=== PATIENT | male | born 1950 | race Caucasian/White ===

== ENCOUNTER 2016-11-24 18:48 | Inpatient (IN) | payer MEDICARE, MEDICAID ==
[2016-11-24] MEDS ORDERED: cefTRIAXone(*) 2 GM in NS 0.9% 100 ML* 100 ML IVPB ONE (19:28)
[2016-11-24] MEDS ORDERED: Azithromycin IV(*) 250 MG in NS 0.9% 250 ML* 250 ML IVPB ONE (19:28)
--- NOTE | 2016-11-24 19:36 | ED ---
Shortness of Breath - HPI Summary HPI Summary: Patient presents for delayed evaluation of shortness of breath with subjective chills today. [place] sick for the last 4 to 5 days, self treating his green productive cough with Coricidin without relief. Feels short of breath at rest and walking. No longer smokes, but previous 30 to 45 pack year history. Denies sick contacts or chest pain. - History of Current Complaint Chief Complaint: EDGeneral Time Seen by Provider: 11/24/16 19:21 Hx Obtained From: Patient Onset/Duration: Gradual Onset Current Severity: Moderate Aggrevating Factors: Nothing Alleviating Factors: Nothing Associated Signs & Symptoms: Cough (Productive) - Allergy/Home Medications Allergies/Adverse Reactions: Allergies Allergy/AdvReac Type Severity Reaction Status Date / Time No Known Allergies Allergy Verified 11/24/16 19:21 Home Medications: Home Medications Aspirin [Tyson Aspirin] 325 mg PO DAILY 11/24/16 [History Confirmed 11/24/16] HYDROcodone/ACETAMIN 5-325 MG* [[place] 5-325 TAB*] 1 tab PO Q6H PRN 11/24/16 [ History Confirmed 11/24/16] PMH/Surg Hx/FS Hx/Imm Hx Previously Healthy: No - Immunization History Date of Tetanus Vaccine: unk Date of Influenza Vaccine: unk Infectious Disease History: No Infectious Disease History: Denies: Traveled Outside the [place] in Last 30 Days - Social History Alcohol Use: None Substance Use Type: Reports: None Smoking Status (MU): Former Smoker Review of Systems Positive: Chills. Negative: Fever Cardiovascular: Negative Negative: Chest Pain Positive: Shortness Of Breath, Cough All Other Systems Reviewed And Are Negative: Yes Physical Exam Triage Information Reviewed: Yes Vital Signs On Initial Exam: Initial Vitals Temp Pulse Resp BP Pulse Ox 99.8 F 80 16 129/69 93 11/24/16 19:05 11/24/16 19:05 11/24/16 19:05 11/24/16 19:05 11/24/16 19:05 Vital Signs Reviewed: Yes Appearance: Positive: No Pain Distress, Well-Nourished, Ill-Appearing Skin: Positive: Warm, Skin Color Reflects Adequate Perfusion, Dry ENT: Positive: Normal ENT inspection, Hearing grossly normal, Pharynx normal, Nasal congestion Respiratory/Lung Sounds: Positive: Decreased Breath Sounds, Wheezes - R middle lobe wheezing Cardiovascular: Positive: Normal, RRR, Pulses are Symmetrical in both Upper and Lower Extremities Abdomen Description: Positive: Nontender, No Organomegaly, Soft Musculoskeletal: Positive: Normal, Strength/ROM Intact Neurological: Positive: Normal, Sensory/Motor Intact, Alert, Oriented to Person Place, Time, CN Intact II-III, Reflexes Intact, NV Bundle Intact Distally - [place] Coma Scale Coma Scale Total: 15 Diagnostics - Vital Signs Vital Signs Temp Pulse Resp BP Pulse Ox 11/24/16 19:05 99.8 F 80 16 129/69 93 - Laboratory Result Diagrams: 11/24/16 19:13 11/24/16 19:13 Lab Statement: Any lab studies that have been ordered have been reviewed, and results considered in the medical decision making process. - EKG No standard instances Cardiac Rate: NL EKG Rhythm: Sinus Rhythm ST Segment: Normal Ectopy: PVCs Course/Dx - Diagnoses Differential Diagnosis/HQI/PQRI: Positive: [place], Pneumonia, Other - Primary concern for post viral bacterial pneumonia. Tachypneic, hypoxic, focal lung sounds and subjective systemic symptoms. Provider Diagnoses: Acute bronchitis, Hypoxia - Physician Notifications Discussed Care of Patient With: Discussed case with hospitalist and he will admit for observation. Discharge - Discharge Plan Condition: Stable Disposition: ADMITTED TO [facility]
[2016-11-24 19:38] LABS: Add Diff/Slide Review? Slide Review Added; Comments Flag Yes; Hematocrit 38 % (42-52); Hemoglobin 12.6 g/dl (14.0-18.0); Mean Corpuscular HGB Conc 33 g/dl (31-36); Mean Corpuscular Hemoglobin 30 pg (27-31); Mean Corpuscular Volume 90 fL (80-94); Mean Platelet Volume 9 um3 (7.4-10.4); Red Blood Count 4.16 10^6/ul (4.0-5.4); Red Cell Distribution Width 13 % (10.5-15); White Blood Count 13.3 10^3/ul (3.5-10.8)
[2016-11-24] MEDS ORDERED: Albuterol/Ipratropium NEB.SOL* Albuterol 2.5 MG/Ipratropium 0.5 MG 3 ML ONE (19:45)
[2016-11-24 19:49] LABS: BUN/Creatinine Ratio 10.9 (8-20); EGFR African American 85.9 (>60); EGFR Non-African American 66.8 (>60); Potassium 3.3 mmol/L (3.5-5.0)
[2016-11-24 19:51] LABS: Troponin I 0.03 ng/mL (<0.04)
[2016-11-24] MEDS: Albuterol/Ipratropium NEB.SOL* Albuterol 2.5 MG/Ipratropium 0.5 MG 3 ML INH SCH ×3 (19:51→20:25)
--- NOTE | 2016-11-24 20:01 | RAD ---
HISTORY: Shortness of breath COMPARISONS: November 21, 2010 VIEWS:1: Single frontal portable view of the chest at 7:37 PM FINDINGS: LINES AND TUBES: None. CARDIOMEDIASTINAL SILHOUETTE: The cardiomediastinal silhouette is normal for portable technique. PLEURA: The costophrenic angles are sharp. No pleural abnormalities are noted. LUNG PARENCHYMA: There is a diffuse reticular pattern with indistinct pulmonary vessels. ABDOMEN: The upper abdomen is clear. There is no subphrenic gas. BONES AND SOFT TISSUES: The patient is status post median sternotomy. IMPRESSION: MILD PULMONARY INTERSTITIAL EDEMA
[2016-11-24] MEDS ORDERED: Iohexol 350* (CONTRAST) 500 ML MDV IV ONE (20:14)
--- NOTE | 2016-11-24 21:12 | RAD ---
HISTORY: Shortness of breath COMPARISONS: None TECHNIQUE: Multiple contiguous axial CT scans of the chest were obtained after the administration of nonionic intravenous contrast, timed to the pulmonary arterial phase of contrast enhancement.. Coronal and sagittal multiplanar reformations are also submitted for review. FINDINGS: The study is limited by patient motion artifact. NECK AND THYROID: The lower neck and thyroid are unremarkable. CHEST WALL: There is no lower cervical, axillary, or supraclavicular lymphadenopathy by size criteria. HEART AND PERICARDIUM: The heart is unremarkable. AORTA AND PULMONARY VASCULATURE: Evaluation of the segmental branches of the lower lungs bilaterally is limited by patient breathing motion artifact. There is no appreciable pulmonary arterial filling defect. There is enlargement of the pulmonary artery compared to the aorta. MEDIASTINUM: There is no mediastinal lymphadenopathy by size criteria. LONI: There is no hilar lymphadenopathy by size criteria. AIRWAY AND ESOPHAGUS: The airway is unremarkable, without endobronchial filling defect. The esophagus is grossly normal. LUNG PARENCHYMA: There is minimal right basilar atelectasis. There is patchy ground glass opacification of the left upper lobe and superior segment of the left lower lobe PLEURA: There is a small right pleural effusion UPPER ABDOMEN: A hepatic cyst is noted BONES AND SOFT TISSUES: Degenerative changes are noted of the spine OTHER: None. IMPRESSION: 1. LIMITED STUDY. 2. WITHIN THE LIMITATIONS OF THE STUDY, THERE IS NO PULMONARY ARTERIAL FILLING DEFECT TO SUGGEST PULMONARY EMBOLISM. 3. ENLARGEMENT OF THE PULMONARY ARTERY SUGGESTIVE OF PULMONARY ARTERIAL HYPERTENSION 4. SMALL RIGHT PLEURAL EFFUSION WITH RIGHT BASILAR ATELECTASIS. 5. PATCHY GROUNDGLASS OPACIFICATION OF THE LEFT UPPER LUNG. WHILE THIS MAY BE INFECTIOUS OR INFLAMMATORY NATURE, RECOMMEND FOLLOW-UP IMAGING WITH CT OF THE CHEST IN 3-6 MONTHS TO DOCUMENT RESOLUTION
--- NOTE | 2016-11-24 22:05 | HP ---
H&P (Free Text) History and Physical: PCP: Gia Espinosa MD Date/Time of Evaluation: 11/24/2016 2200 CC: cough, malaise HPI: Mr David is a 65YO male HX COPD who reports onset of SOB and cough producing copious green phlegm Sunday morning. Since he has had progressive fatigue and SOB along with subjective chills. He denies chest pain, N/V, change in bowel/bladder, or other issues. Upon entering the ED he was found to be hypoxic on room air with an saO2 in the high 80s. His influenza vaccine is up-to -date, but he is uncertain of his pneumonia vaccine status. Of note, he informed the ED provider that he remembers seeing him previously in Dr Espinosa's office & really thought highly of him. However, he has never met the ED provider before. Due to this concern for confusion, hypoxia, and living alone, request for overnight observation was made and will be arranged for monitoring and initiation of IV ABX. PMedHx CAD/CABG COPD DVT on warfarin HTN HLD Allergies No Known Allergies Allergy (Verified 11/24/16 19:21) Ambulatory Orders Atenolol TAB* [Tenormin TAB* 50 MG] 100 mg PO BID 04/07/14 Furosemide TAB* [Lasix TAB*] 40 mg PO BID PRN 04/07/14 Lovastatin 80 mg PO BEDTIME 04/07/14 Nitroglycerin [Nitrostat] 0.4 mg SL PRN 04/07/14 Warfarin TAB(*) [Coumadin TAB(*)] 5 mg PO 1700 04/07/14 hydrALAZINE TAB* [Apresoline TAB*] 25 mg PO TID 04/07/14 Aspirin TAB* 325 mg PO DAILY 05/26/14 Klor-Con M20 20 meq PO DAILY 05/26/14 Losartan Potassium [Cozaar] 50 mg PO DAILY 05/26/14 Aspirin [Tyson Aspirin] 325 mg PO DAILY 11/24/16 HYDROcodone/ACETAMIN 5-325 MG* [[place] 5-325 TAB*] 1 tab PO Q6H PRN 11/24/16 PSurgHx tonsillectomy 4vCABG w/ vein graft x3 failed appendectomy SocHx: quit smoking >15years ago, no alcohol or recreational drug use; single, lives alone; on disability; full code status FamHx: strongly positive for CAD ROS: as above, otherwise reviewed and all were negative Constitutional: NAD, normally developed, overweight white male vitals: Vital Signs Temp 37.7 C 11/24/16 19:05 Pulse 87 11/24/16 21:04 Resp 15 11/24/16 21:04 BP 101/46 11/24/16 21:02 Pulse Ox 95 11/24/16 21:04 Intake & Output 11/23/16 11/24/16 11/24/16 23:59 11:59 23:59 Intake Total 100 Balance 100 Weight 72.575 kg Intake: IV Fluids 100 HEENM: atraumatic; sclera/conjunctiva: non-icteric/clear; hearing: clinically intact; oropharynx: clear, mucosa moist Neck: soft tissue: non-tender; thyroid: normal Pulmonary: clear to auscultation bilaterally, poor aeration, no accessory muscle use CV: RR/RR, normal S1S2, no carotid bruit, no jugular venous distention, 2+ B DP/ PT, no edema Abdominal: soft, non-distended, non-tender, no rebound/guarding/rigidity, normoactive bowel sounds, no hepatosplenomegaly or masses, no costovertebral angle tenderness Musculoskeletal: general: grossly intact; gait: stable Integumental: normal appearance and texture Psychiatric orientation: AA&O to PPS affect: calm mood: pleasant eye contact: good content: reliable responses: timely insight: fair to good Testing: Lab Results 11/24/16 11/24/16 11/24/16 Range/Units 19:13 19:13 19:13 WBC 13.3 H (3.5-10.8) 10^3/ul RBC 4.16 (4.0-5.4) 10^6/ul Hgb 12.6 L (14.0-18.0) g/dl Hct 38 L (42-52) % MCV 90 (80-94) fL MCH 30 (27-31) pg MCHC 33 (31-36) g/dl RDW 13 (10.5-15) % Plt Count 176 (150-450) 10^3/ul MPV 9 (7.4-10.4) um3 Neut % (Auto) 80.6 (38-83) % Lymph % (Auto) 5.3 L (25-47) % [place] % (Auto) 13.6 H (1-9) % Eos % (Auto) 0.3 (0-6) % Baso % (Auto) 0.2 (0-2) % Absolute Neuts (auto) 10.7 H (1.5-7.7) 10^3/ul Absolute Lymphs (auto) 0.7 L (1.0-4.8) 10^3/ul Absolute Monos (auto) 1.8 H (0-0.8) 10^3/ul Absolute Eos (auto) 0 (0-0.6) 10^3/ul Absolute Basos (auto) 0 (0-0.2) 10^3/ul Absolute Nucleated RBC 0 10^3/ul Nucleated RBC % 0 INR (Anticoag Therapy) (0.89-1.11) Sodium 133 (133-145) mmol/L Potassium 3.3 L (3.5-5.0) mmol/L Chloride 96 L (101-111) mmol/L Carbon Dioxide 28 (22-32) mmol/L Anion Gap 9 (2-11) mmol/L BUN 12 (6-24) mg/dL Creatinine 1.10 (0.67-1.17) mg/dL Est GFR ( Amer) 85.9 (>60) Est GFR (Non-Af Amer) 66.8 (>60) BUN/Creatinine Ratio 10.9 (8-20) Glucose 125 H (70-100) mg/dL Lactic Acid 1.6 (0.5-2.0) mmol/L Calcium 9.0 (8.6-10.3) mg/dL Troponin I 0.03 (<0.04) ng/mL 11/24/16 Range/Units 19:13 WBC (3.5-10.8) 10^3/ul RBC (4.0-5.4) 10^6/ul Hgb (14.0-18.0) g/dl Hct (42-52) % MCV (80-94) fL MCH (27-31) pg MCHC (31-36) g/dl RDW (10.5-15) % Plt Count (150-450) 10^3/ul MPV (7.4-10.4) um3 Neut % (Auto) (38-83) % Lymph % (Auto) (25-47) % [place] % (Auto) (1-9) % Eos % (Auto) (0-6) % Baso % (Auto) (0-2) % Absolute Neuts (auto) (1.5-7.7) 10^3/ul Absolute Lymphs (auto) (1.0-4.8) 10^3/ul Absolute Monos (auto) (0-0.8) 10^3/ul Absolute Eos (auto) (0-0.6) 10^3/ul Absolute Basos (auto) (0-0.2) 10^3/ul Absolute Nucleated RBC 10^3/ul Nucleated RBC % INR (Anticoag Therapy) 1.74 H (0.89-1.11) Sodium (133-145) mmol/L Potassium (3.5-5.0) mmol/L Chloride (101-111) mmol/L Carbon Dioxide (22-32) mmol/L Anion Gap (2-11) mmol/L BUN (6-24) mg/dL Creatinine (0.67-1.17) mg/dL Est GFR ( Amer) (>60) Est GFR (Non-Af Amer) (>60) BUN/Creatinine Ratio (8-20) Glucose (70-100) mg/dL Lactic Acid (0.5-2.0) mmol/L Calcium (8.6-10.3) mg/dL Troponin I (<0.04) ng/mL ECG, personally reviewed: sinus 1st degree AV block rate 80, PVCs, no ischemia pCXR, personally reviewed: IMPRESSION: MILD PULMONARY INTERSTITIAL EDEMA CTA chest, personally reviewed: IMPRESSION: 1. LIMITED STUDY. 2. WITHIN THE LIMITATIONS OF THE STUDY, THERE IS NO PULMONARY ARTERIAL FILLING DEFECT TO SUGGEST PULMONARY EMBOLISM. 3. ENLARGEMENT OF THE PULMONARY ARTERY SUGGESTIVE OF PULMONARY ARTERIAL HYPERTENSION 4. SMALL RIGHT PLEURAL EFFUSION WITH RIGHT BASILAR ATELECTASIS. 5. PATCHY GROUNDGLASS OPACIFICATION OF THE LEFT UPPER LUNG. WHILE THIS MAY BE INFECTIOUS OR INFLAMMATORY NATURE, RECOMMEND FOLLOW-UP IMAGING WITH CT OF THE CHEST IN 3-6 MONTHS TO DOCUMENT RESOLUTION Impression: 65M presenting with confusion and bronchitis concerning for early pneumonia DIAGNOSIS & PLAN Primary bronchitis vs early pneumonia : IVFs : anti-tussives : IV azithromycin & ceftriaxone : supportive care COPD exacerbation : supplemental oxygen : albuterol nebs : mometasone/formoterol : tiotropium : IV methylprednisolone : guaifenesin : incentive spirometry confusion, suspected : likely 2nd infection, monitor Secondary CAD/CABG : continue aspirin DVT : continue warfarin : monitor INR periodically HTN : continue losartan, atenolol, & hydralazine : hold furosemide HLD : continue lovastatin Admission Rational: observation for bronchitis & COPD exacerbation DVTp: warfarin Code Status: full HCP: [facility]лена [facility]
[2016-11-24] MEDS ORDERED: Acetaminophen TAB* 325 MG PO PRN (22:33)
[2016-11-24] MEDS ORDERED: Albuterol 2.5 MG/3 ML NEB.SOL* (0.083%) INH PRN (22:33)
[2016-11-24] MEDS ORDERED: Melatonin (NF) 3 MG TAB PO PRN (22:33)
[2016-11-24] MEDS ORDERED: traMADol TAB* 50 MG PO PRN (22:37)
[2016-11-24] MEDS ORDERED: Ondansetron INJ* 2 MG/ML VIAL IV PRN (22:37)
[2016-11-24] MEDS ORDERED: Benzonatate CAP* 100 MG PO PRN (22:58)
[2016-11-24] MEDS ORDERED: methylPREDNISolone 125 MG* 2 ML VIAL IV ONE (23:19)
[2016-11-25] MEDS: Azithromycin IV(*) 500 MG in NS 0.9% 250 ML* 250 ML IVPB SCH ×2 (00:54→23:28)
[2016-11-25] MEDS: CMCS Melatonin (NF) 3 MG TAB PO PRN (01:04)
[2016-11-25] MEDS: NS 0.9% 1000 ML* 1,000 ML IV SCH ×2 (01:05→10:14)
[2016-11-25] MEDS: Albuterol 2.5 MG/3 ML NEB.SOL* (0.083%) INH SCH ×4 (01:48→21:16)
[2016-11-25] MEDS: Omeprazole CAP* 20 MG PO SCH (05:58)
[2016-11-25 06:25] LABS: Hematocrit 35 % (42-52); Hemoglobin 11.7 g/dl (14.0-18.0); Mean Corpuscular HGB Conc 34 g/dl (31-36); Mean Corpuscular Hemoglobin 30 pg (27-31); Mean Corpuscular Volume 91 fL (80-94); Mean Platelet Volume 9 um3 (7.4-10.4); Red Blood Count 3.85 10^6/ul (4.0-5.4); Red Cell Distribution Width 13 % (10.5-15); White Blood Count 9.7 10^3/ul (3.5-10.8)
[2016-11-25 06:35] LABS: Calcium 8.7 mg/dL (8.6-10.3); EGFR African American 95.9 (>60); EGFR Non-African American 74.5 (>60); Potassium 3.5 mmol/L (3.5-5.0)
[2016-11-25] MEDS: Mometasone/Formoter 200/5 MDI INH SCH ×2 (07:26→21:16)
[2016-11-25] MEDS: Tiotropium CAP.INH* CAP.INH/18 MCG (USE ORDER SET !) INH SCH (07:26)
[2016-11-25] MEDS: Losartan TAB* 25 MG PO SCH (08:17)
[2016-11-25] MEDS: Aspirin TAB* 325 MG PO SCH (08:18)
[2016-11-25] MEDS: guaiFENesin ER TAB 600 MG PO SCH ×2 (08:18→19:57)
[2016-11-25] MEDS: hydrALAZINE TAB* 25 MG PO SCH ×3 (08:18→19:58)
[2016-11-25] MEDS: Docusate CAP* 100 MG PO SCH ×2 (08:18→19:58)
[2016-11-25] MEDS: Atenolol TAB* 50 MG PO SCH ×2 (08:21→19:58)
[2016-11-25] MEDS ORDERED: Spiriva Inhaler DEVICE* 1 EACH DEVICE INH ONE (09:00)
[2016-11-25] MEDS ORDERED: methylPREDNISolone SOD 40 MG* 1 ML VIAL IV SCH (09:00)
--- NOTE | 2016-11-25 13:03 | PN ---
Subjective Date of Service: 11/25/16 Interval History: Patient seen this morning. Reports symptoms are improving. Cough, wheezing has improved. No further chills. Has not been up to ambulate much. Family History: Unchanged from Admission Social History: Unchanged from Admission Past Medical History: Unchanged from Admission Objective Active Medications: Acetaminophen (Tylenol Tab*) 650 mg PO Q6H PRN Albuterol (Ventolin 2.5 Mg/3 Ml Neb.Yuli*) 2.5 mg INH Q2H PRN Albuterol (Ventolin 2.5 Mg/3 Ml Neb.Yuli*) 2.5 mg INH [id number] AWAKE KIRSTIE Aspirin (Aspirin Tab*) 325 mg PO DAILY KIRSTIE Atenolol (Tenormin Tab*) 100 mg PO BID KIRSTIE Atorvastatin Calcium (Lipitor*) 20 mg PO BEDTIME KIRSTIE Benzonatate (Tessalon Cap*) 100 mg PO TID PRN Docusate Sodium (Colace Cap*) 200 mg PO BID KIRSTIE Guaifenesin (Mucinex*) 1,200 mg PO BID KIRSTIE Hydralazine HCl (Apresoline Tab*) 25 mg PO TID [facility] Ceftriaxone Sodium 1,000 mg/ (Sodium Chloride) 50 mls @ 200 mls/hr IVPB Q24H KIRSTIE Azithromycin 500 mg/ Sodium (Chloride) 250 mls @ 250 mls/hr IVPB Q24H [facility] Losartan Potassium (Cozaar Tab*) 50 mg PO DAILY [facility] Melatonin (Melatonin (Nf)) 3 mg PO BEDTIME PRN; Protocol Mometasone Furoate/Formoterol Fumar (Dulera 200/5 Mdi*) 2 puff INH BID KIRSTIE Omeprazole (Prilosec Cap*) 20 mg PO DAILY@0600 [facility] Ondansetron HCl (Zofran Inj*) 4 mg IV Q6H PRN Prednisone (Deltasone Tab*) 40 mg PO DAILY KIRSTIE Tiotropium [place] (Spiriva Cap.Inh*) 1 cap INH DAILY KIRSTIE Tramadol HCl (Ultram*) 50 mg PO Q6H PRN Warfarin Sodium (Coumadin Tab(*)) 5 mg PO 1700 [facility] Vital Signs 11/25/16 11/25/16 11/25/16 01:18 01:49 01:52 Temperature 99.9 F Pulse Rate 73 62 73 Respiratory 19 14 19 Rate Blood Pressure 101/65 101/65 (mmHg) O2 Sat by Pulse 92 92 92 Oximetry 11/25/16 11/25/16 11/25/16 01:55 04:18 07:30 Temperature Pulse Rate 65 63 Respiratory 19 16 14 Rate Blood Pressure 116/68 (mmHg) O2 Sat by Pulse 89 92 Oximetry 11/25/16 11/25/16 07:54 08:00 Temperature 97.8 F Pulse Rate 72 Respiratory 16 16 Rate Blood Pressure 100/61 (mmHg) O2 Sat by Pulse 94 Oximetry Oxygen Devices in Use Now: Nasal Cannula - 2L Appearance: Middle-aged, , obese M, laying in bed in NAD Eyes: No Scleral Icterus Ears/Nose/Mouth/Throat: Mucous Membranes Moist Neck: NL Appearance and Movements; NL JVP Respiratory: Symmetrical Chest Expansion and Respiratory Effort, Clear to Auscultation Cardiovascular: RRR, - - ZANDER Abdominal: NL Sounds; No Tenderness; No Distention Lymphatic: No Cervical Adenopathy Extremities: No Edema Skin: No Rash or Ulcers Neurological: Alert and Oriented x 3 Result Diagrams: 11/25/16 06:13 11/25/16 06:13 Microbiology and Other Data: Microbiology 11/24/16 23:40 Nasal Screen MRSA (PCR)(YUE) - Final Nasal Mrsa Negative 11/24/16 23:40 Influenza Types A,B Antigen (YUE) - Final Nasopharyngeal Specimen received for Influenza A/B Molecular testing Assess/Plan/Problems-Billing Assessment: Acute hypoxic respiratory failure 2/2 CAP and COPD exacerbation in a 65 yo M with hx of HTN, CAD, chronic systolic CHF, thrombus (DVT vs intracardiac) on coumadin - Patient Problems (1) CAP (community acquired pneumonia) Current Visit: Yes Comment: Continue CTX and Azithromycin. Leukocytosis resolved. Wean O2 as able. (2) COPD exacerbation Current Visit: Yes Comment: Reported wheezing on previous physical exams. No hx of COPD but hx of tobacco abuse. Will switch to oral Prednisone 40 mg daily. Continue Dulera, Spiriva and albuterol. (3) Confusion Current Visit: Yes Comment: Seems to have resolved (4) CAD (coronary artery disease) Current Visit: Yes Comment: Continue ASA, statin, beta-lacie (held this AM due to borderline BPs) (5) Chronic systolic CHF (congestive heart failure) Current Visit: Yes Comment: Holding Lasix. Continue remainder of home cardiac medications. (6) Thrombus Current Visit: Yes Comment: From patient hx sounds like intracardiac but no documentation. Contiune coumadin. Monitor INR (7) DVT prophylaxis Current Visit: Yes Comment: Herminio
[2016-11-25] MEDS: Heparin VIAL(*) 5000 UNITS/ML VIAL (FIVE THOUSAND) SUBCUT SCH ×2 (14:08→23:28)
[2016-11-25] MEDS ORDERED: Warfarin TAB(*) 5 MG PO SCH (17:00)
[2016-11-25] MEDS ORDERED: cefTRIAXone VIAL(*) 1,000 MG in NS 0.9% 50 ML* 50 ML IVPB SCH (18:00)
[2016-11-25] MEDS ORDERED: Atorvastatin* 20 MG TAB PO SCH (21:00)
[2016-11-26] MEDS: CMCS Melatonin (NF) 3 MG TAB PO PRN (01:17)
[2016-11-26] MEDS: Albuterol 2.5 MG/3 ML NEB.SOL* (0.083%) INH SCH ×2 (03:04→07:43)
[2016-11-26] MEDS: Omeprazole CAP* 20 MG PO SCH (05:11)
[2016-11-26] MEDS: Heparin VIAL(*) 5000 UNITS/ML VIAL (FIVE THOUSAND) SUBCUT SCH (05:11)
[2016-11-26 07:26] VITALS: BP 118/62
[2016-11-26] MEDS: Aspirin TAB* 325 MG PO SCH (07:28)
[2016-11-26] MEDS: hydrALAZINE TAB* 25 MG PO SCH (07:28)
[2016-11-26] MEDS: Docusate CAP* 100 MG PO SCH (07:28)
[2016-11-26] MEDS: Atenolol TAB* 50 MG PO SCH (07:28)
[2016-11-26] MEDS: guaiFENesin ER TAB 600 MG PO SCH (07:28)
[2016-11-26] MEDS: Losartan TAB* 25 MG PO SCH (07:28)
[2016-11-26] MEDS: Mometasone/Formoter 200/5 MDI INH SCH (07:45)
[2016-11-26] MEDS: Tiotropium CAP.INH* CAP.INH/18 MCG (USE ORDER SET !) INH SCH (07:45)
[2016-11-26] MEDS ORDERED: predniSONE TAB* 20 MG PO SCH (09:00)
--- NOTE | 2016-11-26 10:46 | DCNOTE ---
Patient seen this morning. Says he feels well. Still coughing, productive. Breathing well. Has been dressed and ready to leave since 6 AM. On exam, RRR, s1 and s2 present, ZANDER, lungs CTA B/L, no LE edema Discharge home today on ABx and COPD medications. Told patient to hold on returning to work until he is feeling better.
--- NOTE | 2016-11-26 22:58 | DS ---
DISCHARGE SUMMARY: DATE OF ADMISSION: 11/24/16 DATE OF DISCHARGE: 11/26/16 PRIMARY CARE PHYSICIAN: Antione Espinosa MD PRINCIPAL DISCHARGE DIAGNOSES: 1. Community-acquired pneumonia. 2. Chronic obstructive pulmonary disease exacerbation. SECONDARY DIAGNOSES: 1. Coronary artery disease, status post CABG. 2. Thrombus, on warfarin. 3. Hypertension. 4. Hyperlipidemia. DISCHARGE MEDICATION REGIMEN: 1. Albuterol inhaler 1 puff inhaled every 4 hours as needed for shortness of breath or wheezing. 2. Cefpodoxime 200 mg by mouth 2 times daily. 3. Azithromycin 500 mg by mouth daily. 4. Spiriva 1 capsule inhaled daily. 5. Guaifenesin 1200 mg by mouth 2 times daily. 6. Prednisone 40 mg by mouth daily. 7. Aspirin 325 mg by mouth daily. 8. Hydralazine 25 mg by mouth 2 times daily. 9. Warfarin 5 mg by mouth daily. 10. Losartan 50 mg by mouth daily. 11. Lovastatin 80 mg by mouth daily. 12. Klor-Con 20 mEq by mouth daily. 13. Atenolol 100 mg by mouth 2 times daily. 14. Lasix 40 mg by mouth 2 times daily. 15. [place] 1 tablet by mouth every 6 hours as needed for pain. STUDIES DONE DURING HOSPITALIZATION: Chest x-ray, impression: Mild pulmonary interstitial edema. CTA of the chest, impression: No pulmonary arterial filling defect to suggest PE, enlargement of the pulmonary artery suggestive of pulmonary arterial hypertension, small right pleural effusion with right basilar atelectasis, patchy ground-glass opacification of the left upper lung. Others may be infectious or inflammatory. I recommend followup imaging with CT of the chest from 3 to 6 months to document resolution. HISTORY OF PRESENT ILLNESS AND HOSPITAL SUMMARY: Please see the full history and physical by Dr. Neal Peralta for full details. Briefly, Mr. David is a 65- year-old man with past medical history as above, who presents to the hospital with progressive fatigue, shortness of breath, cough, and subjective chills. The patient had some signs of pneumonia on imaging, also had an elevated white count of 13. He was started on IV antibiotics as well as steroids, nebulizers, and inhalers. The patient's symptoms rapidly improved. He was discharged home to complete a course of antibiotics as now the patient is also started on some COPD medications, which can be continued or discontinued at the discretion of the patient's PCP. Please note that the patient was initially supposed to be prescribed cefpodoxime , azithromycin; however, he felt that he was going to have a problem getting to the pharmacy the day of discharge, so he was sent home with a few days of Augmentin until he was able to get to the pharmacy. He was also given 1 to 2 days of some of daily newly prescribed medications. The patient should follow up with Dr. Espinosa as an outpatient. TIME SPENT: Total time spent on this discharge 35 minutes. This is a summary of hospitalization. Please see the full medical record for further details. CC: Antione Espinosa MD* [id number]/[facility] #: [id number] MTDD
== END 2016-11-26 13:10 | disposition home or self-care (01) | DRG 194 ==
LOC: ED 18:48 → MED 23:25 → OBSVTOIN 11-25 16:06
PROVIDERS: ADMIT Hospitalist; ATTEND Hospitalist
DX: J18.8 Other pneumonia, unspecified organism (principal); J44.1 Chronic obstructive pulmonary disease with (acute) exacerbation; I11.0 Hypertensive heart disease with heart failure; I50.22 Chronic systolic (congestive) heart failure; I25.810 Atherosclerosis of coronary artery bypass graft(s) without angina pectoris; E78.5 Hyperlipidemia, unspecified; Z79.82 Long term (current) use of aspirin; Z79.01 Long term (current) use of anticoagulants; Z79.899 Other long term (current) drug therapy; Z82.49 Family history of ischemic heart disease and other diseases of the circulatory system; Z95.1 Presence of aortocoronary bypass graft; Z86.718 Personal history of other venous thrombosis and embolism; Z87.891 Personal history of nicotine dependence
CPT/HCPCS: 36415; 71010; 71275; 80048; 83605; 84484; 85025; 85610; 86803; 87040; 87077; 87150; 87205; 87502; 87641; 93005; 94640; 94760; A9270-GY; J0456; J0696; J1644; J2920; J2930; J7512; Q9967

== ENCOUNTER 2017-02-13 10:29 | Inpatient (IN) | payer MEDICARE, MEDICAID ==
[2017-02-13 11:06] LABS: Hematocrit 34 % (42-52); Mean Corpuscular HGB Conc 33 g/dl (31-36); Mean Corpuscular Hemoglobin 29 pg (27-31); Mean Corpuscular Volume 89 fL (80-94); Mean Platelet Volume 8 um3 (7.4-10.4); Red Blood Count 3.79 10^6/ul (4.0-5.4); Red Cell Distribution Width 15 % (10.5-15); White Blood Count 6.5 10^3/ul (3.5-10.8)
[2017-02-13 11:13] LABS: Albumin 3.2 g/dL (3.2-5.2); BUN/Creatinine Ratio 19.3 (8-20); Calcium 7.5 mg/dL (8.6-10.3); EGFR African American 82.2 (>60); EGFR Non-African American 63.9 (>60); Globulin 2.5 g/dL (2-4); Magnesium 1.5 mg/dL (1.9-2.7); Total Bilirubin 0.9 mg/dL (0.2-1.0); Total Protein 5.7 g/dL (6.4-8.9)
[2017-02-13 11:14] LABS: Troponin I 0.02 ng/mL (<0.04)
--- NOTE | 2017-02-13 11:14 | RAD ---
Indication: Palpitations, lightheadedness. Comparison: December 07, 2016 chest radiograph and December 06, 2016 CT. Technique: Upright AP 1058 hours Report: Resolution of previous inflammatory infiltrate at the LEFT lung base. Diffuse mild prominence of the interstitial markings. No alveolar consolidation, pleural effusion, pneumothorax. Median sternotomy wires. Mild cardiomegaly. Unremarkable central pulmonary vasculature and mediastinal contours. Negative for free air beneath the diaphragm. IMPRESSION: Cardiomegaly without evidence for pulmonary edema.
[2017-02-13 11:33] LABS: TSH (Thyroid Stimulating Horm) 2.06 mcIU/mL (0.34-5.60)
[2017-02-13] MEDS ORDERED: Magnesium Sulfate 2 GM IV* 2 GM/50 ML BAG IVPB ONE (11:51)
[2017-02-13] MEDS ORDERED: Acetaminophen TAB* 325 MG PO PRN (11:51)
[2017-02-13] MEDS ORDERED: Potassium Chlor TAB* 20 MEQ TAB.ER PO ONE (11:51)
[2017-02-13] MEDS ORDERED: HYDROcodone/ACETAMIN 5-325 MG* 1 TAB PO PRN (11:55)
[2017-02-13] MEDS ORDERED: Albuterol 2.5 MG/3 ML NEB.SOL* (0.083%) INH PRN (11:55)
[2017-02-13] MEDS ORDERED: Warfarin TAB(*) 2.5 MG PO SCH (12:00)
[2017-02-13] MEDS ORDERED: KCL 20 MEQ/100 ML IVPREMIX* 20 MEQ/100 ML BAG ONE ×2 (12:10→22:11)
[2017-02-13] MEDS: KCL 20 MEQ/100 ML IVPREMIX* 20 MEQ/100 ML BAG IV SCH ×3 (12:11→22:13)
[2017-02-13 16:21] LABS: BUN/Creatinine Ratio 16.4 (8-20); Calcium 9.2 mg/dL (8.6-10.3); EGFR African American 68.2 (>60); Potassium 4.1 mmol/L (3.5-5.0)
[2017-02-13 16:22] LABS: Troponin I 0.03 ng/mL (<0.04)
--- NOTE | 2017-02-13 16:26 | HP ---
HISTORY AND PHYSICAL: DATE OF ADMISSION: 02/13/17 ATTENDING PROVIDER: Dr. Becerra * (dictated by Stew De León NP) PRIMARY CARE PROVIDER: Dr. Espinosa. CONSULTING CAMPAIGN FUNDRAISER: Dr. Milian. PRIMARY CAMPAIGN FUNDRAISER: Dr. Anaya. CHIEF COMPLAINT: 1. Lightheadedness. 2. Almost passed out. HISTORY OF PRESENT ILLNESS: Mr. David is a 66-year-old male patient with fairly significant cardiac history. He has a history of COPD, CHF, CAD. His last known EF is around 30-35%. He has a history of atrial thrombus. He has a history of hypertension and he has a history of hyperlipidemia. He comes in to the ER today because yesterday he said he moved recently to [employer], he worked all day and he felt very tired and weak. He was more short of breath than he normally was with that activity. He never had any chest pain though. 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 He felt like he was going to pass out, although he did not pass out. He never had any chest pain. He did state that he felt short of breath. His boss called the nurse that works there and they were concerned and sent him to the hospital. He says the only change in the medication that he has had recently has been his warfarin. He says he has been taking his diuretics, his atenolol and his other medications as prescribed and they have not changed in sometime. He denies any recent nausea, vomiting or diarrhea. No fevers. He denied having any chest pressure, any chest heaviness, no discomfort whatsoever. He was concerned because he felt like he was again going to faint, so he came in to the hospital. He was evaluated. It was noted that he appeared to have an EKG with a heart rate remained around 50 and appeared to be in Wenckebach. Because of these findings, the hospitalist service was asked to evaluate for admission. It is also noted that he had several electrolyte abnormalities and we were asked to evaluate for admission. PAST MEDICAL HISTORY: Significant for: 1. COPD. 2. CHF. 3. Coronary artery disease. 4. Atrial thrombus. 5. Hypertension. 6. Hyperlipidemia. PAST SURGICAL HISTORY: He has had an appendectomy, tonsillectomy and he has had a CABG. HOME MEDICATIONS: Include: 1. Ventolin 1 puff inhaled every 4 hours as needed. 2. [place] 1 tablet p.o. q.i.d. as needed. 3. Lasix 80 mg p.o. b.i.d. 4. Albuterol 2.5 mg inhaled q.i.d. as needed. 5. Nitro 0.4 mg sublingual q. 5 minutes x3 for chest pain. 6. Tessalon Perles 200 mg p.o. b.i.d. as needed. 7. Aspirin 325 mg p.o. daily. 8. Mevacor 80 mg at bedtime. 9. Norvasc 10 mg daily. 10. Coumadin 5 mg on Sunday and Sunday. 11. Coumadin 2.5 mg on Sunday, Sunday, Sunday, , Sunday. 12. Spiriva 1 capsule inhaled daily. 13. Atenolol 100 mg p.o. b.i.d. 14. Hydralazine 25 mg p.o. t.i.d. as needed. 15. Potassium 20 mEq p.o. daily. 16. Losartan 50 mg p.o. daily. ALLERGIES TO MEDICATIONS: No known drug allergies. FAMILY HISTORY: Both his parents had [place]. SOCIAL HISTORY: He is a former smoker. He does not drink alcohol. He denies any recreational drug use. Surrogate decision maker is his friend Arely. REVIEW OF SYSTEMS: There is no documented fever. He denied having any significant weight change. There was no ear discharge. He denies having any rhinorrhea. There is no sore throat. No thyroid enlargement. He denies having any chest pain. There is no orthopnea. There is no nocturnal dyspnea. There is no abdominal pain. No nausea, vomiting. No dysuria. No frequency. There was no loss of consciousness, although he felt like he is going to pass out. No seizure activity. Review of 14 systems completed, all others negative. PHYSICAL EXAMINATION GENERAL: Mr. David is a 66-year-old male patient. He is sitting in the ER stretcher. He does not appear to be in any acute distress. He is awake and he is alert. VITAL SIGNS: Blood pressure 100/50 with a pulse of 50, respirations 20, O2 sat 95%, temperature 97.4. HEENT: Head is atraumatic and normocephalic. Eyes: EOMs are intact. His sclerae were anicteric and not pale. Throat: Oral mucosa appeared to be moist. He had no oropharyngeal erythema. NECK: Supple. LUNGS: Clear to auscultation bilaterally. No wheezes, rales or rhonchi. HEART: Sounds S1, S2. He was bradycardic. There are no murmurs, rubs or gallops. ABDOMEN: Soft, flat, nontender. Bowel sounds present. EXTREMITIES: Pulses were 2+ throughout. He is able to move all 4 extremities with 5/5 strength and no peripheral edema. NEUROLOGIC: He is awake. He is alert. He is oriented x3. His senior datastage developer are equal. His tongue is midline. He had no gross focal deficits. SKIN: Intact. LABORATORY DATA/IMAGING STUDIES: The labs today reveal WBC of 6.5, RBC of 3.79 , hemoglobin of 11.0, hematocrit of 34 and a platelet count of 172. His INR was 2.11. His sodium is 140, potassium is 3.0, chloride 108, bicarb 23, BUN 22 , creatinine 1.14, glucose of 100, lactate 1.3. Calcium is 7.5, mag 1.5. Total bilirubin is 0.9, AST 28, ALT 18. Alkaline phosphatase 44. Troponin is 0.02. BNP 281, albumin 3.2, TSH of 2.06. He had an EKG obtained today. Initially, it appeared to me, it looks to be like a Wenckebach with a rate of 50 with PVC. There is question if it is atrial fibrillation but I believe this appears to be Wenckebach. He had repeat EKG. His rate was noted to be 40 and again appears to be in a Wenckebach and he also appears to be in and out of bigemini and trigemini. Again, he is asymptomatic with this as his blood pressure is holding at 100/60. He had a chest x-ray obtained today and on my review, I did not appreciate any acute infiltrates or effusions. Radiology read as cardiomegaly without evidence of pulmonary edema. He had an echo just done in November of this year, just about two and a half months ago which showed an EF of 30%. Old medical records were reviewed. ASSESSMENT AND PLAN: Mr. David is a 66-year-old male patient coming into the ER today with complaints of feeling like he was going to faint and feeling dizzy. On evaluation here today, he was found to be bradycardic and because of this, we were asked to evaluate for admission. He will be admitted under observation status for: 1. Bradycardia. Again, certainly he has many factors that could be contributing to this. He is on a pretty high dose of atenolol 100 b.i.d. In addition to this, his electrolytes are profoundly low which is probably from his Lasix that he has been taking. The plan at this point, I did touch base with Dr. Milian and he is in agreement that we should try to cut the beta-lacie , get his potassium around 4 and get his magnesium up to 2. I am giving him 2 g of mag and I am giving him about 100 mEq of potassium to see if we can raise this up and see if this helps particularly with the bigemini and the heart rate and will decrease the beta- lacie. Hold tonight's dose altogether and tomorrow, I have ordered 50 mg in the morning and 50 at night with hold parameters for heart rate less than 60 or blood pressure less than 100. I am also going to go ahead and place him on telemetry. We will cycle his troponins. His TSH was negative. I do not think there is a need for echo at this point and again Cardiology will be following to help us. I have asked the nurses to place pacer pads in case he becomes symptomatic, which he is not now. 2. Hypotension. Again, this is probably multifactorial. Bradycardia certainly is not helping his blood pressure, though it is greater than 100. He is asymptomatic with it. I think for the time being, I would like to hold all of his medications with the exception of atenolol, we will give that tomorrow and we will reintroduce them slowly if we are able to. 3. Chronic obstructive pulmonary disease. Continue with his medications as prescribed. 4. History of congestive heart failure. He does not appear to be in failure. We will diurese as needed. 5. Coronary artery disease. He is on statin and aspirin, continue and we will continue with beta-lacie with hold parameters. 6. History of atrial thrombus. His INR is therapeutic. We will continue the warfarin. 7. Hypertension. Again, holding medications in the settings if his systolics are around 90 to 100. 8. Hyperlipidemia. Continue his Mevacor. 9. DVT prophylaxis. His INR is therapeutic at 2. We will continue his warfarin. 10. Fluid, electrolytes, nutrition. He can have a heart healthy diet. 11. Code status is full code. TIME SPENT: Time spent on the admission was 60 minutes, greater than half the time was spent [id number] with the patient obtaining my history and physical; the other time was spent going over the plan of care with patient and implementing plan of care. I did discuss the plan of care with my attending, Dr. Becerra; he is in agreement. I also discussed the plan of care with Dr. Milian; he was in agreement. STEW DE LEÓN NP CC: Dr. Espinosa; Dr. Milian; Dr. Anaya * [id number]/[facility] #: [id number] [facility] CENTERKandace
[2017-02-13] MEDS: Atorvastatin* 20 MG TAB PO SCH (20:11)
--- NOTE | 2017-02-13 23:44 | PN ---
Progress Note - Progress Note Note: Paged for prolonged MA interval and intermittent second degree heart block. Patient asymptomatic. Recommend EKG when he goes into second degree heart block. Will d/c his atenolol for now.
[2017-02-14 06:42] LABS: Hematocrit 37 % (42-52); Hemoglobin 12.2 g/dl (14.0-18.0); Mean Corpuscular HGB Conc 33 g/dl (31-36); Mean Corpuscular Hemoglobin 30 pg (27-31); Mean Corpuscular Volume 91 fL (80-94); Mean Platelet Volume 9 um3 (7.4-10.4); Red Blood Count 4.04 10^6/ul (4.0-5.4); Red Cell Distribution Width 15 % (10.5-15); White Blood Count 8.9 10^3/ul (3.5-10.8)
[2017-02-14 06:44] LABS: BUN/Creatinine Ratio 18.3 (8-20); EGFR African American 86.5 (>60); EGFR Non-African American 67.3 (>60); Potassium 3.8 mmol/L (3.5-5.0)
[2017-02-14] MEDS: Aspirin TAB* 325 MG PO SCH (07:49)
[2017-02-14] MEDS ORDERED: Atenolol TAB* 50 MG PO SCH (09:00)
[2017-02-14] MEDS ORDERED: Spiriva Inhaler DEVICE* 1 EACH DEVICE INH ONE (12:00)
[2017-02-14] MEDS: Tiotropium CAP.INH* CAP.INH/18 MCG INH SCH (12:31)
--- NOTE | 2017-02-14 12:34 | PN ---
Subjective Date of Service: 02/14/17 Interval History: This is a 66 yo male with COPD, chronic systolic HF with last EF of 30% and CAD who presented with a presyncopal episode that occurred during activity. Patient was hypokalemic, hypomagnesemia with bradycardia and Mobitz I heart block. Potassium and Mg have been replaced. BB held. HR has increased overnight, still in 1st degree block and occasionally dropping a beat with frequent PVCs and non-sustained VT. Patient reports feeling well today. Denies SOB, lightheadedness, CP. Objective Active Medications: Acetaminophen (Tylenol Tab*) 650 mg PO Q4H PRN PRN Reason: FEVER/PAIN Hydrocodone Bitart/Acetaminophen ([place] 5-325 Tab*) 1 tab PO QID PRN PRN Reason: PAIN Albuterol (Ventolin 2.5 Mg/3 Ml Neb.Yuli*) 2.5 mg INH QID PRN PRN Reason: SHORTNESS OF BREATH Aspirin (Aspirin Tab*) 325 mg PO DAILY [facility] Last Admin: 02/14/17 07:49 Dose: 325 mg Atorvastatin Calcium (Lipitor*) 20 mg PO BEDTIME KIRSTIE PRN Reason: Protocol Last Admin: 02/13/17 20:11 Dose: 20 mg Furosemide (Lasix Tab*) 40 mg PO DAILY [facility] Losartan Potassium (Cozaar Tab*) 50 mg PO DAILY [facility] Spironolactone (Aldactone Tab*) 50 mg PO DAILY [facility] Tiotropium [place] (Spiriva Cap.Inh*) 1 cap INH DAILY [facility] Vital Signs: Temp Pulse Resp BP Pulse Ox 98.0 F 47 16 114/65 91 02/14/17 11:07 02/14/17 11:07 02/14/17 11:07 02/14/17 11:07 02/14/17 11:07 Oxygen Devices in Use Now: None Appearance: Well appearing, in NAD Neck: NL Appearance and Movements; NL JVP Respiratory: Symmetrical Chest Expansion and Respiratory Effort, Clear to Auscultation Cardiovascular: NL Sounds; No Murmurs; No JVD, RRR Abdominal: NL Sounds; No Tenderness; No Distention Extremities: No Edema Skin: No Rash or Ulcers Neurological: Alert and Oriented x 3 Result Diagrams: 02/14/17 06:19 02/14/17 06:18 Diagnostic Imaging: EKG - sinus, Mobitz I heart block EKG - bigeminy/trigeminy with 1st deg block EKG - sinus, 1st deg block Assess/Plan/Problems-Billing Assessment: This is a 66 yo gentleman with COPD, chronic systolic HF iwth EF 30% and CAD who presented with lightheadedness with activity noted to be in 2nd deg heart block. - Patient Problems (1) Heart block Comment: Mobitz I/1st deg Improving with holding BB and correcting hypokalemia and hypomagnesemia Appreciate cardiology consult ICD candidate based on EF, plan for outpt placement with Dr Maicol Wan telemetry monitoring (2) Chronic systolic CHF (congestive heart failure) Comment: EF 30% Euvolemic Diuretics have been held at this time Plan to resume Lasix at lower dose tomorrow am and start spironolactone (3) Hypotension Comment: Now normotensive Holding all antihypertensives at this time including amlodipine, hydralazine, losartan and Lasix Will resume losartan tomorrow am Resume Lasix tomorrow am and lower dose and start spironolactone (4) Hypokalemia Comment: Resolved (5) Hypomagnesemia Comment: Resolved (6) Left ventricular apical thrombus following [place] Comment: h/o apical thrombus Chronically anticoagulated with Coumadin Therapeutic Hold coumadin with pending ICD placement (7) CAD (coronary artery disease) Comment: Asx Cont med management (8) COPD (chronic obstructive pulmonary disease) Comment: No acute exacerbation (9) DVT prophylaxis Comment: Coumadin Therapeutic INR (10) Full code status Status and Disposition: Inpatient. Possible dc tomorrow with ICD placement Sunday
--- NOTE | 2017-02-14 16:06 | ED ---
Reilly Smith Matthew, scribed for Bereket Mondragon MD on 02/13/17 at 1101 . Palpitations / Dysrhythmia - HPI Summary HPI Summary: A 66 y/o male presents to the ED with dizziness since 05:30 this morning. The patient states that he was doing mild cleaning, when he developed diaphoresis, lightheadedness, dizziness, and SOB. He's had SOB w/ exertion for the past 4-5 years. The patient denies any chest pain. He moved into [place] yesterday and states that he may have over did it. His INR was recently low. Hx of CABG. - History of Current Complaint Chief Complaint: EDDysrhythmPalp Time Seen by Provider: 02/13/17 10:32 Hx Obtained From: Patient Onset/Duration: Lasting Hours, Still Present Timing: Constant Severity Initially: Moderate Severity Currently: Moderate Character: Slow Aggravating: Exertion Alleviating: Rest Associated Signs & Symptoms: Lightheadedness, Dizzy, Shortness of Breath, Diaphoresis - Allergy/Home Medications Allergies/Adverse Reactions: Allergies Allergy/AdvReac Type Severity Reaction Status Date / Time No Known Allergies Allergy Verified 02/13/17 11:45 Home Medications: Home Medications Albuterol 2.5MG/3ML (0.083%)* [Ventolin 2.5 MG/3 ML NEB.BEBA*] 2.5 mg INH QID PRN 02/13/17 [History Confirmed 02/13/17] Albuterol HFA INHALER* [Ventolin HFA Inhaler*] 1 puff INH Q4H PRN 02/13/17 [ History Confirmed 02/13/17] Benzonatate CAP* [Tessalon 100 MG CAP*] 100 - 200 mg PO BID PRN 02/13/17 [ History Confirmed 02/13/17] amLODIPine TAB* [Norvasc 5 mg TAB*] 10 mg PO DAILY 02/13/17 [History Confirmed 02/13/17] Losartan Potassium [Cozaar] 50 mg PO DAILY 02/14/17 [History Confirmed 02/14/17] PMH/Surg Hx/FS Hx/Imm Hx Endocrine/Hematology History: Denies: Hx Diabetes Cardiovascular History: Reports: Hx Deep Vein Thrombosis, Hx Hypertension, Other Cardiovascular Problems/Disorders Denies: Hx Congestive Heart Failure Respiratory History: Reports: Hx Chronic Obstructive Pulmonary Disease (COPD), Other Respiratory Problems/Disorders - PNA Denies: Hx Asthma History: Denies: Hx Renal Disease Sensory History: Reports: Hx Contacts or Glasses, Hx Hearing Problem Opthamlomology History: Reports: Hx Contacts or Glasses - Surgical History Surgery Procedure, Year, and Place: CABG - Immunization History Date of Tetanus Vaccine: unk Date of Influenza Vaccine: unk Infectious Disease History: No Infectious Disease History: Denies: Traveled Outside the [place] in Last 30 Days - Family History Known Family History: Positive: Cardiac Disease - Social History Alcohol Use: None Substance Use Type: Reports: None Hx Tobacco Use: Yes Smoking Status (MU): Former Smoker Review of Systems Positive: Skin Diaphoresis Eyes: Negative ENT: Negative Cardiovascular: Negative Negative: Chest Pain Respiratory: Negative Gastrointestinal: Negative Genitourinary: Negative Musculoskeletal: Negative Skin: Negative Neurological: Other - lightheadedness, dizziness, Psychological: Normal All Other Systems Reviewed And Are Negative: Yes Physical Exam Triage Information Reviewed: Yes Vital Signs On Initial Exam: Initial Vitals Temp Pulse Resp BP Pulse Ox 97.8 F 41 16 103/48 94 02/13/17 10:32 02/13/17 10:32 02/13/17 10:32 02/13/17 10:32 02/13/17 10:32 Vital Signs Reviewed: Yes Appearance: Positive: Well-Appearing, No Pain Distress Skin: Positive: Warm, Skin Color Reflects Adequate Perfusion, Dry Head/Face: Positive: Normal Head/Face Inspection Eyes: Positive: EOMI, KUNAL ENT: Positive: Normal ENT inspection Neck: Positive: Supple, Nontender Respiratory/Lung Sounds: Positive: Clear to Auscultation, Breath Sounds Present Cardiovascular: Positive: Bradycardia, IRR Abdomen Description: Positive: Nontender, Soft Bowel Sounds: Positive: Present Musculoskeletal: Positive: Strength/ROM Intact, Other - slight pitting edema bilaterally Neurological: Positive: Alert, Oriented to Person Place, Time Psychiatric: Positive: Affect/Mood Appropriate Diagnostics - Vital Signs Vital Signs Temp Pulse Resp BP Pulse Ox 02/13/17 10:34 97.4 F 48 16 100/58 95 02/13/17 10:32 97.8 F 41 16 103/48 94 - Laboratory Lab Results: Lab Results 02/13/17 02/13/17 02/13/17 Range/Units 10:48 10:48 10:48 WBC 6.5 (3.5-10.8) 10^3/ul RBC 3.79 L (4.0-5.4) 10^6/ul Hgb 11.0 L (14.0-18.0) g/dl Hct 34 L (42-52) % MCV 89 (80-94) fL MCH 29 (27-31) pg MCHC 33 (31-36) g/dl RDW 15 (10.5-15) % Plt Count 172 (150-450) 10^3/ul MPV 8 (7.4-10.4) um3 Neut % (Auto) 60.7 (38-83) % Lymph % (Auto) 22.1 L (25-47) % [place] % (Auto) 14.8 H (1-9) % Eos % (Auto) 1.5 (0-6) % Baso % (Auto) 0.9 (0-2) % Absolute Neuts (auto) 4.0 (1.5-7.7) 10^3/ul Absolute Lymphs (auto) 1.4 (1.0-4.8) 10^3/ul Absolute Monos (auto) 1.0 H (0-0.8) 10^3/ul Absolute Eos (auto) 0.1 (0-0.6) 10^3/ul Absolute Basos (auto) 0.1 (0-0.2) 10^3/ul Absolute Nucleated RBC 0.01 10^3/ul Nucleated RBC % 0.1 INR (Anticoag Therapy) 2.11 H (0.89-1.11) Sodium 140 (133-145) mmol/L Potassium 3.0 L (3.5-5.0) mmol/L Chloride 108 (101-111) mmol/L Carbon Dioxide 23 (22-32) mmol/L Anion Gap 9 (2-11) mmol/L BUN 22 (6-24) mg/dL Creatinine 1.14 (0.67-1.17) mg/dL Est GFR ( Amer) 82.2 (>60) Est GFR (Non-Af Amer) 63.9 (>60) BUN/Creatinine Ratio 19.3 (8-20) Glucose 100 (70-100) mg/dL Lactic Acid (0.5-2.0) mmol/L Calcium 7.5 L (8.6-10.3) mg/dL Magnesium 1.5 L (1.9-2.7) mg/dL Total Bilirubin 0.90 (0.2-1.0) mg/dL AST 28 (13-39) U/L ALT 18 (7-52) U/L Alkaline Phosphatase 44 (34-104) U/L Troponin I 0.02 (<0.04) ng/mL B-Natriuretic Peptide ( - 100) pg/mL Total Protein 5.7 L (6.4-8.9) g/dL Albumin 3.2 (3.2-5.2) g/dL Globulin 2.5 (2-4) g/dL Albumin/Globulin Ratio 1.3 (1-3) TSH 2.06 (0.34-5.60) mcIU/mL 02/13/17 02/13/17 Range/Units 10:48 10:48 WBC (3.5-10.8) 10^3/ul RBC (4.0-5.4) 10^6/ul Hgb (14.0-18.0) g/dl Hct (42-52) % MCV (80-94) fL MCH (27-31) pg MCHC (31-36) g/dl RDW (10.5-15) % Plt Count (150-450) 10^3/ul MPV (7.4-10.4) um3 Neut % (Auto) (38-83) % Lymph % (Auto) (25-47) % [place] % (Auto) (1-9) % Eos % (Auto) (0-6) % Baso % (Auto) (0-2) % Absolute Neuts (auto) (1.5-7.7) 10^3/ul Absolute Lymphs (auto) (1.0-4.8) 10^3/ul Absolute Monos (auto) (0-0.8) 10^3/ul Absolute Eos (auto) (0-0.6) 10^3/ul Absolute Basos (auto) (0-0.2) 10^3/ul Absolute Nucleated RBC 10^3/ul Nucleated RBC % INR (Anticoag Therapy) (0.89-1.11) Sodium (133-145) mmol/L Potassium (3.5-5.0) mmol/L Chloride (101-111) mmol/L Carbon Dioxide (22-32) mmol/L Anion Gap (2-11) mmol/L BUN (6-24) mg/dL Creatinine (0.67-1.17) mg/dL Est GFR ( Amer) (>60) Est GFR (Non-Af Amer) (>60) BUN/Creatinine Ratio (8-20) Glucose (70-100) mg/dL Lactic Acid 1.3 (0.5-2.0) mmol/L Calcium (8.6-10.3) mg/dL Magnesium (1.9-2.7) mg/dL Total Bilirubin (0.2-1.0) mg/dL AST (13-39) U/L ALT (7-52) U/L Alkaline Phosphatase (34-104) U/L Troponin I (<0.04) ng/mL B-Natriuretic Peptide 281 H ( - 100) pg/mL Total Protein (6.4-8.9) g/dL Albumin (3.2-5.2) g/dL Globulin (2-4) g/dL Albumin/Globulin Ratio (1-3) TSH (0.34-5.60) mcIU/mL Result Diagrams: 02/14/17 06:19 02/14/17 06:18 Lab Statement: Any lab studies that have been ordered have been reviewed, and results considered in the medical decision making process. - Radiology CXR Xray Interpretation: No Acute Changes - IMPRESSION: Cardiomegaly without evidence for pulmonary edema. Radiology Interpretation Completed By: Radiologist - EKG 12:01 Cardiac Rate: Bradycardia - 40 bpm EKG Rhythm: Sinus Bradycardia Ectopy: PVCs - Frequent Course/Dx - Course Course Of Treatment: Mr. David presented with a C/O vague weakness and was found to be bradycardic with multiple electrolyte abnormalities. The hospitalists were consulted. - Diagnoses Provider Diagnoses: Bradycardia, Hypokalemia, Hypocalcemia - Physician Notifications Discussed Care Of Patient With: Dr. Becerra (Hospitalist) -- Notified of patient' s history and will admit the patient. Discharge - Discharge Plan Condition: Stable Disposition: ADMITTED TO [facility] documentation as recorded by the Reilly liriano Matthew accurately reflects the service I personally performed and the decisions made by Giancarlo enrique Richard L, MD.
[2017-02-14] MEDS: Atorvastatin* 20 MG TAB PO SCH (22:33)
--- NOTE | 2017-02-15 03:45 | CONS ---
CARDIOLOGY CONSULTATION: DATE OF CONSULT: 02/14/17 REASON FOR CONSULTATION: Syncope and near syncope. CHIEF COMPLAINT: Losing consciousness and feeling profoundly weak. HISTORY OF PRESENT ILLNESS: Mr. David is a 66-year-old gentleman with a severe ischemic cardiomyopathy followed by Dr. Anaya. He has just moved to [employer] and was exerting himself more than usual. He works at [employer] and became very lightheaded and felt like he was going to pass out. He was sent to the hospital. The patient tells me he had just seen Dr. Espinosa and has been told that his INR was low and he felt poorly in the past with this. On arrival to the hospital, he was noted to be bradycardic with secondary heart block type 2, Wenckebach type and his atenolol was held overnight. He feels significantly better this morning. PAST MEDICAL HISTORY: The patient has a past medical history of coronary artery disease with multivessel bypass surgery and ischemic cardiomyopathy, ejection fraction was 30% in November 2016 and dilated. He had moderate RV dysfunction, [id number] mitral insufficiency and PA pressure was estimated at 41 mmHg. He has a history of hypertension, dyslipidemia, obesity. Nonsustained ventricular tachycardia, the patient has declined option of ICD implantation in the past. COPD. Old NV with apical thrombus, on chronic Coumadin. PAST SURGICAL HISTORY: Includes bypass surgery in 1996, appendectomy, tonsillectomy. INPATIENT MEDICATIONS: Include: 1. Tylenol p.r.n. 2. Grafton p.r.n. 3. Albuterol nebulizer. 4. Aspirin 325 mg a day. 5. Lipitor 20 mg a day. 6. Lasix 40 mg a day. 7. Cozaar 50 mg a day. 8. Aldactone 50 mg a day. 9. Spiriva (he had atenolol 100 mg a day recently discontinued). ALLERGIES: He has no known drug allergies. SOCIAL HISTORY: The patient has a girlfriend. He is disabled, but works at [employer], just moved in the [employer] the day prior to admission. Stopped smoking approximately 5 years ago. No history of excessive alcohol intake. FAMILY HISTORY: Positive for coronary artery disease in both parents. REVIEW OF SYSTEMS: Negative for recent orthopnea. Positive for exertional dyspnea. Negative for any change in medications. No change in bowel or bladder habits. PHYSICAL EXAMINATION: Vitals: The patient is 5 foot 2 inches, weighs 185 pounds with a BMI of 34. At the time I saw him he was in sinus rhythm with a pulse of 69 beats per minute, respiratory rate of 16, oxygen saturation 91% to 93%, blood pressure 114/65 and temperature 98 degrees Fahrenheit. Monitor overnight shows normal sinus rhythm with occasional sinus pauses up to 2.4 seconds, intermittent second-degree heart block type 1, Wenckebach type with a long first degree AV block and occasional PVCs. General Appearance: Centripetally overweight older gentleman in no acute distress. Psychological: Calm, cooperative, and pleasant. Neurologic: Awake, alert, and oriented to person, place, and time. Cranial nerves II through XII intact other than being hard of hearing. No obvious other motor or sensory deficits appreciated on exam done in the bed. Skin: Warm and dry. No cyanosis. HEENT: Pupils are equal and round. Mucous membranes are moist. Neck: Without increased JVP appreciated. Good carotid pulses. No audible bruits. Breath sounds clear with good effort. No wheezes, rales, or rhonchi. Coronary: S1, S2, regular without murmurs or rubs. Abdomen: Somewhat rotund. Active bowel sounds. Soft and nontender. No hepatosplenomegaly or masses. Lower extremities free of edema and warm. DIAGNOSTIC STUDIES/LAB DATA: White count 8.9, hemoglobin 12.2, platelets 178. INR 1.95. Sodium 133, potassium 3.8, chloride 102, bicarb 27, glucose 98. BUN 20, creatinine 1.09. (On admission, potassium was 3.0, magnesium 1.5). Magnesium today 2.0, troponin #1 0.02, troponin #2 0.03, troponin #3 0.03. BNP of 281. TSH 2.06. EKG from 02/13/17 at 10:32 in the morning shows sinus rhythm with a long first-degree AV block and second-degree heart block type 1 with a one drop beat on a 10-second strip and single PVC. EKG #2 shows sinus rhythm with a first-degree AV block and 3 PVCs on a 10-second strip. His, overall rate was in the 40s. Chest x- ray showed cardiomegaly. Lung jacob were clear. IMPRESSION: In summary, Mr. David is a 66-year-old gentleman with a severe ischemic cardiomyopathy with an ejection fraction of 30%, a history of nonsustained ventricular tachycardia who presented to the hospital with a near syncopal episode with evidence of sick sinus syndrome with sinus pauses, second- degree heart block, Wenckebach type 1 on moderate doses of atenolol. He is improved holding the atenolol and wants to go home. I recommended that gentleman undergo an AV sequential pacer defibrillator to allow for resumption of his beta-lacie and/or antiarrhythmics for ectopy and also to prevent symptomatic bradycardia in the future. The patient admitted he has been reluctant in the past because he does not trust the machine. He has read they can fail. I explained to him he has at risk for his heart getting him into trouble and I thought this was more likely now than the machine failing. He is now interested especially as he can get it done locally. He is amenable to proceeding. We would need to get his INR lower. For the patient's cardiomyopathy, I agree with losartan. If he does go back on beta- lacie, may want to consider Coreg or Toprol, which have better data with stabilization of cardiomyopathies than atenolol if his lungs will tolerate it and I agree with the spironolactone as discussed this morning, which may help prevent hypokalemia and assist with his cardiomyopathy. I would recommend outpatient magnesium replacement if he is able to tolerate this. Thank you for allowing me to assist in this nice gentleman's care. CC: Dr. Anaay; Hospitalist Service; Dr. Espinosa* [id number]/[facility] #: [id number] [facility]
[2017-02-15 05:20] LABS: BUN/Creatinine Ratio 12.2 (8-20); Calcium 8.9 mg/dL (8.6-10.3); EGFR African American 97.8 (>60); EGFR Non-African American 76.1 (>60); Magnesium 1.5 mg/dL (1.9-2.7); Potassium 3.2 mmol/L (3.5-5.0)
[2017-02-15] MEDS ORDERED: Magnesium Sulf 4 GM/100 ML IV* 4,000 MG/100 ML BAG IVPB ONE (07:19)
[2017-02-15] MEDS: Tiotropium CAP.INH* CAP.INH/18 MCG INH SCH (08:30)
[2017-02-15] MEDS ORDERED: Losartan TAB* 25 MG PO SCH (09:00)
[2017-02-15] MEDS ORDERED: Potassium Chlor TAB* 20 MEQ TAB.ER PO SCH (09:00)
[2017-02-15] MEDS ORDERED: Furosemide TAB* 40 MG PO SCH (09:00)
[2017-02-15] MEDS ORDERED: Spironolactone TAB* 25 MG PO SCH (09:00)
[2017-02-15] MEDS: Aspirin TAB* 325 MG PO SCH (09:02)
[2017-02-15 11:24] VITALS: BP 115/63
[2017-02-15 13:21] LABS: BUN/Creatinine Ratio 10.6 (8-20); Calcium 9.5 mg/dL (8.6-10.3); EGFR African American 102.6 (>60); EGFR Non-African American 79.8 (>60); Magnesium 2.7 mg/dL (1.9-2.7); Potassium 3.4 mmol/L (3.5-5.0)
--- NOTE | 2017-02-15 23:32 | DS ---
DISCHARGE SUMMARY: DATE OF ADMISSION: 02/13/17 DATE OF DISCHARGE: 02/15/17 PRIMARY CARE PROVIDER: Dr. Espinosa. CONSULTING STROKE PROGRAM COORDINATOR: Dr. Deleon. PRIMARY STROKE PROGRAM COORDINATOR: Dr. Espinosa. DISCHARGING PROVIDER: WILLI Harry. SUPERVISING PHYSICIAN: Page Dhillon DO.* (DICTATED BY WILLI HARRY) PRIMARY DISCHARGE DIAGNOSES: 1. Symptomatic bradycardia. 2. Second-degree AV block - Wenckebach type. 3. Frequent PVCs and nonsustained ventricular tachycardia. 4. Hypotension - likely iatrogenic. 5. Hypokalemia. 6. Hypomagnesemia. SECONDARY DISCHARGE DIAGNOSES: 1. Chronic systolic heart failure without acute exacerbation with ejection fraction of 30%. 2. Left ventricular apical thrombus following prior myocardial infarction, chronically anticoagulated with Coumadin, which has been held for pending ICD procedure. 3. Coronary artery disease - asymptomatic. 4. Chronic obstructive pulmonary disease without acute exacerbation. DISCHARGE MEDICATIONS: 1. Albuterol inhaler 1 puff inhaled q.4 hours as needed for shortness of breath. 2. Aspirin 325 mg p.o. daily. 3. Benzonatate 100 to 200 mg p.o. b.i.d. as needed for cough. 4. Lasix 20 mg p.o. b.i.d. 5. Hydrocodone/acetaminophen 5/325 one tablet p.o. 4 times a day as needed. 6. Losartan 50 mg p.o. daily. 7. Lovastatin 80 mg p.o. at bedtime. 8. Magnesium oxide 400 mg p.o. b.i.d. 9. Nitroglycerin 0.4 mg sublingual q.5 minutes as needed for chest pain. 10. Potassium chloride tablet 20 mEq p.o. daily. 11. Spironolactone 50 mg p.o. daily. 12. Spiriva 1 capsule inhaled daily. MEDICATION CHANGES: 1. Decrease Lasix dose by 50%. 2. Start magnesium. 3. Discontinue hydralazine. 4. Discontinue amlodipine. 5. Discontinue atenolol. 6. Hold Coumadin. HOSPITAL IMAGIN. Chest x-ray shows cardiomegaly without evidence of pulmonary edema. 2. EKG #1 shows second-degree AV block, type I. 3. EKG #2 shows bigeminy and trigeminy with first-degree AV block. 4. EKG #3 shows sinus rhythm with a first-degree block. HOSPITAL COURSE: This is a 66-year-old gentleman with a history of known severe ischemic cardiomyopathy as well as COPD, who presented to the emergency department with complaints of severe lightheadedness. The patient recently moved into an apartment at [facility] and has been doing significant amount of strenuous activity to get himself moved and settled in. During activity, the patient became severely lightheaded. He does not lose consciousness and denied any associated chest pain but some shortness of breath. Initial EKG demonstrated significant bradycardia with a rate in the 40s to 50s with a second -degree AV block type 1. The patient is on a moderate dose of atenolol and also found to be hypokalemic and hypomagnesemic. The patient was subsequently admitted to hospital and maintained on continuous telemetry monitoring. His initial troponin was negative at 0.02 and remained at similar levels on 2 additional checks. The patient was evaluated by slide forming machine operator, Dr. Deleon. He is a chronic patient of Dr. Anaya, who had recommended an ICD. For the last couple of years, the patient had been hesitant to follow through with this. He had multiple PVCs and a few episodes of nonsustained VT on telemetry. With replacement of his electrolytes and holding his beta-lacie, his heart rate drifted back up into the 70s. He would occasionally go into a second- degree block, but is primarily in first-degree block at the time of discharge. Dr. Deleon coordinated with Dr. Anaya as well as Dr. Milian and the patient agreed to undergo ICD/pacer placement with Dr. Milian, which will be done as an outpatient on Sunday. The patient is asymptomatic at the time of discharge and quite anxious to get home. The patient was also noted to be hypotensive at the time of admission. It was unsure whether this was related to his poor cardiac output related to his bradycardia, but even as his heart rate improved, blood pressure remained quite soft despite holding nearly all of his antihypertensive medications. Recommended discontinuing his hydralazine and amlodipine at the time of discharge as well as decreasing his dose of Lasix and adding spironolactone. DISPOSITION: The patient is being discharged to home. Multiple medication changes as outlined above. The patient will see Dr. Milian on Sunday for ICD placement. The patient has received appropriate instructions at the time of discharge. He requires close followup with his primary care provider with whom he had a scheduled appointment tomorrow that he is encouraged to keep and will require further followup with Dr. Anaya as well. The patient will need to resume his beta- lacie due to significant ectopy after his ICD and pacer has been placed. WILLI HARRY CC: Dr. Espinosa; Dr. Anaya * [id number]/[facility] #: [id number] [facility]
[2017-02-16] MEDS ORDERED: Warfarin TAB(*) 5 MG PO SCH (11:55)
== END 2017-02-15 13:50 | disposition home or self-care (01) | DRG 309 ==
LOC: ED 10:29 → MEDTELE 12:34
PROVIDERS: ADMIT Internal Medicine; ATTEND Hospitalist
DX: I44.1 Atrioventricular block, second degree (principal); I50.22 Chronic systolic (congestive) heart failure; I47.2 Ventricular tachycardia; I95.89 Other hypotension; E83.51 Hypocalcemia; I11.0 Hypertensive heart disease with heart failure; E83.42 Hypomagnesemia; I23.6 Thrombosis of atrium, auricular appendage, and ventricle as current complications following acute myocardial infarction; J44.9 Chronic obstructive pulmonary disease, unspecified; E87.6 Hypokalemia; I25.10 Atherosclerotic heart disease of native coronary artery without angina pectoris; E78.5 Hyperlipidemia, unspecified; I49.3 Ventricular premature depolarization; I49.5 Sick sinus syndrome; I25.5 Ischemic cardiomyopathy; E66.9 Obesity, unspecified; I34.0 Nonrheumatic mitral (valve) insufficiency; I25.2 Old myocardial infarction; Z68.32 Body mass index [BMI] 32.0-32.9, adult; Z87.01 Personal history of pneumonia (recurrent); Z95.1 Presence of aortocoronary bypass graft; Z86.718 Personal history of other venous thrombosis and embolism; Z82.49 Family history of ischemic heart disease and other diseases of the circulatory system; Z87.891 Personal history of nicotine dependence; Z79.82 Long term (current) use of aspirin
CPT/HCPCS: 36415; 71010; 80048; 80053; 83605; 83735; 83880; 84443; 84484; 85025; 85610; 93005; 94640; 94760; A9270-GY; J3480

== ENCOUNTER 2017-04-07 21:20 | Inpatient (IN) | payer MEDICARE, MEDICAID ==
[2017-04-07] MEDS ORDERED: methylPREDNISolone 125 MG* 2 ML VIAL IV ONE (21:26)
[2017-04-07] MEDS ORDERED: Albuterol/Ipratropium NEB.SOL* Albuterol 2.5 MG/Ipratropium 0.5 MG 3 ML INH ONE (21:26)
[2017-04-07] MEDS ORDERED: Albuterol/Ipratropium NEB.SOL* Albuterol 2.5 MG/Ipratropium 0.5 MG 3 ML ONE (21:27)
[2017-04-07 21:44] LABS: Hematocrit 38 % (42-52); Hemoglobin 12.2 g/dl (14.0-18.0); Mean Corpuscular HGB Conc 32 g/dl (31-36); Mean Corpuscular Hemoglobin 30 pg (27-31); Mean Corpuscular Volume 92 fL (80-94); Mean Platelet Volume 8 um3 (7.4-10.4); Red Blood Count 4.12 10^6/ul (4.0-5.4); Red Cell Distribution Width 14 % (10.5-15)
[2017-04-07 21:49] LABS: Add Diff/Slide Review? Slide Review Added; Comments Flag Yes
--- NOTE | 2017-04-07 21:53 | RAD ---
INDICATION: Shortness of breath. COMPARISON: Comparison is made with a prior chest x-ray exam from February 20, 2017. TECHNIQUE: AP and lateral views of the chest were obtained. FINDINGS: The patient is status post coronary artery bypass surgery. There is a dual-chamber transvenous pacemaker present. The heart is mildly enlarged. There is diffuse prominence of the interstitial markings which have increased from the prior exam. There are trace bilateral pleural effusions. IMPRESSION: FINDINGS MOST CONSISTENT WITH CONGESTIVE HEART FAILURE.
[2017-04-07] MEDS ORDERED: Furosemide IV* 10 MG/ML VIAL (40 MG) IV ONE (21:55)
[2017-04-07 22:00] LABS: Albumin 4.2 g/dL (3.2-5.2); BUN/Creatinine Ratio 21.4 (8-20); Calcium 9.3 mg/dL (8.6-10.3); EGFR African American 92.4 (>60); EGFR Non-African American 71.8 (>60); Globulin 3.6 g/dL (2-4); Potassium 3.6 mmol/L (3.5-5.0); Total Bilirubin 1.3 mg/dL (0.2-1.0); Total Protein 7.8 g/dL (6.4-8.9)
[2017-04-07 22:01] LABS: Troponin I 0.03 ng/mL (<0.04)
--- NOTE | 2017-04-07 22:05 | HP ---
H&P (Free Text) History and Physical: PCP: Gia Espinosa MD Date/Time of Evaluation: 04/07/2017 2220 CC: SOB HPI: Mr David is a 66YO male HX DVT, COPD, & CAD/3vCABG who underwent dual chamber AV pacer placement ~6weeks ago reports onset yesterday AM after awakening of progressive SOB without cough, congestion, F/C, N/V, sweats, increased LE swelling, or other issues. SOB was exacerbated by lying down causing him to need to sleep in a chair last night. The symptom persisted today until he decided to present for evaluation by calling EMS. He was brought in on CPAP, but able to be quickly weaned to NC while maintaining saO2s >90%. He denies chest pain, palpitations, & light-headedness. PMedHx CAD/RI/4vCABG ischemic cardiomyopathy EF 30% COPD DVT on warfarin HTN pHTN, moderate mitral regurgitation, mod - sev HLD Ambulatory Orders HYDROcodone/ACETAMIN 5-325 MG* [Hesperus 5-325 TAB*] 1 tab PO QID PRN 11/24/16 Lovastatin (NF) [Mevacor (NF)] 40 mg PO BEDTIME 12/06/16 Albuterol 2.5MG/3ML (0.083%)* [Ventolin 2.5 MG/3 ML NEB.BEBA*] 2.5 mg INH QID PRN 02/13/17 Albuterol HFA INHALER* [Ventolin HFA Inhaler*] 1 puff INH Q4H PRN 02/13/17 Losartan Potassium [Cozaar] 50 mg PO DAILY 02/14/17 Amlodipine Besylate [Norvasc 10 mg tab] 10 mg PO DAILY 02/16/17 Atenolol [Tenormin 100 MG] 100 mg PO BID 02/16/17 Magnesium Oxide 400 mg PO DAILY 02/19/17 Acetaminophen TAB* [Tylenol TAB*] 650 mg PO Q4H PRN #0 tab 02/20/17 Albuterol 2.5MG/3ML (0.083%)* [Ventolin 2.5 MG/3 ML NEB.BEBA*] 2.5 mg INH QID PRN #0 ml 02/20/17 Albuterol HFA INHALER* [Ventolin HFA Inhaler*] 1 puff INH Q4H PRN #0 ea Furosemide TAB* [Lasix TAB*] 80 mg PO BID@0600,1800 tab 02/20/17 Nitroglycerin TAB 0.4 MG* 0.4 mg SL Q5M PRN #0 tab 02/20/17 Potassium Chlor TAB* [Potassium Chlor TAB 20 MEQ*] 20 meq PO DAILY tab.er 02/20 Tiotropium CAP.INH* [Spiriva CAP.INH*] 1 cap INH DAILY cap.inh 02/20/17 hydrALAZINE TAB* [Apresoline TAB*] 25 mg PO DAILY tab 02/20/17 Allergies No Known Allergies Allergy (Verified 02/13/17 11:45) PSurgHx tonsillectomy 4vCABG w/ vein graft x3 failed dual chamber AV pacer placed ~6weeks ago appendectomy SocHx: quit smoking >15years ago, no alcohol or recreational drug use; single, lives alone at [employer]; on disability; full code status FamHx: strongly positive for CAD ROS: as above, otherwise reviewed and all were negative Constitutional: NAD, normally developed, overweight white male vitals: Vital Signs Temp 37.4 C 04/07/17 21:41 Pulse 88 04/07/17 21:41 Resp 33 04/07/17 21:41 BP 121/82 04/07/17 21:41 Pulse Ox 96 04/07/17 21:41 Intake & Output 04/06/17 04/07/17 04/07/17 23:59 11:59 23:59 Weight 78.925 kg HEENM: atraumatic; sclera/conjunctiva: non-icteric/clear; hearing: clinically intact; oropharynx: clear, mucosa moist Neck: soft tissue: non-tender; thyroid: normal Pulmonary: bibasilar crackles somewhat more coarse than typical CHF, fair to poor aeration, no accessory muscle use CV: RR/RR, normal S1S2, no carotid bruit, marked jugular venous distention up to the mandibular angle sitting at 90 degrees, 2+ B DP/PT, 1+ BLE edema with compression hose on Abdominal: soft, non-distended, non-tender, no rebound/guarding/rigidity, normoactive bowel sounds, no hepatosplenomegaly or masses, no costovertebral angle tenderness Musculoskeletal: general: grossly intact; gait: stable Integumental: normal appearance and texture; L anterior chest pacer site is healing well without tenderness, flocculence, erythema, warmth, or discharge Psychiatric orientation: AA&O to PPS affect: calm mood: pleasant eye contact: good content: reliable responses: timely insight: fair to good Testing: Lab Results 04/07/17 04/07/17 04/07/17 Range/Units 21:30 21:30 21:30 WBC 16.0 H (3.5-10.8) 10^3/ul RBC 4.12 (4.0-5.4) 10^6/ul Hgb 12.2 L (14.0-18.0) g/dl Hct 38 L (42-52) % MCV 92 (80-94) fL MCH 30 (27-31) pg MCHC 32 (31-36) g/dl RDW 14 (10.5-15) % Plt Count 261 (150-450) 10^3/ul MPV 8 (7.4-10.4) um3 Neut % (Auto) 78.2 (38-83) % Lymph % (Auto) 9.0 L (25-47) % Brown % (Auto) 10.0 H (1-9) % Eos % (Auto) 1.9 (0-6) % Baso % (Auto) 0.9 (0-2) % Absolute Neuts (auto) 12.5 H (1.5-7.7) 10^3/ul Absolute Lymphs (auto) 1.4 (1.0-4.8) 10^3/ul Absolute Monos (auto) 1.6 H (0-0.8) 10^3/ul Absolute Eos (auto) 0.3 (0-0.6) 10^3/ul Absolute Basos (auto) 0.2 (0-0.2) 10^3/ul Absolute Nucleated RBC 0 10^3/ul Nucleated RBC % 0 D-Dimer, Quantitative (Less Than 230) ng/mL Sodium 132 L (133-145) mmol/L Potassium 3.6 (3.5-5.0) mmol/L Chloride 99 L (101-111) mmol/L Carbon Dioxide 26 (22-32) mmol/L Anion Gap 7 (2-11) mmol/L BUN 22 (6-24) mg/dL Creatinine 1.03 (0.67-1.17) mg/dL Est GFR ( Amer) 92.4 (>60) Est GFR (Non-Af Amer) 71.8 (>60) BUN/Creatinine Ratio 21.4 H (8-20) Glucose 127 H (70-100) mg/dL Lactic Acid 1.0 (0.5-2.0) mmol/L Calcium 9.3 (8.6-10.3) mg/dL Total Bilirubin 1.30 H (0.2-1.0) mg/dL AST 19 (13-39) U/L ALT 17 (7-52) U/L Alkaline Phosphatase 76 (34-104) U/L Troponin I 0.03 (<0.04) ng/mL Total Protein 7.8 (6.4-8.9) g/dL Albumin 4.2 (3.2-5.2) g/dL Globulin 3.6 (2-4) g/dL Albumin/Globulin Ratio 1.2 (1-3) // Range/Units 21:30 WBC (3.5-10.8) 10^3/ul RBC (4.0-5.4) 10^6/ul Hgb (14.0-18.0) g/dl Hct (42-52) % MCV (80-94) fL MCH (27-31) pg MCHC (31-36) g/dl RDW (10.5-15) % Plt Count (150-450) 10^3/ul MPV (7.4-10.4) um3 Neut % (Auto) (38-83) % Lymph % (Auto) (25-47) % Brown % (Auto) (1-9) % Eos % (Auto) (0-6) % Baso % (Auto) (0-2) % Absolute Neuts (auto) (1.5-7.7) 10^3/ul Absolute Lymphs (auto) (1.0-4.8) 10^3/ul Absolute Monos (auto) (0-0.8) 10^3/ul Absolute Eos (auto) (0-0.6) 10^3/ul Absolute Basos (auto) (0-0.2) 10^3/ul Absolute Nucleated RBC 10^3/ul Nucleated RBC % D-Dimer, Quantitative 438 H (Less Than 230) ng/mL Sodium (133-145) mmol/L Potassium (3.5-5.0) mmol/L Chloride (101-111) mmol/L Carbon Dioxide (22-32) mmol/L Anion Gap (2-11) mmol/L BUN (6-24) mg/dL Creatinine (0.67-1.17) mg/dL Est GFR ( Amer) (>60) Est GFR (Non-Af Amer) (>60) BUN/Creatinine Ratio (8-20) Glucose (70-100) mg/dL Lactic Acid (0.5-2.0) mmol/L Calcium (8.6-10.3) mg/dL Total Bilirubin (0.2-1.0) mg/dL AST (13-39) U/L ALT (7-52) U/L Alkaline Phosphatase (34-104) U/L Troponin I (<0.04) ng/mL Total Protein (6.4-8.9) g/dL Albumin (3.2-5.2) g/dL Globulin (2-4) g/dL Albumin/Globulin Ratio (1-3) ECG, personally reviewed: AV paced rhythm with PVCs rate 83 pCXR, personally reviewed: IMPRESSION: FINDINGS MOST CONSISTENT WITH CONGESTIVE HEART FAILURE. CTA chest, personally reviewed: IMPRESSION: 1. NO EVIDENCE FOR PULMONARY EMBOLISM. 2. FINDINGS MOST CONSISTENT WITH CONGESTIVE HEART FAILURE. 3. FINDINGS SUGGESTIVE OF PULMONARY ARTERY HYPERTENSION UNCHANGED. 4. ENLARGED MEDIASTINAL LYMPH NODES, UNCHANGED. ECHO (12/08/2016): Conclusions: The left ventricular size is mild to moderately dilated. There is no left ventricular hypertrophy. There is moderate to severely decreased left ventricular systolic function with an estimated LVEF of 30%. The left atrium is mild to moderately dilated. The right ventricle is mildly dilated. The right ventricular global systolic function is moderately reduced. There is moderate to severe secondary/functional mitral regurgitation that may be underestimated in severity. There is mild tricuspid regurgitation. There is evidence of moderate pulmonary hypertension. The LV apex is not well visualized. Compared to prior study from 06/2016, the LVEDD is now 6.3 cm (was 5.8 cm previously) LVEF appears lower (was 35-40% previously), there is at least now moderate to severe mitral regurgitation (was mild previously), the estimated PASP is now moderately elevated (was mild prior). The LV apex is not well visualized now. There was an LV apical thrombus previously. 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 Impression: 65M presenting with acute mixed systolic/diastolic HF DIAGNOSIS & PLAN Primary acute mixed diastolic/systolic HF : furosemide diuresis : strict I&Os : daily weights : supplemental oxygen : recheck ECHO as the 11/2016 exam was notably worse than the 06/2016 exam : boone to gravity for accurate output measurement, if patient accepts : nutrition consult for <2gm Na+ diet : trend troponin : supportive care COPD exacerbation : albuterol nebs : mometasone/formoterol : tiotropium : IV methylprednisolone : incentive spirometry Secondary CAD/RI/4vCABG : continue aspirin once reconciled DVT : continue warfarin once reconciled : monitor INR periodically HTN : continue losartan, atenolol, amlodipine, & hydralazine once reconciled HLD : continue lovastatin once reconciled Admission Rational: inpatient for management of CHF and evaluation of elevated d -dimer in patient at high risk of morbidity/mortality in the outpatient setting DVTp: warfarin once reconciled Code Status: full HCP: [facility]лена Matos at [facility]
[2017-04-07] MEDS ORDERED: Iohexol 350* (CONTRAST) 500 ML MDV IV ONE (22:29)
[2017-04-07] MEDS ORDERED: Albuterol 2.5 MG/3 ML NEB.SOL* (0.083%) INH PRN (22:37)
[2017-04-07] MEDS ORDERED: Ondansetron INJ* 2 MG/ML VIAL IV PRN (22:37)
[2017-04-07] MEDS ORDERED: CMCS: Melatonin (NF) 3 MG TAB PO PRN (22:37)
[2017-04-07] MEDS ORDERED: Acetaminophen TAB* 325 MG PO PRN (22:37)
--- NOTE | 2017-04-07 23:00 | RAD ---
INDICATION: Shortness of breath elevated d-dimer. COMPARISON: Comparison is made with a prior CT angiogram of the chest from November 24, 2016 and a prior chest x-ray study from April 07, 2017. TECHNIQUE: A CT angiogram of the chest was performed with intravenous following intravenous injection of 70 ml of Omnipaque 350 nonionic contrast. Contiguous axial sections were obtained from the lung apices through the lung bases. Images were reconstructed in the coronal and sagittal planes. FINDINGS: There is relatively homogeneous opacification of the pulmonary arteries. No intraluminal filling defect or pulmonary embolism is seen. There is enlargement of the central pulmonary arteries suggestive of pulmonary artery hypertension. The heart is mildly enlarged. No pericardial effusion is present. The thoracic aorta is normal in caliber. There is mild calcific plaque present. There are enlarged mediastinal lymph nodes present in the right paratracheal, aorticopulmonary window, subcarinal regions measuring up to 1.5 cm in transverse dimension which are unchanged. No significant enlarged hilar lymph nodes are seen. There is a 0.9 cm hypodense hepatic lesion present within the left hepatic lobe which is unchanged suggestive of a cyst. There is diffuse prominence of the interstitial markings with interlobular septal thickening, small bilateral pleural effusions and mild bilateral groundglass infiltrates most consistent with congestive heart failure. No significant focal osseous abnormality is seen. IMPRESSION: 1. NO EVIDENCE FOR PULMONARY EMBOLISM. 2. FINDINGS MOST CONSISTENT WITH CONGESTIVE HEART FAILURE. 3. FINDINGS SUGGESTIVE OF PULMONARY ARTERY HYPERTENSION UNCHANGED. 4. ENLARGED MEDIASTINAL LYMPH NODES, UNCHANGED.
--- NOTE | 2017-04-07 23:08 | ED ---
Kelvin Smith Alfonso, scribed for Mart Bravo MD on 04/07/17 at 2143 . Shortness of Breath - HPI Summary HPI Summary: This patient is a 66 year old male [facility]IB[facility] to [facility] c/o SOB since two days ago. He reports his symptoms became gradually worse, prompting him to call 911 today. He has to take a breath between every word. Symptoms aggravated by exertion and heat, and alleviated by nothing. Patient reports feeling dizzy and febrile. Denies hx of smoking tobacco. - History of Current Complaint Chief Complaint: EDShortnessOfBreath Time Seen by Provider: 04/07/17 21:24 Hx Obtained From: Patient, EMS Onset/Duration: Gradual Onset, Lasting Days - 2 days, Worse Since Timing: Constant Current Severity: Moderate Alleviating Factors: Nothing Associated Signs & Symptoms: Fever, Dizzy - Allergy/Home Medications Allergies/Adverse Reactions: Allergies Allergy/AdvReac Type Severity Reaction Status Date / Time No Known Allergies Allergy Verified 02/13/17 11:45 PMH/Surg Hx/FS Hx/Imm Hx Endocrine/Hematology History: Denies: Hx Diabetes Cardiovascular History: Reports: Hx Deep Vein Thrombosis, Hx Hypertension, Hx Pacemaker/ICD - 5/05/31, Other Cardiovascular Problems/Disorders Denies: Hx Congestive Heart Failure Respiratory History: Reports: Hx Chronic Obstructive Pulmonary Disease (COPD), Other Respiratory Problems/Disorders - PNA Denies: Hx Asthma History: Denies: Hx Renal Disease Musculoskeletal History: Reports: Hx Arthritis - fingers, Hx Back Problems Denies: Hx Bursitis, Hx Congenital Bone Abnormalities, Hx Fibromyalgia, Hx Gout, Hx Orthopedic Injury, Hx Osteoporosis, Hx Scoliosis, Hx Tendonitis, Other Musculoskeletal History Sensory History: Reports: Hx Contacts or Glasses Denies: Hx Cataracts, Hx Eye Injury, Hx Eye Prosthesis, Hx Glaucoma, Hx Legally Blind, Hx Macular Degeneration, Hx Vision Problem, Hx Deafness, Hx Hearing Aid, Hx Hearing Problem, Other Sensory Impairments Opthamlomology History: Reports: Hx Contacts or Glasses Denies: Hx Cataracts, Hx Eye Injury, Hx Eye Prosthesis, Hx Glaucoma, Hx Legally Blind, Hx Macular Degeneration, Hx Vision Problem, Other Sensory Impairments - Surgical History Surgery Procedure, Year, and Place: CABG, appendectomy Hx Anesthesia Reactions: No - Immunization History Date of Tetanus Vaccine: unk Date of Influenza Vaccine: unk Infectious Disease History: Denies: Traveled Outside the [place] in Last 30 Days - Family History Known Family History: Positive: Cardiac Disease - Social History Alcohol Use: None Substance Use Type: Reports: None Hx Tobacco Use: Yes Smoking Status (MU): Former Smoker Have You Smoked in the Last Year: No Review of Systems Positive: Fever Positive: Shortness Of Breath Neurological: Other - Positive dizziness All Other Systems Reviewed And Are Negative: Yes Physical Exam Triage Information Reviewed: Yes Vital Signs On Initial Exam: Initial Vitals Pulse Resp Pulse Ox 81 21 98 04/07/17 21:34 04/07/17 21:34 04/07/17 21:34 Vital Signs Reviewed: Yes Appearance: Positive: No Pain Distress, Ill-Appearing - moderate resp distress Skin: Positive: Warm Head/Face: Positive: Normal Head/Face Inspection ENT: Positive: Hearing grossly normal Neck: Positive: Supple Respiratory/Lung Sounds: Positive: Decreased Breath Sounds. Negative: Wheezes Cardiovascular: Positive: RRR. Negative: Murmur Abdomen Description: Positive: Nontender, Soft Bowel Sounds: Positive: Present Musculoskeletal: Positive: Strength/ROM Intact Neurological: Positive: Alert, Oriented to Person Place, Time Psychiatric: Positive: Affect/Mood Appropriate Diagnostics - Vital Signs Vital Signs Pulse Resp Pulse Ox 04/07/17 21:37 76 31 97 04/07/17 21:34 81 21 98 - Laboratory Lab Results: Lab Results 04/07/17 04/07/17 04/07/17 Range/Units 21:30 21:30 21:30 WBC 16.0 H (3.5-10.8) 10^3/ul RBC 4.12 (4.0-5.4) 10^6/ul Hgb 12.2 L (14.0-18.0) g/dl Hct 38 L (42-52) % MCV 92 (80-94) fL MCH 30 (27-31) pg MCHC 32 (31-36) g/dl RDW 14 (10.5-15) % Plt Count 261 (150-450) 10^3/ul MPV 8 (7.4-10.4) um3 Neut % (Auto) 78.2 (38-83) % Lymph % (Auto) 9.0 L (25-47) % [place] % (Auto) 10.0 H (1-9) % Eos % (Auto) 1.9 (0-6) % Baso % (Auto) 0.9 (0-2) % Absolute Neuts (auto) 12.5 H (1.5-7.7) 10^3/ul Absolute Lymphs (auto) 1.4 (1.0-4.8) 10^3/ul Absolute Monos (auto) 1.6 H (0-0.8) 10^3/ul Absolute Eos (auto) 0.3 (0-0.6) 10^3/ul Absolute Basos (auto) 0.2 (0-0.2) 10^3/ul Absolute Nucleated RBC 0 10^3/ul Nucleated RBC % 0 INR (Anticoag Therapy) (0.89-1.11) D-Dimer, Quantitative (Less Than 230) ng/mL Sodium 132 L (133-145) mmol/L Potassium 3.6 (3.5-5.0) mmol/L Chloride 99 L (101-111) mmol/L Carbon Dioxide 26 (22-32) mmol/L Anion Gap 7 (2-11) mmol/L BUN 22 (6-24) mg/dL Creatinine 1.03 (0.67-1.17) mg/dL Est GFR ( Amer) 92.4 (>60) Est GFR (Non-Af Amer) 71.8 (>60) BUN/Creatinine Ratio 21.4 H (8-20) Glucose 127 H (70-100) mg/dL Lactic Acid 1.0 (0.5-2.0) mmol/L Calcium 9.3 (8.6-10.3) mg/dL Total Bilirubin 1.30 H (0.2-1.0) mg/dL AST 19 (13-39) U/L ALT 17 (7-52) U/L Alkaline Phosphatase 76 (34-104) U/L Troponin I 0.03 (<0.04) ng/mL B-Natriuretic Peptide ( - 100) pg/mL Total Protein 7.8 (6.4-8.9) g/dL Albumin 4.2 (3.2-5.2) g/dL Globulin 3.6 (2-4) g/dL Albumin/Globulin Ratio 1.2 (1-3) 04/07/17 04/07/17 Range/Units 21:30 21:30 WBC (3.5-10.8) 10^3/ul RBC (4.0-5.4) 10^6/ul Hgb (14.0-18.0) g/dl Hct (42-52) % MCV (80-94) fL MCH (27-31) pg MCHC (31-36) g/dl RDW (10.5-15) % Plt Count (150-450) 10^3/ul MPV (7.4-10.4) um3 Neut % (Auto) (38-83) % Lymph % (Auto) (25-47) % [place] % (Auto) (1-9) % Eos % (Auto) (0-6) % Baso % (Auto) (0-2) % Absolute Neuts (auto) (1.5-7.7) 10^3/ul Absolute Lymphs (auto) (1.0-4.8) 10^3/ul Absolute Monos (auto) (0-0.8) 10^3/ul Absolute Eos (auto) (0-0.6) 10^3/ul Absolute Basos (auto) (0-0.2) 10^3/ul Absolute Nucleated RBC 10^3/ul Nucleated RBC % INR (Anticoag Therapy) 1.92 H (0.89-1.11) D-Dimer, Quantitative 438 H (Less Than 230) ng/mL Sodium (133-145) mmol/L Potassium (3.5-5.0) mmol/L Chloride (101-111) mmol/L Carbon Dioxide (22-32) mmol/L Anion Gap (2-11) mmol/L BUN (6-24) mg/dL Creatinine (0.67-1.17) mg/dL Est GFR ( Amer) (>60) Est GFR (Non-Af Amer) (>60) BUN/Creatinine Ratio (8-20) Glucose (70-100) mg/dL Lactic Acid (0.5-2.0) mmol/L Calcium (8.6-10.3) mg/dL Total Bilirubin (0.2-1.0) mg/dL AST (13-39) U/L ALT (7-52) U/L Alkaline Phosphatase (34-104) U/L Troponin I (<0.04) ng/mL B-Natriuretic Peptide 615 H ( - 100) pg/mL Total Protein (6.4-8.9) g/dL Albumin (3.2-5.2) g/dL Globulin (2-4) g/dL Albumin/Globulin Ratio (1-3) Result Diagrams: 04/07/17 21:30 04/07/17 21:30 Lab Statement: Any lab studies that have been ordered have been reviewed, and results considered in the medical decision making process. - Radiology CXR Radiology Interpretation Completed By: Radiologist - FINDINGS MOST CONSISTENT WITH CONGESTIVE HEART FAILURE. - CT CTA Chest CT Interpretation Completed By: Radiologist - 1. NO EVIDENCE FOR PULMONARY EMBOLISM. 2. FINDINGS MOST CONSISTENT WITH CONGESTIVE HEART FAILURE. 3. FINDINGS SUGGESTIVE OF PULMONARY ARTERY HYPERTENSION UNCHANGED. 4. ENLARGED MEDIASTINAL LYMPH NODES, UNCHANGED. - EKG 2122 Cardiac Rate: NL - BPM 83 EKG Interpretation: Paced Rhythm Re-Evaluation - Re-Evaluation First Eval Re-Evaluation Time: 21:36 Change: Improved Course/Dx - Diagnoses Provider Diagnoses: Respiratory failure - Physician Notifications Discussed Care of Patient With: Neal Peralta Time Discussed With Above Provider: 22:01 Instructed by Provider To: Admit As Inpatient - Consulted Dr. Peralta ( hospitalist) who will see pt in the ED. After seeing pt in the ED, Dr. Peralta will admit. - Critical Care Time Critical Care Time: 30-74 min Discharge - Discharge Plan Condition: Fair Disposition: ADMITTED TO [facility] The documentation as recorded by the Kelvin liriano Alfonso accurately reflects the service I personally performed and the decisions made by me, Mart Bravo MD.
[2017-04-08 05:32] LABS: Hematocrit 34 % (42-52); Hemoglobin 11.6 g/dl (14.0-18.0); Mean Corpuscular HGB Conc 34 g/dl (31-36); Mean Corpuscular Hemoglobin 30 pg (27-31); Mean Corpuscular Volume 88 fL (80-94); Mean Platelet Volume 8 um3 (7.4-10.4); Red Cell Distribution Width 14 % (10.5-15); White Blood Count 9.9 10^3/ul (3.5-10.8)
[2017-04-08 05:54] LABS: BUN/Creatinine Ratio 23.6 (8-20); Calcium 8.8 mg/dL (8.6-10.3); EGFR African American 109.3 (>60); Potassium 3.6 mmol/L (3.5-5.0); Troponin I 0.01 ng/mL (<0.04)
[2017-04-08] MEDS ORDERED: methylPREDNISolone SOD 40 MG* 1 ML VIAL IV SCH (06:00)
[2017-04-08] MEDS ORDERED: Omeprazole CAP* 20 MG PO SCH (06:00)
[2017-04-08] MEDS: Furosemide IV* 10 MG/ML VIAL (40 MG) IV SCH ×2 (08:02→12:28)
[2017-04-08] MEDS ORDERED: Mometasone/Formoter 200/5 MDI INH SCH (09:00)
[2017-04-08] MEDS ORDERED: Tiotropium CAP.INH* CAP.INH/18 MCG INH SCH (09:00)
[2017-04-08] MEDS ORDERED: Spiriva Inhaler DEVICE* 1 EACH DEVICE INH ONE (09:00)
[2017-04-08] MEDS ORDERED: Docusate CAP* 100 MG PO SCH (09:00)
--- NOTE | 2017-04-08 10:01 | PN ---
Subjective Date of Service: 04/08/17 Interval History: Patient reports "all my symptoms have resolved and Im ready to go home". Denies SOB, orthopnea, cough, or LE swelling. No CP or SOB. Feels "100% better". O2 sat 90% on RA with rest and mid 80's with ambulation with some mild SOB noted when talking. Pt is very anxious to be DC'd but has agree to wait and recheck O2 later this afternoon after further diuresing. Pt admits to eating high salt foods not realizing they have salt such as Pizza, cheese sandwiches. Objective Active Medications: Acetaminophen (Tylenol Tab*) 650 mg PO Q6H PRN PRN Reason: FEVER/PAIN Albuterol (Ventolin 2.5 Mg/3 Ml Neb.Yuli*) 2.5 mg INH Q2H PRN PRN Reason: SOB/WHEEZING Docusate Sodium (Colace Cap*) 200 mg PO BID [facility] Last Admin: 04/08/17 08:02 Dose: 200 mg Furosemide (Lasix Iv*) 40 mg IV 0800,1200 [facility] Last Admin: 04/08/17 08:02 Dose: 40 mg Melatonin (Melatonin (Nf)) 3 mg PO BEDTIME PRN; Protocol PRN Reason: Sleep Methylprednisolone Sodium Succinate (Solu-Medrol 40 Mg) 40 mg IV Q8H [facility] Last Admin: 04/08/17 06:19 Dose: 40 mg Mometasone Furoate/Formoterol Fumar (Dulera 200/5 Mdi*) 2 puff INH BID [facility] Last Admin: 04/08/17 09:13 Dose: 2 puff Omeprazole (Prilosec Cap*) 20 mg PO DAILY@0600 [facility] Last Admin: 04/08/17 06:19 Dose: 20 mg Ondansetron HCl (Zofran Inj*) 4 mg IV Q6H PRN PRN Reason: NAUSEA Tiotropium Runnells (Spiriva Cap.Inh*) 1 cap INH DAILY [facility] Last Admin: 04/08/17 09:11 Dose: 2 puff Vital Signs 04/07/17 04/07/17 04/08/17 22:53 23:00 00:00 Temperature Pulse Rate 71 Respiratory 32 27 Rate Blood Pressure 133/71 158/69 (mmHg) O2 Sat by Pulse 94 97 Oximetry 04/08/17 04/08/17 04/08/17 00:17 00:20 03:49 Temperature 97.5 F 97.5 F 97.8 F Pulse Rate 76 76 64 Respiratory 24 16 16 Rate Blood Pressure 136/59 136/59 109/68 (mmHg) O2 Sat by Pulse 97 97 97 Oximetry 04/08/17 04/08/17 09:14 09:15 Temperature Pulse Rate 64 68 Respiratory 16 17 Rate Blood Pressure (mmHg) O2 Sat by Pulse 95 95 Oximetry Oxygen Devices in Use Now: None Appearance: 66 yo male sitting up in a chair in NAD> A+O x3. Eyes: No Scleral Icterus, PERRLA Ears/Nose/Mouth/Throat: NL Teeth, Lips, Gums, Mucous Membranes Moist Neck: NL Appearance and Movements; NL JVP Respiratory: Symmetrical Chest Expansion and Respiratory Effort, Clear to Auscultation Cardiovascular: NL Sounds; No Murmurs; No JVD, RRR, No Edema Abdominal: NL Sounds; No Tenderness; No Distention Extremities: No Edema, No Clubbing, Cyanosis Skin: No Rash or Ulcers, No Nodules or Sclerosis Neurological: Alert and Oriented x 3, NL Sensation, NL Gait, NL Muscle Strength and Tone Lines/Tubes/Other Access: Clean, Dry and Intact Peripheral IV Nutrition: Taking PO's Result Diagrams: 04/08/17 04:39 04/08/17 04:39 Additional Lab and Data: Lab Results 04/07/17 04/07/17 04/07/17 Range/Units 21:30 21:30 21:30 WBC 16.0 H (3.5-10.8) 10^3/ul RBC 4.12 (4.0-5.4) 10^6/ul Hgb 12.2 L (14.0-18.0) g/dl Hct 38 L (42-52) % MCV 92 (80-94) fL MCH 30 (27-31) pg MCHC 32 (31-36) g/dl RDW 14 (10.5-15) % Plt Count 261 (150-450) 10^3/ul MPV 8 (7.4-10.4) um3 Neut % (Auto) 78.2 (38-83) % Lymph % (Auto) 9.0 L (25-47) % [place] % (Auto) 10.0 H (1-9) % Eos % (Auto) 1.9 (0-6) % Baso % (Auto) 0.9 (0-2) % Absolute Neuts (auto) 12.5 H (1.5-7.7) 10^3/ul Absolute Lymphs (auto) 1.4 (1.0-4.8) 10^3/ul Absolute Monos (auto) 1.6 H (0-0.8) 10^3/ul Absolute Eos (auto) 0.3 (0-0.6) 10^3/ul Absolute Basos (auto) 0.2 (0-0.2) 10^3/ul Absolute Nucleated RBC 0 10^3/ul Nucleated RBC % 0 INR (Anticoag Therapy) (0.89-1.11) D-Dimer, Quantitative (Less Than 230) ng/mL Sodium 132 L (133-145) mmol/L Potassium 3.6 (3.5-5.0) mmol/L Chloride 99 L (101-111) mmol/L Carbon Dioxide 26 (22-32) mmol/L Anion Gap 7 (2-11) mmol/L BUN 22 (6-24) mg/dL Creatinine 1.03 (0.67-1.17) mg/dL Est GFR ( Amer) 92.4 (>60) Est GFR (Non-Af Amer) 71.8 (>60) BUN/Creatinine Ratio 21.4 H (8-20) Glucose 127 H (70-100) mg/dL Lactic Acid 1.0 (0.5-2.0) mmol/L Calcium 9.3 (8.6-10.3) mg/dL Total Bilirubin 1.30 H (0.2-1.0) mg/dL AST 19 (13-39) U/L ALT 17 (7-52) U/L Alkaline Phosphatase 76 (34-104) U/L Troponin I 0.03 (<0.04) ng/mL B-Natriuretic Peptide ( - 100) pg/mL Total Protein 7.8 (6.4-8.9) g/dL Albumin 4.2 (3.2-5.2) g/dL Globulin 3.6 (2-4) g/dL Albumin/Globulin Ratio 1.2 (1-3) 04/07/17 04/07/17 Range/Units 21:30 21:30 WBC (3.5-10.8) 10^3/ul RBC (4.0-5.4) 10^6/ul Hgb (14.0-18.0) g/dl Hct (42-52) % MCV (80-94) fL MCH (27-31) pg MCHC (31-36) g/dl RDW (10.5-15) % Plt Count (150-450) 10^3/ul MPV (7.4-10.4) um3 Neut % (Auto) (38-83) % Lymph % (Auto) (25-47) % [place] % (Auto) (1-9) % Eos % (Auto) (0-6) % Baso % (Auto) (0-2) % Absolute Neuts (auto) (1.5-7.7) 10^3/ul Absolute Lymphs (auto) (1.0-4.8) 10^3/ul Absolute Monos (auto) (0-0.8) 10^3/ul Absolute Eos (auto) (0-0.6) 10^3/ul Absolute Basos (auto) (0-0.2) 10^3/ul Absolute Nucleated RBC 10^3/ul Nucleated RBC % INR (Anticoag Therapy) 1.92 H (0.89-1.11) D-Dimer, Quantitative 438 H (Less Than 230) ng/mL Sodium (133-145) mmol/L Potassium (3.5-5.0) mmol/L Chloride (101-111) mmol/L Carbon Dioxide (22-32) mmol/L Anion Gap (2-11) mmol/L BUN (6-24) mg/dL Creatinine (0.67-1.17) mg/dL Est GFR ( Amer) (>60) Est GFR (Non-Af Amer) (>60) BUN/Creatinine Ratio (8-20) Glucose (70-100) mg/dL Lactic Acid (0.5-2.0) mmol/L Calcium (8.6-10.3) mg/dL Total Bilirubin (0.2-1.0) mg/dL AST (13-39) U/L ALT (7-52) U/L Alkaline Phosphatase (34-104) U/L Troponin I (<0.04) ng/mL B-Natriuretic Peptide 615 H ( - 100) pg/mL Total Protein (6.4-8.9) g/dL Albumin (3.2-5.2) g/dL Globulin (2-4) g/dL Albumin/Globulin Ratio (1-3) Assess/Plan/Problems-Billing Assessment: 66 yo male with a PMH of DVT on coumadin, COPD, CAD/3vCABG, ischemic cardiomyopathy with EF 30% who underwent dual chamber pacer placement 6 weeks ago for second degree HB who presented to the ED on 04/07 with c/o progressive SOB and orthopnea. - Patient Problems (1) Acute on chronic systolic (congestive) heart failure Comment: - Suspect non-compliance with low salt diet. Much clinical improvement overnight. Pt is now reports he is asymptomatic, but continues to be hypoxic with ambulation in the mid 's - Plan for further diuresing, re-evaluate later today for potential DC to home. -Education on low salt foods. - TTE pending - last echo nov with noted EF 30% (2) CAD (coronary artery disease) Comment: Asymptomatic. Trops x 3 negative. Continue BB, statin, ASA (3) COPD exacerbation Comment: Mild wheezing noted, but good aeration throughout. No sputum production. D/C solumedrol. (4) HTN (hypertension) Comment: - controlled on current home regimen, Continue hydralazine, atenolol, amlodipine , losartan. (5) DVT prophylaxis Comment: Coumadin slightly subTherapeutic INR (6) Full code status Status and Disposition: Inpatient with acute CHF - possible DC to home later today if clinically stable , if not tomorrow. Med rec completed from cardiology note visit 02/27/17
[2017-04-08] MEDS ORDERED: HYDROcodone/ACETAMIN 5-325 MG* 1 TAB PO PRN (10:56)
[2017-04-08 11:22] LABS: Magnesium 1.7 mg/dL (1.9-2.7)
[2017-04-08 11:31] VITALS: BP 110/55
[2017-04-08] MEDS ORDERED: Magnesium Oxide TAB* 400 MG PO ONE (15:11)
[2017-04-08] MEDS ORDERED: Warfarin TAB(*) 2.5 MG PO ONE (17:00)
[2017-04-08] MEDS ORDERED: Atorvastatin* 10 MG TAB PO SCH (21:00)
--- NOTE | 2017-04-09 05:03 | DS ---
CC: Dr. Espinosa* DISCHARGE SUMMARY: DATE OF ADMISSION: 04/07/17 DATE OF DISCHARGE: 04/08/17 PROVIDER: JAMIE Chavira. ATTENDING PHYSICIAN: Dr. Griffiths* (Report dictated by David Ross NP). PRIMARY CARE PROVIDER: Dr. Espinosa. DISCHARGE DIAGNOSIS: Congestive heart failure. SECONDARY DIAGNOSES: 1. Obesity. 2. Coronary artery disease, status post myocardial infarction and 4-vessel coronary artery bypass graft. 3. Ischemic cardiomyopathy with an ejection fraction of 30%. 4. Chronic obstructive pulmonary disease. 5. Deep venous thrombosis, on Coumadin. 6. Hypertension. 7. Mitral regurgitation, moderate to severe. 8. Hyperlipidemia. DISCHARGE MEDICATIONS: 1. Coumadin 2.5 mg every other day and 5 mg every other day. 2. Lasix 40 mg p.o. b.i.d. 3. Atenolol 100 mg p.o. daily. 4. Aspirin 325 p.o. daily. 5. Hydralazine 25 mg p.o. daily. 6. Spiriva 1 capsule inhalation daily. 7. Potassium chloride 20 mEq p.o. daily. 8. Nitroglycerin 0.4 mg sublingual q.5 minutes p.r.n., chest pain. 9. Magnesium oxide 400 mg p.o. daily. 10. Lovastatin 40 mg p.o. at bedtime. 11. Losartan potassium 50 mg p.o. daily. 12. Hydrocodone with acetaminophen 5/325 p.o. 4 times a day p.r.n. 13. Norvasc 10 mg p.o. daily. 14. Ventolin HFA 1 puff INH q.4 hours p.r.n. 15. Albuterol nebulizer 2.5 mg/3 mL inhalation 4 times a day p.r.n. 16. Acetaminophen 650 mg p.o. q.6 hours p.r.n. HISTORY OF PRESENT ILLNESS AND HOSPITAL COURSE: Please see history and physical by Dr. Peralta for full admission details, but in summary, this is a 66-year-old male with the past medical history as stated above, who 6 weeks ago underwent a dual chamber AV pacer placement for second-degree heart block, who presented yesterday with complaints of increased shortness of breath with orthopnea. The patient was admitted to hospitalist service to telemetry for acute mixed diastolic and systolic heart failure and was diuresed with furosemide. The patient also was initially treated for a COPD exacerbation and received IV Solu-Medrol as he was slightly wheezy in the emergency department. Today, the patient reports that he is "100% better" and wanted to return home first thing this morning. On room air, he was noted to be 90%; however, with ambulation this morning, he dropped down to 85%. He was then diuresed with another 40 of IV Lasix and this afternoon, the patient's O2 sats on room air with ambulation are 93%. The patient denies any further orthopnea and reports that he is at his baseline and would like to go home. The patient has done well throughout his short hospitalization and has turned around very quickly. I suspect in talking with him that this is secondary to noncompliance with a low-salt diet as he reports he has eaten several foods this week that are high in salt such as pizza, cheese, processed foods in which he did not realize that had high salt content. The patient was given education through myself, the nurse, as well as sent home with education on the low-salt diet. He was also instructed to weigh himself daily and notify his primary care provider if he gains more than 2 to 3 pounds. On admission, the patient had an elevated D-dimer of 438 and underwent a CTA of the chest that showed (no evidence for pulmonary embolism), findings most consistent with congestive heart failure. Findings suggestive of pulmonary artery hypertension unchanged. Large mediastinal lymph nodes unchanged. The patient's INR was slightly subtherapeutic at 1.92. The patient reported to me that his Coumadin therapy is 2.5 mg every day except for Sunday he takes 5 mg. However, in the discharge report from Cardiology from his last outpatient visit, I reviewed the medications and he takes 2.5 mg of Coumadin every other day and 5 mg every other day. This was discussed with the patient and he states understanding. I set the patient for an INR in 2 days as well as recheck his electrolytes as his magnesium was noted to be low. As well, I start the patient on magnesium supplementation, which looked like he was taking in the past, but was not on his most recent paperwork from the cardiology office. The patient's BNP on admission was 615, which is at the top end of his trend compared to previous labs. As stated above, the chest CTA was suspicious of congestive heart failure as well as his chest x-ray had findings most consistent with congestive heart failure. The patient is stable for discharge to home. I reviewed the discharge with the patient myself and he states understanding. He is supposed to follow up with his primary care provider this week. Please see typed progress note for further details. DISCHARGE PLAN: 1. Discharge to home. 2. Follow up with Dr. Espinosa within 2 to 3 days. 3. Followup labs, BMP, magnesium, INR in 2 days with the results to PCP. 4. Daily weights, encouraged the patient to take daily weights and notify his PCP if he gains more than 2 to 3 pounds. TIME SPENT: Approximately 60 minutes was spent on this discharge. DAVID ROSS, BELLA [id number]/[facility] #: [id number] IRMA
[2017-04-09] MEDS ORDERED: Losartan TAB* 25 MG PO SCH (09:00)
[2017-04-09] MEDS ORDERED: hydrALAZINE TAB* 25 MG PO SCH (09:00)
[2017-04-09] MEDS ORDERED: Potassium Chlor TAB* 20 MEQ TAB.ER PO SCH (09:00)
[2017-04-09] MEDS ORDERED: Aspirin TAB* 325 MG PO SCH (09:00)
[2017-04-09] MEDS ORDERED: Atenolol TAB* 50 MG PO SCH (09:00)
[2017-04-09] MEDS ORDERED: predniSONE TAB* 20 MG PO SCH (09:00)
[2017-04-09] MEDS ORDERED: amLODIPine TAB* 5 MG PO SCH (09:00)
== END 2017-04-08 16:20 | disposition home or self-care (01) | DRG 292 ==
LOC: ED 21:20 → MEDTELE 22:23
PROVIDERS: ADMIT Hospitalist; ATTEND Internal Medicine
DX: I11.0 Hypertensive heart disease with heart failure (principal); J44.1 Chronic obstructive pulmonary disease with (acute) exacerbation; I44.1 Atrioventricular block, second degree; Z79.01 Long term (current) use of anticoagulants; Z95.1 Presence of aortocoronary bypass graft; I50.41 Acute combined systolic (congestive) and diastolic (congestive) heart failure; I25.10 Atherosclerotic heart disease of native coronary artery without angina pectoris; I25.5 Ischemic cardiomyopathy; I34.0 Nonrheumatic mitral (valve) insufficiency; E78.5 Hyperlipidemia, unspecified; Z86.718 Personal history of other venous thrombosis and embolism; Z95.810 Presence of automatic (implantable) cardiac defibrillator; Z79.1 Long term (current) use of non-steroidal anti-inflammatories (NSAID); Z79.899 Other long term (current) drug therapy; Z87.891 Personal history of nicotine dependence; Z82.49 Family history of ischemic heart disease and other diseases of the circulatory system
CPT/HCPCS: 36415; 71020; 71275; 80048; 80053; 83605; 83735; 83880; 84484; 85025; 85027; 85379; 85610; 93005; 94640; 94760; A9270-GY; J1940; J2920; J2930; Q9967

== ENCOUNTER → 2017-04-28 07:33 | Emergency (ER) | payer MEDICARE, MEDICAID ==
[2017-04-28 08:29] LABS: Hematocrit 38 % (42-52); Hemoglobin 12.5 g/dl (14.0-18.0); Mean Corpuscular HGB Conc 33 g/dl (31-36); Mean Corpuscular Hemoglobin 30 pg (27-31); Mean Corpuscular Volume 91 fL (80-94); Mean Platelet Volume 8 um3 (7.4-10.4); Red Cell Distribution Width 14 % (10.5-15); White Blood Count 8.8 10^3/ul (3.5-10.8)
[2017-04-28 08:40] LABS: Urine Bilirubin Negative (Negative); Urine Glucose Negative (Negative); Urine Nitrite Negative (Negative)
[2017-04-28 08:50] LABS: Albumin 4.2 g/dL (3.2-5.2); BUN/Creatinine Ratio 11.6 (8-20); Calcium 9.2 mg/dL (8.6-10.3); EGFR African American 83.8 (>60); EGFR Non-African American 65.2 (>60); Globulin 3.1 g/dL (2-4); Potassium 3.5 mmol/L (3.5-5.0); Total Bilirubin 0.9 mg/dL (0.2-1.0); Total Protein 7.3 g/dL (6.4-8.9)
--- NOTE | 2017-04-28 09:05 | RAD ---
Indication: Left leg edema. Duplex Doppler sonography of the deep venous system of the left lower extremity deep venous system was performed. Bilaterally the common femoral veins appear patent and compressible. Left proximal greater saphenous vein, proximal deep femoral vein, femoral vein, popliteal vein, posterior tibial veins and peroneal veins appear patent and compressible. IMPRESSION: NO EVIDENCE OF DEEP VENOUS THROMBOSIS IS IDENTIFIED.
[2017-04-28 09:51] VITALS: BP 104/67
--- NOTE | 2017-04-28 18:53 | ED ---
Nelly Smith Auryana, scribed for Alejandro Pike MD on 04/28/17 at 0804 . Lower Extremity - HPI Summary HPI Summary: 66 year old male presents with left calf pain starting yesterday afternoon. The pain located at the posterior left calf and is characterized as a throbbing pain. He also reports left calf swelling. Pain is aggravated by ambulation. PMHx is significant for DVT - on Warfarin 5 mg now. - History of Current Complaint Chief Complaint: EDExtremityLower Stated Complaint: LT LEG / POSS DVT Time Seen by Provider: 04/28/17 07:52 Hx Obtained From: Patient Mechanism Of Injury: Unknown Onset/Duration: Still Present Severity Initially: Mild Severity Currently: Moderate Pain Intensity: 5 Pain Scale Used: 0-10 Numeric Timing: Constant Location: Is Discrete @ - left calf Associated Signs And Symptoms: Positive: Other - edema Aggravating Factor(s): Ambulation Able to Bear Weight: Yes - with pain - Allergies/Home Medications Allergies/Adverse Reactions: Allergies Allergy/AdvReac Type Severity Reaction Status Date / Time No Known Allergies Allergy Verified 04/28/17 07:34 PMH/Surg Hx/FS Hx/Imm Hx Endocrine/Hematology History: Denies: Hx Diabetes Cardiovascular History: Reports: Hx Deep Vein Thrombosis, Hx Hypertension, Hx Pacemaker/ICD - 5/05/31, Other Cardiovascular Problems/Disorders Denies: Hx Congestive Heart Failure Respiratory History: Reports: Hx Chronic Obstructive Pulmonary Disease (COPD), Other Respiratory Problems/Disorders - PNA Denies: Hx Asthma History: Denies: Hx Renal Disease Musculoskeletal History: Reports: Hx Arthritis - fingers, Hx Back Problems Denies: Hx Bursitis, Hx Congenital Bone Abnormalities, Hx Fibromyalgia, Hx Gout, Hx Orthopedic Injury, Hx Osteoporosis, Hx Scoliosis, Hx Tendonitis, Other Musculoskeletal History Sensory History: Reports: Hx Contacts or Glasses, Hx Deafness - left ear, Hx Hearing Problem Denies: Hx Cataracts, Hx Eye Injury, Hx Eye Prosthesis, Hx Glaucoma, Hx Legally Blind, Hx Macular Degeneration, Hx Vision Problem, Hx Hearing Aid, Other Sensory Impairments Opthamlomology History: Reports: Hx Contacts or Glasses Denies: Hx Cataracts, Hx Eye Injury, Hx Eye Prosthesis, Hx Glaucoma, Hx Legally Blind, Hx Macular Degeneration, Hx Vision Problem, Other Sensory Impairments Psychiatric History: Reports: Hx Anxiety - Surgical History Surgery Procedure, Year, and Place: CABG, appendectomy Hx Anesthesia Reactions: No - Immunization History Date of Tetanus Vaccine: unk Date of Influenza Vaccine: unk Infectious Disease History: No Infectious Disease History: Denies: Traveled Outside the US in Last 30 Days - Family History Known Family History: Positive: Cardiac Disease - Social History Alcohol Use: None Substance Use Type: Reports: None Hx Tobacco Use: Yes Smoking Status (MU): Former Smoker Type: Cigarettes Have You Smoked in the Last Year: No Review of Systems Constitutional: Negative Negative: Fever Eyes: Negative ENT: Negative Cardiovascular: Negative Respiratory: Negative Gastrointestinal: Negative Genitourinary: Negative Positive: Myalgia - left calf pain , Edema - left calf edema Skin: Negative Neurological: Negative Psychological: Normal All Other Systems Reviewed And Are Negative: Yes Physical Exam - Summary Physical Exam Summary: VITAL SIGNS: Reviewed. GENERAL: Patient is a well-developed and nourished male who is lying comfortable in the stretcher. Patient is not in any acute respiratory distress. HEAD AND FACE: No signs of trauma. No ecchymosis, hematomas or skull depressions. No sinus tenderness. EYES: PERRLA, EOMI x 2, No injected conjunctiva, no nystagmus. EARS: Hearing grossly intact. Ear canals and tympanic membranes are within normal limits. MOUTH: Oropharynx within normal limits. NECK: Supple, trachea is midline, no adenopathy, no JVD, no carotid bruit, no c- spine tenderness, neck with full ROM. CHEST: Symmetric, no tenderness at palpation LUNGS: Clear to auscultation bilaterally. No wheezing or crackles. CVS: Regular rate and rhythm, S1 and S2 present, no murmurs or gallops appreciated. ABDOMEN: Soft, non-tender. No signs of distention. No rebound no guarding, and no masses palpated. Bowel sounds are normal. EXTREMITIES: FROM in all major joints, no cyanosis or clubbing. Slight increase in swelling in the LLE NEURO: Alert and oriented x 3. No acute neurological deficits. Speech is normal and follows commands. SKIN: Dry and warm. Triage Information Reviewed: Yes Vital Signs On Initial Exam: Initial Vitals Temp Pulse Resp BP Pulse Ox 97.8 F 70 18 121/84 94 04/28/17 07:34 04/28/17 07:34 04/28/17 07:34 04/28/17 07:34 04/28/17 07:34 Vital Signs Reviewed: Yes Diagnostics - Vital Signs Vital Signs Temp Pulse Resp BP Pulse Ox 04/28/17 07:34 97.8 F 70 18 121/84 94 - Laboratory Lab Results: Lab Results 04/28/17 04/28/17 04/28/17 Range/Units 08:17 08:17 08:17 WBC 8.8 (3.5-10.8) 10^3/ul RBC 4.20 (4.0-5.4) 10^6/ul Hgb 12.5 L (14.0-18.0) g/dl Hct 38 L (42-52) % MCV 91 (80-94) fL MCH 30 (27-31) pg MCHC 33 (31-36) g/dl RDW 14 (10.5-15) % Plt Count 200 (150-450) 10^3/ul MPV 8 (7.4-10.4) um3 Neut % (Auto) 74.8 (38-83) % Lymph % (Auto) 11.1 L (25-47) % [place] % (Auto) 11.1 H (1-9) % Eos % (Auto) 1.7 (0-6) % Baso % (Auto) 1.3 (0-2) % Absolute Neuts (auto) 6.6 (1.5-7.7) 10^3/ul Absolute Lymphs (auto) 1.0 (1.0-4.8) 10^3/ul Absolute Monos (auto) 1.0 H (0-0.8) 10^3/ul Absolute Eos (auto) 0.2 (0-0.6) 10^3/ul Absolute Basos (auto) 0.1 (0-0.2) 10^3/ul Absolute Nucleated RBC 0.02 10^3/ul Nucleated RBC % 0.2 INR (Anticoag Therapy) 1.99 H (0.89-1.11) Sodium 132 L (133-145) mmol/L Potassium 3.5 (3.5-5.0) mmol/L Chloride 98 L (101-111) mmol/L Carbon Dioxide 27 (22-32) mmol/L Anion Gap 7 (2-11) mmol/L BUN 13 (6-24) mg/dL Creatinine 1.12 (0.67-1.17) mg/dL Est GFR ( Amer) 83.8 (>60) Est GFR (Non-Af Amer) 65.2 (>60) BUN/Creatinine Ratio 11.6 (8-20) Glucose 152 H (70-100) mg/dL Calcium 9.2 (8.6-10.3) mg/dL Total Bilirubin 0.90 (0.2-1.0) mg/dL AST 22 (13-39) U/L ALT 22 (7-52) U/L Alkaline Phosphatase 69 (34-104) U/L Total Protein 7.3 (6.4-8.9) g/dL Albumin 4.2 (3.2-5.2) g/dL Globulin 3.1 (2-4) g/dL Albumin/Globulin Ratio 1.4 (1-3) Urine Color Urine Appearance Urine pH (5-9) Ur Specific [place] (1.010-1.030) Urine Protein (Negative) Urine Ketones (Negative) Urine Blood (Negative) Urine Nitrate (Negative) Urine Bilirubin (Negative) Urine Urobilinogen (Negative) Ur Leukocyte Esterase (Negative) Urine Glucose (Negative) Urine Ascorbic Acid (Negative) 04/28/17 Range/Units 08:25 WBC (3.5-10.8) 10^3/ul RBC (4.0-5.4) 10^6/ul Hgb (14.0-18.0) g/dl Hct (42-52) % MCV (80-94) fL MCH (27-31) pg MCHC (31-36) g/dl RDW (10.5-15) % Plt Count (150-450) 10^3/ul MPV (7.4-10.4) um3 Neut % (Auto) (38-83) % Lymph % (Auto) (25-47) % [place] % (Auto) (1-9) % Eos % (Auto) (0-6) % Baso % (Auto) (0-2) % Absolute Neuts (auto) (1.5-7.7) 10^3/ul Absolute Lymphs (auto) (1.0-4.8) 10^3/ul Absolute Monos (auto) (0-0.8) 10^3/ul Absolute Eos (auto) (0-0.6) 10^3/ul Absolute Basos (auto) (0-0.2) 10^3/ul Absolute Nucleated RBC 10^3/ul Nucleated RBC % INR (Anticoag Therapy) (0.89-1.11) Sodium (133-145) mmol/L Potassium (3.5-5.0) mmol/L Chloride (101-111) mmol/L Carbon Dioxide (22-32) mmol/L Anion Gap (2-11) mmol/L BUN (6-24) mg/dL Creatinine (0.67-1.17) mg/dL Est GFR ( Amer) (>60) Est GFR (Non-Af Amer) (>60) BUN/Creatinine Ratio (8-20) Glucose (70-100) mg/dL Calcium (8.6-10.3) mg/dL Total Bilirubin (0.2-1.0) mg/dL AST (13-39) U/L ALT (7-52) U/L Alkaline Phosphatase (34-104) U/L Total Protein (6.4-8.9) g/dL Albumin (3.2-5.2) g/dL Globulin (2-4) g/dL Albumin/Globulin Ratio (1-3) Urine Color Yellow Urine Appearance Clear Urine pH 8.0 (5-9) Ur Specific [place] 1.009 L (1.010-1.030) Urine Protein Negative (Negative) Urine Ketones Negative (Negative) Urine Blood Negative (Negative) Urine Nitrate Negative (Negative) Urine Bilirubin Negative (Negative) Urine Urobilinogen Negative (Negative) Ur Leukocyte Esterase Negative (Negative) Urine Glucose Negative (Negative) Urine Ascorbic Acid * H (Negative) Result Diagrams: 04/28/17 08:17 04/28/17 08:17 Lab Statement: Any lab studies that have been ordered have been reviewed, and results considered in the medical decision making process. - Additional Comments Diagnostic Additional Comments: VL LOWER EXT VEINS LEFT: IMPRESSION: NO EVIDENCE OF DEEP VENOUS THROMBOSIS IS IDENTIFIED. Lower Extremity Course/Dx - Course Assessment/Plan: 66 year old male presents with left calf pain starting yesterday afternoon. The pain located at the posterior left calf and is characterized as a throbbing pain. He also reports left calf swelling. Pain is aggravated by ambulation. PMHx is significant for DVT - on Warfarin 5 mg now. In the ED course an IV access was obtained. Patient was placed in a [employer]. Labs within normal limits except for slight anemia, INR 1.99 since patient is taking coumadin. Na 132 and glucose 12, UA negative. LLE U/S IMPRESSION: NO EVIDENCE OF DEEP VENOUS THROMBOSIS IS IDENTIFIED. Therefore, I believe pain is more mudculokeetal pain. He was given Tylenol and will be discharged home with f/u of PMD. I discussed all the findings and test results with the patient. Patient was instructed to return to the emergency room immediately if any of the symptoms return or worsens. Plan of care was discussed with the patient and understands and agrees. All questions were answered at patient satisfaction. There were no further complaints or concerns. Lung exam before discharge: CTA B/L. Good air exchange. No wheezing or crackles heard. CVS: S1 and S2 present. No murmurs appreciated. Patient is alert and oriented x 3. Patient is hemodynamically stable. Patient will be discharged home with follow up PCP in the next 2-3 days - Diagnoses Differential Diagnosis/HQI/PQRI: Positive: Bursitis, Cellulitis, DVT, Sprain, Strain Provider Diagnoses: Musculoskeletal pain Discharge - Discharge Plan Condition: Stable Disposition: HOME Patient Education Materials: Musculoskeletal Pain (ED) Referrals: Antione Espinosa MD [Primary Care Provider] - 3 Days The documentation as recorded by the Nelly liriano Auryana accurately reflects the service I personally performed and the decisions made by me, Alejandro Pike MD.
== END | disposition home or self-care (01) ==
LOC: ED 07:33
DX: M79.1 Myalgia (principal); R60.9 Edema, unspecified; Z87.891 Personal history of nicotine dependence
CPT/HCPCS: 36415; 80053; 81003; 83605; 85025; 85610; 99281

== ENCOUNTER 2017-06-20 03:45 | Inpatient (IN) | payer MEDICARE, MEDICAID ==
[2017-06-20] MEDS ORDERED: Albuterol/Ipratropium NEB.SOL* Albuterol 2.5 MG/Ipratropium 0.5 MG 3 ML INH ONE (03:57)
[2017-06-20] MEDS ORDERED: methylPREDNISolone 125 MG* 2 ML VIAL IV ONE (03:57)
[2017-06-20 04:13] LABS: Hematocrit 36 % (42-52); Hemoglobin 11.8 g/dl (14.0-18.0); Mean Corpuscular HGB Conc 33 g/dl (31-36); Mean Corpuscular Hemoglobin 29 pg (27-31); Mean Corpuscular Volume 89 fL (80-94); Mean Platelet Volume 8 um3 (7.4-10.4); Red Blood Count 4.05 10^6/ul (4.0-5.4); Red Cell Distribution Width 16 % (10.5-15); White Blood Count 11.9 10^3/ul (3.5-10.8)
[2017-06-20 04:14] LABS: Comments Flag Yes
[2017-06-20 04:15] LABS: Add Diff/Slide Review? Slide Review Added
[2017-06-20 04:18] LABS: FIO2 32
[2017-06-20 04:20] LABS: PCO2 Arterial 37 mmHg (35-45)
[2017-06-20 04:28] LABS: Albumin 4.4 g/dL (3.2-5.2); BUN/Creatinine Ratio 18.8 (8-20); Calcium 9.4 mg/dL (8.6-10.3); EGFR African American 79.7 (>60); Globulin 3.1 g/dL (2-4); Potassium 3.7 mmol/L (3.5-5.0); Total Bilirubin 2.1 mg/dL (0.2-1.0); Total Protein 7.5 g/dL (6.4-8.9)
[2017-06-20 04:30] LABS: Troponin I 0.01 ng/mL (<0.04)
[2017-06-20] MEDS ORDERED: cefTRIAXone VIAL(*) 1,000 MG in NS 0.9% 50 ML* 50 ML IVPB ONE (04:33)
[2017-06-20] MEDS ORDERED: Azithromycin IV(*) 500 MG in NS 0.9% 250 ML* 250 ML IVPB ONE (04:35)
[2017-06-20] MEDS ORDERED: cefTRIAXone(*) 1 GM ADVAN ONE (04:43)
[2017-06-20] MEDS ORDERED: Azithromycin IV* 500 MG ADVAN VIAL IVPB ONE (04:57)
[2017-06-20] MEDS ORDERED: Ondansetron INJ* 2 MG/ML VIAL IV PRN (05:12)
[2017-06-20] MEDS ORDERED: NS 0.9% 1000 ML* 500 ML IV ONE (05:15)
[2017-06-20] MEDS ORDERED: Acetaminophen TAB* 325 MG PO PRN (05:17)
[2017-06-20] MEDS ORDERED: Albuterol 2.5 MG/3 ML NEB.SOL* (0.083%) INH PRN (05:17)
[2017-06-20] MEDS ORDERED: HYDROcodone/ACETAMIN 5-325 MG* 1 TAB PO PRN (05:17)
--- NOTE | 2017-06-20 05:41 | ED ---
Robert Smith Rebecca, scribed for MargaritaDevan on 06/20/17 at 0406 . Shortness of Breath - HPI Summary HPI Summary: Pt is a 66 y/o M BIBA who presents to ED c/o SOB for multiple days. SOB is characterized as dyspnea at rest. Additionally c/o lightheadedness. Denies edema. Uses 3L O2 per Os at home at night. Confirms he has been medication compliant. Reports he has a pacemaker that he is concerned about malfunctioning due to EMS reporting he was bradycardic while en route to [facility] ED. PMHx COPD. - History of Current Complaint Chief Complaint: EDDysrhythmPalp Time Seen by Provider: 06/20/17 03:49 Hx Obtained From: Patient Onset/Duration: Still Present Dyspnea At: Rest Aggrevating Factors: Nothing Alleviating Factors: Nothing - Allergy/Home Medications Allergies/Adverse Reactions: Allergies Allergy/AdvReac Type Severity Reaction Status Date / Time No Known Allergies Allergy Verified 04/28/17 07:34 PMH/Surg Hx/FS Hx/Imm Hx Endocrine/Hematology History: Denies: Hx Diabetes Cardiovascular History: Reports: Hx Deep Vein Thrombosis, Hx Hypertension, Hx Pacemaker/ICD - 5/8/17, Other Cardiovascular Problems/Disorders Denies: Hx Congestive Heart Failure Respiratory History: Reports: Hx Chronic Obstructive Pulmonary Disease (COPD), Other Respiratory Problems/Disorders - PNA Denies: Hx Asthma History: Denies: Hx Renal Disease Musculoskeletal History: Reports: Hx Arthritis - fingers, Hx Back Problems Denies: Hx Bursitis, Hx Congenital Bone Abnormalities, Hx Fibromyalgia, Hx Gout, Hx Orthopedic Injury, Hx Osteoporosis, Hx Scoliosis, Hx Tendonitis, Other Musculoskeletal History Sensory History: Reports: Hx Contacts or Glasses, Hx Deafness - left ear, Hx Hearing Problem Denies: Hx Cataracts, Hx Eye Injury, Hx Eye Prosthesis, Hx Glaucoma, Hx Legally Blind, Hx Macular Degeneration, Hx Vision Problem, Hx Hearing Aid, Other Sensory Impairments Opthamlomology History: Reports: Hx Contacts or Glasses Denies: Hx Cataracts, Hx Eye Injury, Hx Eye Prosthesis, Hx Glaucoma, Hx Legally Blind, Hx Macular Degeneration, Hx Vision Problem, Other Sensory Impairments Psychiatric History: Reports: Hx Anxiety - Surgical History Surgery Procedure, Year, and Place: CABG, appendectomy Hx Anesthesia Reactions: No - Immunization History Date of Tetanus Vaccine: unk Date of Influenza Vaccine: unk Infectious Disease History: Yes Infectious Disease History: Denies: Traveled Outside the [place] in Last 30 Days - Family History Known Family History: Positive: Cardiac Disease - Social History Alcohol Use: None Substance Use Type: Reports: None Hx Tobacco Use: Yes Smoking Status (MU): Former Smoker Type: Cigarettes Have You Smoked in the Last Year: No Review of Systems Negative: Chest Pain Positive: Shortness Of Breath Negative: Edema Neurological: Other - Lightheadedness All Other Systems Reviewed And Are Negative: Yes Physical Exam - Summary Physical Exam Summary: Appearance: Well appearing, no pain distress Skin: warm, dry, reflects adequate perfusion Head/face: normal Eyes: EOMI, KU[place] ENT: normal Neck: supple, nontender Respiratory: poor airway entry, bilateral wheezing. Cardiovascular: RRR, pulses symmetrical Abdomen: nontender, soft Bowel: present Musculoskeletal: normal, strength/ROM intact Neuro: normal, sensory motor intact, A&Ox3 Triage Information Reviewed: Yes Vital Signs On Initial Exam: Initial Vitals Temp Pulse Resp BP Pulse Ox 99.3 F 69 25 120/81 95 06/20/17 03:46 06/20/17 03:46 06/20/17 03:46 06/20/17 03:46 06/20/17 03:46 Vital Signs Reviewed: Yes Diagnostics - Vital Signs Vital Signs Temp Pulse Resp BP Pulse Ox 06/20/17 03:46 99.3 F 69 25 120/81 95 - Laboratory Result Diagrams: 06/20/17 04:00 06/20/17 04:00 Lab Statement: Any lab studies that have been ordered have been reviewed, and results considered in the medical decision making process. - Radiology CXR Xray Interpretation: Positive (See Comments) - Infiltrate in the left lower lobe. Radiology Interpretation Completed By: ED Physician - EKG 0348 Cardiac Rate: NL - 66 bpm EKG Interpretation: Paced rhythm Course/Dx - Course Assessment/Plan: Pt is a 66 y/o M BIBA who presents to ED c/o SOB for multiple days. SOB is characterized as dyspnea at rest. Additionally c/o lightheadedness. Denies edema. Uses 3L O2 per Os at home at night. Confirms he has been medication compliant. Reports he has a pacemaker that he is concerned about malfunctioning due to EMS reporting he was bradycardic while en route to [facility] ED. PMHx COPD. EKG is paced rhythm. CXR reveals infiltrate in the left lower lobe, as read by ED physician. D-Dimer is elevtaed but there is unlikely PE so a CT is not indicated at this time. In the ED course, pt received Duoneb , Zithromax, Rocephin and Solu-Medrol. Discussed care of pt with Dr. Reaves ( hospitalist) who accepts pt for admission. Pt will be admitted with Dx of PNA, COPD exacerbation and nonfunctioning pacemaker. He understands and agrees. 30 minutes critical care time. - Diagnoses Provider Diagnoses: COPD exacerbation, Pneumonia, nonfunctioning pacemaker - Physician Notifications Discussed Care of Patient With: Td Reaves Time Discussed With Above Provider: 04:35 Instructed by Provider To: Other - Accepts pt for admission. - Critical Care Time Critical Care Time: 30-74 min - 30 minutes Discharge - Discharge Plan Condition: Stable Disposition: ADMITTED TO [facility] The documentation as recorded by the Robert liriano Rebecca accurately reflects the service I personally performed and the decisions made by Margarita enrique Emmanuel.
[2017-06-20 05:55] LABS: C Reactive Protein 31.92 mg/L (< 5.00)
[2017-06-20 06:03] LABS: Urine Bilirubin Negative (Negative); Urine Glucose Negative (Negative); Urine Nitrite Negative (Negative)
--- NOTE | 2017-06-20 07:52 | RAD ---
INDICATION: Pacemaker malfunction COMPARISON: Chest x-ray April 07, 2017 TECHNIQUE: An AP portable view obtained at 0403 hours is submitted. FINDINGS: Bones/Soft Tissues: There are no acute bony findings. There is sternotomy. There is a left-sided cardiac pacemaker Cardiomediastinal: Cardiac silhouette, central pulmonary vessels, and interstitium are mildly prominent consistent with mild vascular congestion.. Lungs: There is no focal consolidation. Pleura: There are no pleural effusions. Other: None IMPRESSION: MILD THORACIC CONGESTION, UNCHANGED.
[2017-06-20] MEDS: Potassium Chlor TAB* 20 MEQ TAB.ER PO SCH (08:32)
[2017-06-20] MEDS: Aspirin TAB* 325 MG PO SCH (08:32)
[2017-06-20] MEDS: Magnesium Oxide TAB* 400 MG PO SCH (08:32)
[2017-06-20] MEDS ORDERED: Spiriva Inhaler DEVICE* 1 EACH DEVICE INH ONE (09:00)
--- NOTE | 2017-06-20 09:38 | HP ---
CC: Dr. Espinosa; Dr. Anaya * ADMISSION HISTORY AND PHYSICAL: DATE OF ADMISSION: 06/20/17 PRIMARY CARE PROVIDER: Dr. Espinosa ELECTRONIC COMMUNICATIONS TECHNICIAN: Dr. Anaya. HEALTHCARE PROXY: Eboni Thakur, who is a friend. CODE STATUS: Full. CHIEF COMPLAINT: Shortness of breath since Sunday, 5 days prior to presentation. History is obtained from interview with the patent and review of the past medical records. RELIABILITY: Fair to poor. HISTORY OF PRESENT ILLNESS: This is a 66-year-old man with past medical history of systolic heart failure, COPD, chronic respiratory failure use 2 to 3 L nasal cannula at night, CAD, status post CABG, recent permanent pacemaker placement in February, started feeling unwell on Sunday. Five days prior to presented noted that he "did not feel good" citing more difficulty breathing. The following day he felt some relief with nebulizers. However, did note [place], he had stopped 10 to 15 times, which is unusual for him. 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 Today, his boss said "you don't look good" and summoned a nurse to have him evaluated, when he was told that his heart rate was low and his blood pressure was low. He decided not to proceed to the emergency room as recommended. On the night of admission found it harder to sleep, worse lying flat, better sitting up. Particularly worse when moving. He notes cough that started on the day of admission, but no fevers or chills. He does note on Sunday, 5 days prior to presentation, he had gained 3 to 4 pounds above his baseline. He notes strict medication adherence and denies any salty foods including cutting out all canned foods and pizza which was thought to have been the source of his volume overload on previous admissions. He gets his meals from meals on wheels which deliver a low salt diet. PAST MEDICAL HISTORY: Permanent pacemaker placed for second-degree heart block in February 2017, CAD with CABG 4-vessel, COPD on home oxygen, DVT, on Coumadin, hypertension, pulmonary hypertension, [id number] mitral regurgitation, hyperlipidemia, systolic heart failure, EF of 30% reportedly ischemic, history of appendectomy. MEDICATIONS: Reconciled at previous visit. The patient notes they have now been changed since that time, including hydralazine 25 mg daily, Coumadin 2.5 mg daily, and 5 mg on Sunday. This is different and his discharge medications. However, he relates that this is the current dose, tiotropium one capsule inhaled daily, potassium chloride 20 mEq daily, nitroglycerin 0.4 mg every five minutes as needed for pain, magnesium oxide 400 mg daily, lovastatin 40 mg at bedtime, losartan 50 mg daily, [place] 5/325 mg one tablet four times a day as needed for pain, Lasix 40 mg twice daily, atenolol 100 mg daily and aspirin 325 mg daily, amlodipine 10 mg daily, albuterol HFA inhaler as needed, acetaminophen 650 mg every 6 hours as needed for pain. ALLERGIES: No known drug allergies. FAMILY HISTORY: CAD. SOCIAL HISTORY: Smoked one pack per week, quit 15 years prior. Smoked 40 years. Lives alone. Still works 20 hours a week. REVIEW OF SYSTEMS: As per HPI, otherwise all other systems are negative. PHYSICAL EXAMINATION GENERAL: Sitting up in bed, interactive, pleasant, in no apparent distress. VITAL SIGNS: Vitals in the emergency room, 111/91, heart rate 61, respiratory rate is 18 to 20, T-max in the emergency room is 99.3, and 96% on 2 L. HEENT: Oropharynx is clear. Moist mucous membranes. NECK: He has elevated JVD to angle of his ear. He has no supraclavicular or cervical lymphadenopathy. LUNGS: Are clear, except for rales in the mid left lung without notable dullness to percussion. HEART: He has a regular rate and rhythm. No murmurs, rubs, or gallops. He has distant heart sounds. ABDOMEN: His abdomen is soft, nontender, nondistended. EXTREMITIES: Are warm, well perfused. He has trace to 1+ lower extremity pitting edema. NEUROLOGIC: He is alert and oriented x3. His Cranial nerves II through XII were intact. He has no apparent agitation, anxiety, or depression. DIAGNOSTIC STUDIES/LAB DATA: Pertinent laboratory data notable for a total bilirubin 2.1, BNP 738, INR is 1.97. D-dimer 284. His white blood cell count is 11.9 with 69% neutrophils. Hemoglobin is 11.8, platelets 215. Blood gases notable for a pH 7.4, pCO2 37, pO2 98. EKG notable for ventricular paced rhythm with VPC. Chest x-ray mild pulmonary vascular congestion, potentially left retrocardiac infiltrate on this author's read. ASSESSMENT AND PLAN: This is a 66-year-old man with past medical history of systolic heart failure, coronary artery disease, pacer placed for type 2 heart block, chronic obstructive pulmonary disease, presenting with 5 days of worsening shortness of breath in conjunction with weight gain, cough today, and leukocytosis. 1. Hypoxic respiratory failure may be multifactorial; however, in the setting of leukocytosis as well as absence of increasing cough over the last several days, absence of increased sputum production or color, doubt chronic obstructive pulmonary disease exacerbation. His weight has increased which will lend evidence to congestive heart failure exacerbation and he has had had what sounds like mild orthopnea; however, his blood pressure is borderline lower at this time. No clear reason for congestive heart failure exacerbation in the setting of localized lung abnormalities on clinical exam with leukocytosis, fever, pneumonia. He received ceftriaxone and azithromycin at this time. If blood pressure tolerates, would diurese to dry weights. Not starting steroids at this time. We will add procalcitonin to ED labs, as well as ESR and CRP. Continue home nebulizers for chronic obstructive pulmonary disease. 2. History of heart failure. Holding Lasix in the setting of borderline low blood pressures. 3. Hypertension, holding all home medications for above reasons. 4. Reported bradycardia by EMS and transport. The patient appears to be functioning well on EKG at this time; however, [employer] was contacted by Dr. Avila in the ED to have the pacer interrogated tomorrow. We will confirm this information in the morning with [email or web address]. 5. Chronic respiratory failure, currently using O2 at night. Recommend increasing to daily as well. 6. History of DVT. Continue Coumadin. Repeat INR on . 7. DVT prophylaxis. Coumadin as above. [id number]/[facility] #: [id number] [facility]IT[facility]andace
[2017-06-20] MEDS: Tiotropium CAP.INH* CAP.INH/18 MCG INH SCH (10:33)
[2017-06-20] MEDS: Furosemide IV* 10 MG/ML VIAL (40 MG) IV SCH ×2 (10:57→16:52)
[2017-06-20] MEDS ORDERED: Warfarin TAB(*) 5 MG PO SCH (17:00)
--- NOTE | 2017-06-20 18:22 | PN ---
Hospitalist Progress Note Pt seen and examined, admitted overnight. Suspect CHF exacerbation given increased weight, BNP (higher than last CHF admission), dry cough, 3 pillow orthopnea, moderate-severe MVR with reduced EF 30-35% Nov 2016. Effective forward flow likely on order of EF20-25%. Abx stopped. lasix 40mg IV BId. daily weights, fluid restriction. procalcitonin was low. Repeat ECHO. Jose Gutiérrez MD
[2017-06-20] MEDS ORDERED: Atorvastatin* 10 MG TAB PO SCH (21:00)
[2017-06-21 04:45] LABS: Hematocrit 33 % (42-52); Hemoglobin 10.8 g/dl (14.0-18.0); Mean Corpuscular HGB Conc 33 g/dl (31-36); Mean Corpuscular Hemoglobin 29 pg (27-31); Mean Corpuscular Volume 88 fL (80-94); Mean Platelet Volume 8 um3 (7.4-10.4); Red Blood Count 3.69 10^6/ul (4.0-5.4); Red Cell Distribution Width 16 % (10.5-15); White Blood Count 10.6 10^3/ul (3.5-10.8)
[2017-06-21 05:01] LABS: BUN/Creatinine Ratio 25.9 (8-20); Calcium 8.9 mg/dL (8.6-10.3); EGFR African American 83.8 (>60); EGFR Non-African American 65.2 (>60); Potassium 3.7 mmol/L (3.5-5.0)
[2017-06-21] MEDS ORDERED: Azithromycin IV(*) 250 MG in NS 0.9% 250 ML* 250 ML IVPB SCH (06:00)
[2017-06-21] MEDS: Aspirin TAB* 325 MG PO SCH (07:54)
[2017-06-21] MEDS: Magnesium Oxide TAB* 400 MG PO SCH (07:54)
[2017-06-21] MEDS: Furosemide IV* 10 MG/ML VIAL (40 MG) IV SCH (07:55)
[2017-06-21] MEDS: Potassium Chlor TAB* 20 MEQ TAB.ER PO SCH (07:55)
[2017-06-21] MEDS ORDERED: cefTRIAXone VIAL(*) 1,000 MG in NS 0.9% 50 ML* 50 ML IVPB SCH (08:00)
[2017-06-21] MEDS ORDERED: Pneumococcal *Vac Polyvalent 0.5 ML VIAL IM ONE (09:00)
[2017-06-21] MEDS ORDERED: Influenza VAC *QUAD* 2017-18* 0.5 ML SYRINGE IM ONE (09:00)
[2017-06-21] MEDS ORDERED: Perflutren Lipid Microsphere* 3 ML VIAL ONE (09:08)
[2017-06-21] MEDS: Tiotropium CAP.INH* CAP.INH/18 MCG INH SCH (09:10)
--- NOTE | 2017-06-21 12:23 | ECHO ---
Patient: KAT CABRAL [facility] Rec#: [id number] : 1950 Date: 06/21/2017 Age: 66y Height: 157.48 cm / 62.0 in Weight: 77.11 kg / 170.0 lbs Sex: M BSA: 1.78 Room#: 439 Admit Date#: 06/20/2017 Type: Inpatient Referring: Abdullahi Gutiérrez MD Reading: Jalen Barraza MD Importer Or Exporter: Mary Jane Sesay RDCS CC: Antione Espinosa MD Transthoracic Echocardiogram Indication: CHF BP: 117/78 HR: 74 Rhythm: Paced Findings History: COPD, CHF, chronic respiratory failure, CAD s/p CABG, pacer 02/28, PHTN, DVT, and smoker. Technical Comments: The study is technically difficult. The study is technically limited due to patient body habitus. The study is technically limited due to the patient's history of COPD. Completed at 1117. Left Ventricle: The left ventricular chamber size is normal. Mild concentric left ventricular hypertrophy is observed. There are multiple regional wall motion abnormalities. There is severe hypokinesis of the distal anterior and anterolateral hernandez with akinesis of the apical and apical lateral region. The distal inferior wall has severe hypo to akinesis. With contrast the is a suggestion of a small laminated mural thrombus at the distal anterior to apical region. There are no large or pedunculated thrombi seen with contrast enhancement. There is moderate to severely decreased left ventricular systolic function. The estimated ejection fraction is 30-35%. The left ventricular diastolic filling pattern is restrictive. Left Atrium: The left atrium is moderately dilated. Right Ventricle: The right ventricle is moderately dilated. The right ventricular global systolic function is moderately reduced. A pacemaker wire is visualized in the right ventricle. Right Atrium: The right atrium is moderately dilated. A pacemaker wire is visualized in the right atrium. Aortic Valve: The aortic valve is trileaflet. The aortic valve leaflets are moderately thickened. There is no evidence of aortic regurgitation. There is no evidence of aortic stenosis. Mitral Valve: There is mitral annular calcification. The mitral valve leaflets are moderately thickened. There is moderate to severe mitral regurgitation. There is no evidence of mitral stenosis. Tricuspid Valve: The tricuspid valve leaflets are normal. There is mild tricuspid regurgitation. The right ventricular systolic pressure is estimated at 40 mmHg. There is evidence of mild pulmonary hypertension. There is no tricuspid stenosis. Pulmonic Valve: The pulmonic valve appears normal. There is mild pulmonic regurgitation. There is no pulmonic stenosis. Pericardium: There is no significant pericardial effusion. Aorta: There is mild dilatation of the ascending aorta. There is no dilatation of the aortic arch. The aortic root is normal in size. Pulmonary Artery: The main pulmonary artery appears normal. Venous: The inferior vena cava appears normal in size. There is a greater than 50% respiratory change in the inferior vena cava dimension. Contrast: Definity was used to optimize study. 3 mL of diluted Definity was utilized. Intravenous contrast was used to enhance endocardial border definition. Conclusions The study is technically limited due to patient body habitus. The study is technically limited due to the patient's history of COPD. Completed at 1117. Mild concentric left ventricular hypertrophy is observed. There are multiple regional wall motion abnormalities as described above with suggestion of a small laminated distal anterior/apical thrombus (using contrast enhanced imaging). There is moderate to severely decreased left ventricular systolic function. The estimated ejection fraction is 30-35%. There is moderate to severe mitral regurgitation. The left atrium is moderately dilated. There is moderate tricuspid regurgitation. There is mild tricuspid regurgitation. There is evidence of mild pulmonary hypertension. There is mild pulmonic regurgitation. Compared to report of study from 12/08/2016 there are no significant changes. The apex is seen better now with contrast and the suggest of a small laminated thrombus is noted. Measurements Name Value Normal Range RVIDd (AP) 2D 3.9 cm (0.9 - 2.6) RVDdMajor (2D) 5.4 cm (2.2 - 4.4) RAd ISD 4CH 5.9 cm (3.4 - 4.9) RA (A4C)W 4.6 cm (2.9 - 4.6) IVSd (2D) 1.1 cm (0.6 - 1) LVPWd (2D) 1.1 cm (0.6 - 1) LVIDd (2D) 5.4 cm (3.6 - 5.4) LVIDs (2D) 4.4 cm - LV FS (2D) 19.1 % (25 - 45) EF Teichholz (2D) 39 % - Aortic Annulus 1.9 cm (1.4 - 2.6) Ao root diameter (2D) 2.8 cm (2.1 - 3.5) Ascending Ao 3.5 cm (2.1 - 3.4) Aortic arch 3.3 cm (1.8 - 3.4) LA dimension (AP) 2D 4.6 cm (2.3 - 3.8) LAd ISD 4CH 6.3 cm (2.9 - 5.3) LA ISD 4CH W 4.4 cm (2.5 - 4.5) Name Value Normal Range LA ESV SP 4CH (A/L) 72 ml - LA ESV SP 2CH (A/L) 82 ml - LA ESV BP (A/L) 77 ml - LA ESV BP (A/L) index 43.1 ml/m2 - LA ESV SP 4CH (MOD) 67 ml - LA ESV SP 2CH (MOD) 76 ml - Name Value Normal Range MV E-wave Vmax 1.4 m/sec - MV deceleration time 150.06 msec - LV septal e' Vmax 0.02 m/sec - LV lateral e' Vmax 0.03 m/sec - LV E:e' septal ratio 70 ratio - LV E:e' lateral ratio 46.67 ratio - Name Value Normal Range AV Vmax 1.6 m/sec - AV VTI 30.3 cm - AV peak gradient 10.12 mmHg - AV mean gradient 5.61 mmHg - LVOT Vmax 1.9 m/sec - LVOT VTI 26.03 cm - LVOT peak gradient 6.68 mmHg - LVOT mean gradient 3.02 mmHg - FILIBERTO Vmax 0.66 m/sec - Name Value Normal Range MR Vmax 3.9 m/sec - MR VTI 122 cm - Name Value Normal Range TR Vmax 3.06 m/sec - TR peak gradient 37 mmHg - RAP 3 mmHg - RVSP 40 mmHg - IVC diameter 2 cm - Name Value Normal Range PV Vmax 0.98 m/sec - PV peak gradient 3.86 mmHg - CA end-diastolic Vmax 1.78 m/sec -
[2017-06-21 15:57] VITALS: BP 105/77
[2017-06-21] MEDS ORDERED: Furosemide TAB* 40 MG ONE (16:14)
--- NOTE | 2017-06-22 06:06 | DS ---
CC: Dr. Anaya; Dr. Espinosa * DISCHARGE SUMMARY: DATE OF ADMISSION: 06/20/17 DATE OF DISCHARGE: 06/21/17 ADMITTING PHYSICIAN: Td Reaves MD. PRIMARY CARE PROVIDER: Dr. Espinosa. SEWING MACHINE ASSEMBLER: Dr. Anaya. HEALTHCARE PROXY: Friend, Eboni Steele. CHIEF COMPLAINT: Shortness of breath. PRIMARY DIAGNOSES: Acute on chronic systolic and valvular heart failure exacerbation. SECONDARY DIAGNOSES: 1. Mivnmubt-ub-swhipc mitral valve regurgitation. 2. Left ventricular thrombus, on anticoagulation. 3. Chronic obstructive pulmonary disease exacerbation with home oxygen use 2 to 3 liters at night. 4. Coronary artery disease, status post coronary artery bypass graft. 5. Arrhythmia, status post permanent pacemaker February 2017. HISTORY OF PRESENT ILLNESS AND HOSPITAL COURSE: Graham David is a 66-year- old male with past medical history of systolic heart failure with EF approximately 30 to 35%, COPD, chronic respiratory failure using 2 to 3 L of nasal and at night, CAD status post CABG, recent PPM placement in February 2017, who felt unwell with increased shortness of breath for a few days prior to admission and co-worked told him he did not look well. Please see H and P of for further details. He noticed difficulty breathing that was relieved somewhat with his nebulizers. He attests that he drinks 4 to 5 bottles of water in addition to coffee, juice and milk each day. He attested to orthopnea night prior to admission and a cough, but no fevers and chills. He had gained 3 to 4 pounds above his baseline the week prior to admission. He denies any increased intake of salty food and gets his meals delivered by meals [employer] wheels. In ED Patient's chest x-ray did not show any infiltrate. His BNP was elevated, he was thought to have acute on chronic systolic and valvular heart failure exacerbation. He was diuresed with 40 IV b.i.d. and put on fluid restriction. His symptoms improved by hospital day #2, was able to walk the halls without any supplemental oxygen. His BNP on admission greater than 700, greater that it had been previous admission for CHF. He was advised to regulate his food intake at home, record his daily weights with approximate goal weights likely around 170 pounds or slightly less. His multiple antihypertensive medications were held on admission for relative hypotension with blood pressures in the 110s to 120s predominately. His atenolol 100 mg daily was continued on discharge, but hydralazine 25 mg t.i.d., amlodipine 10 mg and losartan 50mg daily was held until he could followup with Dr. Anaya after discharge. His lasix 40 mg b.i.d. was continued upon discharge. He had a repeat echocardiogram , which showed stable ejection fraction (30-35%) and still [id number] mitral valve regurgitation and an extremely small left ventricular thrombus. Of note, patient was on Coumadin already with an INR therapeutic range. DISPOSITION: Home at the [facility]. DIET: Heart healthy, low salt diet, unchanged. MEDICATIONS UPON DISCHARGE: 1. Lasix 40 mg p.o. b.i.d. 2. Atenolol 100 mg daily. 3. Aspirin 325 mg daily. 4. Albuterol inhaler as needed. 5. Potassium chloride 20 mEq daily. 6. Nitroglycerin 0.4 mg sublingual q. 5 minutes p.r.n. for chest pain. 7. Magnesium oxide 400 mg p.o. daily. 8. Langley 5/325 mg 1 tablet q.6 hours p.r.n. as needed (has not needed for several months). 9. Lovastatin 40 mg q. bedtime daily. Medications halted upon discharge/not continued in the hospital include: 1. Losartan 50 mg daily. 2. Amlodipine 10 mg daily. Pt was advise to see his PCP and personal injury litigation paralegal within 3-5 days of discharge [id number]/[facility] #: [id number] IRMA
[2017-06-22] MEDS ORDERED: Warfarin TAB(*) 5 MG PO SCH (17:00)
== END 2017-06-21 16:21 | disposition home or self-care (01) | DRG 292 ==
LOC: ED 03:45 → MEDTELE 05:12 → OBSVTOIN 10:00
PROVIDERS: ADMIT Internal Medicine; ATTEND Internal Medicine
PROC: 3E0234Z Introduction of Serum, Toxoid and Vaccine into Muscle, Percutaneous Approach (ICD-10-PCS; principal; 2017-06-21)
PROC: 3E0234Z Introduction of Serum, Toxoid and Vaccine into Muscle, Percutaneous Approach (ICD-10-PCS; 2017-06-21)
DX: I11.0 Hypertensive heart disease with heart failure (principal); J96.11 Chronic respiratory failure with hypoxia; I95.9 Hypotension, unspecified; I27.2 Other secondary pulmonary hypertension; I24.0 Acute coronary thrombosis not resulting in myocardial infarction; Z95.1 Presence of aortocoronary bypass graft; J44.1 Chronic obstructive pulmonary disease with (acute) exacerbation; Z95.0 Presence of cardiac pacemaker; I50.23 Acute on chronic systolic (congestive) heart failure; Z86.718 Personal history of other venous thrombosis and embolism; M13.849 Other specified arthritis, unspecified hand; F41.9 Anxiety disorder, unspecified; Z82.49 Family history of ischemic heart disease and other diseases of the circulatory system; Z87.891 Personal history of nicotine dependence; I25.10 Atherosclerotic heart disease of native coronary artery without angina pectoris; I34.0 Nonrheumatic mitral (valve) insufficiency; R00.1 Bradycardia, unspecified; Z23 Encounter for immunization; Z79.82 Long term (current) use of aspirin
CPT/HCPCS: 36415; 36600; 71010; 80048; 80053; 81003; 82803; 83735; 83880; 84145; 84484; 85025; 85379; 85610; 85652; 85730; 86140; 87040; 90686; 90732; 93005; 93306; 94640; 94760; A9270-GY; C8929; G0378; J0456; J0696; J1940; J2930

== ENCOUNTER 2017-07-16 15:17 | Inpatient (IN) | payer MEDICARE, MEDICAID ==
[2017-07-16 18:22] LABS: FIO2 4
[2017-07-16 18:26] LABS: PCO2 Arterial 31 mmHg (35-45)
--- NOTE | 2017-07-16 18:47 | ED ---
Oren Smith Thomas, scribed for Alejandro Frazier MD on 07/16/17 at 1744 . Shortness of Breath - HPI Summary HPI Summary: The pt is a 66 y/o M with a Hx of CHF c/o SOB that began three days ago. He has a cough with dark green production. The patient was admitted to [facility] on 06/20 for PNA. Three days ago, the patient developed a sore throat, lightheadedness, and chills. He also reports decreased urine output and orthopnea. Pt denies leg swelling, CP, and fever. The patient has been taking cough syrup. PMHx: CHF, CAD, HTN, ME, polio. PSHx: CABG, defibrillator, appendectomy. SHx: former smoker, rare alcohol use, no illicit drug use. FHx: ME (extensive throughout family). - History of Current Complaint Chief Complaint: EDGeneral Time Seen by Provider: 07/16/17 17:24 Hx Obtained From: Patient, Medical Records - electronic medical records Onset/Duration: Lasting Days - onset three days ago, Still Present Timing: Constant Current Severity: Moderate Dyspnea At: Rest Aggrevating Factors: Nothing Alleviating Factors: Oxygen Associated Signs & Symptoms: Cough (Productive) - with gren production, Chills - Allergy/Home Medications Allergies/Adverse Reactions: Allergies Allergy/AdvReac Type Severity Reaction Status Date / Time No Known Allergies Allergy Verified 04/28/17 07:34 PMH/Surg Hx/FS Hx/Imm Hx Previously Healthy: No Endocrine/Hematology History: Denies: Hx Diabetes Cardiovascular History: Reports: Hx Auto Implanted Cardiovert Defib, Hx Congestive Heart Failure, Hx Coronary Artery Disease, Hx Deep Vein Thrombosis, Hx Hypertension, Hx Myocardial Infarction, Hx Pacemaker/ICD - 02/19/17, Other Cardiovascular Problems/Disorders Respiratory History: Reports: Hx Chronic Obstructive Pulmonary Disease (COPD), Other Respiratory Problems/Disorders - PNA Denies: Hx Asthma History: Denies: Hx Renal Disease Musculoskeletal History: Reports: Hx Arthritis - fingers, Hx Back Problems Denies: Hx Bursitis, Hx Congenital Bone Abnormalities, Hx Fibromyalgia, Hx Gout, Hx Orthopedic Injury, Hx Osteoporosis, Hx Scoliosis, Hx Tendonitis, Other Musculoskeletal History Sensory History: Reports: Hx Contacts or Glasses, Hx Deafness - left ear, Hx Hearing Problem Denies: Hx Cataracts, Hx Eye Injury, Hx Eye Prosthesis, Hx Glaucoma, Hx Legally Blind, Hx Macular Degeneration, Hx Vision Problem, Hx Hearing Aid, Other Sensory Impairments Opthamlomology History: Reports: Hx Contacts or Glasses Denies: Hx Cataracts, Hx Eye Injury, Hx Eye Prosthesis, Hx Glaucoma, Hx Legally Blind, Hx Macular Degeneration, Hx Vision Problem, Other Sensory Impairments Psychiatric History: Reports: Hx Anxiety - Surgical History Surgery Procedure, Year, and Place: CABG, defibrillator, appendectomy Hx Anesthesia Reactions: No - Immunization History Date of Tetanus Vaccine: unk Date of Influenza Vaccine: unk Infectious Disease History: Yes - polio Infectious Disease History: Denies: Traveled Outside the [place] in Last 30 Days - Family History Known Family History: Positive: Cardiac Disease - extensive ME FHx - Social History Alcohol Use: Rare Substance Use Type: Reports: None Hx Tobacco Use: Yes Smoking Status (MU): Former Smoker Type: Cigarettes Have You Smoked in the Last Year: No Review of Systems Positive: Chills. Negative: Fever Positive: Sore Throat Negative: Chest Pain Positive: Shortness Of Breath, Cough - with dark green production, Other - Orthopnea Positive: other - Decreased urine output Negative: Other - NEGATIVE: leg swelling Neurological: Other - Lightheadedness All Other Systems Reviewed And Are Negative: Yes Physical Exam Triage Information Reviewed: Yes Vital Signs On Initial Exam: Initial Vitals Temp Pulse Resp BP Pulse Ox 100.2 F 99 18 129/74 99 07/16/17 15:31 07/16/17 15:31 07/16/17 15:31 07/16/17 15:31 07/16/17 15:31 Vital Signs Reviewed: Yes Appearance: Positive: Well-Appearing, No Pain Distress Skin: Positive: Skin Color Reflects Adequate Perfusion Head/Face: Positive: Normal Head/Face Inspection Eyes: Positive: EOMI ENT: Positive: Normal ENT inspection Neck: Positive: Nontender Respiratory/Lung Sounds: Positive: Rales - right base Cardiovascular: Positive: RRR. Negative: Murmur Abdomen Description: Positive: Nontender Musculoskeletal: Positive: Strength/ROM Intact Neurological: Positive: Sensory/Motor Intact, Alert, Oriented to Person Place, Time, CN Intact II-III Psychiatric: Positive: Normal - Spencer Coma Scale Best Eye Response: 4 - Spontaneous Best Motor Response: 6 - Obeys Commands Best Verbal Response: 5 - Oriented Coma Scale Total: 15 Diagnostics - Vital Signs Vital Signs Temp Pulse Resp BP Pulse Ox 07/16/17 15:31 100.2 F 99 18 129/74 99 - Laboratory Lab Results: Lab Results 07/16/17 Range/Units 18:20 Patient Temperature Not Reportable ABG pH Pending ABG pH (Temp Correct) Pending ABG pCO2 Pending ABG pCO2 (Temp Corrct Pending ABG pO2 Pending ABG pO2 (Temp Correct Pending ABG HCO3 Pending ABG O2 Saturation Pending ABG Base Excess Pending Respiration Rate Not Reportable O2 Delivery Device n/c Ventilator Type Not Reportable Vent Mode Not Reportable FiO2 4 Inspiratory Time Not Reportable PEEP Not Reportable Pressure Support Not Reportable Pressure Control Not Reportable EPAP Not Reportable IPAP Not Reportable BiPAP Not Reportable Lab Statement: Any lab studies that have been ordered have been reviewed, and results considered in the medical decision making process. - EKG 17:45 Cardiac Rate: NL EKG Interpretation: Paced rhythm. Course/Dx - Course Assessment/Plan: The pt is a 66 y/o M with a Hx of CHF c/o SOB that began three days ago. He has a cough with dark green production. The patient was admitted to [facility] on 06/20/17 for PNA. Three days ago, the patient developed a sore throat , lightheadedness, and chills. He also reports decreased urine output and orthopnea. - Diagnoses Provider Diagnoses: Shortness of breath, Cough Discharge - Discharge Plan Condition: Good Disposition: OTHER Discharge Disposition Comment: sing out Dr Guerrero 1900 with labs, imaging dispop pending. Referrals: Antione Espinosa MD [Primary Care Provider] - The documentation as recorded by the Oren liriano Thomas accurately reflects the service I personally performed and the decisions made by , Alejandro Frazier MD.
[2017-07-16 18:55] LABS: Hematocrit 37 % (42-52); Hemoglobin 12.3 g/dl (14.0-18.0); Mean Corpuscular HGB Conc 33 g/dl (31-36); Mean Corpuscular Hemoglobin 29 pg (27-31); Mean Corpuscular Volume 88 fL (80-94); Mean Platelet Volume 8 um3 (7.4-10.4); Red Blood Count 4.26 10^6/ul (4.0-5.4); Red Cell Distribution Width 16 % (10.5-15); White Blood Count 11.5 10^3/ul (3.5-10.8)
[2017-07-16 19:14] LABS: Troponin I 0.04 ng/mL (<0.04)
[2017-07-16 19:25] LABS: Albumin 3.8 g/dL (3.2-5.2); Calcium 8.9 mg/dL (8.6-10.3); EGFR African American 78.9 (>60); EGFR Non-African American 61.4 (>60); Globulin 3.4 g/dL (2-4); Potassium 4.2 mmol/L (3.5-5.0); Total Bilirubin 2.7 mg/dL (0.2-1.0); Total Protein 7.2 g/dL (6.4-8.9)
--- NOTE | 2017-07-16 19:26 | RAD ---
INDICATION: Cough and shortness of breath in a patient with a history of congestive heart failure. COMPARISON: Most recent chest x-ray is dated June 20, 2017 TECHNIQUE: PA and lateral views of the chest were obtained. FINDINGS: There is a left chest to lead cardiac pacemaker. Additional postsurgical changes include sternotomy wires and surgical clips overlying the mediastinum. The heart and mediastinum are normal in size and contour. The lungs are grossly clear. There is no evidence of large pleural effusion. Visualized bones are normal for the patient's age. There is no radiographic evidence of free air beneath the diaphragm IMPRESSION: No radiographic evidence of acute cardiopulmonary disease.
[2017-07-16 20:06] LABS: Urine Bacteria Absent (Absent); Urine Bilirubin Negative (Negative); Urine Glucose Negative (Negative); Urine Nitrite Negative (Negative)
[2017-07-16] MEDS ORDERED: Furosemide IV* 10 MG/ML VIAL (40 MG) IV ONE (20:15)
[2017-07-16] MEDS ORDERED: Acetaminophen TAB* 325 MG PO PRN (20:44)
[2017-07-16] MEDS ORDERED: Albuterol 2.5 MG/3 ML NEB.SOL* (0.083%) INH PRN (20:44)
[2017-07-16] MEDS ORDERED: Ondansetron INJ* 2 MG/ML VIAL IV PRN (20:44)
[2017-07-16] MEDS ORDERED: HYDROcodone/ACETAMIN 5-325 MG* 1 TAB PO PRN (20:55)
[2017-07-16] MEDS: Mometasone/Formoter 200/5 MDI INH SCH (22:43)
[2017-07-16] MEDS: cefTRIAXone VIAL(*) 1,000 MG in NS 0.9% 50 ML* 50 ML IVPB SCH (22:45)
[2017-07-16] MEDS: predniSONE TAB* 20 MG PO SCH (23:04)
[2017-07-16] MEDS: Atorvastatin* 10 MG TAB PO SCH (23:04)
[2017-07-16] MEDS: Azithromycin IV(*) 500 MG in NS 0.9% 250 ML* 250 ML IVPB SCH (23:14)
[2017-07-16] MEDS: Albuterol/Ipratropium NEB.SOL* Albuterol 2.5 MG/Ipratropium 0.5 MG 3 ML INH SCH (23:37)
--- NOTE | 2017-07-17 00:24 | HP ---
CC: Dr. Espinosa * HISTORY AND PHYSICAL: DATE OF ADMISSION: 07/16/17 PRIMARY CARE PROVIDER: Dr. Espinosa. ATTENDING PHYSICIAN WHILE IN THE HOSPITAL: Td Reaves MD * (report dictated by Stew Guillermo NP). CHIEF COMPLAINT: 1. Cough. 2. Rhinorrhea. 3. Sore throat 4. Not feeling well. HISTORY OF PRESENTING ILLNESS: Mr. David is a 66-year-old male patient who carries a history of coronary artery disease, EF was estimated to be 30%, COPD, hyperlipidemia, hypertension, mitral regurgitation, history of OK and he has a history of ischemic cardiomyopathy. He comes into the ER today stating that Sunday he started to coming out with a sore throat, feeling congested, he was having runny nose. He was recently exposed to one of his coworkers who had similar symptoms. She had noticed that she had gotten better and then on Sunday the same coworker noticed that Graham was not looking very well and then throughout the weekend he progressively got more short of breath, he was coughing, bringing up green sputum. He was aching all over. He just was not feeling good. He was having chills off and on. He also was having some diarrhea as well. He denied any abdominal pain. Denied any nausea or vomiting. There has been no chest pain whatsoever. He was concerned because his breathing was not getting better today. He took a nebulizer this morning and he felt better, but by this afternoon he was not feeling any better again and he decided to come into the ED. He denied having any again abdominal discomfort , no chest pain. He does admit to having a weight gain of about 3 pounds over the last several days. He says he doubled up on his diuretic like he was instructed to do, but he has not noticed any change in his weight. He was evaluated in the ED, as one of his BNP was almost 1100, his troponin was mildly elevated. There was concern for possible CHF. We were asked to evaluate for admission. PAST MEDICAL HISTORY: Significant for: 1. CHF, EF of 30%. 2. COPD. 3. CAD. 4. DVT. 5. Hyperlipidemia. 6. Pulmonary hypertension. 7. Mitral regurgitation. 8. History of OK. 9. Hyperlipidemia. 10. Ischemic cardiomyopathy. PAST SURGICAL HISTORY: The patient has had a CABG. He has had a defibrillator pacemaker placed as well and he has had an appendectomy. MEDICATIONS: The home meds according to the last discharge and the patient says they have not changed and include: 1. Ventolin 2.5 mg inhaler every 6 hours as needed. 2. Lasix 80 mg p.o. b.i.d. 3. Warfarin 2.5 mg p.o. as directed. 4. Warfarin 5 mg daily. 5. Spiriva 1 capsule inhaled daily. 6. Potassium 20 mEq p.o. daily. 7. Nitro 0.4 mg sublingual q.5 minutes p.r.n. x3 for chest pain. 8. Magnesium 400 mg p.o. daily. 9. Mevacor 40 mg at bedtime. 10. [place] 1 tablet p.o. q.i.d. as needed. 11. Atenolol 100 mg daily. 12. Aspirin 325 mg p.o. daily. 13. Albuterol inhaler 1 puff inhaled q.4 hours as needed. FAMILY HISTORY: Both his parents had MIs and CAD. SOCIAL HISTORY: He is a former smoker. He does not drink alcohol. Surrogate decision maker is his friend, Eboni. ALLERGIES: Include no known drug allergies. REVIEW OF SYSTEMS: There is no documented fever. He did admit to having a 3- pound weight gain. He denies having any double vision. No ear discharge. There was some rhinorrhea. There was sore throat. No thyroid enlargement. Denied any chest pain. There was some shortness of breath. There is some orthopnea. Denies any nocturnal dyspnea. He does admit to having a cough. No chest pain. No abdominal pain. No nausea. No vomiting. No dysuria. No frequency. No seizure. No loss of consciousness. No pruritus and no skin ulcerations. Review of 14 systems completed, all others negative. PHYSICAL EXAMINATION GENERAL: At this time, Mr. David is a 66-year-old male patient. He is sitting on the ED stretcher. He does not appear to be in any acute distress. He is awake and he is alert. He is oriented x3. VITAL SIGNS: Reveals blood pressure 137/99 with a pulse of 77, respirations were 26, his O2 sat was 95%, temperature was 100.2. HEENT: Head: Atraumatic and normocephalic. Eyes: EOMs are intact. Sclerae anicteric and not pale. NECK: Supple. Throat: Oral mucosa appears to be moist. No oropharyngeal erythema. LUNGS: He had wheezing noted particularly on the left side. Equal diaphragmatic expansion. HEART: Sounds S1 and S2. Regular rate and rhythm. No murmurs, rubs, or gallops. ABDOMEN: Soft, flat, nontender. Bowel sounds present. EXTREMITIES: Pulses are 2+ throughout. He is able to move all 4 extremities with 5/5 strength. NEUROLOGIC: The patient is awake. He is alert. He is oriented x3. Tongue midline. [employer] are equal. No gross focal deficits. SKIN: Grossly intact. DIAGNOSTIC STUDIES/LAB DATA: Revealed a WBC of 11.5, RBC of 4.26, hemoglobin 12.3, hematocrit 37, platelet count of 213. His INR was 2.43, PTT of 40.2. Blood gas revealed a pH of 7.48, pCO2 of 31. His sodium was 134, potassium 4.2 , chloride of 101, bicarb 23, his BUN was 26, his creatinine was 1.18, his glucose was 102, lactic 1.5, calcium 8.9. Total bili 2.7, AST 153, ALT 141, alk phos 54. Troponin 0.04. BNP of 1053. Albumin of 3.8. Urine showed 3+ protein, 1+ blood. Flu swab was negative. He did have a chest x-ray obtained today. When I reviewed it, I did not appreciate any acute infiltrates or pulmonary edema. Radiology read it as no radiographic evidence for acute cardiopulmonary disease. EKG showed atrial sensed paced rhythm with rate of 76. Old medical records reviewed. He had an echo just beginning of December showed an EF of 30% to 35%. ASSESSMENT AND PLAN: Mr. David is a 66-year-old male patient coming into the ED today with complaints of cough, chills, sore throat, and runny nose. On evaluation, there was concern for congestive heat failure; however, my opinion I think he is suffering from chronic obstructive pulmonary disease exacerbation secondary to an upper respiratory infection. He will be admitted under observation status for: 1. Chronic obstructive pulmonary disease exacerbation. He may have an early pneumonia. He does a low-grade fever here, a little bit of white count. I think we need to get sputum cultures, Legionella antigen, strep pneumo antigens. We will get flutter valve, started DuoNebs every 4 hours, steroids and put him on antibiotics and we will continue to follow him. 2. History of congestive heart failure. He does have a little bit of weight gain. His BNP is up a little bit, but at this point I think the driving force here is probably a chronic obstructive pulmonary disease exacerbation. He did get one dose of Lasix in the ED IV. I am not going to continue IV. I will discontinue his standing dose and we will follow him closely and will continue his meds as prescribed. 3. Hypertension. Continue his meds as described. 4. Coronary artery disease. He is on aspirin and beta-lacie, will continue. 5. History of DVT. Continue his Coumadin. 6. Hypertension. Continue his meds as prescribed. 7. Mitral regurgitation. He can follow up with his primary. 8. Elevated LFTs. Etiology is unclear, could be secondary to Legionella. We will check this and we will repeat the LFTs in the morning. He is not having any pain, we may need to consider imaging. 9. Elevated troponin, probably demand ischemia. He is not having any chest pain, we will trend these. 10. Code status. He wishes to be a full code. 11. Fluids, electrolytes, and nutrition. He can have a heart healthy diet. 12. DVT prophylaxis. He is on warfarin and his INR is therapeutic. TIME SPENT: Time spent on the admission 60 minutes, greater than half of the time was spent [id number] with the patient obtaining my history and physical, other half of the time spent going over the plan of care with the patient and implementing plan of care. I did discuss the plan of care with my attending, Dr. Reaves, he is in agreement. STEW GUILLERMO, BELLA [id number]/[facility] #: [id number] IRMA
[2017-07-17] MEDS: Albuterol/Ipratropium NEB.SOL* Albuterol 2.5 MG/Ipratropium 0.5 MG 3 ML INH SCH ×5 (03:52→20:17)
[2017-07-17 05:28] LABS: Hematocrit 36 % (42-52); Hemoglobin 11.9 g/dl (14.0-18.0); Mean Corpuscular HGB Conc 33 g/dl (31-36); Mean Corpuscular Hemoglobin 29 pg (27-31); Mean Corpuscular Volume 87 fL (80-94); Mean Platelet Volume 8 um3 (7.4-10.4); Red Blood Count 4.13 10^6/ul (4.0-5.4); Red Cell Distribution Width 16 % (10.5-15); White Blood Count 8.4 10^3/ul (3.5-10.8)
[2017-07-17 05:44] LABS: Albumin 3.7 g/dL (3.2-5.2); BUN/Creatinine Ratio 24.4 (8-20); Calcium 8.5 mg/dL (8.6-10.3); EGFR African American 75.3 (>60); EGFR Non-African American 58.5 (>60); Globulin 3.3 g/dL (2-4); Potassium 3.9 mmol/L (3.5-5.0)
[2017-07-17] MEDS: Furosemide TAB* 40 MG PO SCH ×2 (05:50→16:51)
[2017-07-17] MEDS: Aspirin TAB* 325 MG PO SCH (08:09)
[2017-07-17] MEDS: Magnesium Oxide TAB* 400 MG PO SCH (08:09)
[2017-07-17] MEDS: Potassium Chlor TAB* 20 MEQ TAB.ER PO SCH (08:09)
[2017-07-17] MEDS: predniSONE TAB* 20 MG PO SCH (08:09)
[2017-07-17] MEDS: Atenolol TAB* 25 MG PO SCH (08:10)
[2017-07-17] MEDS: Mometasone/Formoter 200/5 MDI INH SCH ×2 (08:33→20:21)
--- NOTE | 2017-07-17 16:07 | PN ---
Subjective Date of Service: 07/17/17 Interval History: Mr. David still feels "lousy." He complains of dyspnea on exertion, productive cough of green sputum, and fatigue. No chest pain, no palpitations, no nausea, vomiting, fevers, chills, diarrhea, constipation. Family History: Unchanged from Admission Social History: Unchanged from Admission Past Medical History: Unchanged from Admission Objective Active Medications: Acetaminophen (Tylenol Tab*) 650 mg PO Q4H PRN PRN Reason: FEVER/PAIN Hydrocodone Bitart/Acetaminophen ([place] 5-325 Tab*) 1 tab PO QID PRN PRN Reason: PAIN Albuterol (Ventolin 2.5 Mg/3 Ml Neb.Yuli*) 2.5 mg INH Q2H PRN PRN Reason: SOB/WHEEZING Albuterol/Ipratropium (Duoneb (Albuterol 2.5 Mg/Ipratropium 0.5 Mg)) 1 neb INH [id number] AWAKE [facility] Last Admin: 07/17/17 11:59 Dose: 1 neb Aspirin (Aspirin Tab*) 325 mg PO DAILY [facility] Last Admin: 07/17/17 08:09 Dose: 325 mg Atenolol (Tenormin Tab*) 100 mg PO DAILY [facility] Last Admin: 07/17/17 08:10 Dose: 100 mg Atorvastatin Calcium (Lipitor*) 10 mg PO BEDTIME KIRSTIE PRN Reason: Protocol Last Admin: 07/16/17 23:04 Dose: 10 mg Furosemide (Lasix Tab*) 80 mg PO BID@0600,1800 [facility] Last Admin: 07/17/17 05:50 Dose: 80 mg Ceftriaxone Sodium 1,000 mg/ (Sodium Chloride) 50 mls @ 200 mls/hr IVPB Q24H KIRSTIE Last Admin: 07/16/17 22:45 Dose: 200 mls/hr Azithromycin 500 mg/ Sodium (Chloride) 250 mls @ 250 mls/hr IVPB Q24H [facility] Last Admin: 07/16/17 23:14 Dose: 250 mls/hr Magnesium Oxide (Magox 400 Tab*) 400 mg PO DAILY [facility] Last Admin: 07/17/17 08:09 Dose: 400 mg Mometasone Furoate/Formoterol Fumar (Dulera 200/5 Mdi*) 2 puff INH BID [facility] Last Admin: 07/17/17 08:33 Dose: 2 puff Ondansetron HCl (Zofran Inj*) 4 mg IV Q6H PRN PRN Reason: NAUSEA Potassium Chloride (Klor Con Er Tab*) 20 meq PO DAILY [facility] Last Admin: 07/17/17 08:09 Dose: 20 meq Prednisone (Deltasone Tab*) 60 mg PO DAILY WITH MEAL [facility] Last Admin: 07/17/17 08:09 Dose: 60 mg Warfarin Sodium (Coumadin Tab(*)) 5 mg PO 1700 [facility] PRN Reason: Protocol Vital Signs 07/16/17 07/16/17 07/16/17 21:00 21:30 22:10 Temperature 97.7 F Pulse Rate 73 69 75 Respiratory 35 27 25 Rate Blood Pressure 124/79 128/86 134/88 (mmHg) O2 Sat by Pulse 96 97 97 Oximetry 07/17/17 07/17/17 07/17/17 00:22 03:47 07:36 Temperature 98.6 F 98.5 F 96.3 F Pulse Rate 76 63 59 Respiratory 20 20 20 Rate Blood Pressure 108/79 116/87 126/82 (mmHg) O2 Sat by Pulse 97 98 100 Oximetry 07/17/17 07/17/17 07/17/17 08:09 08:30 11:23 Temperature 98.6 F 97.3 F Pulse Rate 68 62 Respiratory 29 Rate Blood Pressure 110/77 (mmHg) O2 Sat by Pulse 98 99 Oximetry 07/17/17 07/17/17 11:59 12:10 Temperature Pulse Rate 64 Respiratory 64 Rate Blood Pressure (mmHg) O2 Sat by Pulse Oximetry Oxygen Devices in Use Now: None Appearance: alert, sitting up in chair, no distress Eyes: No Scleral Icterus, PERRLA Ears/Nose/Mouth/Throat: NL Teeth, Lips, Gums Neck: NL Appearance and Movements; NL JVP, Trachea Midline Respiratory: Symmetrical Chest Expansion and Respiratory Effort, Clear to Auscultation Cardiovascular: - - left chest wall icd Abdominal: NL Sounds; No Tenderness; No Distention, No Hepatosplenomegaly Lymphatic: No Cervical Adenopathy Extremities: No Edema Skin: No Rash or Ulcers Neurological: Alert and Oriented x 3 Result Diagrams: 07/17/17 05:22 07/17/17 05:22 Additional Lab and Data: Lab Results 07/16/17 Range/Units 18:20 Patient Temperature Not Reportable ABG pH Pending ABG pH (Temp Correct) Pending ABG pCO2 Pending ABG pCO2 (Temp Corrct Pending ABG pO2 Pending ABG pO2 (Temp Correct Pending ABG HCO3 Pending ABG O2 Saturation Pending ABG Base Excess Pending Respiration Rate Not Reportable O2 Delivery Device n/c Ventilator Type Not Reportable Vent Mode Not Reportable FiO2 4 Inspiratory Time Not Reportable PEEP Not Reportable Pressure Support Not Reportable Pressure Control Not Reportable EPAP Not Reportable IPAP Not Reportable BiPAP Not Reportable Microbiology and Other Data: Microbiology 07/17/17 08:00 Influenza Types A,B Antigen (YUE) - Final Nasal Specimen received for Influenza A/B Molecular testing 07/16/17 23:15 Legionella Urinary Antigen - Final Urine Negative Legionella Streptococcus pneumoniae Ag Screen - Final Negative S. pneumo Antigen Assess/Plan/Problems-Billing Assessment: 1. Acute bronchitis versus HCAP Clinically he has responded well to CAP coverage initiated yesterday. He is still not at his functional capacity, and has been here several times recently with frequent readmissions. Based on his propensity for a hospital-acquired microbe, will await sputum cultures to ensure appropriate antibiotic coverage. 2. Elevated LFTs He does not appear volume overloaded, but this may be evidence of vascular congestion. Repeat tomorrow. He has no RUQ pain, no sparks's, and no history of liver disease. He should also be screened for HCV given his age. 3. ICM, ef 30%, compensated no evidence of decompensation; continue home regimen of bb, asa, statin, lasix. AICD in place for primary prevention. Unclear why he is on asa 325mg--can be decreased to 81mg daily; will discuss this with him. 4. Afib s/p pacer INR therapeutic on warfarin. Rate controlled with atenolol.
[2017-07-17] MEDS ORDERED: Warfarin TAB(*) 5 MG PO SCH (17:00)
[2017-07-17] MEDS: Atorvastatin* 10 MG TAB PO SCH (20:54)
[2017-07-17] MEDS: cefTRIAXone VIAL(*) 1,000 MG in NS 0.9% 50 ML* 50 ML IVPB SCH (20:54)
[2017-07-17] MEDS: Azithromycin IV(*) 500 MG in NS 0.9% 250 ML* 250 ML IVPB SCH (22:55)
[2017-07-18] MEDS: Albuterol/Ipratropium NEB.SOL* Albuterol 2.5 MG/Ipratropium 0.5 MG 3 ML INH SCH ×4 (00:24→10:29)
--- NOTE | 2017-07-18 02:59 | ED ---
Kelvin Smith Alfonso, scribed for Dalia Guerrero MD on 07/16/17 at 2000 . Progress - Progress Note Progress Note: Revaluation at 1950 after sign out from Dr. Frazier at change of shift. Patient reports SOB, sore throat, chills, productive cough (green phlegm), and insomnia. He is agreeable to being admitted to [facility]. He is wheezing bilaterally. CXR reveals, per radiologist, No radiographic evidence of acute cardiopulmonary disease. ED physician has reviewed this radiology report and agrees. Dr. Reaves (hospitalist) made aware of the patient at 1953. Course/Dx - Diagnoses Provider Diagnoses: Shortness of breath, Cough The documentation as recorded by the treveribKelvin botello Alfonso accurately reflects the service I personally performed and the decisions made by , Dalia Guerrero MD.
[2017-07-18 05:16] LABS: Hematocrit 33 % (42-52); Mean Corpuscular HGB Conc 33 g/dl (31-36); Mean Corpuscular Hemoglobin 29 pg (27-31); Mean Corpuscular Volume 87 fL (80-94); Mean Platelet Volume 8 um3 (7.4-10.4); Red Blood Count 3.82 10^6/ul (4.0-5.4); Red Cell Distribution Width 16 % (10.5-15); White Blood Count 9.8 10^3/ul (3.5-10.8)
[2017-07-18 05:32] LABS: Albumin 3.5 g/dL (3.2-5.2); BUN/Creatinine Ratio 32.5 (8-20); Calcium 8.2 mg/dL (8.6-10.3); EGFR African American 77.4 (>60); EGFR Non-African American 60.2 (>60); Globulin 3.1 g/dL (2-4); Magnesium 2.1 mg/dL (1.9-2.7); Potassium 3.6 mmol/L (3.5-5.0); Total Protein 6.6 g/dL (6.4-8.9)
[2017-07-18] MEDS: Furosemide TAB* 40 MG PO SCH (06:09)
[2017-07-18] MEDS: Mometasone/Formoter 200/5 MDI INH SCH (07:46)
[2017-07-18] MEDS: Magnesium Oxide TAB* 400 MG PO SCH (08:08)
[2017-07-18] MEDS: predniSONE TAB* 20 MG PO SCH (08:08)
[2017-07-18] MEDS: Potassium Chlor TAB* 20 MEQ TAB.ER PO SCH (08:08)
[2017-07-18] MEDS: Atenolol TAB* 25 MG PO SCH (08:08)
[2017-07-18] MEDS: Aspirin TAB* 325 MG PO SCH (08:08)
--- NOTE | 2017-07-18 10:51 | RAD ---
INDICATION: Evaluate liver. COMPARISON: None TECHNIQUE: Longitudinal and transverse scans of the right upper quadrant were obtained. Doppler interrogation of the hepatic and portal venous system was performed. FINDINGS: Liver: The liver is mildly enlarged. There is mild coarsening of echotexture suggesting hepatic parenchymal disease. This can be correlated with liver enzymes.. There is a left hepatic lobe cyst measuring 1.2 cm right hepatic cyst measuring 2.8 cm. The liver measures 18.7 cm in cephalocaudal dimension. Vessels: There is normal hepatic and portal venous flow. Bile ducts: There is no evidence of intrahepatic or extrahepatic ductal dilatation. The common duct measures 0.2 cm. Gallbladder: There is scant biliary sludge. The sonographic appearance of the gallbladder is otherwise normal. There is no evidence of cholelithiasis, thickening of the gallbladder wall, or pericholecystic fluid. Pancreas: The pancreas is not well evaluated due to bowel gas Right kidney: The right kidney is normal in size and echogenicity. There are no masses or calculi. There is no evidence of hydronephrosis. The right kidney measures 12.9 x 4.2 x 4.9 cm. IVC and aorta: The aorta and superior vena cava appear normal. Fluid: There is trace free fluid. Other: None. IMPRESSION: MILD COARSENING OF THE ECHOTEXTURE OF LIVER SUGGESTS HEPATIC PARENCHYMAL DISEASE. THE LIVER IS ALSO MILDLY ENLARGED. HEPATIC CYSTS. TRACE FREE FLUID. SCANT GALLBLADDER SLUDGE.
--- NOTE | 2017-07-18 12:21 | PN ---
Work Excuse - Work Note Work Note: The above employee has been evaluated on 07/18/17. The physician has instructed the employee concerning further work as described below. Work Status: [] May return to work on July 23, 2017. Thank you. Regina Govea, DO [id number]
[2017-07-18 12:54] VITALS: BP 120/79
--- NOTE | 2017-07-19 00:55 | DS ---
CC: Dr. Espinosa * DISCHARGE SUMMARY: DATE OF ADMISSION: 07/16/17 DATE OF DISCHARGE: 07/18/17 PRIMARY CARE PHYSICIAN: Dr. Espinosa. PRINCIPAL DIAGNOSIS: Acute bronchitis. SECONDARY DIAGNOSES: 1. Elevated liver enzymes. 2. Deep vein thrombosis. 3. Ischemic cardiomyopathy, EF 30%. 4. Pulmonary hypertension. 5. Mitral regurgitation. 6. Coronary artery disease. PHYSICAL EXAMINATION: On 07/18/17, vital signs: Temperature 98.3 degrees, heart rate 61, pulse ox 91% on room air, respiratory rate 20, blood pressure 120 /79. General: Alert, well-appearing, walking in the hallways. HEENT: Pupils equal, round, and reactive to light. No nystagmus. Moist mucosa. Neck: No JVP. Thyroid nonpalpable. No cervical adenopathy. Chest: Regular rate and rhythm. No murmurs. PMI nondisplaced. Lungs: Clear bilaterally, no wheezes, rhonchi or crackles. Abdomen: Soft, nontender, nondistended. Liver: Palpable at costal margins. Spleen nonpalpable. Negative Chinchilla's. Extremities: No edema, no ecchymosis. Pulses 2+ throughout. DIAGNOSTIC STUDIES/LAB DATA: On discharge, AST 123, ALT 187, total bilirubin 1.0, creatinine 1.20. Pertinent imaging on this admission: Liver ultrasound on 07/18/17, showed mild coarsening of the echo texture of the liver suggesting hepatic parenchymal disease. The liver is also mildly enlarged. There are hepatic cysts and trace free fluid with scant gallbladder sludge. REVIEW OF SYSTEMS: On 07/18/17 is negative for shortness of breath, dyspnea on exertion, orthopnea, chest pain, palpitations, nausea, vomiting, diarrhea, constipation, abdominal pain. The remainder of a 14-point review of systems is also negative. HOSPITAL COURSE BY PROBLEM: 1. Acute bronchitis. Given his recent hospitalization and extensive pulmonary and cardiac histories, there was concern for early, developing pneumonia, which would be HCAP, so he was admitted for IV antibiotics. A sputum culture returned as normal [place]. He did not become septic and he was treated with azithromycin for acute bronchitis along with 3 days of prednisone. Bronchospasm resolved entirely and he is being discharged off of prednisone given his cardiac history. 2. Elevated liver enzymes. His AST and ALT were found to be elevated. It is possible that there is some liver sequela of chronic congestion due to his heart failure; however, he appeared euvolemic throughout this hospitalization and did not require IV diuresis. He does report a remote history of heavy alcohol abuse and believes he may have been told that he had appendicitis in the past. At the time of discharge, a hepatitic C antibody is pending and he is instructed to follow up with his primary care physician regarding his liver enzymes. Liver ultrasound did show hepatic parenchymal disease but no obstructive patterns. 3. Ischemic cardiomyopathy. EF of 30%. Again, he was found to have euvolemic throughout this hospital admission. He was continued on his home regimen of Lasix 80 mg b.i.d., atenolol 100 mg daily, aspirin, statin. He is unsure why he is on aspirin 325 mg daily and this was unclear to me as well; however, he is managed by Cardiology, so I will defer this decision to them. 4. History of DVT. He reports having had a DVT as well as a PE for which he is on warfarin. His INR was therapeutic throughout this hospitalization. DISPOSITION: Mr. David was discharged to home in fair condition and has followup with Cardiology on 07/30/17 of this month. TIME SPENT: Greater than 60 minutes were spent on this hospital discharge with half of that time was spent [id number] with the patient. [id number]/[facility] #: [id number] IRMA
== END 2017-07-18 14:10 | disposition home or self-care (01) | DRG 192 ==
LOC: ED 15:17 → MEDTELE 20:41 → OBSVTOIN 07-17 12:00
PROVIDERS: ADMIT Internal Medicine; ATTEND Internal Medicine
DX: J44.0 Chronic obstructive pulmonary disease with (acute) lower respiratory infection (principal); I11.0 Hypertensive heart disease with heart failure; I50.9 Heart failure, unspecified; R16.0 Hepatomegaly, not elsewhere classified; J44.1 Chronic obstructive pulmonary disease with (acute) exacerbation; J20.9 Acute bronchitis, unspecified; E78.5 Hyperlipidemia, unspecified; I25.5 Ischemic cardiomyopathy; I25.10 Atherosclerotic heart disease of native coronary artery without angina pectoris; I34.0 Nonrheumatic mitral (valve) insufficiency; R40.2412 Glasgow coma scale score 13-15, at arrival to emergency department; M19.049 Primary osteoarthritis, unspecified hand; F41.9 Anxiety disorder, unspecified; H91.92 Unspecified hearing loss, left ear; Z95.1 Presence of aortocoronary bypass graft; Z82.49 Family history of ischemic heart disease and other diseases of the circulatory system; Z87.891 Personal history of nicotine dependence; Z95.810 Presence of automatic (implantable) cardiac defibrillator; Z86.718 Personal history of other venous thrombosis and embolism; I25.2 Old myocardial infarction
CPT/HCPCS: 36415; 36600; 71020; 76705; 80053; 81003; 81015; 82803; 83605; 83735; 83880; 84484; 85025; 85610; 85730; 86803; 87040; 87070; 87205; 87502; 87899; 93005; 94640; 94760; A9270-GY; G0378; J0456; J0696; J1940; J7512

== ENCOUNTER 2017-10-27 15:56 | Inpatient (IN) | payer MEDICARE, MEDICAID ==
--- NOTE | 2017-10-27 18:54 | RAD ---
Indication: Shortness of breath. 2 views of the chest demonstrates no mediastinal shift. There is cardiomegaly present. Interstitial edema consistent with vascular congestion is noted. No alveolar consolidation is noted. When compared to previous exam of July 16, 2017 this is unchanged. IMPRESSION: Likely vascular congestion appears similar to that seen on July 16, 2017.
[2017-10-27 20:04] LABS: ABS Basophils 0.1 10^3/ul (0-0.2); ABS Eosinophils 0 10^3/ul (0-0.6); ABS Lymphocytes 1.7 10^3/ul (1.0-4.8); ABS Monocytes 1.1 10^3/ul (0-0.8); ABS Neutrophils 6.6 10^3/ul (1.5-7.7); ABS Nucleated RBC 0 10^3/ul; Eosinophil % 0.4 % (0-6); Hematocrit 39 % (42-52); Hemoglobin 12.7 g/dl (14.0-18.0); Lymphocyte % 17.6 % (25-47); Mean Corpuscular HGB Conc 33 g/dl (31-36); Mean Corpuscular Hemoglobin 28 pg (27-31); Mean Corpuscular Volume 84 fL (80-94); Mean Platelet Volume 8 um3 (7.4-10.4); Nucleated Red Blood Cells % 0.1; Platelet Count 230 10^3/ul (150-450); Red Cell Distribution Width 17 % (10.5-15); White Blood Count 9.5 10^3/ul (3.5-10.8)
[2017-10-27 20:15] LABS: EGFR Non-African American 45.1 (>60)
[2017-10-27] MEDS ORDERED: Nitroglycerin 2% OINT* 1 GM PAK TOPICAL ONE (21:12)
[2017-10-27] MEDS ORDERED: Furosemide IV* 10 MG/ML VIAL (40 MG) IV ONE (21:12)
[2017-10-27 21:26] LABS: INR 2.15 (0.77-1.02)
[2017-10-27] MEDS ORDERED: Ondansetron INJ* 2 MG/ML VIAL IV PRN (21:40)
[2017-10-27] MEDS ORDERED: Acetaminophen TAB* 325 MG PO PRN (21:40)
[2017-10-27] MEDS ORDERED: Albuterol 2.5 MG/3 ML NEB.SOL* (0.083%) INH PRN (21:49)
--- NOTE | 2017-10-27 23:10 | ED ---
Sharon Smith Julia, scribed for Corry Mart MD on 10/27/17 at 2109 . Shortness of Breath - HPI Summary HPI Summary: This patient is a 66 year old M presenting to [facility] with a chief complaint of SOB since yesterday morning. Patient reports SOB, productive cough, and intermittent chest pain. Patient denies headache, ear ache neck pain, abdominal pain, back pain, n/v/d, edema, rashes, bloody urine or stool. Symptoms aggravated by exertion. Symptoms alleviated by nothing. Patient has history of COPD, CAD, PA, CABG, HTN, and PNA. Patient is on blood thinners and has at home oxygen for at need use. - History of Current Complaint Chief Complaint: EDShortnessOfBreath Time Seen by Provider: 10/27/17 18:22 Hx Obtained From: Patient Onset/Duration: Lasting Days Aggrevating Factors: Other - exertion Alleviating Factors: Nothing Associated Signs & Symptoms: Cough (Productive), Chest Pain w/Cough - Allergy/Home Medications Allergies/Adverse Reactions: Allergies Allergy/AdvReac Type Severity Reaction Status Date / Time No Known Allergies Allergy Verified 04/28/17 07:34 PMH/Surg Hx/FS Hx/Imm Hx Endocrine/Hematology History: Denies: Hx Diabetes Cardiovascular History: Reports: Hx Auto Implanted Cardiovert Defib, Hx Congestive Heart Failure, Hx Coronary Artery Disease, Hx Deep Vein Thrombosis, Hx Hypercholesterolemia, Hx Hypertension, Hx Myocardial Infarction, Hx Pacemaker /ICD - 5//, Other Cardiovascular Problems/Disorders Respiratory History: Reports: Hx Chronic Obstructive Pulmonary Disease (COPD), Other Respiratory Problems/Disorders - PNA Denies: Hx Asthma History: Denies: Hx Renal Disease Musculoskeletal History: Reports: Hx Arthritis - fingers, Hx Back Problems Denies: Hx Bursitis, Hx Congenital Bone Abnormalities, Hx Fibromyalgia, Hx Gout, Hx Orthopedic Injury, Hx Osteoporosis, Hx Scoliosis, Hx Tendonitis, Other Musculoskeletal History Sensory History: Reports: Hx Contacts or Glasses, Hx Deafness - left ear, Hx Hearing Problem Denies: Hx Cataracts, Hx Eye Injury, Hx Eye Prosthesis, Hx Glaucoma, Hx Legally Blind, Hx Macular Degeneration, Hx Vision Problem, Hx Hearing Aid, Other Sensory Impairments Opthamlomology History: Reports: Hx Contacts or Glasses Denies: Hx Cataracts, Hx Eye Injury, Hx Eye Prosthesis, Hx Glaucoma, Hx Legally Blind, Hx Macular Degeneration, Hx Vision Problem, Other Sensory Impairments Psychiatric History: Reports: Hx Anxiety - Surgical History Surgery Procedure, Year, and Place: CABG, defibrillator, appendectomy Hx Anesthesia Reactions: No - Immunization History Date of Tetanus Vaccine: unk Date of Influenza Vaccine: unk Infectious Disease History: No Infectious Disease History: Denies: Traveled Outside the [place] in Last 30 Days - Family History Known Family History: Positive: Cardiac Disease - extensive PA FHx - Social History Alcohol Use: None Substance Use Type: Reports: None Hx Tobacco Use: Yes Smoking Status (MU): Former Smoker Type: Cigarettes Have You Smoked in the Last Year: No Review of Systems Negative: Fever Negative: Ear Ache Positive: Chest Pain Positive: Shortness Of Breath, Cough Positive: Other - bloody stool. Negative: Abdominal Pain, Vomiting, Diarrhea, Nausea Negative: hematuria Musculoskeletal: Negative - back or neck pain Negative: Edema Negative: Rash All Other Systems Reviewed And Are Negative: No Physical Exam - Summary Physical Exam Summary: Appearance: Alert, conversive, nontoxic appearing Skin: Warm, dry, no mottling, no rashes, no contusions HEENT: EOMI, PERRL, moist mucous membranes Neck: No masses on the neck, supple Respiratory: Clear to auscultation, breath sounds present, no rales, no rhonchi , no wheezes Cardiovascular: RRR, pulses are symmetrical in both lower and upper extremities Abdomen: Soft, non-tender Bowel Sounds: Present Musculoskeletal: No CVA tenderness, no obvious deformity, moving all extremities in a grossly normal manner Neurological: A&Ox3, CN II-XII Intact, moving all extremities symmetrically Psychiatric: Normal affect and mood Triage Information Reviewed: Yes Vital Signs On Initial Exam: Initial Vitals Temp Pulse Resp BP Pulse Ox 97.3 F 67 16 134/85 97 10/27/17 16:05 10/27/17 16:05 10/27/17 16:05 10/27/17 16:05 10/27/17 16:05 Vital Signs Reviewed: Yes - Loyda Coma Scale Coma Scale Total: 15 Diagnostics - Vital Signs Vital Signs Temp Pulse Resp BP Pulse Ox 10/27/17 16:05 97.3 F 67 16 134/85 97 - Laboratory Lab Results: Lab Results 10/27/17 10/27/17 10/27/17 Range/Units 19:49 19:49 19:49 WBC 9.5 (3.5-10.8) 10^3/ul RBC 4.60 (4.0-5.4) 10^6/ul Hgb 12.7 L (14.0-18.0) g/dl Hct 39 L (42-52) % MCV 84 (80-94) fL MCH 28 (27-31) pg MCHC 33 (31-36) g/dl RDW 17 H (10.5-15) % Plt Count 230 (150-450) 10^3/ul MPV 8 (7.4-10.4) um3 Neut % (Auto) 69.8 (38-83) % Lymph % (Auto) 17.6 L (25-47) % [place] % (Auto) 11.2 H (1-9) % Eos % (Auto) 0.4 (0-6) % Baso % (Auto) 1.0 (0-2) % Absolute Neuts (auto) 6.6 (1.5-7.7) 10^3/ul Absolute Lymphs (auto) 1.7 (1.0-4.8) 10^3/ul Absolute Monos (auto) 1.1 H (0-0.8) 10^3/ul Absolute Eos (auto) 0 (0-0.6) 10^3/ul Absolute Basos (auto) 0.1 (0-0.2) 10^3/ul Absolute Nucleated RBC 0 10^3/ul Nucleated RBC % 0.1 Sodium 136 (133-145) mmol/L Potassium 3.7 (3.5-5.0) mmol/L Chloride 99 L (101-111) mmol/L Carbon Dioxide 29 (22-32) mmol/L Anion Gap 8 (2-11) mmol/L BUN 31 H (6-24) mg/dL Creatinine 1.54 H (0.67-1.17) mg/dL Est GFR ( Amer) 58.1 (>60) Est GFR (Non-Af Amer) 45.1 (>60) BUN/Creatinine Ratio 20.1 H (8-20) Glucose 93 (70-100) mg/dL Lactic Acid (0.5-2.0) mmol/L Calcium 9.0 (8.6-10.3) mg/dL Total Bilirubin 1.70 H (0.2-1.0) mg/dL AST 46 H (13-39) U/L ALT 37 (7-52) U/L Alkaline Phosphatase 49 (34-104) U/L Troponin I 0.06 H* (<0.04) ng/mL B-Natriuretic Peptide 1341 H ( - 100) pg/mL Total Protein 6.4 (6.4-8.9) g/dL Albumin 3.7 (3.2-5.2) g/dL Globulin 2.7 (2-4) g/dL Albumin/Globulin Ratio 1.4 (1-3) 10/27/17 Range/Units 19:49 WBC (3.5-10.8) 10^3/ul RBC (4.0-5.4) 10^6/ul Hgb (14.0-18.0) g/dl Hct (42-52) % MCV (80-94) fL MCH (27-31) pg MCHC (31-36) g/dl RDW (10.5-15) % Plt Count (150-450) 10^3/ul MPV (7.4-10.4) um3 Neut % (Auto) (38-83) % Lymph % (Auto) (25-47) % [place] % (Auto) (1-9) % Eos % (Auto) (0-6) % Baso % (Auto) (0-2) % Absolute Neuts (auto) (1.5-7.7) 10^3/ul Absolute Lymphs (auto) (1.0-4.8) 10^3/ul Absolute Monos (auto) (0-0.8) 10^3/ul Absolute Eos (auto) (0-0.6) 10^3/ul Absolute Basos (auto) (0-0.2) 10^3/ul Absolute Nucleated RBC 10^3/ul Nucleated RBC % Sodium (133-145) mmol/L Potassium (3.5-5.0) mmol/L Chloride (101-111) mmol/L Carbon Dioxide (22-32) mmol/L Anion Gap (2-11) mmol/L BUN (6-24) mg/dL Creatinine (0.67-1.17) mg/dL Est GFR ( Amer) (>60) Est GFR (Non-Af Amer) (>60) BUN/Creatinine Ratio (8-20) Glucose (70-100) mg/dL Lactic Acid 1.0 (0.5-2.0) mmol/L Calcium (8.6-10.3) mg/dL Total Bilirubin (0.2-1.0) mg/dL AST (13-39) U/L ALT (7-52) U/L Alkaline Phosphatase (34-104) U/L Troponin I (<0.04) ng/mL B-Natriuretic Peptide ( - 100) pg/mL Total Protein (6.4-8.9) g/dL Albumin (3.2-5.2) g/dL Globulin (2-4) g/dL Albumin/Globulin Ratio (1-3) Result Diagrams: 10/27/17 19:49 10/27/17 19:49 Lab Statement: Any lab studies that have been ordered have been reviewed, and results considered in the medical decision making process. - Radiology CXR Radiology Interpretation Completed By: Radiologist - Likely vascular congestion appears similar to that seen on July 16, 2017. ED Physician has reviewed this report. - EKG 18:34 EKG Rhythm: Atrial Fibrillation - at 77 BPM EKG Interpretation: ventricularly paced Re-Evaluation - Re-Evaluation 1st Re-Evaluation Time: 21:06 Course/Dx - Course Course Of Treatment: Patient has history of CHF, has a pacemaker and is currently taking coumadin. Pt states he has significant difficulty ambulating short distances. His BNP today 1341 and troponin is 0.06. Patient has taken aspirin. Patient was given Lasix and nitropaste. Today's CXR reveals vascular congestion similar to 07/16/2016 when he was admitted for CHF and COPD exacerbation with a BNP of 1053. Pt made aware of the need for admission. He is agreeable. - Diagnoses Provider Diagnoses: CHF (congestive heart failure), Elevated troponin Discharge - Discharge Plan Condition: Stable Disposition: ADMITTED TO [facility] Referrals: Antione Espinosa MD [Primary Care Provider] - The documentation as recorded by the Sharon liriano Julia accurately reflects the service I personally performed and the decisions made by , Corry Mart MD.
--- NOTE | 2017-10-28 01:26 | HP ---
CC: Antione Espinosa MD; Dr. Anaya * MEDICINE HISTORY AND PHYSICAL: DATE OF ADMISSION: 10/27/17 PRIMARY CARE PROVIDER: Antione Espinosa MD PRIMARY MANAGER ENVIRONMENTAL SERVICES: Dr. Anaya. PROVIDER: Adiel Medina NP ATTENDING PHYSICIAN: Page Dhillon DO * (dictated by Adiel Medina NP) CHIEF COMPLAINT: Shortness of breath. HISTORY OF PRESENT ILLNESS: Mr. David is a 66-year-old male patient who presented to the hospital today with concern for worsening shortness of breath. He reports that the symptoms started approximately 3 to 4 days ago and have progressively worsened. He states that he was working with [employer] at [employer], as he normally does, and the workers there were concerned for his breathing and recommended that he get medical evaluation. He does endorse increasing fatigue and activity tolerance, increased dyspnea with exertion, orthopnea, paroxysmal nocturnal dyspnea, and abdominal fullness with decreased appetite. He reports 1 transient episode of jabbing chest pain last week that has not been repeated and also reports that he had upper respiratory infection in September, but none in the past 2 weeks. He denies any fever, cold or flu symptoms, chest pain this week. He does state that his lower extremities are often more swollen over the course of the day, but then get better when elevated at night time. He denies any nausea, vomiting or diarrhea but does again report abdominal fullness. He denies dysuria, though he does state that he does not get the same diuretic effect from his Lasix as he used to. He denies any focal weakness, hearing, visual or swallowing complaints, joint pain , muscle pain, no rashes or lesions. Mr. David denies excess salt in his diet and states that he is very careful not to eat any canned foods or salty meats including ham, lunch meats. He states that he is very diligent about taking his medications. At baseline, he does use oxygen at nighttime and does utilize his nebulized treatment throughout the day. Here in the ER, the patient was noted to be dyspneic with an elevated BNP of 1341. Additionally, the patient states that he typically weighs between 174 and 176 pounds, is now weighing 181 pounds. Chest x-ray showed acute cerebrovascular congestion. Given all these findings and the patient on presentation, Hospital Medicine was consulted for admission. PAST MEDICAL HISTORY: Includes: 1. Systolic congestive heart failure with an EF of 30%. 2. Ischemic cardiomyopathy. 3. Coronary artery disease, status post IA. 4. COPD. 5. Chronic hypoxic respiratory failure with home oxygen use at nighttime. 6. Hypotension. 7. History of DVT and PE, the patient is on warfarin. 8. Hyperlipidemia. 9. Pulmonary hypertension. 10. Moderate to severe mitral regurgitation. PAST SURGICAL HISTORY: Includes 4-vessel CABG, ICD and pacemaker placement secondary to second-degree heart block, appendectomy. HOME MEDICATIONS: Awaiting confirmation, but per previous records: 1. Lasix 40 mg b.i.d. 2. Warfarin half a tab daily except on Sunday where he takes 1 full tab. 3. Aspirin 325 mg daily. 4. Atenolol 100 mg every day. 5. Potassium chloride 20 mEq b.i.d. 6. Lovastatin 40 mg daily. 7. Advair 115/21, 2 puffs b.i.d. ALLERGIES: No known allergies. FAMILY HISTORY: He reports history of coronary artery disease in both parents. SOCIAL HISTORY: The patient is a former smoker, he quit 15 years ago. He denies alcohol or drug use. 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 His surrogate decision maker is his friend, Eboni, who can be reached at [phone] in the event of emergency. REVIEW OF SYSTEMS: A 14-point review of systems was completed. All pertinent positives and negatives are included in the HPI. PHYSICAL EXAMINATION VITAL SIGNS: Temperature 97.3, heart rate 67, respiratory rate 20, blood pressure 113/74, O2 saturation is 99% on 2 L nasal cannula. HEENT: Head is atraumatic, normocephalic. Face is symmetrical. Pupils are equal, round, reactive to light. Oral mucosa is moist. NECK: Supple. No lymphadenopathy appreciated. No JVD noted. LUNGS: The patient has expiratory wheezing with prolonged expiratory phase and some fine crackles in the bilateral bases. No accessory muscle use noted at this time. CARDIAC: S1, S2 heart sounds. Regular rate and rhythm. No murmurs, rubs or gallops. The patient has trace to 1+ pitting edema to the bilateral lower extremities, most notably in the pretibial area. ABDOMEN: Distended, mildly firm, but nontender. Bowel sounds are normoactive. There is no rebound tenderness or guarding. MUSCULOSKELETAL: There is no clubbing or cyanosis. The patient is able to demonstrate full range of motion in all extremities. SKIN: Appears grossly intact. NEUROLOGIC: Cranial nerves II through XII are grossly intact. The patient moves all extremities. Speech is clear. No focal deficits noted. Sensation is intact to light touch to lower extremities. PSYCH: He is alert and oriented x3. Affect is appropriate. LABORATORY DATA AND DIAGNOSTIC STUDIES: CBC: WBC 9.5, hemoglobin 12.7, hematocrit 39, platelet count 230,000. INR 2.15. CMP: Sodium 136, potassium 3.7, chloride 99, carbon dioxide 29, BUN 31, creatinine 1.54, glucose 93, lactic acid 1.0, calcium 9.0, total bilirubin 1.7, AST 46, ALT 37, alk phos 49. Troponin 0.06. BNP 1341. Albumin 3.7. Chest x-ray: Impression: Likely vascular congestion that appears similar to that last seen on 07/16/17. EKG shows paced rhythm. EKG is similar in comparison to previous. Old medical records reviewed. ASSESSMENT AND PLAN: Mr. David is a 66-year-old male patient with a past medical history concerning for congestive heart failure, hypertension, chronic obstructive pulmonary disease with chronic oxygen use, history of deep venous thrombosis, pulmonary embolism, hyperlipidemia and ischemic cardiomyopathy, who presents today with shortness of breath most likely secondary to congestive heart failure exacerbation. He will be admitted under observation to the telemetry floor. Plan is as follows: 1. Acute on chronic systolic congestive heart failure. The patient is up approximately 5 to 6 pounds. The precipitating event is unclear, but I do suspect it may be related to the patient's fluid intake as he does state that he does try to stay hydrated throughout the day and utilizes orange juice, tea and water. We will check his I's and O's very carefully. The patient may benefit from a fluid restriction. We will continue daily weights and repeat IV furosemide tomorrow. Additionally, we will recheck an echo. I see his last echocardiogram on file is from June. However, given his symptoms, it may be beneficial to recheck this. We will continue with the IV furosemide and hold p.o. furosemide and also continue the patient's potassium supplementation. 2. Acute kidney injury, suspect this is secondary to the patient's congestive heart failure exacerbation. He is only mildly above baseline. We will continue to trend this. I do expect to have some changes in the creatinine secondary to IV diuretic use, but we will continue to monitor. 3. Elevated LFT's. The patient does have an elevated total bilirubin that is mild as well as mildly elevated AST. We will continue to trend this. 4. Elevated troponin. Suspect this is secondary to demand ischemia. The patient is not far above his baseline of 0.04. We will trend this and watch for peak. 5. History of chronic obstructive pulmonary disease. Continue home inhaler. We will order p.r.n. nebulizers. He does not appear to be in acute exacerbation. We will continue to monitor closely. 6. Hypertension. Continue home atenolol with hold parameters. This dosing will need to be confirmed with his pharmacy. The patient is currently normotensive. 7. History of coronary artery disease. Continue home beta-lacie and statin once confirmed. The patient states he also takes aspirin, which we will continue here as well. 8. History of deep venous thrombosis, pulmonary embolism. Continue home warfarin. The patient's INR is currently therapeutic. Continue to monitor. 9. Hyperlipidemia. Continue statin. 10. DVT prophylaxis, warfarin and SCD's. 11. Code status: The patient is a full code. All medications will need to be confirmed with his pharmacy. TIME SPENT: Approximately 60 minutes with more than half the time spent face-to - face with the patient obtaining history and physical, performing physical examination, and reviewing the plan of care. Plan of care was also reviewed with my attending, Dr. Dhillon, who is in agreement. ADIEL MEDINA, BELLA [id number]/CPS #: [id number] IRMA
[2017-10-28] MEDS: Potassium Chlor TAB* 20 MEQ TAB.ER PO SCH ×2 (01:47→09:20)
[2017-10-28] MEDS: Mometasone/Formoter 200/5 MDI INH SCH ×3 (03:06→19:04)
[2017-10-28 08:12] LABS: ABS Basophils 0 10^3/ul (0-0.2); ABS Eosinophils 0.1 10^3/ul (0-0.6); ABS Lymphocytes 1.9 10^3/ul (1.0-4.8); ABS Monocytes 1.2 10^3/ul (0-0.8); ABS Neutrophils 7.3 10^3/ul (1.5-7.7); ABS Nucleated RBC 0 10^3/ul; Eosinophil % 1.4 % (0-6); Hematocrit 38 % (42-52); Hemoglobin 12.7 g/dl (14.0-18.0); Lymphocyte % 18.2 % (25-47); Mean Corpuscular HGB Conc 34 g/dl (31-36); Mean Corpuscular Hemoglobin 28 pg (27-31); Mean Corpuscular Volume 84 fL (80-94); Mean Platelet Volume 8 um3 (7.4-10.4); Nucleated Red Blood Cells % 0.1; Platelet Count 244 10^3/ul (150-450); Red Blood Count 4.53 10^6/ul (4.0-5.4); Red Cell Distribution Width 17 % (10.5-15); White Blood Count 10.6 10^3/ul (3.5-10.8)
[2017-10-28 08:18] LABS: INR 1.99 (0.77-1.02)
[2017-10-28 08:32] LABS: EGFR Non-African American 49.2 (>60)
[2017-10-28] MEDS ORDERED: Atenolol TAB* 50 MG PO SCH (09:00)
[2017-10-28] MEDS ORDERED: Aspirin TAB* 325 MG PO SCH (09:00)
[2017-10-28] MEDS ORDERED: Furosemide IV* 10 MG/ML VIAL (40 MG) IV SLOW PU ONE (09:00)
--- NOTE | 2017-10-28 13:27 | PN ---
Subjective Date of Service: 10/28/17 Interval History: Patient seen and examined at bedside. He reports improvement in breathing and abdominal fullness. Denies CP, SOB, n/v. Patient reports better urine output then home. Question as to whether patient has been taking 40 mg vs 80 mg BID ( med rec states 80 but patient previously stated 40). No other acute concerns. Family History: Unchanged from Admission Social History: Unchanged from Admission Past Medical History: Unchanged from Admission Objective Active Medications: Acetaminophen (Tylenol Tab*) 650 mg PO Q4H PRN PRN Reason: FEVER/PAIN Albuterol (Ventolin 2.5 Mg/3 Ml Neb.Yuli*) 2.5 mg INH Q4H PRN PRN Reason: SOB/WHEEZING Aspirin (Aspirin Tab*) 325 mg PO DAILY [facility] Last Admin: 10/28/17 09:20 Dose: 325 mg Atenolol (Tenormin Tab*) 100 mg PO DAILY [facility] Last Admin: 10/28/17 09:20 Dose: 100 mg Mometasone Furoate/Formoterol Fumar (Dulera 200/5 Mdi*) 1 puff INH BID [facility] PRN Reason: Protocol Last Admin: 10/28/17 07:16 Dose: 1 puff Ondansetron HCl (Zofran Inj*) 4 mg IV Q6H PRN PRN Reason: NAUSEA/VOMITING Potassium Chloride (Klor Con Er Tab*) 20 meq PO BID [facility] Last Admin: 10/28/17 09:20 Dose: 20 meq Warfarin Sodium (Coumadin Tab(*)) 2.5 mg PO DAILY@1700 [facility] PRN Reason: Protocol Vital Signs - 8 hr 10/28/17 10/28/17 10/28/17 08:09 11:51 12:50 Temperature 97.6 F 97.8 F Pulse Rate 63 62 Respiratory 16 16 Rate Blood Pressure 130/88 116/74 (mmHg) O2 Sat by Pulse 96 97 96 Oximetry Oxygen Devices in Use Now: Nasal Cannula Appearance: Male patient, sitting up in bed, NAD Eyes: No Scleral Icterus Ears/Nose/Mouth/Throat: Clear Oropharnyx, Mucous Membranes Moist Neck: NL Appearance and Movements; NL JVP Respiratory: Symmetrical Chest Expansion and Respiratory Effort, - - diminished but good aeration throughout Cardiovascular: NL Sounds; No Murmurs; No JVD, RRR, - - trace BLE edema, pretibial Abdominal: NL Sounds; No Tenderness; No Distention Extremities: No Clubbing, Cyanosis Neurological: Alert and Oriented x 3, NL Muscle Strength and Tone Lines/Tubes/Other Access: Clean, Dry and Intact Peripheral IV Result Diagrams: 10/28/17 07:57 10/28/17 07:57 Additional Lab and Data: Lab Results 10/27/17 10/27/17 10/27/17 Range/Units 19:49 19:49 19:49 WBC 9.5 (3.5-10.8) 10^3/ul RBC 4.60 (4.0-5.4) 10^6/ul Hgb 12.7 L (14.0-18.0) g/dl Hct 39 L (42-52) % MCV 84 (80-94) fL MCH 28 (27-31) pg MCHC 33 (31-36) g/dl RDW 17 H (10.5-15) % Plt Count 230 (150-450) 10^3/ul MPV 8 (7.4-10.4) um3 Neut % (Auto) 69.8 (38-83) % Lymph % (Auto) 17.6 L (25-47) % [place] % (Auto) 11.2 H (1-9) % Eos % (Auto) 0.4 (0-6) % Baso % (Auto) 1.0 (0-2) % Absolute Neuts (auto) 6.6 (1.5-7.7) 10^3/ul Absolute Lymphs (auto) 1.7 (1.0-4.8) 10^3/ul Absolute Monos (auto) 1.1 H (0-0.8) 10^3/ul Absolute Eos (auto) 0 (0-0.6) 10^3/ul Absolute Basos (auto) 0.1 (0-0.2) 10^3/ul Absolute Nucleated RBC 0 10^3/ul Nucleated RBC % 0.1 Sodium 136 (133-145) mmol/L Potassium 3.7 (3.5-5.0) mmol/L Chloride 99 L (101-111) mmol/L Carbon Dioxide 29 (22-32) mmol/L Anion Gap 8 (2-11) mmol/L BUN 31 H (6-24) mg/dL Creatinine 1.54 H (0.67-1.17) mg/dL Est GFR ( Amer) 58.1 (>60) Est GFR (Non-Af Amer) 45.1 (>60) BUN/Creatinine Ratio 20.1 H (8-20) Glucose 93 (70-100) mg/dL Lactic Acid (0.5-2.0) mmol/L Calcium 9.0 (8.6-10.3) mg/dL Total Bilirubin 1.70 H (0.2-1.0) mg/dL AST 46 H (13-39) U/L ALT 37 (7-52) U/L Alkaline Phosphatase 49 (34-104) U/L Troponin I 0.06 H* (<0.04) ng/mL B-Natriuretic Peptide 1341 H ( - 100) pg/mL Total Protein 6.4 (6.4-8.9) g/dL Albumin 3.7 (3.2-5.2) g/dL Globulin 2.7 (2-4) g/dL Albumin/Globulin Ratio 1.4 (1-3) 10/27/17 Range/Units 19:49 WBC (3.5-10.8) 10^3/ul RBC (4.0-5.4) 10^6/ul Hgb (14.0-18.0) g/dl Hct (42-52) % MCV (80-94) fL MCH (27-31) pg MCHC (31-36) g/dl RDW (10.5-15) % Plt Count (150-450) 10^3/ul MPV (7.4-10.4) um3 Neut % (Auto) (38-83) % Lymph % (Auto) (25-47) % [place] % (Auto) (1-9) % Eos % (Auto) (0-6) % Baso % (Auto) (0-2) % Absolute Neuts (auto) (1.5-7.7) 10^3/ul Absolute Lymphs (auto) (1.0-4.8) 10^3/ul Absolute Monos (auto) (0-0.8) 10^3/ul Absolute Eos (auto) (0-0.6) 10^3/ul Absolute Basos (auto) (0-0.2) 10^3/ul Absolute Nucleated RBC 10^3/ul Nucleated RBC % Sodium (133-145) mmol/L Potassium (3.5-5.0) mmol/L Chloride (101-111) mmol/L Carbon Dioxide (22-32) mmol/L Anion Gap (2-11) mmol/L BUN (6-24) mg/dL Creatinine (0.67-1.17) mg/dL Est GFR ( Amer) (>60) Est GFR (Non-Af Amer) (>60) BUN/Creatinine Ratio (8-20) Glucose (70-100) mg/dL Lactic Acid 1.0 (0.5-2.0) mmol/L Calcium (8.6-10.3) mg/dL Total Bilirubin (0.2-1.0) mg/dL AST (13-39) U/L ALT (7-52) U/L Alkaline Phosphatase (34-104) U/L Troponin I (<0.04) ng/mL B-Natriuretic Peptide ( - 100) pg/mL Total Protein (6.4-8.9) g/dL Albumin (3.2-5.2) g/dL Globulin (2-4) g/dL Albumin/Globulin Ratio (1-3) Assess/Plan/Problems-Billing Assessment: Mr. David is a 66 yo male with a PMH of CHF, HTN, COPD with chronic O2 use, DVT/PE, HLD, and ischemic cardiomyopathy who presented to the ED on 10/27/17 with concern for SOB that is secondary to CHF exacerbation. - Patient Problems (1) Acute on chronic systolic (congestive) heart failure Code(s): I50.23 - ACUTE ON CHRONIC SYSTOLIC (CONGESTIVE) HEART FAILURE Comment : Improving Patient reports strong adherence to diet and medication compliance Question if he was on correct Lasix dose; also question overall fluid intake. Continue to monitor I/O, plan to resume home furosemide dosing tomorrow and monitor output. TTE ordered and pending. Wean O2 as able. (2) Acute kidney injury Code(s): N17.9 - ACUTE KIDNEY FAILURE, UNSPECIFIED Comment: Acute on chronic injury Creatinine improved Continue to trend (3) Elevated LFTs Code(s): R79.89 - OTHER SPECIFIED ABNORMAL FINDINGS OF BLOOD CHEMISTRY Comment : Mildly increased May be secondary to CHF or recent illness Check liver US (4) Elevated troponin Code(s): R74.8 - ABNORMAL LEVELS OF OTHER SERUM ENZYMES Comment: Denies CP EKG shows paced rhythm Suspect secondary to demand ischemia (5) CAD (coronary artery disease) Code(s): I25.10 - ATHSCL HEART DISEASE OF [place] CORONARY ARTERY W/O ANG PCTRS Comment: Asymptomatic Trop peak 0.06, likely demand ischemia. Continue BB, statin, ASA (6) COPD (chronic obstructive pulmonary disease) Code(s): J44.9 - CHRONIC OBSTRUCTIVE PULMONARY DISEASE, UNSPECIFIED Comment: Stable No acute exacerbation Continue Dulera. (7) HTN (hypertension) Code(s): I10 - ESSENTIAL (PRIMARY) HYPERTENSION Comment: Normotensive Continue home atenolol, furosemide. (8) Hypokalemia Code(s): E87.6 - HYPOKALEMIA Comment: Secondary to diuresis Continue daily K+ replacement. (9) History of deep venous thrombosis or pulmonary embolus Comment: Continue warfarin per home dosing. (10) DVT prophylaxis Comment: Coumadin Slightly subtherapeutic INR (11) Full code status Code(s): Z78.9 - OTHER SPECIFIED HEALTH STATUS Status and Disposition: OBV admit. D/c to home when medically stable.
[2017-10-28] MEDS ORDERED: HYDROcodone/ACETAMIN 5-325 MG* 1 TAB PO PRN (13:48)
[2017-10-28] MEDS ORDERED: Albuterol 2.5 MG/3 ML NEB.SOL* (0.083%) INH PRN (13:48)
[2017-10-28] MEDS ORDERED: Tiotropium CAP.INH* CAP.INH/18 MCG (USE ORDER SET !) INH SCH (14:00)
[2017-10-28] MEDS ORDERED: Perflutren Lipid Microsphere* 3 ML VIAL ONE (15:01)
[2017-10-28] MEDS ORDERED: Magnesium Sulfate IV* 3 GM in NS 0.9% 100 ML* 100 ML IVPB ONE (15:30)
--- NOTE | 2017-10-28 16:10 | ECHO ---
Patient: KAT CABRAL [facility] Rec#: [id number] : 1950 Date: 10/28/2017 Age: 66y Height: 157.5 cm / 62.0 in Weight: 82.1 kg / 180.9 lbs Sex: M BSA: 1.83 Room#: [facility] Admit Date#: 10/27/2017 Type: Inpatient Referring: Kelsey Angulo Reading: Ehsan Johnson MD Well Surveying Engineer: Otilia Diego RN RDCS CC: Antione Espinosa MD Transthoracic Echocardiogram Indication: CHF BP: 124/80 HR: 69 Rhythm: Paced Findings History: CAD, CABG, ischemic cardiomyopathy, ICD implant 02/2017, HTN, HLD, chronic respiratory failure, COPD, former smoker, PHTN, moderate-severe mitral regurgitation, DVT/PE. Technical Comments: The study is technically limited due to patient body habitus. The study is technically limited due to the patient's history of COPD. The study is technically limited due to the patient's smoking history. Completed at 1545. Left Ventricle: The left ventricular chamber size is normal. Severe global hypokinesis of the left ventricle is observed. There is severely decreased left ventricular systolic function. The estimated ejection fraction is 20-25%. Post surgical hypokinesis of the interventricular septum is observed consistent with coronary artery bypass. The left ventricular diastolic filling pattern is restrictive. The apical lateral, and apical inferior wall segments are akinetic (score 3). Overall wallmotion score index is 3.00 Left Atrium: The left atrium is moderately dilated. Right Ventricle: The right ventricle is mildly dilated. The right ventricular global systolic function is moderately reduced. A pacemaker wire is visualized in the right ventricle. Right Atrium: The right atrium is moderately dilated. A pacemaker wire is visualized in the right atrium. Aortic Valve: The aortic valve is trileaflet. The aortic valve leaflets are moderately thickened. Systolic excursion of the aortic valve cusps is reduced. There is no evidence of aortic regurgitation. There is no evidence of aortic stenosis. Mitral Valve: There is mitral annular calcification. The mitral valve leaflets are moderately thickened. There is moderate to severe mitral regurgitation. Tricuspid Valve: The tricuspid valve leaflets are normal. There is mild to moderate tricuspid regurgitation. There is evidence of moderate pulmonary hypertension. Pulmonic Valve: The pulmonic valve appears normal. There is no evidence of pulmonic regurgitation. There is no pulmonic stenosis. Pericardium: There is no significant pericardial effusion. A pericardial fat pad is visualized. Aorta: There is no dilatation of the ascending aorta. There is no dilatation of the aortic arch. There is no dilation of the aortic root. Pulmonary Artery: The main pulmonary artery is not well visualized. Venous: The inferior vena cava is dilated. There is an approximate 50% respiratory change in the inferior vena cava dimension. Contrast: Definity was used to optimize study. A total of 3 ml of diluted Definity was given IV. Conclusions There is severely decreased left ventricular systolic function. The estimated ejection fraction is 20-25%. Severe global hypokinesis of the left ventricle is observed. The apical lateral, and apical inferior wall segments are akinetic (score 3). The left ventricular diastolic filling pattern is restrictive. The left ventricular chamber size is normal. The left atrium is moderately dilated. The right ventricle is mildly dilated. The right ventricular global systolic function is moderately reduced. There is moderate to severe mitral regurgitation. There is mild to moderate tricuspid regurgitation. There is evidence of moderate pulmonary hypertension. Since the prior echocardiogram completed 07/01/17, prior LVEF reported 30-35% and prior mild pulmonary hypertension reported. Measurements Name Value Normal Range RVDdMajor (2D) 4.4 cm (2.2 - 4.4) RAd ISD 4CH 5.3 cm (3.4 - 4.9) RA (A4C)W 3.9 cm (2.9 - 4.6) IVSd (2D) 1.1 cm (0.6 - 1) LVPWd (2D) 1.1 cm (0.6 - 1) LVIDd (2D) 5.3 cm (3.6 - 5.4) LVIDs (2D) 4.4 cm - LV FS (2D) 16 % (25 - 45) Aortic Annulus 1.7 cm (1.4 - 2.6) Ao root diameter (2D) 3 cm (2.1 - 3.5) Ascending Ao 3.4 cm (2.1 - 3.4) Aortic arch 3.2 cm (1.8 - 3.4) LA dimension (AP) 2D 3.6 cm (2.3 - 3.8) LAd ISD 4CH 6 cm (2.9 - 5.3) LA ISD 4CH W 4.8 cm (2.5 - 4.5) Name Value Normal Range LA ESV SP 4CH (A/L) 77 ml - LA ESV SP 2CH (A/L) 85 ml - LA ESV BP (A/L) 81 ml - LA ESV BP (A/L) index 44.2 ml/m2 - LA ESV SP 4CH (MOD) 73 ml - LA ESV SP 2CH (MOD) 85 ml - Name Value Normal Range MV E-wave Vmax 1.1 m/sec - MV deceleration time 119 msec - MV A-wave Vmax 0.29 m/sec - MV E:A ratio 3.9 ratio - LV lateral e' Vmax 0.07 m/sec - LV E:e' lateral ratio 15.7 ratio - Name Value Normal Range AV Vmax 1.4 m/sec - AV VTI 26.8 cm - AV peak gradient 7.3 mmHg - AV mean gradient 4.6 mmHg - LVOT Vmax 1 m/sec - LVOT VTI 18.8 cm - LVOT peak gradient 4.4 mmHg - LVOT mean gradient 2.1 mmHg - FILIBERTO Vmax 0.53 m/sec - Name Value Normal Range MR Vmax 4.5 m/sec - MR VTI 152.6 cm - MR volume (PISA) 53 ml - MR flow (PISA) 155.8 ml/sec - MR ERO 0.3 cm2 - MR PISA radius 0.84 cm - MR alias Vmax 35 cm/sec - Name Value Normal Range TR Vmax 2.8 m/sec - TR peak gradient 31 mmHg - RAP 15 mmHg - RVSP 46 mmHg - IVC diameter 2.6 cm - Name Value Normal Range PV Vmax 0.85 m/sec - Wallmotion BAS Not Seen BA Not Seen BAL Not Seen AVINASH Not Seen BI Not Seen BIS Not Seen MAS Not Seen MA Not Seen MAL Not Seen MIL Not Seen AL Not Seen MIS Not Seen Not Seen AA Not Seen AL Akinetic AI Akinetic APEX Akinetic
[2017-10-28] MEDS: Warfarin TAB(*) 2.5 MG PO SCH (16:35)
[2017-10-28] MEDS: Tiotropium CAP.INH* CAP.INH/18 MCG (USE ORDER SET !) INH SCH (16:35)
[2017-10-28] MEDS ORDERED: Magnesium Sulfate 1 GM IV* 1 GM/100 ML BAG IV ONE (17:00)
[2017-10-28] MEDS ORDERED: Warfarin TAB(*) 2.5 MG PO SCH (17:00)
[2017-10-28] MEDS ORDERED: Magnesium Sulfate 2 GM IV IVPB ONE (17:00)
[2017-10-29] MEDS: Furosemide TAB* 40 MG PO SCH ×2 (05:28→17:26)
[2017-10-29 07:49] LABS: EGFR Non-African American 53.5 (>60)
[2017-10-29] MEDS: Tiotropium CAP.INH* CAP.INH/18 MCG (USE ORDER SET !) INH SCH (08:10)
[2017-10-29] MEDS ORDERED: Potassium Chlor TAB* 20 MEQ TAB.ER PO ONE (08:11)
[2017-10-29] MEDS: Mometasone/Formoter 200/5 MDI INH SCH ×2 (08:11→20:09)
[2017-10-29 08:30] LABS: INR 1.76 (0.77-1.02)
[2017-10-29] MEDS: Magnesium Oxide TAB* 400 MG PO SCH (08:34)
[2017-10-29] MEDS: Aspirin TAB* 325 MG PO SCH (08:34)
[2017-10-29] MEDS: Potassium Chlor TAB* 20 MEQ TAB.ER PO SCH (08:36)
[2017-10-29] MEDS ORDERED: Spiriva Inhaler DEVICE* 1 EACH DEVICE INH ONE (09:00)
[2017-10-29] MEDS ORDERED: Atenolol TAB* 50 MG PO SCH (09:00)
--- NOTE | 2017-10-29 09:07 | RAD ---
HISTORY: Transaminitis COMPARISONS: July 18, 2017 TECHNIQUE: Multiple transverse and longitudinal ultrasound images were obtained of the right upper quadrant of the abdomen using grayscale and color Doppler imaging. FINDINGS: LIVER: Again noted are hepatic cysts, essentially stable from the previous examination except for differences in technique. There is mild diffuse coarse echotexture to the liver. There is normal hepatopedal flow of the portal vein on Doppler imaging. BILIARY TREE: There is no intrahepatic or extrahepatic biliary dilatation. The common duct measures 0.5 cm. GALLBLADDER: The gallbladder is well-visualized. There is no cholelithiasis, gallbladder wall thickening, pericholecystic fluid, or sonographic Chinchilla sign. PANCREAS: The head of the pancreas is unremarkable. The tail of the pancreas is not well visualized secondary to overlying bowel gas. RIGHT KIDNEY: The right kidney is normal in shape, size, contour, and echogenicity. There is no hydronephrosis or nephrolithiasis. The right kidney measures 11.2 x 5 x 5.6 cm. AORTA AND IVC: The aorta and IVC are unremarkable. FLUID: There are no pleural effusions. There is no free fluid within the hepatorenal recess. OTHER FINDINGS: None. IMPRESSION: STABLE HEPATIC CYSTS WITH STABLE MILDLY COARSENED ECHOTEXTURE TO THE LIVER EDGE MAY INDICATE FATTY INFILTRATION.
[2017-10-29] MEDS ORDERED: Metolazone TAB* 5 MG PO ONE (10:11)
[2017-10-29 10:17] LABS: ABS Basophils 0.1 10^3/ul (0-0.2); ABS Eosinophils 0.2 10^3/ul (0-0.6); ABS Lymphocytes 1.2 10^3/ul (1.0-4.8); ABS Neutrophils 7.2 10^3/ul (1.5-7.7); ABS Nucleated RBC 0 10^3/ul; Eosinophil % 2.1 % (0-6); Hematocrit 40 % (42-52); Hemoglobin 12.6 g/dl (14.0-18.0); Lymphocyte % 12.7 % (25-47); Mean Corpuscular HGB Conc 32 g/dl (31-36); Mean Corpuscular Hemoglobin 27 pg (27-31); Mean Corpuscular Volume 86 fL (80-94); Mean Platelet Volume 8 um3 (7.4-10.4); Nucleated Red Blood Cells % 0.1; Platelet Count 252 10^3/ul (150-450); Red Blood Count 4.62 10^6/ul (4.0-5.4); Red Cell Distribution Width 17 % (10.5-15); White Blood Count 9.8 10^3/ul (3.5-10.8)
[2017-10-29] MEDS: Carvedilol TAB* 3.125 MG PO SCH ×2 (15:19→21:10)
[2017-10-29] MEDS: Warfarin TAB(*) 2.5 MG PO SCH (17:26)
--- NOTE | 2017-10-29 18:58 | PN ---
Subjective Date of Service: 10/29/17 Interval History: Patient seen and examined. Denies CP, no SOB, states abdominal bloating and SOB is greatly improved. Has been having ectopy/Vtach on tele, remains asymptomatic through episodes. No dizziness or headache, no n/v, tolerating PO. Overall feeling better. Family History: Unchanged from Admission Social History: Unchanged from Admission Past Medical History: Unchanged from Admission Objective Active Medications: Acetaminophen (Tylenol Tab*) 650 mg PO Q4H PRN PRN Reason: FEVER/PAIN Hydrocodone Bitart/Acetaminophen ([place] 5-325 Tab*) 1 tab PO QID PRN PRN Reason: PAIN Albuterol (Ventolin 2.5 Mg/3 Ml Neb.Yuli*) 2.5 mg INH Q4H PRN PRN Reason: SOB/WHEEZING Albuterol (Ventolin 2.5 Mg/3 Ml Neb.Yuli*) 2.5 mg INH Q6H PRN PRN Reason: SOB/WHEEZING Aspirin (Aspirin Tab*) 325 mg PO DAILY [facility] Last Admin: 10/29/17 08:34 Dose: 325 mg Carvedilol (Coreg Tab*) 3.125 mg PO BID [facility] Last Admin: 10/29/17 15:19 Dose: 3.125 mg Furosemide (Lasix Tab*) 80 mg PO BID@0600,1800 [facility] Last Admin: 10/29/17 17:26 Dose: 80 mg Magnesium Oxide (Magox 400 Tab*) 400 mg PO DAILY [facility] Last Admin: 10/29/17 08:34 Dose: 400 mg Mometasone Furoate/Formoterol Fumar (Dulera 200/5 Mdi*) 1 puff INH BID [facility] PRN Reason: Protocol Last Admin: 10/29/17 08:11 Dose: Not Given Ondansetron HCl (Zofran Inj*) 4 mg IV Q6H PRN PRN Reason: NAUSEA/VOMITING Potassium Chloride (Klor Con Er Tab*) 20 meq PO DAILY [facility] Last Admin: 10/29/17 08:36 Dose: 20 meq Tiotropium [place] (Spiriva Cap.Inh*) 1 cap INH DAILY@0900 [facility] Last Admin: 10/29/17 08:10 Dose: 1 inh Warfarin Sodium (Coumadin Tab(*)) 2.5 mg PO SuMoTuWeThSa@1800 [facility] PRN Reason: Protocol Last Admin: 10/29/17 17:26 Dose: 2.5 mg Warfarin Sodium (Coumadin Tab(*)) 5 mg PO FR@1800 KIRSTIE PRN Reason: Protocol Vital Signs - 8 hr 10/29/17 10/29/17 11:29 15:45 Temperature 98.3 F 98.3 F Pulse Rate 66 61 Respiratory 18 20 Rate Blood Pressure 120/83 120/73 (mmHg) O2 Sat by Pulse 98 90 Oximetry Oxygen Devices in Use Now: Nasal Cannula Appearance: Alert, NAD Ears/Nose/Mouth/Throat: NL Teeth, Lips, Gums, Mucous Membranes Moist Neck: NL Appearance and Movements; NL JVP, Trachea Midline Respiratory: Symmetrical Chest Expansion and Respiratory Effort, - - crackles bilaterally at bases Cardiovascular: NL Sounds; No Murmurs; No JVD, RRR, No Edema Abdominal: No Hepatosplenomegaly Skin: No Rash or Ulcers, No Nodules or Sclerosis Neurological: Alert and Oriented x 3, NL Sensation, NL Muscle Strength and Tone Nutrition: Taking PO's Result Diagrams: 10/29/17 06:45 10/29/17 06:49 Additional Lab and Data: Lab Results 10/27/17 10/27/17 10/27/17 Range/Units 19:49 19:49 19:49 WBC 9.5 (3.5-10.8) 10^3/ul RBC 4.60 (4.0-5.4) 10^6/ul Hgb 12.7 L (14.0-18.0) g/dl Hct 39 L (42-52) % MCV 84 (80-94) fL MCH 28 (27-31) pg MCHC 33 (31-36) g/dl RDW 17 H (10.5-15) % Plt Count 230 (150-450) 10^3/ul MPV 8 (7.4-10.4) um3 Neut % (Auto) 69.8 (38-83) % Lymph % (Auto) 17.6 L (25-47) % [place] % (Auto) 11.2 H (1-9) % Eos % (Auto) 0.4 (0-6) % Baso % (Auto) 1.0 (0-2) % Absolute Neuts (auto) 6.6 (1.5-7.7) 10^3/ul Absolute Lymphs (auto) 1.7 (1.0-4.8) 10^3/ul Absolute Monos (auto) 1.1 H (0-0.8) 10^3/ul Absolute Eos (auto) 0 (0-0.6) 10^3/ul Absolute Basos (auto) 0.1 (0-0.2) 10^3/ul Absolute Nucleated RBC 0 10^3/ul Nucleated RBC % 0.1 Sodium 136 (133-145) mmol/L Potassium 3.7 (3.5-5.0) mmol/L Chloride 99 L (101-111) mmol/L Carbon Dioxide 29 (22-32) mmol/L Anion Gap 8 (2-11) mmol/L BUN 31 H (6-24) mg/dL Creatinine 1.54 H (0.67-1.17) mg/dL Est GFR ( Amer) 58.1 (>60) Est GFR (Non-Af Amer) 45.1 (>60) BUN/Creatinine Ratio 20.1 H (8-20) Glucose 93 (70-100) mg/dL Lactic Acid (0.5-2.0) mmol/L Calcium 9.0 (8.6-10.3) mg/dL Total Bilirubin 1.70 H (0.2-1.0) mg/dL AST 46 H (13-39) U/L ALT 37 (7-52) U/L Alkaline Phosphatase 49 (34-104) U/L Troponin I 0.06 H* (<0.04) ng/mL B-Natriuretic Peptide 1341 H ( - 100) pg/mL Total Protein 6.4 (6.4-8.9) g/dL Albumin 3.7 (3.2-5.2) g/dL Globulin 2.7 (2-4) g/dL Albumin/Globulin Ratio 1.4 (1-3) 10/27/17 Range/Units 19:49 WBC (3.5-10.8) 10^3/ul RBC (4.0-5.4) 10^6/ul Hgb (14.0-18.0) g/dl Hct (42-52) % MCV (80-94) fL MCH (27-31) pg MCHC (31-36) g/dl RDW (10.5-15) % Plt Count (150-450) 10^3/ul MPV (7.4-10.4) um3 Neut % (Auto) (38-83) % Lymph % (Auto) (25-47) % [place] % (Auto) (1-9) % Eos % (Auto) (0-6) % Baso % (Auto) (0-2) % Absolute Neuts (auto) (1.5-7.7) 10^3/ul Absolute Lymphs (auto) (1.0-4.8) 10^3/ul Absolute Monos (auto) (0-0.8) 10^3/ul Absolute Eos (auto) (0-0.6) 10^3/ul Absolute Basos (auto) (0-0.2) 10^3/ul Absolute Nucleated RBC 10^3/ul Nucleated RBC % Sodium (133-145) mmol/L Potassium (3.5-5.0) mmol/L Chloride (101-111) mmol/L Carbon Dioxide (22-32) mmol/L Anion Gap (2-11) mmol/L BUN (6-24) mg/dL Creatinine (0.67-1.17) mg/dL Est GFR ( Amer) (>60) Est GFR (Non-Af Amer) (>60) BUN/Creatinine Ratio (8-20) Glucose (70-100) mg/dL Lactic Acid 1.0 (0.5-2.0) mmol/L Calcium (8.6-10.3) mg/dL Total Bilirubin (0.2-1.0) mg/dL AST (13-39) U/L ALT (7-52) U/L Alkaline Phosphatase (34-104) U/L Troponin I (<0.04) ng/mL B-Natriuretic Peptide ( - 100) pg/mL Total Protein (6.4-8.9) g/dL Albumin (3.2-5.2) g/dL Globulin (2-4) g/dL Albumin/Globulin Ratio (1-3) Diagnostic Imaging: Patient: KAT CABRAL [facility] Rec#: [id number] : 1950 Date: 10/28/2017 Age: 66y Height: 157.5 cm / 62.0 in Weight: 82.1 kg / 180.9 lbs Sex: M BSA: 1.83 Room#: [facility] Admit Date#: 10/27/2017 Type: Inpatient Referring: Kelsey Angulo Reading: Ehsan Johnson MD Administrative Assistant: Otilia Diego RN RDCS CC: Antione Espinosa MD Transthoracic Echocardiogram Indication: CHF BP: 124/80 HR: 69 Rhythm: Paced Findings History: CAD, CABG, ischemic cardiomyopathy, ICD implant 02/2017, HTN, HLD, chronic respiratory failure, COPD, former smoker, PHTN, moderate-severe mitral regurgitation, DVT/PE. Technical Comments: The study is technically limited due to patient body habitus. The study is technically limited due to the patient's history of COPD. The study is technically limited due to the patient's smoking history. Completed at 1545. Left Ventricle: The left ventricular chamber size is normal. Severe global hypokinesis of the left ventricle is observed. There is severely decreased left ventricular systolic function. The estimated ejection fraction is 20-25%. Post surgical hypokinesis of the interventricular septum is observed consistent with coronary artery bypass. The left ventricular diastolic filling pattern is restrictive. The apical lateral, and apical inferior wall segments are akinetic (score 3). Overall wallmotion score index is 3.00 Left Atrium: The left atrium is moderately dilated. CONCLUSIONS: There is severely decreased left ventricular systolic function. The estimated ejection fraction is 20-25%. Severe global hypokinesis of the left ventricle is observed. The apical lateral, and apical inferior wall segments are akinetic (score 3). The left ventricular diastolic filling pattern is restrictive. The left ventricular chamber size is normal. The left atrium is moderately dilated. The right ventricle is mildly dilated. The right ventricular global systolic function is moderately reduced. There is moderate to severe mitral regurgitation. There is mild to moderate tricuspid regurgitation. There is evidence of moderate pulmonary hypertension. Since the prior echocardiogram completed 07/01/17, prior LVEF reported 30-35% and prior mild pulmonary hypertension reported. Measurements Name Value Normal Range RVDdMajor (2D) 4.4 cm (2.2 - 4.4) RAd ISD 4CH 5.3 cm (3.4 - 4.9) RA (A4C)W 3.9 cm (2.9 - 4.6) IVSd (2D) 1.1 cm (0.6 - 1) LVPWd (2D) 1.1 cm (0.6 - 1) LVIDd (2D) 5.3 cm (3.6 - 5.4) LVIDs (2D) 4.4 cm - LV FS (2D) 16 % (25 - 45) Aortic Annulus 1.7 cm (1.4 - 2.6) Ao root diameter (2D) 3 cm (2.1 - 3.5) Ascending Ao 3.4 cm (2.1 - 3.4) Aortic arch 3.2 cm (1.8 - 3.4) LA dimension (AP) 2D 3.6 cm (2.3 - 3.8) LAd ISD 4CH 6 cm (2.9 - 5.3) LA ISD 4CH W 4.8 cm (2.5 - 4.5) Name Value Normal Range LA ESV SP 4CH (A/L) 77 ml - LA ESV SP 2CH (A/L) 85 ml - LA ESV BP (A/L) 81 ml - LA ESV BP (A/L) index 44.2 ml/m2 - LA ESV SP 4CH (MOD) 73 ml - LA ESV SP 2CH (MOD) 85 ml - Name Value Normal Range MV E-wave Vmax 1.1 m/sec - MV deceleration time 119 msec - MV A-wave Vmax 0.29 m/sec - MV E:A ratio 3.9 ratio - LV lateral e' Vmax 0.07 m/sec - LV E:e' lateral ratio 15.7 ratio - Assess/Plan/Problems-Billing Assessment: This is a pleasant 66 yo male with a PMH of CHF, HTN, COPD with chronic O2 use, DVT/PE, HLD, and ischemic cardiomyopathy who presented to the ED on 10/27/17 with increasing SOB 2/2 acute exac of HF. - Patient Problems (1) Elevated LFTs Code(s): R79.89 - OTHER SPECIFIED ABNORMAL FINDINGS OF BLOOD CHEMISTRY SNOMED Code(s): 976136297 Comment: - Mildly increased, likely 2/2 HF vs recent illness - Liver US stable - Monitor (2) Elevated troponin Code(s): R74.8 - ABNORMAL LEVELS OF OTHER SERUM ENZYMES SNOMED Code(s): 441264207 Comment: - Suspect secondary to demand ischemia in setting of COPD and chronic HF - No chest pain (3) History of deep venous thrombosis or pulmonary embolus Code(s): KLS8036 - SNOMED Code(s): 954655604 Comment: - Continue warfarin per home dosing. (4) Acute on chronic systolic (congestive) heart failure Code(s): I50.23 - ACUTE ON CHRONIC SYSTOLIC (CONGESTIVE) HEART FAILURE SNOMED Code(s): 150622863 Comment: - Improving with lasix at current dose - Will give one dose metolozone today - ECHO shows EF decreased to 20-25% - DC atenolol and change to coreg BID (5) Hypokalemia Code(s): E87.6 - HYPOKALEMIA SNOMED Code(s): 94989739 Comment: - Secondary to diuresis - Replete and monitor lytes (6) Hypomagnesemia Code(s): E83.42 - HYPOMAGNESEMIA SNOMED Code(s): 174351208 Comment: - Repleted, resolved (7) CAD (coronary artery disease) Code(s): I25.10 - ATHSCL HEART DISEASE OF [place] CORONARY ARTERY W/O ANG PCTRS SNOMED Code(s): 25435550 Comment: - Asymptomatic - Trop peak 0.06, likely demand ischemia. - Continue statin, ASA and change to coreg BID (8) COPD (chronic obstructive pulmonary disease) Code(s): J44.9 - CHRONIC OBSTRUCTIVE PULMONARY DISEASE, UNSPECIFIED SNOMED Code(s): 15042049 Comment: - Stable - Continue Dulera (9) HTN (hypertension) Code(s): I10 - ESSENTIAL (PRIMARY) HYPERTENSION SNOMED Code(s): 23112696 Comment: - BP stable (10) Ventricular arrhythmia Code(s): I49.9 - CARDIAC ARRHYTHMIA, UNSPECIFIED SNOMED Code(s): 73732535 Comment: - Short runs (4-7 beats Vtach) with underlying paced rhythm - Pacemaker/AICD interrogated, no adjustments recommended and PM is working well - Lytes have been optimized - Will trial coreg BID and monitor on tele Status and Disposition: Continue medical optimization. If no further ectopy, may DC home tomorrow. Counseling and/or Coordination of Care Minutes: coordinated with patient and staff
[2017-10-30 05:50] LABS: INR 1.7 (0.77-1.02)
[2017-10-30] MEDS: Furosemide TAB* 40 MG PO SCH (06:03)
[2017-10-30] MEDS: Mometasone/Formoter 200/5 MDI INH SCH (08:11)
[2017-10-30] MEDS: Tiotropium CAP.INH* CAP.INH/18 MCG (USE ORDER SET !) INH SCH (08:12)
[2017-10-30] MEDS: Carvedilol TAB* 3.125 MG PO SCH (09:42)
[2017-10-30] MEDS: Aspirin TAB* 325 MG PO SCH (09:42)
[2017-10-30] MEDS: Potassium Chlor TAB* 20 MEQ TAB.ER PO SCH (09:42)
[2017-10-30] MEDS: Magnesium Oxide TAB* 400 MG PO SCH (09:42)
[2017-10-30 15:11] VITALS: BP 95/69
[2017-11-02] MEDS ORDERED: Warfarin TAB(*) 5 MG PO SCH (18:00)
== END 2017-10-30 15:30 | disposition home health service (06) | DRG 292 ==
LOC: ED 15:56 → MEDTELE 22:06 → OBSVTOIN 10-28 10:00
PROVIDERS: ADMIT Hospitalist; ATTEND Internal Medicine
PROC: 4B02XTZ Measurement of Cardiac Defibrillator, External Approach (ICD-10-PCS; principal; 2017-10-29)
DX: I11.0 Hypertensive heart disease with heart failure (principal); J96.11 Chronic respiratory failure with hypoxia; N17.9 Acute kidney failure, unspecified; I47.2 Ventricular tachycardia; I08.1 Rheumatic disorders of both mitral and tricuspid valves; I24.8 Other forms of acute ischemic heart disease; I27.20 Pulmonary hypertension, unspecified; I44.1 Atrioventricular block, second degree; E83.42 Hypomagnesemia; I50.23 Acute on chronic systolic (congestive) heart failure; J44.9 Chronic obstructive pulmonary disease, unspecified; I25.10 Atherosclerotic heart disease of native coronary artery without angina pectoris; I25.5 Ischemic cardiomyopathy; E78.5 Hyperlipidemia, unspecified; R79.89 Other specified abnormal findings of blood chemistry; R74.8 Abnormal levels of other serum enzymes; H91.92 Unspecified hearing loss, left ear; M19.049 Primary osteoarthritis, unspecified hand; F41.9 Anxiety disorder, unspecified; R40.2412 Glasgow coma scale score 13-15, at arrival to emergency department; E87.6 Hypokalemia; I25.2 Old myocardial infarction; Z86.718 Personal history of other venous thrombosis and embolism; Z86.711 Personal history of pulmonary embolism; Z95.1 Presence of aortocoronary bypass graft; Z95.810 Presence of automatic (implantable) cardiac defibrillator; Z82.49 Family history of ischemic heart disease and other diseases of the circulatory system; Z87.891 Personal history of nicotine dependence; Z99.81 Dependence on supplemental oxygen; Z87.01 Personal history of pneumonia (recurrent)
CPT/HCPCS: 36415; 71046; 76705; 80048; 80053; 80076; 83605; 83735; 83880; 84484; 85025; 85610; 85730; 93005; 93306; 94640; 94760; 99284; A9270-GY; C8929; G0378; J1940; J3475

== ENCOUNTER 2018-04-25 09:58 | Observation (INO) | payer MEDICARE, MEDICAID ==
--- NOTE | 2018-04-25 10:35 | ED ---
Shortness of Breath - HPI Summary HPI Summary: This patient is a 67 year old M presenting to [facility] with a chief complaint of edema since 04/24/18. PMHx CHF. He denies peripheral pitting edema. Endorses lightheadedness, dizziness upon exertion, SOB, and oliguria. Pt sleeps on his stomach. PMHx pacemaker. Denies CP. Pt uses o2 at home, Pt on special low sodium , no alcohol diet. Denies smoking. - History of Current Complaint Time Seen by Provider: 04/25/18 10:06 Hx Obtained From: Patient Onset/Duration: Gradual Onset, Lasting Days Current Severity: Moderate Dyspnea At: Exertion Aggrevating Factors: Movement Alleviating Factors: Nothing Associated Signs & Symptoms: Dizzy, Edema - abdomen Related History: Similar Episode - CHF - Allergy/Home Medications Allergies/Adverse Reactions: Allergies Allergy/AdvReac Type Severity Reaction Status Date / Time No Known Allergies Allergy Verified 04/25/18 10:14 Home Medications: Home Medications Carvedilol TAB* [Coreg TAB*] 6.25 mg PO BID 04/25/18 [History Confirmed 04/25/18 ] Furosemide TAB* [Lasix TAB*] 80 mg PO BID 04/25/18 [History Confirmed 04/25/18] Nitroglycerin TAB 0.3 MG* 0.3 mg SL Q5M PRN 04/25/18 [History Confirmed 04/25/18 ] Potassium Chlor TAB* [Klor Con ER TAB*] 20 meq PO DAILY 04/25/18 [History Confirmed 04/25/18] Warfarin TAB(*) [Coumadin TAB(*)] 5 mg PO DAILY 04/25/18 [History Confirmed 10/01] predniSONE TAB* [Deltasone TAB*] 5 mg PO BID 04/25/18 [History Confirmed ] PMH/Surg Hx/FS Hx/Imm Hx Endocrine/Hematology History: Denies: Hx Diabetes Cardiovascular History: Reports: Hx Auto Implanted Cardiovert Defib, Hx Congestive Heart Failure, Hx Coronary Artery Disease, Hx Deep Vein Thrombosis, Hx Hypercholesterolemia, Hx Hypertension, Hx Myocardial Infarction, Hx Pacemaker /ICD - 5/05/31, Other Cardiovascular Problems/Disorders Respiratory History: Reports: Hx Chronic Obstructive Pulmonary Disease (COPD), Hx Pneumonia, Hx Pulmonary Embolism, Other Respiratory Problems/Disorders - respiratory failure, uses 3L O2 at night Denies: Hx Asthma History: Denies: Hx Renal Disease Musculoskeletal History: Reports: Hx Arthritis - fingers, Hx Back Problems Denies: Hx Bursitis, Hx Congenital Bone Abnormalities, Hx Fibromyalgia, Hx Gout, Hx Orthopedic Injury, Hx Osteoporosis, Hx Scoliosis, Hx Tendonitis, Other Musculoskeletal History Sensory History: Reports: Hx Contacts or Glasses, Hx Deafness - left ear, Hx Hearing Problem Denies: Hx Cataracts, Hx Eye Injury, Hx Eye Prosthesis, Hx Glaucoma, Hx Legally Blind, Hx Macular Degeneration, Hx Vision Problem, Hx Hearing Aid, Other Sensory Impairments Opthamlomology History: Reports: Hx Contacts or Glasses Denies: Hx Cataracts, Hx Eye Injury, Hx Eye Prosthesis, Hx Glaucoma, Hx Legally Blind, Hx Macular Degeneration, Hx Vision Problem, Other Sensory Impairments Psychiatric History: Reports: Hx Anxiety - Surgical History Surgery Procedure, Year, and Place: CABG, pacemaker/ICD, appendectomy Hx Anesthesia Reactions: No - Immunization History Date of Tetanus Vaccine: unk Date of Influenza Vaccine: unk Infectious Disease History: No Infectious Disease History: Denies: Traveled Outside the [place] in Last 30 Days - Family History Known Family History: Positive: Cardiac Disease - extensive [place] FHx - Social History Alcohol Use: None Substance Use Type: Reports: None Hx Tobacco Use: Yes Smoking Status (MU): Former Smoker Type: Cigarettes Have You Smoked in the Last Year: No Review of Systems Negative: Fever Negative: Chest Pain Positive: Shortness Of Breath Positive: Abdominal Pain - distention, swelling Positive: other - oliguria Neurological: Other - lightheaded, dizzy All Other Systems Reviewed And Are Negative: Yes Physical Exam - Summary Physical Exam Summary: Appearance: The patient is well-nourished in no acute distress and in no acute pain. Skin: The skin is warm and dry and skin color reflects adequate perfusion. HEENT: The head is normocephalic and atraumatic. The pupils are equal and reactive. The conjunctivae are clear and without drainage. Nares are patent and without drainage. Mouth reveals moist mucous membranes and the throat is without erythema and exudate. The external ears are intact. The ear canals are patent and without drainage. The tympanic membranes are intact. Neck: The neck is supple with full range of motion and non-tender. There are no carotid bruits. There is no neck vein distension. Respiratory: Chest is non-tender. Lungs are clear to auscultation and breath sounds are symmetrical and equal. Cardiovascular: Heart is regular rate and rhythm. There is no murmur or rub auscultated. There is no peripheral edema and pulses are symmetrical and equal. Abdomen: The abdomen is soft and non-tender. There are normal bowel sounds heard in all four quadrants and there is no organomegaly palpated. Musculoskeletal: There is no back tenderness noted. Extremities are non-tender with full range of motion. There is good capillary refill. There is no peripheral edema or calf tenderness elicited. Neurological: Patient is alert and oriented to person, place and time. The patient has symmetrical motor strength in all four extremities. Cranial nerves are grossly intact. Deep tendon reflexes are symmetrical and equal in all four extremities. Psychiatric: The patient has an appropriate affect and does not exhibit any anxiety or depression. Triage Information Reviewed: Yes Vital Signs On Initial Exam: Initial Vitals Temp Pulse Resp BP Pulse Ox 97.3 F 78 20 118/78 98 04/25/18 10:00 04/25/18 10:00 04/25/18 10:00 04/25/18 10:00 04/25/18 10:00 Vital Signs Reviewed: Yes Diagnostics - Vital Signs Vital Signs Temp Pulse Resp BP Pulse Ox 04/25/18 10:18 79 27 95 04/25/18 10:00 97.3 F 78 20 118/78 98 - Laboratory Result Diagrams: 04/25/18 10:38 04/25/18 10:38 Lab Statement: Any lab studies that have been ordered have been reviewed, and results considered in the medical decision making process. - Radiology CXR Xray Interpretation: Positive (See Comments) Radiology Interpretation Completed By: Radiologist - MILD CARDIOMEGALY WITH PULMONARY VASCULAR CONGESTION AND MILD INTERSTITIAL EDEMA. Dr. Mondragon has reviewed this report. - EKG 1042 Cardiac Rate: NL - 76 EKG Rhythm: Sinus Rhythm Ectopy: PVCs - 1 EKG Interpretation: paced Course/Dx - Course Course Of Treatment: Mr. David presented complaining of shortness of breath with exertion. He is concerned that he is recollecting fluid in his lungs. His troponin was in the indeterminate range as it usually is. His BNP was up to 1100 from 600 most recently and it has been up in this range before. Chest x -ray was read the radiologist as increased pulmonary edema. Hospice were contacted and admitted him for diuresis. - Diagnoses Provider Diagnoses: CHF (congestive heart failure) - Physician Notifications Discussed Care of Patient With: Luis Angel Griffiths Time Discussed With Above Provider: 11:40 Instructed by Provider To: Other - will come to ED to see pt. Discharge - Sign-Out/Discharge Documenting (check all that apply): Patient Departure - admit - Discharge Plan Condition: Fair Disposition: ADMITTED TO [facility] - Billing Disposition and Condition Condition: FAIR Disposition: Ad[facility]
[2018-04-25 10:54] LABS: ABS Basophils 0 10^3/ul (0-0.2); ABS Eosinophils 0.1 10^3/ul (0-0.6); ABS Lymphocytes 0.9 10^3/ul (1.0-4.8); ABS Monocytes 1.5 10^3/ul (0-0.8); ABS Neutrophils 11.9 10^3/ul (1.5-7.7); ABS Nucleated RBC 0 10^3/ul; Eosinophil % 0.4 % (0-6); Hematocrit 41 % (42-52); Hemoglobin 13.6 g/dl (14.0-18.0); Mean Corpuscular HGB Conc 33 g/dl (31-36); Mean Corpuscular Hemoglobin 29 pg (27-31); Mean Corpuscular Volume 86 fL (80-94); Mean Platelet Volume 7.9 um3 (7.4-10.4); Nucleated Red Blood Cells % 0; Platelet Count 170 10^3/ul (150-450); Red Blood Count 4.78 10^6/ul (4.00-5.40); Red Cell Distribution Width 17 % (10.5-15); White Blood Count 14.3 10^3/ul (3.5-10.8)
--- NOTE | 2018-04-25 11:07 | RAD ---
HISTORY: SOB COMPARISONS: October 27, 2017 VIEWS: 4: Frontal dual-energy and lateral views of the chest. FINDINGS: CARDIOMEDIASTINAL SILHOUETTE: The cardiomediastinal silhouette is mildly enlarged. LONI: The loni are normal. PLEURA: The costophrenic angles are sharp. No pleural abnormalities are noted. LUNG PARENCHYMA: There is prominence of the central pulmonary vasculature with a mild pattern of reticular opacification. ABDOMEN: The upper abdomen is clear. There is no subphrenic gas. BONES AND SOFT TISSUES: The patient is status post median sternotomy. OTHER: A left-sided AICD pacemaker is noted. IMPRESSION: MILD CARDIOMEGALY WITH PULMONARY VASCULAR CONGESTION AND MILD INTERSTITIAL EDEMA
[2018-04-25 11:15] LABS: EGFR Non-African American 62.4 (>60)
[2018-04-25] MEDS ORDERED: Furosemide IV* 10 MG/ML 10 ML VIAL (100 MG) IV ONE (12:23)
[2018-04-25] MEDS ORDERED: Nitroglycerin TAB 0.3 MG* 0.3 MG TAB SL PRN (12:26)
--- NOTE | 2018-04-25 12:54 | ADMNOTE ---
Subjective Date of Service: 04/25/18 Interval History: ADMISSION HISTORY AND PHYSICAL EXAM: Allergies Allergy/AdvReac Type Severity Reaction Status Date / Time No Known Allergies Allergy Verified 04/25/18 10:14 Home Medications Medication Instructions Recorded Confirmed Type Carvedilol TAB* [Coreg TAB*] 6.25 mg PO BID 04/25/18 04/25/18 History Furosemide TAB* [Lasix TAB*] 80 mg PO BID 04/25/18 04/25/18 History Nitroglycerin TAB 0.3 MG* 0.3 mg SL Q5M PRN 04/25/18 04/25/18 History Potassium Chlor TAB* [Klor Con ER 20 meq PO DAILY 04/25/18 04/25/18 History TAB*] Warfarin TAB(*) [Coumadin TAB(*)] 5 mg PO DAILY 04/25/18 04/25/18 History predniSONE TAB* [Deltasone TAB*] 5 mg PO BID 04/25/18 04/25/18 History HPI: The patient was in his usual state of health until 04/24 when he went to work and was SOB. He only worked 2 hrs of his 4 hour workday due to SOB. He was as bad or worse this AM and came to the ED. He had some green sputum. No chest pain. Family History: Findings - Both parents had CAD Social History: Findings - Works part-time at [employer]. Quit smoking about 20 yrs ago. No alcohol abuse. 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 Review of Systems - Measurements Intake and Output: Intake and Output Last 24 Hours 04/23/18 04/24/18 04/25/18 04/26/18 06:59 06:59 06:59 06:59 Weight 176 lb - Review of Systems Constitutional Symptoms: Negative: Weight Gain, Weight Loss, Weakness, Fatigue, Fever, Night Sweats, Unexplained Falls, Other Dermatology: Positive: Normal HEENT: Positive: Normal Eyes: Positive: Normal Thyroid: Positive: Normal Pulmonary: Positive: Shortness of Breath Cardiology: Positive: Normal Gastroenterology: Positive: Normal Genital - Urinary: Positive: Normal Genitourinary - Male: Negative: Prostatism, Erectile Dysfunction, Family Hx of Prostate Cancer, Other Musculoskeletal: Negative: Joint Pain, Joint Stiffness, Arthritis, Osteoporosis, Low Back Pain , Sciatica, Joint Deformities, Kyphoscoliosis, Other Endocrinology: Positive: Normal Hematologic/Lymphatic: Negative: Anemia, Easy Brusing, Hx Leukemia, Hx Lymphoma, Use of Anticoagulant, Use of Antiplatelet Drugs, Other Neurology: Positive: Normal Psychiatry: Positive: Normal Allergic/Immunologic: Negative: Hx Anaphylaxis, Hx Angioedema, Hx Environmental, Hx Seasonal, Athsma, Hx HIV, Immunocompromise, Swollen Glands LymphNodes, Other Objective Active Medications: Carvedilol (Coreg Tab*) 6.25 mg PO BID [facility] Enoxaparin Sodium (Lovenox(*)) 40 mg SUBCUT Q24H KIRSTIE Last Admin: 04/25/18 12:39 Dose: 40 mg Nitroglycerin (Nitroglycerin Tab 0.3 Mg*) 0.3 mg SL Q5M PRN PRN Reason: PAIN - CHEST Potassium Chloride (Klor Con Er Tab*) 20 meq PO DAILY [facility] Prednisone (Deltasone Tab*) 5 mg PO BID [facility] Torsemide (Demadex*) 80 mg PO 0800,1700 [facility] Warfarin Sodium (Coumadin Tab(*)) 5 mg PO DAILY [facility]; Protocol Vital Signs - 8 hr 04/25/18 04/25/18 04/25/18 10:00 10:18 10:19 Temperature 97.3 F Pulse Rate 78 79 79 Respiratory 20 27 26 Rate Blood Pressure 118/78 111/69 (mmHg) O2 Sat by Pulse 98 95 96 Oximetry 04/25/18 04/25/18 11:00 12:00 Temperature Pulse Rate 75 72 Respiratory 20 22 Rate Blood Pressure (mmHg) O2 Sat by Pulse 96 97 Oximetry Oxygen Devices in Use Now: Nasal Cannula Appearance: Alert, supine on ED sttretcher. In good spirits. Looks comfortable. Eyes: No Scleral Icterus Ears/Nose/Mouth/Throat: Clear Oropharnyx, Mucous Membranes Moist Neck: No Thyroid Enlargement, Masses, - - JVD at 30 degrees Cardiovascular: NL Sounds; No Murmurs; No JVD, RRR, No Edema, - Abdominal: NL Sounds; No Tenderness; No Distention, No Hepatosplenomegaly, - Extremities: No Edema, No Clubbing, Cyanosis, - Skin: No Rash or Ulcers, No Nodules or Sclerosis, - Neurological: Alert and Oriented x 3, NL Sensation Result Diagrams: 04/25/18 10:38 04/25/18 10:38 Assess/Plan/Problems-Billing Assessment: - Patient Problems (1) Acute on chronic systolic (congestive) heart failure Current Visit: No Status: Acute Code(s): I50.23 - ACUTE ON CHRONIC SYSTOLIC (CONGESTIVE) HEART FAILURE SNOMED Code(s): 498916007 Comment: Change to torsemide. IV furosemide 120 mg in ED. BMP 04/26. Nutrition consult for low salt diet. Add lisinopril, continue carvedilol. BMP 04/26. - ECHO showed EF of 20-25% 10/27/17. (2) Heart block Current Visit: No Status: Acute Code(s): I45.9 - CONDUCTION DISORDER, UNSPECIFIED SNOMED Code(s): 083836638 Comment: Dual chamber ICD implanted 02/19/17. (3) COPD (chronic obstructive pulmonary disease) Current Visit: No Status: Chronic Code(s): J44.9 - CHRONIC OBSTRUCTIVE PULMONARY DISEASE, UNSPECIFIED SNOMED Code(s): 81653658 Comment: Dr. Espinosa started prednisone 5 mg bid aout a year ago. The patient states an attempt to get him off prednisone failed. Continue prednisone. (4) Left ventricular apical thrombus Current Visit: No Status: Acute Code(s): LUY0884 - SNOMED Code(s): 950740544 Comment: LV thrombus seen 06/21/17 on echo. Continue warfarin. INR 2.71 .
[2018-04-25] MEDS ORDERED: Enoxaparin(*) 40 MG/0.4 ML SYR SUBCUT SCH (13:00)
[2018-04-25 13:03] LABS: INR 2.71 (0.77-1.02)
[2018-04-25] MEDS: Lisinopril TAB* 5 MG PO SCH (14:42)
[2018-04-25] MEDS ORDERED: Magnesium Sulfate IV* 2 GM in NS 0.9% 100 ML* 100 ML IV ONE (16:14)
[2018-04-25] MEDS ORDERED: Warfarin TAB(*) 5 MG PO SCH (17:00)
[2018-04-25] MEDS: Torsemide TAB* 20 MG PO SCH (17:21)
[2018-04-25] MEDS ORDERED: Acetaminophen TAB* 325 MG PO PRN (21:42)
[2018-04-25] MEDS ORDERED: Albuterol/Ipratropium NEB.SOL* Albuterol 2.5 MG/Ipratropium 0.5 MG 3 ML INH PRN (21:42)
[2018-04-25] MEDS: Carvedilol TAB* 6.25 MG PO SCH (22:06)
[2018-04-25] MEDS: predniSONE TAB* 5 MG PO SCH (22:06)
[2018-04-25] MEDS: DOXYcycline CAP(*) 100 MG PO SCH (22:06)
[2018-04-26 06:38] LABS: ABS Basophils 0.1 10^3/ul (0-0.2); ABS Eosinophils 0.1 10^3/ul (0-0.6); ABS Lymphocytes 0.7 10^3/ul (1.0-4.8); ABS Monocytes 1.1 10^3/ul (0-0.8); ABS Neutrophils 10.4 10^3/ul (1.5-7.7); ABS Nucleated RBC 0 10^3/ul; Eosinophil % 0.6 % (0-6); Hematocrit 40 % (42-52); Hemoglobin 13.5 g/dl (14.0-18.0); Lymphocyte % 5.6 % (25-47); Mean Corpuscular HGB Conc 34 g/dl (31-36); Mean Corpuscular Hemoglobin 29 pg (27-31); Mean Corpuscular Volume 85 fL (80-94); Mean Platelet Volume 8.3 um3 (7.4-10.4); Nucleated Red Blood Cells % 0.1; Platelet Count 177 10^3/ul (150-450); Red Blood Count 4.71 10^6/ul (4.00-5.40); Red Cell Distribution Width 17 % (10.5-15); White Blood Count 12.3 10^3/ul (3.5-10.8)
[2018-04-26 06:47] LABS: INR 2.29 (0.77-1.02)
[2018-04-26 06:58] LABS: EGFR Non-African American 65.7 (>60)
[2018-04-26] MEDS: Carvedilol TAB* 6.25 MG PO SCH (07:51)
[2018-04-26] MEDS: predniSONE TAB* 5 MG PO SCH (07:52)
[2018-04-26] MEDS: DOXYcycline CAP(*) 100 MG PO SCH (07:52)
[2018-04-26] MEDS: Lisinopril TAB* 5 MG PO SCH (07:52)
[2018-04-26] MEDS: Torsemide TAB* 20 MG PO SCH (07:52)
[2018-04-26] MEDS ORDERED: Potassium Chlor TAB* 10 MEQ TAB.ER PO ONE (08:40)
[2018-04-26] MEDS ORDERED: Magnesium Oxide TAB* 400 MG PO SCH (09:00)
[2018-04-26] MEDS ORDERED: Potassium Chlor TAB* 20 MEQ TAB.ER PO SCH (09:00)
[2018-04-26 09:17] VITALS: BP 111/73
--- NOTE | 2018-04-26 12:59 | DS ---
CC: Dr. Espinosa DISCHARGE SUMMARY: DATE OF ADMISSION: DATE OF DISCHARGE: 04/26/18 HISTORY OF PRESENT ILLNESS: This 67-year-old man presented with shortness of breath. The history wa s detailed in the dictated admission note. He has a long history of dilated cardiomyopathy with daniela re decrease in his ejection fraction; however, he has been relatively stable. He seems to be a very compliant man. He said he weighs himself every day. His weight did not change. He did admit having a slice of pizza recently, which he knows he should not have had. The rest of the history is detail ed in the admission note. The patient received 120 mg of furosemide in the emergency room. I and O's do not seem to have been kept from that time. The patient said he filled up 4 urinals. He was then switched from furosemide t o torsemide at the same milligram dosage, 80 mg b.i.d. He got 2 doses before he left. He felt much better the next day. His oxygen saturation on room air sitting in bed was 91% to 94%. He said he mcfadden d a good night sleep. He had 3 troponins levels, which were 0.07 and 0.09. His BNP was 1178, not th e highest value he has ever had. On the day of discharge, his potassium is 3.2. He will get 40 mEq of potassium p.o. 1 dose. His BUN was 31, creatinine 1.11. INR was 2.29. FINAL DIAGNOSES: 1. Acute on chronic systolic congestive heart failure. 2. Heart block. 3. Chronic obstructive pulmonary disease. 4. Left ventricular apical thrombus. DISCHARGE MEDICATIONS: 1. Doxycycline 100 mg b.i.d. for 6 days. 2. Lisinopril 2.5 mg daily. 3. Magnesium oxide 800 mg daily. 4. Torsemide 80 mg 8 a.m. and 5 p.m. 5. Prednisone 5 mg b.i.d. 6. Potassium chloride 20 mEq daily. 7. Carvedilol 6.25 mg b.i.d. 8. Warfarin 5 mg daily. 9. Nitroglycerin 0.3 mg sublingual every 5 minutes p.r.n. 10. Advair 115/21 two puffs b.i.d. [id number]/[facility] #: [id number]
[2018-04-26] MEDS ORDERED: Potassium Chlor TAB* 20 MEQ TAB.ER PO ONE (14:50)
[2018-04-26] MEDS ORDERED: Mometasone/Formoter 200/5 MDI INH SCH (21:42)
== END 2018-04-26 10:37 | disposition home or self-care (01) ==
LOC: ED 09:58 → MEDTELE 12:24
PROVIDERS: ADMIT Internal Medicine; ATTEND Internal Medicine
DX: I50.23 Acute on chronic systolic (congestive) heart failure (principal); I44.2 Atrioventricular block, complete; I21.A9 Other myocardial infarction type; R42 Dizziness and giddiness; R06.02 Shortness of breath; R60.9 Edema, unspecified; Z87.891 Personal history of nicotine dependence
CPT/HCPCS: 36415; 71046; 80048; 80053; 83605; 83735; 83880; 84484; 85025; 85379; 85610; 86140; 87040; 93005; 94640; 96374; 99283; A9270-GY; G0378; J1650; J1940; J3475; J7512

== ENCOUNTER → 2018-10-18 10:22 | Emergency (ER) | payer MEDICARE, MEDICAID ==
--- NOTE | 2018-10-18 10:41 | ED ---
Lower Extremity - HPI Summary HPI Summary: Patient is a 67-year-old male with a history of pacemaker, PE, CAD, HTN presenting to the ED with pain to the left lower extremity. He endorses pain over the ankle, behind the calf which extends behind the posterior thigh and radiating into the hip. This is acute onset. Denies any injury or trauma to the area. Currently taking warfarin for atrial fibrillation. Concerned with a DVT. Denies any erythema or warmth to the area. Denies any obvious palpable cord or swelling. He states he was told in the past he has arthritis, however endorses having pain to the left leg several years ago which spontaneously resolved. - History of Current Complaint Chief Complaint: EDExtremityLower Stated Complaint: LT LEG PAIN Time Seen by Provider: 10/18/18 10:32 Hx Obtained From: Patient Mechanism Of Injury: Unknown Onset of Pain: Hours Onset/Duration: Hours Severity Initially: Moderate Severity Currently: Moderate Pain Intensity: 5 Pain Scale Used: 0-10 Numeric Timing: Constant Location: Is Discrete @ - left lower extremity Character Of Pain: Aching Associated Signs And Symptoms: Negative: Swelling, Redness, Bruising, Weakness, Dizziness Aggravating Factor(s): Standing, Ambulation Alleviating Factor(s): Rest Able to Bear Weight: Yes - Risk Factors Gout Risk Factors: Male DVT Risk Factors: Negative Septic Arthritis Risk Factor: Negative - Allergies/Home Medications Allergies/Adverse Reactions: Allergies Allergy/AdvReac Type Severity Reaction Status Date / Time No Known Allergies Allergy Verified 10/18/18 10:29 PMH/Surg Hx/FS Hx/Imm Hx Previously Healthy: Yes Endocrine/Hematology History: Denies: Hx Diabetes Cardiovascular History: Reports: Hx Auto Implanted Cardiovert Defib, Hx Congestive Heart Failure, Hx Coronary Artery Disease, Hx Deep Vein Thrombosis, Hx Hypercholesterolemia, Hx Hypertension, Hx Myocardial Infarction, Hx Pacemaker /ICD - 5/8/17, Other Cardiovascular Problems/Disorders Respiratory History: Reports: Hx Chronic Obstructive Pulmonary Disease (COPD), Hx Pneumonia, Hx Pulmonary Embolism, Other Respiratory Problems/Disorders - respiratory failure, uses 3L O2 at night Denies: Hx Asthma History: Denies: Hx Renal Disease Musculoskeletal History: Reports: Hx Arthritis - fingers, Hx Back Problems Denies: Hx Bursitis, Hx Congenital Bone Abnormalities, Hx Fibromyalgia, Hx Gout, Hx Orthopedic Injury, Hx Osteoporosis, Hx Scoliosis, Hx Tendonitis, Other Musculoskeletal History Sensory History: Reports: Hx Contacts or Glasses, Hx Deafness - left ear, Hx Hearing Problem Denies: Hx Cataracts, Hx Eye Injury, Hx Eye Prosthesis, Hx Glaucoma, Hx Legally Blind, Hx Macular Degeneration, Hx Vision Problem, Hx Hearing Aid, Other Sensory Impairments Opthamlomology History: Reports: Hx Contacts or Glasses Denies: Hx Cataracts, Hx Eye Injury, Hx Eye Prosthesis, Hx Glaucoma, Hx Legally Blind, Hx Macular Degeneration, Hx Vision Problem, Other Sensory Impairments Psychiatric History: Reports: Hx Anxiety - Surgical History Surgery Procedure, Year, and Place: CABG, pacemaker/ICD, appendectomy Hx Anesthesia Reactions: No - Immunization History Date of Tetanus Vaccine: unk Date of Influenza Vaccine: unk Hx Pertussis Vaccination: No Immunizations Up to Date: Yes Infectious Disease History: No Infectious Disease History: Denies: Traveled Outside the [place] in Last 30 Days - Family History Known Family History: Positive: Cardiac Disease - extensive [place] FHx - Social History Occupation: Unemployed Lives: Alone Alcohol Use: None Hx Substance Use: No Substance Use Type: Reports: None Hx Tobacco Use: Yes Smoking Status (MU): Former Smoker Type: Cigarettes Have You Smoked in the Last Year: No Review of Systems Constitutional: Negative Negative: Fever, Chills, Fatigue, Skin Diaphoresis Negative: Palpitations, Chest Pain Negative: Shortness Of Breath, Cough Genitourinary: Negative Positive: no symptoms reported, see HPI Positive: Arthralgia, Myalgia Skin: Negative Neurological: Negative All Other Systems Reviewed And Are Negative: Yes Physical Exam Triage Information Reviewed: Yes Vital Signs On Initial Exam: Initial Vitals Temp Pulse Resp BP Pulse Ox 98.1 F 70 18 135/86 100 10/18/18 10:28 10/18/18 10:28 10/18/18 10:28 10/18/18 10:28 10/18/18 10:28 Vital Signs Reviewed: Yes Appearance: Positive: Well-Appearing, Well-Nourished Skin: Positive: Warm, Skin Color Reflects Adequate Perfusion Head/Face: Positive: Normal Head/Face Inspection Eyes: Positive: EOMI, KUNAL, Conjunctiva Clear Neck: Positive: Supple, No Lymphadenopathy Respiratory/Lung Sounds: Positive: Clear to Auscultation, Breath Sounds Present Cardiovascular: Positive: RRR, Pulses are Symmetrical in both Upper and Lower Extremities Musculoskeletal: Positive: Pain @ - left lower extremity Neurological: Positive: Speech Normal Psychiatric: Positive: Normal, Affect/Mood Appropriate AVPU Assessment: Alert Diagnostics - Vital Signs Vital Signs Temp Pulse Resp BP Pulse Ox 10/18/18 10:28 98.1 F 70 18 135/86 100 - Laboratory Lab Statement: Any lab studies that have been ordered have been reviewed, and results considered in the medical decision making process. Lower Extremity Course/Dx - Course Course Of Treatment: Ultrasound obtained of the left lower extremity. Assessment of DVT. No palpable cord, erythema or swelling or warmth to the lower extremity. Currently taking warfarin. Low risk for DVT, however patient has had a PE in the past so ultrasound is obtained. Ultrasound negative for DVT. This is likely an osteoarthritis exacerbation. Encouraged Tylenol, gentle stretches and moist heat to the area. - Diagnoses Provider Diagnoses: Osteoarthritis Discharge - Sign-Out/Discharge Documenting (check all that apply): Patient Departure - Discharge Plan Condition: Stable Disposition: HOME Patient Education Materials: Osteoarthritis (ED) Referrals: Antione Espinosa MD [Primary Care Provider] - Additional Instructions: Tylenol Moist heat to the area Gentle stretches - Billing Disposition and Condition Condition: STABLE Disposition: Home
[2018-10-18 12:37] VITALS: BP 132/80
== END | disposition home or self-care (01) ==
LOC: ED 10:22
DX: M19.90 Unspecified osteoarthritis, unspecified site (principal); Z87.891 Personal history of nicotine dependence; Z95.0 Presence of cardiac pacemaker; I25.10 Atherosclerotic heart disease of native coronary artery without angina pectoris; I10 Essential (primary) hypertension; Z86.711 Personal history of pulmonary embolism
CPT/HCPCS: 99282

== ENCOUNTER 2018-11-04 19:30 | Emergency (ER) | payer MEDICARE, MEDICAID ==
[2018-11-04] MEDS ORDERED: methylPREDNISolone 125 MG* 2 ML VIAL IV ONE (19:46)
--- NOTE | 2018-11-04 19:47 | ED ---
Shortness of Breath - HPI Summary HPI Summary: A 61 y/o male brought in by [facility] ambulance presents to [facility] with a chief complaint of SOB since 11/02/18. Per triage note, Pt co worsening sob for 24 hours. States cough with green sputum production. Hx of copd and chf.. He rates his pain as a 0/10. The patient c/o coughing green sputum and his abdomen being distended with too much fluid. He claims that his pain worsened on 11/04 to where he cannot lay in bed. He has a Hx of PNA and quit smoking 22 years ago. He takes 10mg Prednisone daily along with an inhaler. he has a pacemaker defibrillator and is monitored by Dr. Marrero. - History of Current Complaint Chief Complaint: EDRespiratoryDistress Time Seen by Provider: 11/04/18 19:41 Hx Obtained From: Patient, EMS Onset/Duration: Sudden Onset, Gradual Onset, Lasting Days, Still Present Timing: Constant Current Severity: Mild Dyspnea At: Rest Aggrevating Factors: Nothing Alleviating Factors: Nothing Associated Signs & Symptoms: Cough (Productive) - green sputum - Allergy/Home Medications Allergies/Adverse Reactions: Allergies Allergy/AdvReac Type Severity Reaction Status Date / Time No Known Allergies Allergy Verified 10/18/18 10:29 PMH/Surg Hx/FS Hx/Imm Hx Endocrine/Hematology History: Denies: Hx Diabetes Cardiovascular History: Reports: Hx Auto Implanted Cardiovert Defib, Hx Congestive Heart Failure, Hx Coronary Artery Disease, Hx Deep Vein Thrombosis, Hx Hypercholesterolemia, Hx Hypertension, Hx Myocardial Infarction, Hx Pacemaker /ICD - 5/8/17, Other Cardiovascular Problems/Disorders Respiratory History: Reports: Hx Chronic Obstructive Pulmonary Disease (COPD), Hx Pneumonia, Hx Pulmonary Embolism, Other Respiratory Problems/Disorders - respiratory failure, uses 3L O2 at night Denies: Hx Asthma History: Denies: Hx Renal Disease Musculoskeletal History: Reports: Hx Arthritis - fingers, Hx Back Problems Denies: Hx Bursitis, Hx Congenital Bone Abnormalities, Hx Fibromyalgia, Hx Gout, Hx Orthopedic Injury, Hx Osteoporosis, Hx Scoliosis, Hx Tendonitis, Other Musculoskeletal History Sensory History: Reports: Hx Contacts or Glasses, Hx Deafness - left ear, Hx Hearing Problem Denies: Hx Cataracts, Hx Eye Injury, Hx Eye Prosthesis, Hx Glaucoma, Hx Legally Blind, Hx Macular Degeneration, Hx Vision Problem, Hx Hearing Aid, Other Sensory Impairments Opthamlomology History: Reports: Hx Contacts or Glasses Denies: Hx Cataracts, Hx Eye Injury, Hx Eye Prosthesis, Hx Glaucoma, Hx Legally Blind, Hx Macular Degeneration, Hx Vision Problem, Other Sensory Impairments Psychiatric History: Reports: Hx Anxiety - Surgical History Surgery Procedure, Year, and Place: CABG, pacemaker/ICD, appendectomy Hx Anesthesia Reactions: No - Immunization History Date of Tetanus Vaccine: unk Date of Influenza Vaccine: unk Infectious Disease History: No Infectious Disease History: Denies: Traveled Outside the [place] in Last 30 Days - Family History Known Family History: Positive: Cardiac Disease - extensive [place] FHx - Social History Alcohol Use: None Hx Substance Use: No Substance Use Type: Reports: None Hx Tobacco Use: Yes Smoking Status (MU): Former Smoker Type: Cigarettes Have You Smoked in the Last Year: No Review of Systems Negative: Fever Positive: Shortness Of Breath, Cough Positive: Abdominal Pain All Other Systems Reviewed And Are Negative: Yes Physical Exam - Summary Physical Exam Summary: Appearance: Well-appearing, Well-nourished, lying in bed comfortably with minimal distress Skin: Warm, dry, no obvious rash Eyes: sclera anicteric, no conjunctival pallor ENT: mucous membranes moist, pharynx appears normal Neck: Supple, nontender Respiratory: Mild respiratory distress, slightly labored breathing, mildly tachypneic, fair aeration diffusely Cardiovascular: Normal S1, S2. No murmurs. Normal distal pulses in tibial and radial bilaterally. Abdomen: Soft, nontender, mild abdominal distention without signs of ascites, normal active bowel sounds present Musculoskeletal: Trace lower extremity edema, Strength/ROM Intact Neurological: A&Ox3, awake and alert, mentation is normal, speech is fluent and appropriate Psychiatric: affect is normal, does not appear anxious or depressed Triage Information Reviewed: Yes Vital Signs On Initial Exam: Initial Vitals Temp Pulse Resp BP Pulse Ox 98.6 F 66 17 122/91 98 11/04/18 19:34 11/04/18 19:34 11/04/18 19:34 11/04/18 19:34 11/04/18 19:34 Vital Signs Reviewed: Yes Diagnostics - Vital Signs Vital Signs Temp Pulse Resp BP Pulse Ox 11/04/18 19:34 98.6 F 66 17 122/91 98 - Laboratory Result Diagrams: 11/04/18 20:13 11/04/18 20:13 Lab Statement: Any lab studies that have been ordered have been reviewed, and results considered in the medical decision making process. - Radiology CXR Radiology Interpretation Completed By: Radiologist Summary of Radiographic Findings: CXR showed Interstitial dominance diffusely, blurring of left arc border, Compared to prior film April 2018 looks essentially unchanged. Pending official radiology report. - EKG 19:52 Cardiac Rate: Other Rate - Paced rhythm at 60 bpm Summary of EKG Findings: Paced rhythm at 60 BPM, P waves, QRS complex, and T waves are within normal limits, T waves and intervals are normal, no ischemic changes. Course/Dx - Course Course Of Treatment: A 61 y/o male brought in by [facility] ambulance presents to [facility] with a chief complaint of SOB since 11/02/18. The physical exam revealed trace lower extremity edema ,mild abd distention without signs of ascites, Lungs mild distention slightly labored breathing, tachypnic with fair aeration slightly diffuse. EKG showed paced rhythm at 60 bpm. CXR showed Interstitial dominance diffusely, blurring of left arc border, Compared to prior film April 2018 looks essentially unchanged. In the ED course the patient was given Solu- Medrol IV and ventolin INH. Lab results obtained. Lactic acid 2.1. Troponin 0.07. The patient will be discharged with prescriptions for Zithromax and Deltasone. He is agreeable with this plan. - Diagnoses Provider Diagnoses: COPD (chronic obstructive pulmonary disease), Chronic systolic CHF (congestive heart failure) Discharge - Sign-Out/Discharge Documenting (check all that apply): Patient Departure - DC - Discharge Plan Condition: Good Disposition: HOME Prescriptions: Azithromycin TAB* [Zithromax TAB (Z-ANTONIA) 250 mg #6 tabs] 250 mg PO DAILY #4 tab predniSONE TAB* [Deltasone 10 MG TAB*] 30 mg PO DAILY 3 Days #15 tab Patient Education Materials: COPD (Chronic Obstructive Pulmonary Disease) (ED) Referrals: Antione Espinosa MD [Primary Care Provider] - Additional Instructions: Check in with Dr. Espinosa later in the week, or sooner if your breathing is not improving. I am increasing your prednisone to a total of 40 mg daily for the rest of the week. Dr. Espinosa will tell you if you can go back to your baseline dose or if he would prefer to taper you down. - Billing Disposition and Condition Condition: GOOD Disposition: Home - Attestation Statements Document Initiated by Carlos: Yes Documenting Scribe: Jalen Wylie Provider For Whom Carlos is Documenting (Include Credential): Bereket Schreiber MD Scribe Attestation: I, Jalen Wylie, scribed for Bereket Schreiber MD on 11/05/18 at 1718. Scribe Documentation Reviewed: Yes Provider Attestation: The documentation as recorded by the Jalen liriano accurately reflects the service I personally performed and the decisions made by me, Bereket Schreiber MD Status of Scribe Document: Viewed
[2018-11-04] MEDS ORDERED: Albuterol 2.5 MG/3 ML NEB.SOL* (0.083%) INH SCH (20:00)
--- OUTSIDE RECORDS SUMMARY | 2018-11-04 20:17 | XMS REPORT | Continuity of Care Document ---
:1950 External Reference #:[id number] Author Name Sylvia Arias Care Team Providers Name Role Phone Antione Espinosa MD Primary Care Physician Unavailable Payers Type Date Identification Numbers Payment Provider Subscriber Effective: Policy Number: [id number] Medicare Graham David 1991 PayID: [id number] [address] [place] [address] Policy Number: [id number] Medicaid [facility] PayID: [id number] [address] [place] [address] Advance Directives Description No Information Available Problems Date Description Provider Status Onset: 09/01/2011 Electrocardiogram abnormal Jessica Askew M.D. Onset: 09/01/2011 Coronary arteriosclerosis Jessica Askew M.D. Onset: 09/01/2011 Chronic ischemic heart disease Jessica Askew M.D. Onset: 09/01/2011 Aortocoronary Bypass Postsurgical Jessica Askew Status MAna Onset: 09/01/2011 Benign essential hypertension Jessica Askew M.D. Onset: 09/01/2011 Hyperlipidemia Jessica Askew M.D. Onset: 07/23/2013 Dyspnea Jessica Askew M.D. Onset: 02/26/2014 Cardiomyopathy Jessica Askew M.D. Onset: 02/26/2014 Chest pain Jessica Askew M.D. Onset: 02/26/2014 Tachycardia Jessica Askew M.D. Onset: 02/26/2014 Palpitations Jessica Askew M.D. Onset: 07/03/2014 Mitral valve disorder Jessica Askew M.D. Onset: 07/13/2015 Essential hypertension Jessica Askew M.D. 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 [employer] Tobacco Use Start: Unknown Former Cigarette End: Unknown Smoker ETOH Use Denies alcohol use Tobacco Use Start: Unknown Patient is a former End: Unknown smoker Recreational Drug Use Never Used Drugs Tobacco Use Start: Unknown Patient is a former quit 15 years ago End: Unknown smoker Smoking Status Reviewed: 10/22/18 Patient is a former quit 15 years ago smoker Exercise Type/Frequency Exercises regularly Allergies, Adverse Reactions, Alerts Description No Known Drug Allergies Medications Medication Date Status Form Strength Qnty SIG Indications Ordering Provider Diane M2Chavez 10/10/ Active Tablets ER 20Meq 60tab 1 by mouth Chris 2017 s twice a day Torres Edmond M.D. Nitrostat 07/23/ Active Tablets 0.3mg 25tab one sl Lio 2012 Sub s q5min up to S. 3 doses as Héctor degroot M.D. replace every 12 months Aspirin 08/19/ Active Tablets 325mg 1 PO qd Lio 2007 Mahi Anaya M.D. Prednisone / Active Tablets 5mg 2 tab by Unknown 0000 mouth twice daily. Carvedilol / Active Tablets 6.25mg 1 by mouth Unknown 0000 twice a day Torsemide / Active Tablets 20mg Take 2 tabs Unknown 0000 in Am and 2 tab in PM Magnesium Oxide / Active Tablets 400mg 2 tabs by Unknown 0000 mouth every day Lisinopril / Active Tablets 5mg 1/2 tab by Unknown 0000 mouth every day Advair HFA / Active Aerosol 115-21mcg/ 2 puff Unknown 0000 Act twice a day Ipratropium / Active Solution 0.5-2.5(3) prn Unknown [place]/Albuter 0000 mg/3ML ol Sulfate Warfarin Sodium / Active Tablets 2.5mg as Unknown 0000 directed. Coumadin dosing done by Dr. Espinosa Acetaminophen / Active Tablets 500mg 1 tablet Unknown 0000 every 4 hours for knee/leg discomfort Furosemide 08/10/ Hx Tablets 20mg 2 by mouth Qutaybeh 2017 - bid S. 07/26/ [facility] 2018 , Antoine Furosemide 03/14/ Hx Tablets 40mg 60tab 1 by mouth Qutaybeh 2016 - s twice a day S. 08/10/ (per [facility] 2017 Antoine parker 40 mg as needed wt gain of 2#-3#) Cephalexin 02/20/ Hx Capsules 500mg 9caps three times Pepe 2017 - a day for 3 D. Brand, 02/19/ days Antoine 2017 Warfarin Sodium 01/23/ Hx Tablets 5mg 100ta 1 tab alt Qutayb 2013 - bs with 1/2 S. 10/21/ tab every [facility] 2019 other day Antoine (managed by [facility]) Handyzaar 12/11/ Hx Tablets 100mg 90tab 1 po qd Qutaybeh 2012 - s S. 05/16/ [facility] 2016 [place] Hydralazine HCL 12/21/ Hx Tablets 25mg 270ta Take One Qutaybeh 2009 - Tablet By S. 06/24/ Mouth daily [facility] 2017 [place] Cozaar 10/26/ Hx Tablets 50mg 60tab 1 po bid Qutaybeh 2009 - s S. 12/11/ [facility] 2012 [place] Niaspan 07/22/ Hx Tablets ER 500mg 30tab 1 po qhs Qutaybeh 2008 - s S. 09/01/ [facility] 2011 [place] Lisinopril 07/22/ Hx Tablets 20mg 1 po bid Qutaybeh 2008 - S. 07/12/ [facility] 2015 [place] Cozaar 07/22/ Hx Tablets 50mg 30tab 1 po qd Qutaybeh 2008 - s S. 10/26/ [facility] 2009 , Antoine Simvastatin 02/17/ Hx Tablets 80mg 30tab 1 po qhs Qutaybeh 2008 - s S. 2009 , [place] Niaspan 08/19/ Hx Tablets ER 1000mg 1 PO qd Qutaybeh 2007 - S. [facility] 2009 , [place] Lipitor 03/26/ Hx Tablets 80mg 1 PO QHS Qutaybeh 2007 - S. 02/17/ [facility] 2009 , Anto[place] Lisinopril 03/26/ Hx Tablets 20mg 1 PO am and Qutaybeh 2008 - 1/2 pm S. [facility] 2009 , Anto[place] Lisinopril 12/24/ Hx Tablets 20mg 30tab 1 po qd Qutaybeh 2008 - s S. [facility] 2007 , Antoine Klor-Con 10 11/25/ Hx Tablets ER 10Meq 180ta 3 tabs po Qutaybeh 2008 - bs bid S. 08/19/ 2008 , [place] KCL 11/22/ Hx Liquid 30Meq 60uni one po bid Qutaybeh 2008 - ts S. [facility] 2008 , Antoine Aspirin 09/11/ Hx Chewtabs 81mg 1 PO qd Qutaybeh 2006 - S. 2008 , [place] Lisinopril 03/12/ Hx Tablets 10mg 135ta 1 PO am and Qutaybeh 2007 - bs 1/2 pm S. 12/24/ [facility] [place] Imdur 03/12/ Hx Tablets ER 30mg 30tab 1/2 PO qd Qutaybeh 2006 - 24HR s S. 01/06/ [facility] 2010 , Antoine KCL-20 02/15/ Hx tablet 20Meq 1 po bid [facility]beh 2007 - [facility]. [facility] , [facility] Niaspan 02/05/ Hx Tablets ER 500mg 1 Tab pm Qutaybeh 2007 - S. [facility] Simpson Aspirin 02/05/ Hx Tablets 81mg 90tab 1 PO bid Qutaybeh 2007 - s S. 09/11/ [facility] [place] Galeano Lisinopril 02/05/ Hx Tablets 10mg 30tab 1 po qd Qutaybeh 2007 - s S. 03/12/ [facility] 2007 [place] Lidex 01/07/ Hx Cream 0.05% Apply bid Qutaybeh 2007 - prn S. 09/01/ [facility] 2010 [place] Lipitor 01/07/ Hx Tablets 40mg 30tab 1 PO qd Qutaybeh 2007 - s S. 03/26/ [facility] 2007 [place] Norvasc 01/07/ Hx Tablets 5mg 1 tablet Qutaybeh 2006 - PO qd S. 01/07/ [facility] 2007 Anto[place] Hydrocodone/Sebastian 01/07/ Hx Tablets 5-500mg 1 tablet po Qutaybeh taminophen 2007 - q 4 hrs prn S. 01/06/ pain [facility] 2010 [place] Lasix 01/07/ Hx Tablets 40mg 1 PO qd Qutaybeh 2007 - S. 01/06/ [facility] 2010 [place] Kdur 01/07/ Hx Tablet 20Meq 1 po qd Qutaybeh 2006 - S. 02/15/ [facility] 2007 [place] Nitroquick 01/07/ Hx Tablets 0.3mg 30tab 1 SL prn. Qutaybeh 2006 - Sub s Can Repeat S. 07/23/ Q 5 Min Up [facility] 2012 To 3 Doses , Antoine Total. Replace Q 6 Months Atenolol 01/07/ Hx Tablets 100mg 90tab 1 PO daily Qutaybeh 2007 - s S. 03/12/ [facility] 2018 , [place] Norvasc 01/07/ Hx Tablets 10mg 1 PO qd Qutaybeh 2006 - S. 01/06/ [facility] 2010 , Anto[place] Klor-Con 20 / Hx Tablets ER 20Meq 1 PO twice Chris 0000 - a day F. 10/10/ [facility], 2017 [place] Lovastatin / Hx Tablets 40mg 90tab 1 po qhs Unknown 0000 - s Hold 2017 Lasix 00// Hx Tablets 40mg 30tab 1 po qd in [facility] 0000 - s the am 1 po S. 06/24/ in the [facility] 2017 evening , M.D. Combivent / Hx 3Mont 2 puffs qid Unknown Inhaler 0000 - hSup 2013 Hydrocodone / Hx Tablets 5-325mg 30tab 1 tab every Unknown Bitartrate/Acet 0000 - s 6 hours aminophen 2016 Amlodipine / Hx Tablets 10mg 1 by mouth Unknown Besylate 0000 - every day 2016 Losartan / Hx Tablets 50mg 1 by mouth Unknown Potassium 0000 - every day 2016 Symbicort 00/ Hx Aerosol 80-4.5mcg/ 1 puff Unknown 0000 - Act daily 2017 Immunizations Description No Information Available Vital Signs Date Vital Result Comment 10/22/2018 2:27pm Height 62 inches 5'2" Weight 191.00 lb with shoes Heart Rate 82 /min BP Systolic Sitting 126 mmHg rue reg cuff BP Diastolic Sitting 78 mmHg rue reg cuff BMI (Body Mass Index) 34.9 kg/m2 07/29/2018 2:07pm Height 62 inches 5'2" Weight 183.38 lb with shoes Heart Rate 80 /min BP Systolic 118 mmHg lue reg cuff BP Diastolic 80 mmHg lue reg cuff BMI (Body Mass Index) 33.5 kg/m2 Ejection Fraction 20--25% Echo. 10/28/2017 03/13/2018 1:43pm Height 62 inches 5'2" Weight 181.50 lb w/shoes Heart Rate 76 /min BP Systolic Sitting 128 mmHg sowmya reg cuff BP Diastolic Sitting 80 mmHg sowmya reg cuff BMI (Body Mass Index) 33.2 kg/m2 Ejection Fraction 20-25% echo 10/28/2017 08/10/2017 1:59pm Height 62 inches 5'2" Weight 174.00 lb Heart Rate 76 /min BP Systolic Sitting 124 mmHg LA, reg BP Diastolic Sitting 84 mmHg LA, reg BMI (Body Mass Index) 31.8 kg/m2 Ejection Fraction 30%-35% 06/21/17 echo 07/05/2017 5:09pm Height 62 inches 5'2" Heart Rate 60 /min BP Systolic 122 mmHg Ra, reg BP Diastolic 74 mmHg Ra, reg BP Systolic Sitting 124 mmHg LA, reg BP Diastolic Sitting 76 mmHg LA, reg BP Systolic Standing 118 mmHg LA, reg BP Diastolic Standing 72 mmHg LA, reg 06/25/2017 11:25am Height 62 inches 5'2" Weight 168.50 lb with shoes Heart Rate 72 /min BP Systolic Sitting 120 mmHg LA reg cuff BP Diastolic Sitting 86 mmHg LA reg cuff BMI (Body Mass Index) 30.8 kg/m2 Ejection Fraction 30%-35% echo 06/21/17 03/14/2017 2:07pm Height 62 inches 5'2" Weight 177.00 lb with shoes Heart Rate 68 /min BP Systolic Sitting 126 mmHg LA reg cuff BP Diastolic Sitting 78 mmHg LA reg cuff BMI (Body Mass Index) 32.4 kg/m2 Ejection Fraction 30% - 35% echo 12/08/16 02/27/2017 12:07pm Height 62 inches 5'2" Weight 178.00 lb w/ shoes Heart Rate 60 /min BP Systolic Sitting 104 mmHg Rue, reg cuff BP Diastolic Sitting 66 mmHg Rue, reg cuff BP Systolic Standing 106 mmHg Rue BP Diastolic Standing 64 mmHg Rue Respiratory Rate 16 /min BMI (Body Mass Index) 32.6 kg/m2 Ejection Fraction 30-35% as of 12/08/16 echo 01/17/2017 1:26pm Height 62 inches 5'2" Weight 176.50 lb w/o shoes Heart Rate 74 /min BP Systolic Sitting 108 mmHg LA reg cuff BP Diastolic Sitting 56 mmHg LA reg cuff BMI (Body Mass Index) 32.3 kg/m2 Ejection Fraction 30% - 35% echo 12/08/16 05/18/2016 9:00am Height 62 inches 5'2" Weight 173.00 lb with shoes Heart Rate 66 /min BP Systolic Sitting 114 mmHg LA lrg cuff BP Diastolic Sitting 68 mmHg LA lrg cuff BMI (Body Mass Index) 31.6 kg/m2 Ejection Fraction 35% -40% echo 08/17/14 07/13/2015 2:24pm Height 62 inches 5'2" Weight 182.00 lb w/shoes Heart Rate 68 /min BP Systolic Sitting 132 mmHg LA reg cuff BP Diastolic Sitting 86 mmHg LA reg cuff BMI (Body Mass Index) 33.3 kg/m2 Ejection Fraction 35-40 echo 08/27/14 02/09/2015 3:11pm Height 62 inches 5'2" Weight 184.00 lb w/shoes Heart Rate 58 /min BP Systolic 130 mmHg LA reg cuff BP Diastolic 82 mmHg LA reg cuff Respiratory Rate 12 /min BMI (Body Mass Index) 33.7 kg/m2 Ejection Fraction 35-40 echo 08/17/14 07/03/2014 2:36pm Height 62 inches 5'2" Weight 183.50 lb w/shoes Heart Rate 72 /min BP Systolic Sitting 106 mmHg BP Diastolic Sitting 64 mmHg Respiratory Rate 14 /min BMI (Body Mass Index) 33.6 kg/m2 02/26/2014 8:59am Height 62 inches 5'2" Weight 192.75 lb Heart Rate 64 /min BP Systolic Sitting 118 mmHg left, reg BP Diastolic Sitting 60 mmHg left, reg BP Systolic Standing 124 mmHg left BP Diastolic Standing 62 mmHg left BMI (Body Mass Index) 35.3 kg/m2 07/23/2013 10:58am Height 62 inches 5'2" Weight 194.00 lb Heart Rate 56 /min BP Systolic Sitting 120 mmHg BP Diastolic Sitting 76 mmHg Respiratory Rate 16 /min BMI (Body Mass Index) 35.5 kg/m2 06/24/2012 2:36pm Height 62 inches 5'2" Weight 192.00 lb Heart Rate 60 /min BP Systolic Sitting 120 mmHg BP Diastolic Sitting 80 mmHg Respiratory Rate 20 /min BMI (Body Mass Index) 35.1 kg/m2 09/01/2011 10:45am Height 62 inches 5'2" Weight 180.00 lb Heart Rate 54 /min BP Systolic Sitting 120 mmHg BP Diastolic Sitting 76 mmHg BMI (Body Mass Index) 32.9 kg/m2 01/06/2011 1:22pm Height 62 inches 5'2" Weight 189.00 lb Heart Rate 49 /min BP Systolic Sitting 138 mmHg BP Diastolic Sitting 80 mmHg BMI (Body Mass Index) 34.6 kg/m2 07/13/2010 11:21am Height 62 inches 5'2" Weight 185.00 lb Heart Rate 60 /min BP Systolic Sitting 108 mmHg BP Diastolic Sitting 80 mmHg O2 % BldC Oximetry 94 % BMI (Body Mass Index) 33.8 kg/m2 02/24/2010 1:56pm Height 62 inches 5'2" Weight 203.00 lb Heart Rate 57 /min BP Systolic Sitting 110 mmHg left arm, right arm 120/80 BP Diastolic Sitting 76 mmHg left arm, right arm 120/80 BMI (Body Mass Index) 37.1 kg/m2 12/21/2009 9:00am Height 62 inches 5'2" Weight 201.00 lb Heart Rate 54 /min BP Systolic Sitting 162 mmHg BP Diastolic Sitting 100 mmHg BMI (Body Mass Index) 36.8 kg/m2 10/26/2009 9:34am Height 62 inches 5'2" Weight 200.00 lb Heart Rate 62 /min BP Systolic Sitting 160 mmHg BP Diastolic Sitting 98 mmHg BMI (Body Mass Index) 36.6 kg/m2 07/22/2009 9:33am Height 62 inches 5'2" Weight 200.00 lb Heart Rate 59 /min BP Systolic Sitting 170 mmHg L BP Diastolic Sitting 102 mmHg L BMI (Body Mass Index) 36.6 kg/m2 02/17/2009 8:31am Weight 194.00 lb Heart Rate 72 /min BP Systolic Sitting 130 mmHg BP Diastolic Sitting 80 mmHg Respiratory Rate 16 /min 08/19/2008 10:46am Height 62 inches 5'2" Weight 205.00 lb Heart Rate 54 /min BP Systolic Sitting 124 mmHg BP Diastolic Sitting 80 mmHg BMI (Body Mass Index) 37.5 kg/m2 03/26/2008 2:33pm Height 62 inches 5'2" Weight 204.00 lb Heart Rate 60 /min BP Systolic Sitting 158 mmHg L BP Diastolic Sitting 94 mmHg L BMI (Body Mass Index) 37.3 kg/m2 12/25/2007 8:42am Height 62 inches 5'2" Weight 205.00 lb Heart Rate 72 /min BP Systolic Sitting 138 mmHg L BP Diastolic Sitting 90 mmHg L BMI (Body Mass Index) 37.5 kg/m2 09/11/2007 11:03am Height 62 inches 5'2" Weight 194.00 lb Heart Rate 60 /min reg BP Systolic Sitting 144 mmHg BP Diastolic Sitting 90 mmHg BMI (Body Mass Index) 35.5 kg/m2 06/12/2007 3:03pm Height 62 inches 5'2" Weight 199.75 lb Heart Rate 60 /min BP Systolic Sitting 156 mmHg BP Diastolic Sitting 94 mmHg BMI (Body Mass Index) 36.5 kg/m2 03/12/2007 1:03pm Height 62 inches 5'2" Heart Rate 60 /min reg BP Systolic Sitting 150 mmHg BP Diastolic Sitting 84 mmHg 03/04/2007 3:07pm Height 62 inches 5'2" Weight 201.00 lb Heart Rate 58 /min reg BP Systolic Sitting 136 mmHg BP Diastolic Sitting 84 mmHg BMI (Body Mass Index) 36.8 kg/m2 02/05/2007 3:13pm Height 62 inches 5'2" Heart Rate 72 /min BP Systolic Sitting 140 mmHg BP Diastolic Sitting 80 mmHg 01/07/2007 1:55pm Height 62 inches 5'2" Weight 202.00 lb Heart Rate 54 /min BP Systolic Sitting 140 mmHg left arm, right arm 140/90 BP Diastolic Sitting 90 mmHg left arm, right arm 140/90 BP Systolic Standing 130 mmHg BP Diastolic Standing 90 mmHg BMI (Body Mass Index) 36.9 kg/m2 Results Test Date Facility Test Result H/L Range Note Inr/Protime 01/23/2014 [facility] Inr 0.94 N 0.85-1.06 [address] [place] [address] [phone] Basic Metabolic 02/03/2011 [facility] Sodium 138 mmol/L 135- [address] [place] [address] [phone] Potassium 4.0 mmol/L 3.5-5.0 Chloride 99 mmol/L Low 101-111 Co2 (Carbon Dioxide) 33.0 mmol/L High 22-32 Anion Gap 6.0 mmol/L 2-11 1 Glucose 130 mg/dL High 70-100 BUN 12 mg/dL 6-24 Creatinine 1.10 mg/dL 0.50-1.40 One Over Creatinine 0.90 BUN/Creatinine Ratio 10.9 8-20 Calcium 9.5 mg/dL 8.1-9.9 eGFR Non- 67.8 > 60 eGFR 87.2 > 60 2 Sputum Culture 11/19/2010 [facility] Sputum Smear MODERATE 3 [address] [address] [place] [address] [phone] Sputum Culture 11/19/2010 [facility] Sputum Culture NF1 [address] [facility] [place] [address] [phone] Urine Culture & 11/18/2010 [facility] Urine Culture NG 5, [address] [facility] [place] [address] [phone] Basic Metabolic 08/02/2009 [facility] Sodium 138 mmol/L 135- [address] [place] [address] [phone] Potassium 3.9 mmol/L 3.5-5.0 Chloride 98 mmol/L Low 101-111 Co2 (Carbon Dioxide) 31.0 mmol/L 22-32 Anion Gap 9.0 mmol/L 2-11 7 Glucose 174 mg/dL High 70-100 8 BUN 10 mg/dL 6-24 Creatinine 1.10 mg/dL 0.50-1.40 One Over Creatinine 0.90 BUN/Creatinine Ratio 9.1 8-20 Calcium 9.5 mg/dL 8.1-9.9 9 eGFR Non- 72.6 > 60 eGFR 87.8 > 60 10 Electrolytes 12/02/2007 [facility] Anion Gap 4.0 mmol/L 2-[address] [place] [address] [phone] Chloride 101 mmol/L 101-111 Co2 (Carbon Dioxide) 36.0 mmol/L High 22-32 Potassium 3.8 mmol/L 3.5-5.0 Sodium 141 mmol/L 135-145 Cath Panel 03/05/2007 [facility] PTT (Aptt) 23.8 20.4-29.5 12, [address] [place] [address] [phone] CBC With 03/05/2007 [facility] RBC Morphology NORMAL Manual Diff [address] [place] [address] [phone] White Blood Count 7.4 CUMM 4.8-10.8 Absolute Neutrophil Count 4.8 Band Neutrophil 2 % 0-8 Basophil 2 % 0-2 Hematocrit 39 % Low 42-52 Hemoglobin 14.1 g/dL 14.0-18.0 Eosenophil 1 % 0-6 Lymphocyte 28 % 5-47 Mean Corpuscular HGB Cone 36 g/dL 32-36 Mean Corpuscular Hemoglob 31 pg 27-31 Mean Corpuscular Volume 87 um3 80-94 Monocyte 4 % 0-13 Mean Platelet Volume 8.9 um3 7.4-10.4 Platelet Count 264 CUMM 150-450 Polysegmented Neutrophil 63 % 38-83 Red Cell Count 4.53 CUMM Low 4.6-6.2 Redcell Distribution WDTH 13 % 10.5-15 Basic Metabolic 03/05/2007 [facility] One Over Creatinine 0.83 Panel [address] [place] [address] [phone] Anion Gap 4.0 mmol/L 2-11 14 BUN 12 mg/dL 6-24 Calcium 9.1 mg/dL 8.7-10.2 Chloride 99 mmol/L Low 101-111 Co2 (Carbon Dioxide) 34.0 mmol/L High 22-32 Glucose 151 mg/dL High 70-105 Potassium 3.7 mmol/L 3.5-5.0 Sodium 137 mmol/L 135-145 BUN/Creatinine Ratio 10.0 8-20 Creatinine 1.2 mg/dL 0.5-1.4 Protime 03/05/2007 [facility] Inr 0.97 15 [facility] [place] [address] [phone] Protime 11.8 10.9-13.1 Cath Panel 02/15/2007 [facility] PTT (Aptt) 23.2 20.4-29.5 16 [facility] [place] [address] [phone] CBC With 02/15/2007 [facility] RBC Morphology NORMAL Manual Diff [address] [place] [address] [phone] White Blood Count 8.0 CUMM 4.8-10.8 Absolute Neutrophil Count 4.3 Atypical Lymph 1 % 0-6 Hematocrit 40 % Low 42-52 Hemoglobin 14.1 g/dL 14.0-18.0 Lymphocyte 36 % 5-47 Mean Corpuscular HGB Cone 35 g/dL 32-36 Mean Corpuscular Hemoglob 32 pg High 27-31 Mean Corpuscular Volume 90 um3 80-94 Monocyte 9 % 0-13 Mean Platelet Volume 8.7 um3 7.4-10.4 Platelet Count 233 CUMM 150-450 Polysegmented Neutrophil 54 % 38-83 Red Cell Count 4.45 CUMM Low 4.6-6.2 Redcell Distribution WDTH 12 % 10.5-15 Protime 02/15/2007 [facility] Inr 0.86 17 [address] [place] [address] [phone] Protime 11.1 10.9-13.1 Basic Metabolic 02/15/2007 [facility] One Over Creatinine 0.[address] [place] [address] [phone] Anion Gap 10.0 mmol/L 2-11 18 BUN 16 mg/dL 6-24 Calcium 9.3 mg/dL 8.7-10.2 Chloride 96 mmol/L Low 101-111 Co2 (Carbon Dioxide) 31.0 mmol/L 22-32 Glucose 101 mg/dL 70-105 Potassium 3.6 mmol/L 3.5-5.0 Sodium 137 mmol/L 135-145 BUN/Creatinine Ratio 13.3 8-20 Creatinine 1.2 mg/dL 0.5-1.4 1 Anion gap measurement may be of limited value in the presence of any alkalosis, especially in a combined acid base disorder. . 2 Because ethnic data is not always readily available, this report includes an eGFR for both -Americans and non- Americans. The National Kidney Disease Education Program (NKDEP) does not endorse the use of the MDRD equation for patients that are not between the ages of 18 and 70, are , have extremes of body size, muscle mass, or nutritional status, or are non- or non-. According to the National Kidney Foundation, irrespective of diagnosis, the stage of the disease is based on the level of kidney function: Stage Description GFR(mL/min/1.73 m(2)) 1 Kidney damage with normal or decreased GFR 90 2 Kidney damage with mild decrease in GFR 60-89 3 Moderate decrease in GFR 30-59 4 Severe decrease in GFR 15-29 5 Kidney failure <15 (or dialysis) 3 MANY GRAM POSITIVE COCCI MANY GRAM POSITIVE BACILLI FEW YEAST MODERATE 4 NORMAL RESPIRATORY JOCELYNN 5 SPECIMEN DESCRIPTION: URINE, RANDOM COMMENTS: SAMPLE ALREADY IN LAB 6 FINAL: NO GROWTH DAY 2 (<1,000 CFU/mL) 7 Anion gap measurement may be of limited value in the presence of any alkalosis, especially in a combined acid base disorder. . 8 Note change in reference range as of 06/04/08. The change was based on recommendations from the [place] [employer]. 9 Please note change in reference range effective 08 . 10 Because ethnic data is not always readily available, this report includes an eGFR for both -Americans and non- Americans. The National Kidney Disease Education Program (NKDEP) does not endorse the use of the MDRD equation for patients that are not between the ages of 18 and 70, are , have extremes of body size, muscle mass, or nutritional status, or are non- or non-. According to the National Kidney Foundation, irrespective of diagnosis, the stage of the disease is based on the level of kidney function: Stage Description GFR(mL/min/1.73 m(2)) 1 Kidney damage with normal or decreased GFR 90 2 Kidney damage with mild decrease in GFR 60-89 3 Moderate decrease in GFR 30-59 4 Severe decrease in GFR 15-29 5 Kidney failure <15 (or dialysis) 11 Anion gap measurement may be of limited value in the presence of any alkalosis, especially in a combined acid base disorder. . 12 FASTING 13 PLEASE NOTE NEW REFERENCE RANGE EFFECTIVE 05 14 Anion gap measurement may be of limited value in the presence of any alkalosis, especially in a combined acid base disorder. . 15 SAUMYA VALUE=2.00 ( OF 07/31/06) Recommended INR for Patients on Oral Anticoagulants Prophylaxis 2.0 - 3.0 Treatment of thrombosis 2.0 - 3.0 Prevention of embolism 2.0 - 3.0 Prevention of embolism from prosthetic heart valves 2.5 - 3.5 16 PLEASE NOTE NEW REFERENCE RANGE EFFECTIVE 05 17 SAUMYA VALUE=2.00 ( OF 07/31/06) Recommended INR for Patients on Oral Anticoagulants Prophylaxis 2.0 - 3.0 Treatment of thrombosis 2.0 - 3.0 Prevention of embolism 2.0 - 3.0 Prevention of embolism from prosthetic heart valves 2.5 - 3.5 18 Anion gap measurement may be of limited value in the presence of any alkalosis, especially in a combined acid base disorder. . Procedures Date Code Description Status 08/13/2018 89109 ECHO Transthoracic, Real-Time 2D With Doppler And Color Completed Flow 08/13/2018 59215 ECHO Transthoracic, Real-Time 2D With Doppler And Color Completed Flow 07/29/2018 94705 EKG Tracing & Interpretation Completed 07/16/2018 98920 Interrogation Implant Cardiovasc Monitor System Incl Completed Analysis Int 07/16/2018 35274 Interrogation Implant Cardiovasc Monitor System Incl Completed Analysis Int 07/16/2018 10378 Icd Eval With Inerative Adjustmt Dual Lead System Completed 07/16/2018 04048 Icd Eval With Inerative Adjustmt Dual Lead System Completed 03/13/2018 69353 EKG Tracing & Interpretation Completed 02/18/2018 25570 Icd Eval With Inerative Adjustmt Dual Lead System Completed 02/18/2018 19396 Icd Eval With Inerative Adjustmt Dual Lead System Completed 02/18/2018 82514 Interrogation Implant Cardiovasc Monitor System Incl Completed Analysis Int 02/18/2018 59579 Interrogation Implant Cardiovasc Monitor System Incl Completed Analysis Int 10/29/2017 62953 Interrogation Implant Cardiovasc Monitor System Incl Completed Analysis Int 10/29/2017 21798 Icd Eval With Inerative Adjustmt Dual Lead System Completed 10/28/2017 18194 ECHO Transthorasic Realtime 2D W Doppler & Color Flow Hosp Completed 07/03/2017 39119 Interrogation Implant Cardiovasc Monitor System Incl Completed Analysis Int 07/03/2017 57670 Icd Eval With Inerative Adjustmt Dual Lead System Completed 06/25/2017 12546 EKG Tracing & Interpretation Completed 06/21/2017 92753 ECHO Transthorasic Realtime 2D W Doppler & Color Flow Hosp Completed 04/02/2017 75882 Icd Eval With Inerative Adjustmt Dual Lead System Completed 03/14/2017 40852 EKG Tracing & Interpretation Completed 02/20/2017 13514 Pace Maker Eval W/Iterative Adjment Dual Lead Completed 02/19/2017 89332 Perm Pacemaker Av Sequential Atrial And Ventricular Completed 02/14/2017 34567 EKG, Interpretation Only Completed 01/17/2017 55946 EKG Tracing & Interpretation Completed 12/08/2016 99264 ECHO Transthorasic Realtime 2D W Doppler & Color Flow Hosp Completed 06/23/2016 58067 ECHO Transthoracic, Real-Time 2D With Doppler And Color Completed Flow 05/18/2016 36358 EKG Tracing & Interpretation Completed 07/13/2015 06741 EKG Tracing & Interpretation Completed 02/09/2015 40068 EKG Tracing & Interpretation Completed 08/17/2014 91633 ECHO Transthoracic, Real-Time 2D With Doppler And Color Completed Flow 04/27/2014 72434 Holter Monitoring 24 HR New Completed 02/26/2014 83577 EKG Tracing & Interpretation Completed 01/23/2014 92194 ECHO Transthoracic, Real-Time 2D With Doppler And Color Completed Flow 07/23/2013 88304 EKG Tracing & Interpretation Completed 06/24/2012 63526 EKG Tracing & Interpretation Completed 04/11/2012 39832 ECHO Transthoracic, Real-Time 2D With Doppler And Color Completed Flow 09/01/2011 59807 EKG Tracing & Interpretation Completed 01/06/2011 00353 EKG Tracing & Interpretation Completed 11/18/2010 40258 Color Flow Doppler/Interp & Reprt Completed 11/18/2010 25006 Pulse Wave/Continuous-Interp.RPT Completed 11/18/2010 21262 ECHO Transthorasic Realtime 2D W Doppler & Color Flow Hosp Completed 07/13/2010 18672 EKG Tracing & Interpretation Completed 02/24/2010 52440 EKG Tracing & Interpretation Completed 12/21/2009 78574 EKG Tracing & Interpretation Completed 11/26/2009 73227 ECHO Transthoracic, Real-Time 2D With Doppler And Color Completed Flow 11/15/2009 12759 Holter Monitor Completed 10/26/2009 06789 EKG Tracing & Interpretation Completed 07/22/2009 74262 EKG Tracing & Interpretation Completed 02/17/2009 25189 EKG Tracing & Interpretation Completed 01/08/2009 07369 Color Doppler Completed 01/08/2009 09301 Pulse Doppler & Continuous Wave Completed 01/08/2009 64133 Echocardiogram Completed 01/08/2009 76898 ECHO Transthoracic, Real-Time 2D With Doppler And Color Completed Flow 08/19/2008 51674 EKG Tracing & Interpretation Completed 05/18/2008 50509 Holter Monitor Completed 05/18/2008 65522 Holter Monitor Completed 03/03/2008 77264 Color Doppler Completed 03/03/2008 23278 Pulse Doppler & Continuous Wave Completed 03/03/2008 09213 Pulse Doppler & Continuous Wave Completed 03/03/2008 64676 Echocardiogram Completed 06/12/2007 83764 EKG Tracing & Interpretation Completed 06/12/2007 48376 EKG Tracing & Interpretation Completed 03/08/2007 28697 Left Heart Catheterization Completed 03/08/2007 84438 Inj Proc Bypass GRFT 1/2 Arteries Completed 03/08/2007 51834 Inj Proc LFT Vent/LFT Atrl Angio Completed 03/08/2007 98351 Inj Proc LFT Vent/LFT Atrl Angio Completed 03/08/2007 49996 Aortic Root Inj Proc Completed 03/08/2007 32511 Aortic Root Inj Proc Completed 03/08/2007 36084 Coronary Angiography Completed 03/08/2007 54134 S/I/R Inj Proc Vent And Or Atrial Completed 03/08/2007 77468 S/I/R Inj Proc Vent And Or Atrial Completed 03/08/2007 23606 Selective Coronary Angioplasty Completed 03/04/2007 83713 EKG Tracing & Interpretation Completed 02/05/2007 25551 EKG Tracing & Interpretation Completed 01/25/2007 17701 Stress Test Supervsn W/Out I/R Completed 01/25/2007 44537 Stress Test Supervsn W/Out I/R Completed 01/25/2007 55701 Treadmill Interp/Report Only Completed 01/24/2007 48220 Color Doppler Completed 01/24/2007 72225 Pulse Doppler & Continuous Wave Completed 01/24/2007 25698 Pulse Doppler & Continuous Wave Completed 01/24/2007 06827 Echocardiogram Completed 01/24/2007 50915 Holter Monitor Completed 01/24/2007 24667 Holter Monitor Completed 01/07/2007 55588 EKG Tracing & Interpretation Completed Encounters Type Date Location Provider Dx Diagnosis Office Visit 07/29/2018 [facility] Tanna Maciel, I50.9 Heart failure, 2:30p N.P. unspecified Z79.01 care home (current) use of anticoagulants I25.5 Ischemic cardiomyopathy J44.9 Chronic obstructive pulmonary disease, unspecified I48.2 Chronic atrial fibrillation Office Visit 04/26/2018 [facility] I50.23 Acute on chronic 3:52p Assclarissa roman M.D. systolic Hospitalists (congestive) heart failure I44.30 Unspecified atrioventricular block J44.9 Chronic obstructive pulmonary disease, unspecified Z79.01 care home (current) use of anticoagulants Office Visit 04/25/2018 [facility] I50.23 Acute on chronic 3:52p clarissa Mcintyre M.D. systolic Hospitalists (congestive) heart failure I44.30 Unspecified atrioventricular block J44.9 Chronic obstructive pulmonary disease, unspecified Z79.01 care home (current) use of anticoagulants Office Visit 03/13/2018 2:00p [facility] Lio S. I10 Milvia Anaya M.D. (primary) hypertension I25.5 Ischemic cardiomyopathy Z95.810 Presence of automatic (implantable) cardiac defibrillator I25.10 Athscl heart disease of [place] coronary artery w/o ang pctrs Office Visit 10/30/2017 10:00a [facility] Elina J44.9 Chronic Assoc,[facility] Tabitha, obstructive Hospitalists [employer] pulmonary disease, unspecified J96.11 Chronic respiratory failure with hypoxia I50.43 Acute on chronic combined systolic and diastolic hrt fail I10 Essential (primary) hypertension Office Visit 10/29/2017 9:59a [facility] I50.43 Acute on Assoc,[facility] Shannan, chronic Hospitalists [employer] combined systolic and diastolic hrt fail J96.11 Chronic respiratory failure with hypoxia J44.9 Chronic obstructive pulmonary disease, unspecified I10 Essential (primary) hypertension Office Visit 10/28/2017 9:58a [facility] I50.43 Acute on Assoc, Adele, [employer] chronic Hospitalists combined systolic and diastolic hrt fail J44.9 Chronic obstructive pulmonary disease, unspecified J96.11 Chronic respiratory failure with hypoxia I10 Essential (primary) hypertension Office Visit 10/27/2017 9:57a [facility] I50.43 Acute on Assoc, Adele, [employer] chronic Hospitalists combined systolic and diastolic hrt fail J44.9 Chronic obstructive pulmonary disease, unspecified J96.11 Chronic respiratory failure with hypoxia I10 Essential (primary) hypertension Office Visit 08/10/2017 2:30p [facility] Purvi Roeis, I10 Essential (primary) PA hypertension 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 obstructive Hospitalists pulmonary disease w (acute) exacerbation I25.5 Ischemic cardiomyopathy I25.10 Athscl heart disease of [place] coronary artery w/o ang pctrs I10 Essential (primary) hypertension Office Visit 07/05/2017 2:00p [place] Nurse Visit cc I10 Essential Cardiology (primary) hypertension Office Visit 06/25/2017 1:00p [place] Lio S. I50.42 Chronic combined Cardiology Héctor systolic and Antoine diastolic hrt fail I25.5 Ischemic cardiomyopathy I25.10 Athscl heart disease of [place] coronary artery w/o ang pctrs I27.2 Other secondary pulmonary hypertension Z95.810 Presence of automatic (implantable) cardiac defibrillator I10 Essential (primary) hypertension E78.5 Hyperlipidemia, unspecified Office Visit 06/21/2017 1:48p [facility] Jose Gutiérrez, I50.43 Acute on chronic Assocclarissa MD combined Hospitalists systolic and diastolic hrt fail I34.0 Nonrheumatic mitral (valve) insufficiency J43.9 Emphysema, unspecified Z86.718 Personal history of other venous thrombosis and embolism Office Visit 06/20/2017 1:47p [facility] Td J18.1 Lobar pneumonia, Assocclarissa M.D. unspecified Hospitalists organism I50.22 Chronic systolic (congestive) heart failure J43.9 Emphysema, unspecified Z86.718 Personal history of other venous thrombosis and embolism Office Visit 04/08/2017 [facility] Radha I50.41 Acute combined 7:23a Assocclarissa, BELLA systolic and Hospitalists diastolic (congestive) hrt fail J44.1 Chronic obstructive pulmonary disease w (acute) exacerbation I25.5 Ischemic cardiomyopathy I25.10 Athscl heart disease of [place] coronary artery w/o ang pctrs Office Visit 04/07/2017 [facility] Neal Peralta I50.41 Acute combined 7:23a Assocclarissa II, M.D. systolic and Hospitalists diastolic (congestive) hrt fail J44.1 Chronic obstructive pulmonary disease w (acute) exacerbation I25.5 Ischemic cardiomyopathy I25.10 Athscl heart disease of [place] coronary artery w/o ang pctrs Office Visit 03/14/2017 [place] Lio S. I44.1 Atrioventricular 3:00p Christopher Anaya M.D. block, second degree I25.5 Ischemic cardiomyopathy Z95.810 Presence of automatic (implantable) cardiac defibrillator I25.10 Athscl heart disease of [place] coronary artery w/o ang pctrs I10 Essential (primary) hypertension E78.5 Hyperlipidemia, unspecified Office 02/15/2017 [facility] Jose G R00.1 Bradycardia, Visit 2:48p Assoc,clarissa Arvizu, [place] unspecified Hospitalists I25.10 Athscl heart disease of [place] coronary artery w/o ang pctrs I10 Essential (primary) hypertension E78.5 Hyperlipidemia, unspecified Office Visit 02/14/2017 2:30p [facility] Cherie Deleon, R55 Syncope and Of Maria M Schultz collapse I49.5 Sick sinus syndrome I25.5 Ischemic cardiomyopathy I44.1 Atrioventricular block, second degree [facility] Bradycardia, Visit 2:47p Assoc,clarissa Arvizu, [place] unspecified Hospitalists I25.10 Athscl heart disease of [place] coronary artery w/o ang pctrs I10 Essential (primary) hypertension E78.5 Hyperlipidemia, unspecified Office Visit 02/13/2017 [facility] Chris R00.1 Bradycardia, 2:46p Assoc,clarissa De León, N.P. unspecified Hospitalists I25.10 Athscl heart disease of [place] coronary artery w/o ang pctrs I10 Essential (primary) hypertension E78.5 Hyperlipidemia, unspecified Office Visit 01/17/2017 2:00p [facility] Qutaybeh S. [facility]ine Anaya disease of [place] coronary artery w/o ang pctrs J44.1 Chronic obstructive pulmonary disease w (acute) exacerbation I43 Cardiomyopathy in diseases classified elsewhere I34.0 Nonrheumatic mitral (valve) insufficiency Office Visit 12/09/2016 [facility] Leonid Scott J18.9 Pneumonia, 9:35a Assoc,clarissa Hope M.D.,FACP unspecified Hospitalists organism I50.22 Chronic systolic (congestive) heart failure I25.10 Athscl heart disease of [place] coronary artery w/o ang pctrs Office Visit 12/08/2016 9:34a [facility] Page J18.9 Pneumonia, Assoc,clarissa Dhillon DWillO. unspecified Hospitalists organism I50.22 Chronic systolic (congestive) heart failure I25.10 Athscl heart disease of [place] coronary artery w/o ang pctrs J42 Unspecified chronic bronchitis Office Visit 12/07/2016 9:34a [facility] Page J18.9 Pneumonia, Assoc,pc Alejo, D.O. unspecified Hospitalists organism I50.22 Chronic systolic (congestive) heart failure I25.10 Athscl heart disease of [place] coronary artery w/o ang pctrs Office Visit 12/06/2016 9:33a [facility] Tosha Garcia J18.9 Pneumonia, Assoc,pc N.P. unspecified Hospitalists organism I50.22 Chronic systolic (congestive) heart failure I25.10 Athscl heart disease of [place] coronary artery w/o ang pctrs J42 Unspecified chronic bronchitis Office Visit 11/26/2016 1:23p [facility] Piter J18.9 Pneumonia, Assoc,pc MD Cayetano unspecified Hospitalists organism J44.1 Chronic obstructive pulmonary disease w (acute) exacerbation I25.10 Athscl heart disease of [place] coronary artery w/o ang pctrs Z86.718 Personal history of other venous thrombosis and embolism Office Visit 11/25/2016 1:23p [facility] Piter J20.9 Acute bronchitis, Assoc,pc MD Cayetano unspecified Hospitalists J44.1 Chronic obstructive pulmonary disease w (acute) exacerbation I25.10 Athscl heart disease of [place] coronary artery w/o ang pctrs Z86.718 Personal history of other venous thrombosis and embolism Office Visit 11/24/2016 [facility] Neal Peralta J20.9 Acute 1:22p Assoc,pc Antoine MORAN bronchitis, Hospitalists unspecified J44.1 Chronic obstructive pulmonary disease w (acute) exacerbation I25.10 Athscl heart disease of [place] coronary artery w/o ang pctrs Z86.718 Personal history of other venous thrombosis and embolism Office Visit 05/18/2016 10:20a [facility] Qutaybrossy S. I25.10 [facility] Fabio Anaya. disease of [place] coronary artery w/o ang pctrs I43 Cardiomyopathy in diseases classified elsewhere I10 Essential (primary) hypertension I34.0 Nonrheumatic mitral (valve) insufficiency I48.92 Unspecified atrial flutter R94.31 Abnormal electrocardiogram [ECG] [EKG] Office Visit 07/13/2015 2:40p [facility] Lio S. I25.10 Athscl heart Antoine Anaya disease of [place] coronary artery w/o ang pctrs I43 Cardiomyopathy in diseases classified elsewhere I10 Essential (primary) hypertension I34.0 Nonrheumatic mitral (valve) insufficiency 401.9 Hypertension Unspec Office Visit 02/09/2015 Marleni Vaca S. 414.01 Coronary 3:20p Christopher Anaya M.D. Atherosclerosis [place] 425.8 Cardiomyopathy Other Diseases Class Elsewhere 401.1 Hypertension Benign 424.0 Mitral Valve Disorder 397.0 Tricuspid Valve Disease Office Visit 07/03/2014 Marleni Vaca S. 414.01 Coronary 2:40p Christopher Anaya M.D. Atherosclerosis [place] 414.8 Ischemic Heart Disease Chronic Other Spec Forms 425.8 Cardiomyopathy Other Diseases Class Elsewhere 401.1 Hypertension Benign 424.0 Mitral Valve Disorder 397.0 Tricuspid Valve Disease 786.05 Shortness Of Breath Office Visit 02/26/2014 Marleni Vaca S. 414.01 Coronary 9:00a Christopher Anaya M.D. Atherosclerosis [place] 414.8 Ischemic Heart Disease Chronic Other Spec Forms 425.8 Cardiomyopathy Other Diseases Class Elsewhere 401.1 Hypertension Benign 786.50 Pain Chest Unspec 786.05 Shortness Of Breath 794.31 Electrocardiogram (ECG) (EKG) Abnormal 785.0 Tachycardia Unspec 785.1 Palpitations Office 07/23/2013 Marleni Vaca S. 794.31 Electrocardiogram Visit 11:00a Christopher Anaya M.D. (ECG) (EKG) Abnormal 414.01 Coronary Atherosclerosis [place] 414.8 Ischemic Heart Disease Chronic Other Spec Forms V45.81 Aortocoronary Bypass Postsurgical Status 401.1 Hypertension Benign 272.4 Hyperlipidemia Other Unspec 786.05 Shortness Of Breath 425.8 Cardiomyopathy Other Diseases Class Elsewhere Office 06/24/2012 Marleni Vaca S. 794.31 Electrocardiogram Visit 3:00p Christopher Anaya M.D. (ECG) (EKG) Abnormal 414.01 Coronary Atherosclerosis [place] 414.8 Ischemic Heart Disease Chronic Other Spec Forms V45.81 Aortocoronary Bypass Postsurgical Status 401.1 Hypertension Benign 272.4 Hyperlipidemia Other Unspec Office 09/01/2011 [place] Qutaybeh S. 794.31 Electrocardiogram Visit 11:40a Christopher Anaya M.D. (ECG) (EKG) Abnormal 414.01 Coronary Atherosclerosis [place] 414.8 Ischemic Heart Disease Chronic Other Spec Forms V45.81 Aortocoronary Bypass Postsurgical Status 401.1 Hypertension Benign 272.4 Hyperlipidemia Other Unspec Office Visit 01/06/2011 1:40p Marleni Barraganybeh S. 410.01 Myocardial Cardiology Antoine Anaya Infarc Acute Anterolat Wall Initial Episode Care 794.31 Electrocardiogram (ECG) (EKG) Abnormal 414.01 Coronary Atherosclerosis [place] 414.8 Ischemic Heart Disease Chronic Other Spec Forms Office Visit 11/18/2010 2:34p [facility] Lio S. 786.05 Shortness Of Antoine Anaya Breath 794.31 Electrocardiogram (ECG) (EKG) Abnormal 414.01 Coronary Atherosclerosis [place] 414.8 Ischemic Heart Disease Chronic Other Spec Forms V45.81 Aortocoronary Bypass Postsurgical Status Office Visit 07/13/2010 [place] Qualphonseybeh S. 414.01 Coronary 11:20a Christopher Anaya M.D. Atherosclerosis [place] 401.1 Hypertension Benign 272.4 Hyperlipidemia Other Unspec 786.05 Shortness Of Breath Office Visit 02/24/2010 [place] Qualphonseybeh S. 414.01 Coronary 2:20p Christopher Anaya M.D. Atherosclerosis [place] 401.1 Hypertension Benign 272.4 Hyperlipidemia Other Unspec Office Visit 12/21/2009 [place] Laurelybeh S. 414.01 Coronary 9:40a Christopher Anaya M.D. Atherosclerosis [place] 414.8 Ischemic Heart Disease Chronic Other Spec Forms 401.1 Hypertension Benign 272.4 Hyperlipidemia Other Unspec 427.1 Paroxysmal Ventricular Tachycardia Office Visit 10/26/2009 [place] Laurelybeh S. 424.2 Tricuspid Valve 10:00a Christopher Anaya M.D. Disorder Spec as Nonrheumatic 414.01 Coronary Atherosclerosis [place] 414.8 Ischemic Heart Disease Chronic Other Spec Forms 401.1 Hypertension Benign 272.4 Hyperlipidemia Other Unspec Office Visit 07/22/2009 [place] Qualphonseybeh S. 414.01 Coronary 10:00a Christopher Anaya M.D. Atherosclerosis [place] V45.81 Aortocoronary Bypass Postsurgical Status 414.8 Ischemic Heart Disease Chronic Other Spec Forms 401.1 Hypertension Benign Office Visit 02/17/2009 [place] Qutaybeh S. 414.01 Coronary 8:40a Christopher Anaya M.D. Atherosclerosis [place] 414.8 Ischemic Heart Disease Chronic Other Spec Forms V45.81 Aortocoronary Bypass Postsurgical Status 786.09 Dyspnea & Respiratory Abnormalities Other 272.4 Hyperlipidemia Other Unspec 401.1 Hypertension Benign Office Visit 08/19/2008 [place] Qutaybeh S. 414.01 Coronary 11:00a Christopher Anaya M.D. Atherosclerosis [place] 414.8 Ischemic Heart Disease Chronic Other Spec Forms 272.4 Hyperlipidemia Other Unspec V45.81 Aortocoronary Bypass Postsurgical Status 786.09 Dyspnea & Respiratory Abnormalities Other 401.1 Hypertension Benign Office Visit 03/26/2008 [place] Qutaybeh S. 414.01 Coronary 3:00p Christopher Anaya M.D. Atherosclerosis [place] 401.0 Hypertension Malignant 414.8 Ischemic Heart Disease Chronic Other Spec Forms 786.09 Dyspnea & Respiratory Abnormalities Other V45.81 Aortocoronary Bypass Postsurgical Status 786.50 Pain Chest Unspec 272.4 Hyperlipidemia Other Unspec 785.1 Palpitations Office Visit 12/25/2007 [place] Qutaybeh S. 414.01 Coronary 9:20a Christopher Anaya M.D. Atherosclerosis [place] 401.0 Hypertension Malignant 414.8 Ischemic Heart Disease Chronic Other Spec Forms 272.4 Hyperlipidemia Other Unspec 786.09 Dyspnea & Respiratory Abnormalities Other V45.81 Aortocoronary Bypass Postsurgical Status Office Visit 09/11/2007 [place] Qutaybeh S. 414.01 Coronary 11:20a Christopher Anaya M.D. Atherosclerosis [place] 401.0 Hypertension Malignant 414.8 Ischemic Heart Disease Chronic Other Spec Forms 272.4 Hyperlipidemia Other Unspec 786.50 Pain Chest Unspec 786.09 Dyspnea & Respiratory Abnormalities Other V45.81 Aortocoronary Bypass Postsurgical Status Office Visit 06/12/2007 [place] Qutaybeh S. 414.01 Coronary 3:20p Christopher Anaya M.D. Atherosclerosis [place] 401.0 Hypertension Malignant 414.8 Ischemic Heart Disease Chronic Other Spec Forms 272.4 Hyperlipidemia Other Unspec Office Visit 03/12/2007 [place] Qutaybeh S. 414.01 Coronary 1:20p Christopher Anaya M.D. Atherosclerosis [place] 414.8 Ischemic Heart Disease Chronic Other Spec Forms 401.1 Hypertension Benign 272.4 Hyperlipidemia Other Unspec Office Visit 03/04/2007 Marleni Vaca S. 414.01 Coronary 3:20p Cardiology Antonie Anaya Atherosclerosis [place] 786.50 Pain Chest Unspec 401.1 Hypertension Benign 272.4 Hyperlipidemia Other Unspec Office Visit 02/05/2007 Marleni Vaca S. 414.01 Coronary 3:20p Cardiology Antoine Anaya Atherosclerosis [place] 401.0 Hypertension Malignant 794.30 Cardiovascular Function Study Unspec Abnormal 272.4 Hyperlipidemia Other Unspec Office Visit 01/07/2007 Marleni Vaca S. 414.01 Coronary 2:20p Christopher Anaya M.D. Atherosclerosis [place] 401.0 Hypertension Malignant 786.05 Shortness Of Breath 272.4 Hyperlipidemia Other Unspec Plan of Treatment 10/22/2018 - Lio Anaya M.D.I48.2 Chronic atrial ljgaktcuvaqrO36.5 Ischemic cardiomyopathyFollow up:8 months ovJ44.9 Chronic obstructive pulmonary disease, ihxdgymziunX29.810 Presence of automatic (implantable) cardiac huiewguzeukifG43.9 Obesity, lssyvqjguuoS79.0 Nonrheumatic mitral (valve) ljbcdetkkykjnD10.9 Aortic aneurysm of unspecified site, without ruptureNew Orders:Echocardiogram, Ordered: 10/22/18
[2018-11-04] MEDS ORDERED: Albuterol 2.5 MG/3 ML NEB.SOL* (0.083%) INH ONE (20:18)
[2018-11-04 20:28] LABS: ABS Basophils 0.2 10^3/ul (0-0.2); ABS Eosinophils 0.1 10^3/ul (0-0.6); ABS Lymphocytes 0.9 10^3/ul (1.0-4.8); ABS Monocytes 1.4 10^3/ul (0-0.8); ABS Neutrophils 9.7 10^3/ul (1.5-7.7); ABS Nucleated RBC 0 10^3/ul; Eosinophil % 0.4 %; Hematocrit 42 % (42-52); Hemoglobin 13.9 g/dl (14.0-18.0); Lymphocyte % 7.7 %; Mean Corpuscular HGB Conc 33 g/dl (31-36); Mean Corpuscular Hemoglobin 31 pg (27-31); Mean Corpuscular Volume 94 fL (80-94); Mean Platelet Volume 8.8 fL (7.4-10.4); Nucleated Red Blood Cells % 0.1; Platelet Count 162 10^3/ul (150-450); Red Blood Count 4.49 10^6/ul (4.00-5.40); Red Cell Distribution Width 14 % (10.5-15); White Blood Count 12.3 10^3/ul (3.5-10.8)
[2018-11-04 20:50] LABS: Albumin 3.6 g/dL (3.2-5.2); Albumin/Globulin Ratio 1.1 (1-3); BUN/Creatinine Ratio 18.2 (8-20); Calcium 9.2 mg/dL (8.6-10.3); EGFR Non-African American 51.5 (>60); Globulin 3.3 g/dL (2-4); Potassium 4.2 mmol/L (3.5-5.0); Total Bilirubin 0.9 mg/dL (0.2-1.0); Total Protein 6.9 g/dL (6.4-8.9)
[2018-11-04] MEDS ORDERED: Azithromycin TAB* 250 MG PO ONE (21:16)
[2018-11-04 21:37] VITALS: BP 133/67
== END 2018-11-04 21:35 | disposition home or self-care (01) ==
LOC: ED 19:30
DX: J44.9 Chronic obstructive pulmonary disease, unspecified (principal); I50.22 Chronic systolic (congestive) heart failure; R05 Cough; Z87.891 Personal history of nicotine dependence
CPT/HCPCS: 36415; 71046; 80053; 83605; 83880; 84484; 85025; 87040; 93005; 96374; 99284; A9270-GY; J2930

== ENCOUNTER 2019-02-03 00:09 | Inpatient (IN) | payer MEDICARE, MEDICAID ==
[2019-02-03] MEDS ORDERED: Albuterol 2.5 MG/3 ML NEB.SOL* (0.083%) INH ONE (00:24)
[2019-02-03] MEDS ORDERED: methylPREDNISolone 125 MG* 2 ML VIAL IV ONE (00:24)
--- NOTE | 2019-02-03 00:26 | ED ---
Shortness of Breath - HPI Summary HPI Summary: A 68 y/o M brought in by ambulance presents to ED with c/o SOB while at rest onset two days ago. Associated sx: rhinorrhea, fever, pedal edema. He thought it was the start of a cold, but the SOB is worsening greatly. He saw his doctor three days ago who gave him a solution to put in his nebulizer, which he used 4x yesterday to no relief. He is also on Prednisone. PMHx: CABG, pacemaker, COPD , asthma. Former smoker. - History of Current Complaint Chief Complaint: EDShortnessOfBreath Time Seen by Provider: 02/03/19 00:19 Hx Obtained From: Patient Onset/Duration: Gradual Onset, Lasting Days, Still Present Timing: Constant Current Severity: Severe Dyspnea At: Rest Associated Signs & Symptoms: Fever - resolved, Calf Pain/Swelling - Allergy/Home Medications Allergies/Adverse Reactions: Allergies Allergy/AdvReac Type Severity Reaction Status Date / Time No Known Allergies Allergy Verified 10/18/18 10:29 PMH/Surg Hx/FS Hx/Imm Hx Previously Healthy: No Endocrine/Hematology History: Denies: Hx Diabetes Cardiovascular History: Reports: Hx Auto Implanted Cardiovert Defib, Hx Congestive Heart Failure, Hx Coronary Artery Disease, Hx Deep Vein Thrombosis, Hx Hypercholesterolemia, Hx Hypertension, Hx Myocardial Infarction, Hx Pacemaker /ICD - 5/05/31, Other Cardiovascular Problems/Disorders Respiratory History: Reports: Hx Chronic Obstructive Pulmonary Disease (COPD), Hx Pneumonia, Hx Pulmonary Embolism, Other Respiratory Problems/Disorders - respiratory failure, uses 3L O2 at night Denies: Hx Asthma History: Denies: Hx Renal Disease Musculoskeletal History: Reports: Hx Arthritis - fingers, Hx Back Problems Denies: Hx Bursitis, Hx Congenital Bone Abnormalities, Hx Fibromyalgia, Hx Gout, Hx Orthopedic Injury, Hx Osteoporosis, Hx Scoliosis, Hx Tendonitis, Other Musculoskeletal History Sensory History: Reports: Hx Contacts or Glasses, Hx Deafness - left ear, Hx Hearing Problem Denies: Hx Cataracts, Hx Eye Injury, Hx Eye Prosthesis, Hx Glaucoma, Hx Legally Blind, Hx Macular Degeneration, Hx Vision Problem, Hx Hearing Aid, Other Sensory Impairments Opthamlomology History: Reports: Hx Contacts or Glasses Denies: Hx Cataracts, Hx Eye Injury, Hx Eye Prosthesis, Hx Glaucoma, Hx Legally Blind, Hx Macular Degeneration, Hx Vision Problem, Other Sensory Impairments Psychiatric History: Reports: Hx Anxiety - Surgical History Surgery Procedure, Year, and Place: CABG, pacemaker/ICD, appendectomy Hx Anesthesia Reactions: No - Immunization History Date of Tetanus Vaccine: unk Date of Influenza Vaccine: unk Infectious Disease History: Denies: Traveled Outside the [place] in Last 30 Days - Family History Known Family History: Positive: Cardiac Disease - extensive [place] FHx - Social History Occupation: Disabled Lives: Alone Alcohol Use: None Hx Substance Use: No Substance Use Type: Reports: None Hx Tobacco Use: Yes Smoking Status (MU): Former Smoker Type: Cigarettes Have You Smoked in the Last Year: No Review of Systems Positive: Fever - resolved Positive: Nasal Discharge Positive: Shortness Of Breath Positive: Edema - bilat All Other Systems Reviewed And Are Negative: Yes Physical Exam - Summary Physical Exam Summary: Appearance: Well-appearing, Well-nourished, elderly M in mild to moderate respiratory distress Skin: Warm, dry, no obvious rash Eyes: sclera anicteric, no conjunctival pallor ENT: mucous membranes moist, pharynx appears normal Neck: Supple, nontender Respiratory: No inspiratory crackles, but has expiratory wheezes and rhonchi bilaterally Cardiovascular: Normal S1, S2. No murmurs. Normal distal pulses in tibial and radial bilaterally. Abdomen: Soft, nontender, normal active bowel sounds present Musculoskeletal: Strength/ROM Intact, bilateral pitting edema moderate Neurological: A&Ox3, awake and alert, mentation is normal, speech is fluent and appropriate Psychiatric: affect is normal, does not appear anxious or depressed Triage Information Reviewed: Yes Vital Signs Reviewed: Yes Diagnostics - Laboratory Result Diagrams: 02/03/19 00:37 02/03/19 00:37 Lab Statement: Any lab studies that have been ordered have been reviewed, and results considered in the medical decision making process. - Radiology CXR Radiology Interpretation Completed By: ED Physician Summary of Radiographic Findings: Increased opacity on L compared to prior films ; interstitial edema bilateral that appears to be new. - EKG 0103 Cardiac Rate: NL - 64 bpm Summary of EKG Findings: Ventricularly paced at 64 bpm. No further analysis attempted. Course/Dx - Course Course Of Treatment: Pt is a 68 y/o M presenting with SOB while at rest onset two days ago. Associated sx: rhinorrhea, fever, pedal edema. PMHx: CABG, pacemaker, COPD, asthma. Critical lab values: troponin: 0.10. EKG is ventricularly paced at 64 bpm. CXR shows increased opacity on L compared to prior films; interstitial edema bilateral that appears to be new. Consulted with Dr. Hope, hospitalist, who will admit patient. - Diagnoses Provider Diagnoses: COPD (chronic obstructive pulmonary disease), Acute on chronic systolic ( congestive) heart failure - Physician Notifications Discussed Care of Patient With: Leonid Hope - hospitalist Time Discussed With Above Provider: 01:55 Instructed by Provider To: Admit As Inpatient Discharge - Sign-Out/Discharge Documenting (check all that apply): Patient Departure - ADMIT Patient Received Moderate/Deep Sedation with Procedure: No - Discharge Plan Condition: Guarded Disposition: ADMITTED TO [facility] - Billing Disposition and Condition Condition: GUARDED Disposition: Admitted to [facility] - Attestation Statements Document Initiated by Scribe: Yes Documenting Scribe: Fredo Parham Provider For Whom Scribe is Documenting (Include Credential): Dr. Bereket Schreiber MD Scribe Attestation: Fredo Smith scribed for Dr. Bereket Schreiber MD on 02/03/19 at 0253. Scribe Documentation Reviewed: Yes Provider Attestation: The documentation as recorded by the Fredo liriano accurately reflects the service I personally performed and the decisions made by me, Dr. Bereket Schreiber MD Status of Scribe Document: Viewed
[2019-02-03 00:54] LABS: ABS Basophils 0.1 10^3/ul (0-0.2); ABS Eosinophils 0 10^3/ul (0-0.6); ABS Lymphocytes 0.7 10^3/ul (1.0-4.8); ABS Monocytes 1.3 10^3/ul (0-0.8); ABS Neutrophils 9.2 10^3/ul (1.5-7.7); ABS Nucleated RBC 0 10^3/ul; Eosinophil % 0.1 %; Hematocrit 43 % (36-46); Hemoglobin 14.3 g/dL (14.0-18.0); Lymphocyte % 6.3 %; Mean Corpuscular HGB Conc 33 g/dL (31-36); Mean Corpuscular Hemoglobin 31 pg (27-31); Mean Corpuscular Volume 94 fL (80-94); Mean Platelet Volume 8.6 fL (7.4-10.4); Nucleated Red Blood Cells % 0.1; Platelet Count 152 10^3/uL (150-450); Red Blood Count 4.63 10^6 /uL (4.18-5.48); Red Cell Distribution Width 16 % (10.5-15); White Blood Count 11.3 10^3/uL (3.5-10.8)
[2019-02-03 01:11] LABS: ALT 58 U/L (7-52); AST 52 U/L (13-39); Albumin 3.8 g/dL (3.2-5.2); Albumin/Globulin Ratio 1.2 (1-3); Alkaline Phosphatase 45 U/L (34-104); Anion Gap 9 mmol/L (2-11); BUN/Creatinine Ratio 26.6 (8-20); Blood Urea Nitrogen 38 mg/dL (6-24); CO2 Carbon Dioxide 28 mmol/L (22-32); Calcium 8.9 mg/dL (8.6-10.3); Chloride 95 mmol/L (101-111); EGFR African American 59.2 (>60); EGFR Non-African American 48.9 (>60); Globulin 3.2 g/dL (2-4); Glucose 171 mg/dL (70-100); Potassium 4.2 mmol/L (3.5-5.0); Sodium 132 mmol/L (135-145)
[2019-02-03] MEDS ORDERED: Nitroglycerin TAB 0.3 MG* 0.3 MG TAB SL PRN (02:12)
[2019-02-03 02:29] LABS: Activated Partial Thrombo Time 30.2 seconds (26.0-36.3); INR 2.22 (0.77-1.02)
[2019-02-03] MEDS ORDERED: Warfarin TAB(*) 5 MG PO ONE (02:45)
--- NOTE | 2019-02-03 02:54 | ADMNOTE ---
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 Patient has COPD, and he tried to take additional nebulizers, and continued his maintenance inhalers. The illness began with a URI a few days ago. He does have orthopnea, PND. He came to ER because he could not stop coughing, and felt dypnea at rest. He has chronic edema, no worse today. Denies weight gain. 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, appendectomy Review of Systems - Measurements Intake and Output: Intake and Output Last 24 Hours 01/31/19 02/01/19 02/02/19 02/03/19 06:59 06:59 06:59 06:59 Intake Total 10 Balance 10 Weight 80.739 kg Intake: IV Fluids 10 - Review of Systems Constitutional Symptoms: Positive: Fatigue, Night Sweats Negative: Fever Dermatology: Positive: Normal HEENT: Positive: Normal Eyes: Positive: Normal Thyroid: Positive: Normal Pulmonary: Positive: Sputum, Respiratory Distress, Shortness of Breath, COPD, Exercise Intolerance, Home Oxygen Cardiology: Positive: Shortness of Breath, Swelling of Ankles, Proximal NocturnalDyspnea, Orthopnoea Negative: Chest Pain, Palpitations, Syncope Gastroenterology: Positive: Normal Negative: Nausea Genital - Urinary: Positive: Normal Genitourinary - Male: Negative: Prostatism Endocrinology: Positive: Normal Hematologic/Lymphatic: Positive: Use of Anticoagulant Neurology: Positive: Normal Psychiatry: Positive: Normal Objective Active Medications: Home Medications Carvedilol (Coreg Tab*) 6.25 mg PO BID [facility] Azithromycin 250 mg PO QD Lisinopril (Prinivil Tab*) 2.5 mg PO DAILY [facility] Magnesium Oxide (Magox 400 Tab*) 800 mg PO DAILY [facility] Nitroglycerin (Nitroglycerin Tab 0.3 Mg*) 0.3 mg SL Q5M PRN PRN Reason: PAIN - CHEST Warfarin 5 mg po qPM Potassium Chloride (Klor Con Er Tab*) 20 meq PO DAILY [facility] Prednisone (Deltasone Tab*) 40 mg PO QAM Fluticasone/Salmeterol (Advair Hfa 115/21 (Nf)) 2 puff INH IN AM AND AT BEDTIME [facility]; Protocol Torsemide (Torsemide) 80 mg PO 0800,1700 [facility] Vital Signs - 8 hr 02/03/19 02/03/19 02/03/19 00:18 00:45 00:46 Temperature 36.1 C Pulse Rate 66 67 64 Respiratory 28 20 27 Rate Blood Pressure 138/88 114/68 (mmHg) O2 Sat by Pulse 96 95 95 Oximetry 02/03/19 02/03/19 02/03/19 01:00 01:01 01:16 Temperature Pulse Rate 69 68 65 Respiratory 21 20 25 Rate Blood Pressure 118/69 (mmHg) O2 Sat by Pulse 96 99 95 Oximetry 02/03/19 02/03/19 02/03/19 01:45 02:00 02:16 Temperature Pulse Rate 64 67 64 Respiratory 29 23 22 Rate Blood Pressure 124/83 119/79 (mmHg) O2 Sat by Pulse 96 96 92 Oximetry Oxygen Devices in Use Now: Nasal Cannula Appearance: no acute distress Eyes: No Scleral Icterus Ears/Nose/Mouth/Throat: NL Teeth, Lips, Gums Neck: NL Appearance and Movements; NL JVP Respiratory: Symmetrical Chest Expansion and Respiratory Effort, - - diffuse ronchi and rales Cardiovascular: - - irregular, 1+ edema bilat LE Abdominal: NL Sounds; No Tenderness; No Distention Lymphatic: No Cervical Adenopathy Extremities: - - 1+ pitting edema bilat LE Skin: No Rash or Ulcers Neurological: Alert and Oriented x 3 Lines/Tubes/Other Access: Clean, Dry and Intact Peripheral IV Nutrition: Taking PO's Result Diagrams: 02/03/19 00:37 02/03/19 00:37 Additional Lab and Data: Laboratory Tests 02/03/19 02/03/19 02/03/19 00:37 00:37 00:37 INR (Anticoag Therapy) APTT Glucose 171 H Lactic Acid 2.0 AST 52 H ALT 58 H Troponin I 0.10 H* B-Natriuretic Peptide 702 H Total Protein 7.0 Influenza A (Rapid) Influenza B (Rapid) 02/03/19 02/03/19 00:37 02:32 INR (Anticoag Therapy) 2.22 H APTT 30.2 Glucose Lactic Acid AST ALT Troponin I B-Natriuretic Peptide Total Protein Influenza A (Rapid) Negative Influenza B (Rapid) Negative Diagnostic Imaging: CXR: L-sided chronic density, R-sided infiltrate new compared w/ previous CXR EKG Data: A-fib, V-paced rhythm Assess/Plan/Problems-Billing Assessment: 68 year old man with history of CHF, COPD, admitted w/ pneumonia and COPD exacerbation - Patient Problems (1) CAP (community acquired pneumonia) Current Visit: No Status: Acute Priority: High Code(s): J18.9 - PNEUMONIA , UNSPECIFIED ORGANISM SNOMED Code(s): 139176343 Comment: -Presentation with URI, followed by productive cough consistent with viral or bacterial pneumonia, and COPD exacerbation -Started on ceftriaxone and azithromycin for now. - For COPD, increased prednisone and continue O2, use albuterol nebulizer PRN (2) Acute on chronic systolic (congestive) heart failure Current Visit: No Status: Acute Priority: Medium Code(s): I50.23 - ACUTE ON CHRONIC SYSTOLIC (CONGESTIVE) HEART FAILURE SNOMED Code(s): 219521370 Comment: - May have element of CHF exacerbation, but I am not convinced - Will monitor I/O strictly, follow weights, start diuretics if more hypoxic - ECHO showed EF of 20-25% 10/27/17. (3) CAD (coronary artery disease) Current Visit: No Status: Chronic Priority: Medium Code(s): I25.10 - ATHSCL HEART DISEASE OF [place] CORONARY ARTERY W/O ANG PCTRS SNOMED Code(s): 27923360 Comment: - Asymptomatic - Troponin elevated, likely demand ischemia. Will repeat X2 - Continue statin and Coreg - not on aspirin due to warfarin (4) History of deep venous thrombosis or pulmonary embolus Current Visit: No Status: Chronic Priority: Medium Code(s): OHK7873 - SNOMED Code(s): 773499105 Comment: - Continue warfarin per home dosing. Status and Disposition: inpatient
[2019-02-03 02:59] LABS: Influenza A Molecular NEGATIVE (Negative); Influenza B Molecular NEGATIVE (Negative)
[2019-02-03] MEDS: cefTRIAXone(*) 1 GM in NS 0.9% 50 ML* 50 ML IVPB SCH (03:54)
[2019-02-03] MEDS: Azithromycin 500 mg/250 ml NS 500 MG/250 ML BAG IVPB SCH (04:42)
[2019-02-03 06:40] LABS: Troponin I 0.1 ng/mL (<0.04)
[2019-02-03] MEDS: Mometasone/Formoter 200/5 MDI INH SCH ×2 (08:35→20:26)
[2019-02-03] MEDS: Torsemide TAB 10 MG PO SCH ×2 (08:43→17:17)
[2019-02-03] MEDS: Potassium Chlor TAB* 20 MEQ TAB.ER PO SCH (08:44)
[2019-02-03] MEDS: Lisinopril TAB* 5 MG PO SCH (08:44)
[2019-02-03] MEDS: Carvedilol TAB* 6.25 MG PO SCH ×2 (08:44→20:58)
[2019-02-03] MEDS: Magnesium Oxide TAB* 400 MG PO SCH (08:44)
[2019-02-03] MEDS: predniSONE TAB* 50 MG PO SCH (08:44)
[2019-02-03] MEDS ORDERED: Warfarin TAB(*) 5 MG PO SCH (09:00)
[2019-02-03 09:15] LABS: Troponin I 0.1 ng/mL (<0.04)
[2019-02-03] MEDS ORDERED: Furosemide IV* 10 MG/ML 10 ML VIAL (100 MG) IV ONE (16:01)
--- NOTE | 2019-02-03 16:09 | PN ---
Subjective Date of Service: 02/03/19 Interval History: Little subj change. Occ yellow sputum. 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, appendectomy Objective Active Medications: Albuterol/Ipratropium (Duoneb (Albuterol 2.5 Mg/Ipratropium 0.5 Mg)) 1 neb INH Q2H PRN PRN Reason: SOB/WHEEZING Carvedilol (Coreg Tab*) 6.25 mg PO BID [facility] Last Admin: 02/03/19 08:44 Dose: 6.25 mg Furosemide (Lasix Iv*) 80 mg IV ONCE ONE Stop: 02/03/19 16:02 Guaifenesin (Robitussin*) 10 ml PO QID [facility] Azithromycin (Zithromax 500 Mg/250 Ml) 500 mg in 250 mls @ 250 mls/hr IVPB Q24H [facility] Last Admin: 02/03/19 04:42 Dose: 250 mls/hr Ceftriaxone Sodium 1 gm/ (Sodium Chloride) 50 mls @ 200 mls/hr IVPB Q24H [facility] Last Admin: 02/03/19 03:54 Dose: 200 mls/hr Lisinopril (Prinivil Tab*) 2.5 mg PO DAILY [facility] Last Admin: 02/03/19 08:44 Dose: 2.5 mg Magnesium Oxide (Magox 400 Tab*) 800 mg PO DAILY [facility] Last Admin: 02/03/19 08:44 Dose: 800 mg Mometasone Furoate/Formoterol Fumar (Dulera 200/5 Mdi*) 2 puff INH BID [facility]; Protocol Last Admin: 02/03/19 08:35 Dose: 2 puff Nitroglycerin (Nitroglycerin Tab 0.3 Mg*) 0.3 mg SL Q5M PRN PRN Reason: PAIN - CHEST Pharmacy Profile Note (Coumadin Per Pharmacy*) 0 note FOLLOW UP .PER PHARMACY PROTOC [facility]; Protocol Polyethylene Glycol/Electrolytes (Miralax*) 17 gm PO BEDTIME [facility] Potassium Chloride (Klor Con Er Tab*) 20 meq PO DAILY [facility] Last Admin: 02/03/19 08:44 Dose: 20 meq Prednisone (Deltasone Tab*) 50 mg PO DAILY [facility] Last Admin: 02/03/19 08:44 Dose: 50 mg Torsemide (Torsemide) 80 mg PO 0800,1700 [facility] Last Admin: 02/03/19 08:43 Dose: 80 mg Warfarin Sodium (Coumadin Tab(*)) 4 mg PO 1700 ONE Stop: 02/03/19 17:01 Vital Signs - 8 hr 02/03/19 02/03/19 02/03/19 08:39 09:02 12:02 Temperature 97.0 F 98.6 F 99.0 F Pulse Rate 67 64 63 Respiratory 28 20 20 Rate Blood Pressure 134/84 136/69 127/71 (mmHg) O2 Sat by Pulse 95 95 97 Oximetry Oxygen Devices in Use Now: Nasal Cannula Appearance: Alert, partly up in bed. Quite tachypneic at rest, occ moist cough. Eyes: No Scleral Icterus Respiratory: Symmetrical Chest Expansion and Respiratory Effort, Clear to Percussion, - - mod rhonchi BL Cardiovascular: NL Sounds; No Murmurs; No JVD, RRR, No Edema, - Extremities: No Edema, No Clubbing, Cyanosis, - Skin: No Rash or Ulcers, No Nodules or Sclerosis, - Neurological: Alert and Oriented x 3, NL Sensation Result Diagrams: 02/03/19 00:37 02/03/19 00:37 Additional Lab and Data: Laboratory Tests 02/03/19 02/03/19 02/03/19 00:37 00:37 00:37 INR (Anticoag Therapy) APTT Glucose 171 H Lactic Acid 2.0 AST 52 H ALT 58 H Troponin I 0.10 H* B-Natriuretic Peptide 702 H Total Protein 7.0 Influenza A (Rapid) Influenza B (Rapid) 02/03/19 02/03/19 00:37 02:32 INR (Anticoag Therapy) 2.22 H APTT 30.2 Glucose Lactic Acid AST ALT Troponin I B-Natriuretic Peptide Total Protein Influenza A (Rapid) Negative Influenza B (Rapid) Negative Diagnostic Imaging: CXR: L-sided chronic density, R-sided infiltrate new compared w/ previous CXR EKG Data: A-fib, V-paced rhythm Assess/Plan/Problems-Billing Assessment: 68 year old man with history of CHF, COPD, admitted w/ pneumonia and COPD exacerbation - Patient Problems (1) Acute on chronic systolic (congestive) heart failure Current Visit: No Status: Acute Priority: Medium Code(s): I50.23 - ACUTE ON CHRONIC SYSTOLIC (CONGESTIVE) HEART FAILURE SNOMED Code(s): 186550973 Comment: Furosemide 80 mg IV PM 02/03. BMP 02/04. - ECHO showed EF of 20-25% 10/27/17. Had echo in Dr. Anaya's office 07/2018 , requested fax copy. Continue all home cardiac meds. (2) COPD exacerbation Current Visit: No Status: Acute Code(s): J44.1 - CHRONIC OBSTRUCTIVE PULMONARY DISEASE W (ACUTE) EXACERBATION SNOMED Code(s): 763199219 Comment: Not clear how much of his trouble is COPD vs CHF. Add guaifenesin. Taper prednisone to get 50 mg AM 02/04. Continue ceftr, azith. Note patient not on home O2, does have nebulizer. Quit smoking over 20 yrs ago. (3) History of deep venous thrombosis or pulmonary embolus Current Visit: No Status: Chronic Priority: Medium Code(s): [id number] - SNOMED Code(s): 907315692 Comment: - Continue warfarin per home dosing. INR 02/04. Status and Disposition: inpatient
[2019-02-03] MEDS: Albuterol/Ipratropium NEB.SOL* Albuterol 2.5 MG/Ipratropium 0.5 MG 3 ML INH PRN ×2 (16:14→20:25)
[2019-02-03] MEDS ORDERED: Warfarin TAB(*) 4 MG PO ONE (17:00)
[2019-02-03] MEDS: guaiFENesin LIQ* 100 MG/5 ML UDC PO SCH ×2 (17:17→20:58)
[2019-02-03] MEDS: Polyethylene Glycol 3350* 17 GM PACKET PO SCH (20:58)
--- NOTE | 2019-02-03 23:23 | PN ---
Progress Note - Progress Note Date of Service: 02/03/19 Note: PVR > 400, straight cath x 1. Will continue to obtain PVR
[2019-02-04] MEDS: Azithromycin 500 mg/250 ml NS 500 MG/250 ML BAG IVPB SCH (02:52)
[2019-02-04] MEDS: cefTRIAXone(*) 1 GM in NS 0.9% 50 ML* 50 ML IVPB SCH (04:35)
[2019-02-04 06:28] LABS: ABS Basophils 0 10^3/ul (0-0.2); ABS Eosinophils 0 10^3/ul (0-0.6); ABS Lymphocytes 0.6 10^3/ul (1.0-4.8); ABS Monocytes 0.6 10^3/ul (0-0.8); ABS Neutrophils 11.7 10^3/ul (1.5-7.7); ABS Nucleated RBC 0 10^3/ul; Eosinophil % 0 %; Hematocrit 40 % (36-46); Lymphocyte % 4.8 %; Mean Corpuscular HGB Conc 33 g/dL (31-36); Mean Corpuscular Hemoglobin 31 pg (27-31); Mean Corpuscular Volume 94 fL (80-94); Mean Platelet Volume 8.9 fL (7.4-10.4); Nucleated Red Blood Cells % 0.2; Platelet Count 140 10^3/uL (150-450); Red Blood Count 4.23 10^6 /uL (4.18-5.48); Red Cell Distribution Width 16 % (10.5-15)
[2019-02-04 06:43] LABS: INR 4.14 (0.82-1.09)
[2019-02-04 07:03] LABS: BUN/Creatinine Ratio 38.5 (8-20); Calcium 8.7 mg/dL (8.6-10.3); EGFR African American 53.5 (>60); EGFR Non-African American 44.2 (>60); Potassium 3.9 mmol/L (3.5-5.0)
[2019-02-04] MEDS: Torsemide TAB 10 MG PO SCH (08:27)
[2019-02-04] MEDS: guaiFENesin LIQ* 100 MG/5 ML UDC PO SCH ×4 (08:28→20:19)
[2019-02-04] MEDS: Carvedilol TAB* 6.25 MG PO SCH ×2 (08:28→20:18)
[2019-02-04] MEDS: Lisinopril TAB* 5 MG PO SCH (08:28)
[2019-02-04] MEDS: Magnesium Oxide TAB* 400 MG PO SCH (08:29)
[2019-02-04] MEDS: Potassium Chlor TAB* 20 MEQ TAB.ER PO SCH (08:29)
[2019-02-04] MEDS: predniSONE TAB* 50 MG PO SCH (08:29)
[2019-02-04] MEDS: Albuterol/Ipratropium NEB.SOL* Albuterol 2.5 MG/Ipratropium 0.5 MG 3 ML INH PRN ×2 (08:45→11:15)
[2019-02-04] MEDS: Mometasone/Formoter 200/5 MDI INH SCH ×2 (08:45→20:02)
[2019-02-04] MEDS ORDERED: Potassium Chlor TAB* 20 MEQ TAB.ER PO ONE (09:14)
[2019-02-04 09:33] LABS: Magnesium 2.1 mg/dL (1.9-2.7)
[2019-02-04] MEDS ORDERED: Torsemide TAB 10 MG PO SCH (16:00)
--- NOTE | 2019-02-04 17:53 | PN ---
Subjective Date of Service: 02/04/19 Interval History: Pt reports feeling better but still quite SOB. Is is becoming more comfortable when lying flat. Had had good urine output with spontaneous voids but also with high post-void residual. Had BM overnight. LE edema improved to near normal, but reports his belly still looks too big to him. He reports that his abdomen is what swells when he had HF exacerbation, and it improves with IV diuresis. Pt BUN/Cr ratio has increased, so will continue with his oral home meds today - can consider another IV dose tomorrow after labs/exam. Objective Active Medications: Albuterol/Ipratropium (Duoneb (Albuterol 2.5 Mg/Ipratropium 0.5 Mg)) 1 neb INH Q2H PRN PRN Reason: SOB/WHEEZING Last Admin: 02/04/19 11:15 Dose: 1 neb Carvedilol (Coreg Tab*) 6.25 mg PO BID [facility] Last Admin: 02/04/19 08:28 Dose: 6.25 mg Guaifenesin (Robitussin*) 10 ml PO QID [facility] Last Admin: 02/04/19 16:25 Dose: 10 ml Azithromycin (Zithromax 500 Mg/250 Ml) 500 mg in 250 mls @ 250 mls/hr IVPB Q24H [facility] Last Admin: 02/04/19 02:52 Dose: 250 mls/hr Ceftriaxone Sodium 1 gm/ (Sodium Chloride) 50 mls @ 200 mls/hr IVPB Q24H [facility] Last Admin: 02/04/19 04:35 Dose: 200 mls/hr Lisinopril (Prinivil Tab*) 2.5 mg PO DAILY [facility] Last Admin: 02/04/19 08:28 Dose: 2.5 mg Magnesium Oxide (Magox 400 Tab*) 800 mg PO DAILY [facility] Last Admin: 02/04/19 08:29 Dose: 800 mg Mometasone Furoate/Formoterol Fumar (Dulera 200/5 Mdi*) 2 puff INH BID [facility]; Protocol Last Admin: 02/04/19 08:45 Dose: 2 puff Nitroglycerin (Nitroglycerin Tab 0.3 Mg*) 0.3 mg SL Q5M PRN PRN Reason: PAIN - CHEST Pharmacy Profile Note (Coumadin Per Pharmacy*) 0 note FOLLOW UP .PER PHARMACY PROTOC [facility]; Protocol Polyethylene Glycol/Electrolytes (Miralax*) 17 gm PO BEDTIME [facility] Last Admin: 02/03/19 20:58 Dose: 17 gm Potassium Chloride (Klor Con Er Tab*) 20 meq PO DAILY [facility] Last Admin: 02/04/19 08:29 Dose: 20 meq Prednisone (Deltasone Tab*) 50 mg PO DAILY [facility] Last Admin: 02/04/19 08:29 Dose: 50 mg Torsemide (Torsemide) 80 mg PO 0800,1600 [facility] Last Admin: 02/04/19 16:25 Dose: 80 mg Vital Signs - 8 hr 02/04/19 02/04/19 02/04/19 11:17 13:13 15:54 Temperature 97.8 F 97.5 F Pulse Rate 61 62 60 Respiratory 18 18 24 Rate Blood Pressure 116/80 100/64 (mmHg) O2 Sat by Pulse 98 99 98 Oximetry 02/04/19 02/04/19 16:00 16:23 Temperature Pulse Rate Respiratory Rate Blood Pressure 119/90 (mmHg) O2 Sat by Pulse 98 Oximetry Oxygen Devices in Use Now: Nasal Cannula Appearance: friendly, alert, interactive, with audible wheeze, without increased WOB Respiratory: - - diffuse expiratory wheeze with poor air movement, no focal crackles or rhonchi Abdominal: - - distended, nontender, no fluid wave Extremities: - - trace edema over ankles Result Diagrams: 02/04/19 05:56 02/04/19 05:56 Additional Lab and Data: Laboratory Tests 02/03/19 02/03/19 02/03/19 00:37 00:37 00:37 INR (Anticoag Therapy) APTT Glucose 171 H Lactic Acid 2.0 AST 52 H ALT 58 H Troponin I 0.10 H* B-Natriuretic Peptide 702 H Total Protein 7.0 Influenza A (Rapid) Influenza B (Rapid) 02/03/19 02/03/19 00:37 02:32 INR (Anticoag Therapy) 2.22 H APTT 30.2 Glucose Lactic Acid AST ALT Troponin I B-Natriuretic Peptide Total Protein Influenza A (Rapid) Negative Influenza B (Rapid) Negative Microbiology and Other Data: Microbiology 02/03/19 00:37 Aerobic Blood Culture - Preliminary Blood Venous No Growth Day 1 Anaerobic Blood Culture - Preliminary No Growth Day 1 02/03/19 00:37 Aerobic Blood Culture - Preliminary Blood Venous No Growth Day 1 Anaerobic Blood Culture - Preliminary No Growth Day 1 Diagnostic Imaging: CXR: L-sided chronic density, R-sided infiltrate new compared w/ previous CXR Assess/Plan/Problems-Billing Assessment: 68M with HFrEF 20-25% s/p AICD, COPD, CAD s/p CABG, h/o DVT/PE on warfarin, admitted with CHF exacerbation, COPD exacerbation, and possible pneumonia. - Patient Problems (1) Acute on chronic systolic (congestive) heart failure Comment: EF 20-25%. Furosemide 80 mg IV PM 02/03 then back on home torsemide. May have significant intestinal edema. - replete K to 4.5 - lisinopril 2.5mg daily, carvedilol 6.25 q12h - home torsemide 80mg PO bid - consider another dose of IV after labs/exam (2) CAP (community acquired pneumonia) Comment: Presentation with URI, followed by productive cough consistent with viral or bacterial pneumonia, and COPD exacerbation. - cont ceftriaxone and azithromycin (02/03 - ) - f/u procalcitonin (3) COPD exacerbation Comment: Not clear how much of his trouble is COPD vs CHF. - cont prednisone (02/03 - ) - wean supplemental O2, goal SaO2 88-92% - albuterol nebulizer PRN (4) History of deep venous thrombosis or pulmonary embolus Comment: - Continue warfarin per home dosing. Status and Disposition: inpatient
[2019-02-04] MEDS: Polyethylene Glycol 3350* 17 GM PACKET PO SCH (20:18)
[2019-02-05] MEDS: cefTRIAXone(*) 1 GM in NS 0.9% 50 ML* 50 ML IVPB SCH (03:29)
[2019-02-05] MEDS: Torsemide TAB 10 MG PO SCH ×2 (05:46→12:49)
[2019-02-05 06:56] LABS: BUN/Creatinine Ratio 45.1 (8-20); Calcium 8.5 mg/dL (8.6-10.3); EGFR African American 59.6 (>60); EGFR Non-African American 49.3 (>60); Magnesium 2.3 mg/dL (1.9-2.7); Potassium 3.6 mmol/L (3.5-5.0)
[2019-02-05 07:03] LABS: INR 7.3 (0.82-1.09)
[2019-02-05] MEDS: Mometasone/Formoter 200/5 MDI INH SCH ×2 (07:41→20:18)
[2019-02-05] MEDS ORDERED: Azithromycin TAB* 250 MG PO SCH (09:00)
[2019-02-05] MEDS: Lisinopril TAB* 5 MG PO SCH (09:58)
[2019-02-05] MEDS: guaiFENesin LIQ* 100 MG/5 ML UDC PO SCH ×4 (09:58→20:51)
[2019-02-05] MEDS: Carvedilol TAB* 6.25 MG PO SCH ×2 (09:59→21:05)
[2019-02-05] MEDS: Potassium Chlor TAB* 20 MEQ TAB.ER PO SCH (09:59)
[2019-02-05] MEDS: Magnesium Oxide TAB* 400 MG PO SCH (09:59)
[2019-02-05] MEDS: predniSONE TAB* 20 MG PO SCH (10:00)
[2019-02-05] MEDS: KCL 20 MEQ/100 ML IVPREMIX* 20 MEQ/100 ML BAG IV SCH ×2 (10:00→12:50)
[2019-02-05 11:40] LABS: Albumin 3.5 g/dL (3.2-5.2); Albumin/Globulin Ratio 1.3 (1-3); Globulin 2.8 g/dL (2-4); Indirect Bilirubin 0.5 mg/dL (0.3-1.0); Total Bilirubin 0.7 mg/dL (0.2-1.0); Total Protein 6.3 g/dL (6.4-8.9)
[2019-02-05] MEDS: Tamsulosin CAP* 0.4 MG PO SCH (12:50)
[2019-02-05] MEDS: Albuterol/Ipratropium NEB.SOL* Albuterol 2.5 MG/Ipratropium 0.5 MG 3 ML INH PRN ×2 (13:06→16:18)
--- NOTE | 2019-02-05 17:44 | PN ---
Subjective Date of Service: 02/05/19 Interval History: Pt's main complaint is persistent abdominal distention without pain or nausea/ vomiting. He is moving his bowels well. He reports he has had this many times and it always resolved with diuretics alone. He denies history of liver disease or LVP. Ultrasound today was without evidence for ascites or cirrhosis. He had mild AST/ALT elevation on admission (50s) and US showed MURPHY. He has been experiencing urinary retention and reports history of prostate problems, so he was started on tamsulosin. His ultrasound did not show hydronephrosis. Given that his Is & Os are not as negative as they should be, will switch to IV diuretics. However- now holding off given concern for shock liver. Of note, in Jul 2017 he had mild hepatitis during an admission for acute bronchitis. It was thought that this was likely from hepatic steatosis or, less likely, cardiac congestion. HCV negative at that time. Update: LFTs newly elevated to thousands. GI aware. Will look for clot. Also on ddx is shock liver but without low BP on record here. Will screen for acute viral hepatitis. Not on hepatotoxic meds. Objective Active Medications: Albuterol/Ipratropium (Duoneb (Albuterol 2.5 Mg/Ipratropium 0.5 Mg)) 1 neb INH Q2H PRN PRN Reason: SOB/WHEEZING Last Admin: 02/05/19 16:18 Dose: 1 neb Azithromycin (Zithromax Tab*) 250 mg PO DAILY [facility] Stop: 02/07/19 09:01 Last Admin: 02/05/19 09:59 Dose: 250 mg Carvedilol (Coreg Tab*) 6.25 mg PO BID [facility] Last Admin: 02/05/19 09:59 Dose: 6.25 mg Guaifenesin (Robitussin*) 10 ml PO QID [facility] Last Admin: 02/05/19 16:13 Dose: 10 ml Ceftriaxone Sodium 1 gm/ (Sodium Chloride) 50 mls @ 200 mls/hr IVPB Q24H [facility] Last Admin: 02/05/19 03:29 Dose: 200 mls/hr Lisinopril (Prinivil Tab*) 2.5 mg PO DAILY [facility] Last Admin: 02/05/19 09:58 Dose: 2.5 mg Magnesium Oxide (Magox 400 Tab*) 800 mg PO DAILY [facility] Last Admin: 02/05/19 09:59 Dose: 800 mg Mometasone Furoate/Formoterol Fumar (Dulera 200/5 Mdi*) 2 puff INH BID [facility]; Protocol Last Admin: 02/05/19 07:41 Dose: 2 puff Nitroglycerin (Nitroglycerin Tab 0.3 Mg*) 0.3 mg SL Q5M PRN PRN Reason: PAIN - CHEST Pharmacy Profile Note (Coumadin Per Pharmacy*) 0 note FOLLOW UP .PER PHARMACY PROTOC [facility]; Protocol Polyethylene Glycol/Electrolytes (Miralax*) 17 gm PO BEDTIME [facility] Last Admin: 02/04/19 20:18 Dose: 17 gm Potassium Chloride (Klor Con Er Tab*) 20 meq PO DAILY [facility] Last Admin: 02/05/19 09:59 Dose: 20 meq Prednisone (Deltasone Tab*) 40 mg PO DAILY [facility] Last Admin: 02/05/19 10:00 Dose: 40 mg Tamsulosin HCl (Flomax Cap*) 0.4 mg PO DAILY [facility] Last Admin: 02/05/19 12:50 Dose: 0.4 mg Torsemide (Torsemide) 80 mg PO 0600,1400 [facility] Last Admin: 02/05/19 12:49 Dose: 80 mg Vital Signs - 8 hr 02/05/19 02/05/19 02/05/19 10:55 10:56 13:09 Temperature 97.8 F 97.8 F Pulse Rate 61 61 61 Respiratory 18 18 18 Rate Blood Pressure 112/75 112/75 (mmHg) O2 Sat by Pulse 98 98 98 Oximetry 02/05/19 15:41 Temperature 97.4 F Pulse Rate 64 Respiratory 22 Rate Blood Pressure 126/97 (mmHg) O2 Sat by Pulse 97 Oximetry Oxygen Devices in Use Now: Nasal Cannula Appearance: not in acute distress, mildly increased WOB, alert and interactive, pleasant Ears/Nose/Mouth/Throat: Mucous Membranes Moist Abdominal: - - distended, nontender, no fluid wave, no guarding/rebound Extremities: No Edema Result Diagrams: 02/04/19 05:56 02/05/19 06:21 Additional Lab and Data: Laboratory Tests 02/03/19 02/03/19 02/03/19 00:37 00:37 00:37 INR (Anticoag Therapy) APTT Glucose 171 H Lactic Acid 2.0 AST 52 H ALT 58 H Troponin I 0.10 H* B-Natriuretic Peptide 702 H Total Protein 7.0 Influenza A (Rapid) Influenza B (Rapid) 02/03/19 02/03/19 00:37 02:32 INR (Anticoag Therapy) 2.22 H APTT 30.2 Glucose Lactic Acid AST ALT Troponin I B-Natriuretic Peptide Total Protein Influenza A (Rapid) Negative Influenza B (Rapid) Negative Microbiology and Other Data: Microbiology 02/03/19 00:37 Aerobic Blood Culture - Preliminary Blood Venous No Growth Day 1 Anaerobic Blood Culture - Preliminary No Growth Day 1 02/03/19 00:37 Aerobic Blood Culture - Preliminary Blood Venous No Growth Day 1 Anaerobic Blood Culture - Preliminary No Growth Day 1 Diagnostic Imaging: CXR: L-sided chronic density, R-sided infiltrate new compared w/ previous CXR EKG Data: A-fib, V-paced rhythm Assess/Plan/Problems-Billing Assessment: 68M with HFrEF 20-25% s/p AICD, COPD, CAD s/p CABG, h/o DVT/PE on warfarin, admitted with CHF exacerbation, COPD exacerbation, and possible pneumonia. Course c/b hepatitis - ddx is shock liver vs clot. - Patient Problems (1) Acute hepatitis Comment: Only symptom is chronic: abdominal distention. No n/v or pain. US today without ascites, liver concerning for NAFLD. HCV negative 2 years ago. Denies etoh or recent APAP use. Elevated INR likely from warfarin but pt also with slow decrease in platelets. - check viral hep panel - repeat RUQ but will now need doppler - recheck LFTs, night coverage will f/u - GI aware and will see pt in the AM - avoid hepatotoxic meds, hepatic dosing of meds - DC AZITHRO (2) Acute on chronic systolic (congestive) heart failure Comment: EF 20-25%. Furosemide 80 mg IV PM 02/03 then back on home torsemide. May have significant intestinal edema. - replete K to 4.5 - lisinopril 2.5mg daily, carvedilol 6.25 q12h - holding home torsemide 80mg PO bid in case of shock liver - consider another dose of IV after labs/exam (3) CAP (community acquired pneumonia) Comment: Presentation with URI, followed by productive cough consistent with viral or bacterial pneumonia, and COPD exacerbation. - cont ceftriaxone (02/03 - ); stopped azithro after 3 days given hepatitis - f/u procalcitonin (4) COPD exacerbation Comment: Not clear how much of his trouble is COPD vs CHF. - cont prednisone (02/03 - ) - wean supplemental O2, goal SaO2 88-92% - albuterol nebulizer PRN (5) History of deep venous thrombosis or pulmonary embolus Comment: - Continue warfarin per home dosing. Status and Disposition: inpatient
[2019-02-05] MEDS ORDERED: Phytonadione Oral Solution* 5 MG/25 ML UDC PO ONE (19:08)
[2019-02-05 19:56] LABS: Albumin 3.7 g/dL (3.2-5.2); Albumin/Globulin Ratio 1.3 (1-3); Alkaline Phosphatase 59 U/L (34-104); Globulin 2.9 g/dL (2-4); Indirect Bilirubin 0.5 mg/dL (0.3-1.0); Total Protein 6.6 g/dL (6.4-8.9)
[2019-02-05 20:08] LABS: % Iron Saturation 16 % (15-55); Iron 69 ug/dL (50-212); Total Iron Binding Capacity 428 mcg/dL (250-450); Transferrin 306 mg/dL (203-362)
[2019-02-05 20:11] LABS: ALT 2720 U/L (7-52); AST 1308 U/L (13-39)
[2019-02-05 20:19] LABS: INR 7.34 (0.82-1.09)
[2019-02-05 20:25] LABS: Acetaminophen < 15 mcg/mL
[2019-02-05 20:27] LABS: Ferritin 888.3 ng/mL (24-336)
--- NOTE | 2019-02-05 20:44 | PN ---
Progress Note - Progress Note Date of Service: 02/05/19 Note: Repeat INR about the same as earlier. S/P PO vitamin K. Warfarin d/c. No active signs of bleeding.
[2019-02-05] MEDS: Polyethylene Glycol 3350* 17 GM PACKET PO SCH (21:06)
[2019-02-06] MEDS: cefTRIAXone(*) 1 GM in NS 0.9% 50 ML* 50 ML IVPB SCH (02:53)
[2019-02-06] MEDS: Torsemide TAB 10 MG PO SCH ×2 (05:19→15:09)
[2019-02-06 06:41] LABS: Hematocrit 43 % (36-46); Mean Corpuscular HGB Conc 33 g/dL (31-36); Mean Corpuscular Hemoglobin 31 pg (27-31); Mean Corpuscular Volume 94 fL (80-94); Mean Platelet Volume 8.7 fL (7.4-10.4); Platelet Count 157 10^3/uL (150-450); Red Blood Count 4.55 10^6 /uL (4.18-5.48); Red Cell Distribution Width 16 % (10.5-15); White Blood Count 11.3 10^3/uL (3.5-10.8)
[2019-02-06 07:02] LABS: Albumin 3.6 g/dL (3.2-5.2); Albumin/Globulin Ratio 1.2 (1-3); BUN/Creatinine Ratio 43.6 (8-20); Calcium 8.6 mg/dL (8.6-10.3); EGFR African American 64.3 (>60); EGFR Non-African American 53.2 (>60); Indirect Bilirubin 0.5 mg/dL (0.3-1.0); Magnesium 2.5 mg/dL (1.9-2.7); Potassium 3.7 mmol/L (3.5-5.0); Total Bilirubin 0.7 mg/dL (0.2-1.0); Total Protein 6.6 g/dL (6.4-8.9)
[2019-02-06 07:27] LABS: INR 5.05 (0.82-1.09)
[2019-02-06] MEDS: Mometasone/Formoter 200/5 MDI INH SCH ×2 (08:20→20:51)
[2019-02-06 09:59] LABS: Hepatitis C Antibody Nonreactive (Nonreactive)
[2019-02-06] MEDS ORDERED: KCL 20 MEQ/100 ML IVPREMIX* 20 MEQ/100 ML BAG IV ONE (10:23)
[2019-02-06] MEDS: Carvedilol TAB* 6.25 MG PO SCH ×2 (10:25→20:10)
[2019-02-06] MEDS: Potassium Chlor TAB* 20 MEQ TAB.ER PO SCH (10:25)
[2019-02-06] MEDS: Magnesium Oxide TAB* 400 MG PO SCH (10:25)
[2019-02-06] MEDS: Tamsulosin CAP* 0.4 MG PO SCH (10:25)
[2019-02-06] MEDS: predniSONE TAB* 20 MG PO SCH (10:25)
[2019-02-06] MEDS: guaiFENesin LIQ* 100 MG/5 ML UDC PO SCH ×4 (10:26→20:10)
[2019-02-06] MEDS: Lisinopril TAB* 5 MG PO SCH (10:27)
[2019-02-06 11:43] LABS: Hepatitis B Surface Antigen Nonreactive (Nonreactive)
[2019-02-06] MEDS: Albuterol/Ipratropium NEB.SOL* Albuterol 2.5 MG/Ipratropium 0.5 MG 3 ML INH PRN (15:06)
[2019-02-06] MEDS ORDERED: D5W IVPB ONE ×3 (15:30→21:00)
[2019-02-06] MEDS ORDERED: ACETYLCYSTEINE IVPB ONE ×3 (15:30→21:00)
--- NOTE | 2019-02-06 16:29 | CONS ---
CC: Dr. Espinosa* CONSULTATION REPORT: DATE OF CONSULT: 02/06/19 PRIMARY CARE PHYSICIAN: Dr. Espinosa. REQUESTING PROVIDER: Dr. Lezama. REASON FOR CONSULT: Elevated liver enzymes. HISTORY OF PRESENT ILLNESS: This is a pleasant 68-year-old male with a history of ischemic cardiomyopathy; CAD; AICD; [id number] mitral regurgitation; DVT/PE, on Coumadin therapy; and coronary artery bypass, who presented initially to the hospital with shortness of breath. He was found to have pneumonia and placed on azithromycin and ceftriaxone. Initially, his LFTs appeared to be in the high normal range in the emergency room; however, the next day, he had significant elevation in the 1999s. He denies any history of liver disease. He denies any history of injection drug use. No history of homemade tattoos. No history of blood transfusion before 1991. He denies any history of turning yellow or nighttime itching. Denies any black or blood in the stool. Denies any dysphagia or odynophagia. Denies any reflux or dyspepsia. He admits to increasing abdominal distention over the last year, but states he has been more constipated with a bowel movement every few days and significant straining. He states he did have a colonoscopy about [address] Garcia, which he reports is normal. He admits to significant dyspnea on exertion and sputum production increased. He admits to bilateral lower extremity edema. Admits to increased weight gain. Remainder of the 14- point review of systems is grossly negative. PAST MEDICAL HISTORY: CAD, status post CABG; ischemic cardiomyopathy, AICD placement in February 2017; hypertension; hyperlipidemia; zllljodv-[id number] mitral regurgitation; history of DVT/PE; COPD, on home O2. PAST SURGICAL HISTORY: Coronary artery bypass, AICD placement, pacemaker, appendectomy. HOME MEDICATIONS: Include: 1. Carvedilol. 2. Fluticasone/salmeterol. 3. Nitroglycerin. 4. Potassium. 5. Prednisone. 6. Warfarin. 7. He was given a Z-Martin back in October, but no other recent antibiotics. 8. Lisinopril. 9. Magnesium oxide. 10. Torsemide. DRUG ALLERGIES: No known drug allergies. FAMILY HISTORY: Denies family history of colorectal cancer, liver disease, or GI diseases. Multiple family members with CAD. SOCIAL HISTORY: Denies alcohol use, has not done alcohol in 20 years and 20 years ago when he did, he had a beer or two on the weekend and that is it. 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 Quit tobacco 20 years ago. REVIEW OF SYSTEMS: Remainder of the 14-point review of systems is grossly negative. PHYSICAL EXAM: Vital Signs: Blood pressure is 115/81, pulse 60, respiratory rate 16, 95% on 2 L, afebrile. In general, alert and oriented x3, in no acute distress. HEENT: Atraumatic, normocephalic. Pupils equal, round, reactive to light. Extraocular movements are intact. Conjunctivae are pink. Sclerae are anicteric. Neck: Supple. No appreciable JVD. Cardiovascular: Regular rate and rhythm. S1, S2. Pulmonary: Fair effort, decreased at the base, trace wheeze. Abdomen: Soft, mildly distended. Bowel sounds positive, but slightly hypoactive. No shifting dullness appreciated. No guarding or rebound. Nontender. Extremities: 1+ edema bilaterally, pitting in nature. Skin is without rash. Psych: Appropriate mood and affect. Neuro: No asterixis. DIAGNOSTIC STUDIES/LAB DATA: Hemoglobin 14, WBC count 11.3, platelet count was 157. INR on admission was 2.2, went up to 7.3 on 02/05/19 and is now 5.05. AST on admission was 52, peaked at 1565 on 02/05/19, now down to 948; ALT on admission was 58, peaked at 2720, today is 2525; bilirubin 0.5, direct 0.2. Ferritin 888, percent sat is 16. Creatinine 1.33, BUN is 58. Troponin I was 0.10. Acetaminophen less than 15. Hepatitis panel was negative. Imaging data: He had a portal vein ultrasound that showed patent hepatic and portal veins. Abdominal ultrasound did not reveal any evidence of ascites. He had a partially contracted gallbladder with steatosis in the liver. ASSESSMENT AND PLAN: A 68-year-old male with elevated liver enzymes, new since admission. 1. Elevated liver enzymes. The patient does have pneumonia. Certainly ischemia is possible if he had a low blood pressure prior to admission; however , he denies any loss of consciousness, but states that he was not in a good spot prior to arrival. I think the most likely etiology is the azithromycin he was given in the emergency room. This is traditionally a cholestatic picture, but can cause a hepatocellular injury pattern. This has been discontinued appropriately. It seems that his transaminases have peaked at this point. We will not be surprised if there is a slight bilirubin elevation as he recovers. He has had an abdominal ultrasound without evidence of ascites. There is no evidence of clot or Budd- Chiari syndrome. Hepatitis panel was negative. He has no high-risk features for hepatitis disease. He has no evidence of encephalopathy. It is difficult to trend his INR secondary to his Coumadin use. However, if encephalopathy develops, he should be transferred to [place] at [facility]. He does admit to using few tablets of Tylenol, but not in excess. There was good data to support a course of IV N-acetylcysteine when etiology is unclear. We will give a course of IV N- acetylcysteine for 24 hours. Continue to have daily CMP with INR. Expect continued improvement. He likely has underlying nonalcoholic steatohepatitis based on the steatosis on his imaging and then a mildly elevated ALT prior to the insult. He does have an elevated ferritin of 888. This is likely acute phase, especially with a percent saturation of 16. 2. Abdominal distention. Suspect constipation. Recommend placing the patient on aggressive bowel regimen. He does need a repeat colonoscopy at some point. His last was over [address] Garcia without any polyps and he admits to some changes in his bowel habit. He should have an outpatient colonoscopy once stable. 3. History of coronary artery disease. Per primary team. 4. History of deep venous thrombosis/pulmonary embolism. Per primary team. Warfarin currently being held due to supratherapeutic INR. [id number]/[facility] #: [id number] [facility]
[2019-02-06] MEDS: Polyethylene Glycol 3350* 17 GM PACKET PO SCH (20:12)
--- NOTE | 2019-02-06 21:10 | PN ---
Subjective Date of Service: 02/06/19 Interval History: Pt reports feeling better, in terms of dyspnea and abdominal distention. He states he thinks the feeling he had before was from eating too much food, and he will try to control his eating today. His appetite is good, he denies nausea or abdominal pain. RN able to wean SaO2 down to 1.5L and pt has been ambulatory. Per GI recs, he is started on NAC - initially bolused with IV but will transition now to PO as it is equivalent and will allow the patient to remain on the floors. Objective Active Medications: Acetylcysteine (Acetylcysteine Cap (Renal)*) 6,000 mg PO Q4H [facility] Stop: 02/07/19 09:01 Albuterol/Ipratropium (Duoneb (Albuterol 2.5 Mg/Ipratropium 0.5 Mg)) 1 neb INH Q2H PRN PRN Reason: SOB/WHEEZING Last Admin: 02/06/19 15:06 Dose: 1 neb Carvedilol (Coreg Tab*) 6.25 mg PO BID [facility] Last Admin: 02/06/19 20:10 Dose: 6.25 mg Guaifenesin (Robitussin*) 10 ml PO QID [facility] Last Admin: 02/06/19 20:10 Dose: 10 ml Ceftriaxone Sodium 1 gm/ (Sodium Chloride) 50 mls @ 200 mls/hr IVPB Q24H [facility] Last Admin: 02/06/19 02:53 Dose: 200 mls/hr Lisinopril (Prinivil Tab*) 2.5 mg PO DAILY [facility] Last Admin: 02/06/19 10:27 Dose: 2.5 mg Magnesium Oxide (Magox 400 Tab*) 800 mg PO DAILY [facility] Last Admin: 02/06/19 10:25 Dose: 800 mg Mometasone Furoate/Formoterol Fumar (Dulera 200/5 Mdi*) 2 puff INH BID [facility]; Protocol Last Admin: 02/06/19 20:51 Dose: 2 puff Nitroglycerin (Nitroglycerin Tab 0.3 Mg*) 0.3 mg SL Q5M PRN PRN Reason: PAIN - CHEST Pharmacy Profile Note (Coumadin Per Pharmacy*) 0 note FOLLOW UP 1700 [facility] Last Admin: 02/06/19 17:56 Dose: Not Given Polyethylene Glycol/Electrolytes (Miralax*) 17 gm PO BEDTIME [facility] Last Admin: 02/06/19 20:12 Dose: Not Given Potassium Chloride (Klor Con Er Tab*) 20 meq PO DAILY [facility] Last Admin: 02/06/19 10:25 Dose: 20 meq Prednisone (Deltasone Tab*) 40 mg PO DAILY [facility] Last Admin: 02/06/19 10:25 Dose: 40 mg Tamsulosin HCl (Flomax Cap*) 0.4 mg PO DAILY [facility] Last Admin: 02/06/19 10:25 Dose: 0.4 mg Torsemide (Torsemide) 80 mg PO 0600,1400 [facility] Last Admin: 02/06/19 15:09 Dose: 80 mg Vital Signs - 8 hr 02/06/19 02/06/19 02/06/19 14:00 16:00 16:34 Temperature 97.2 F Pulse Rate 60 63 Respiratory 16 24 Rate Blood Pressure 115/81 122/95 (mmHg) O2 Sat by Pulse 95 95 96 Oximetry 02/06/19 02/06/19 02/06/19 16:35 17:00 18:00 Temperature 97.5 F Pulse Rate 64 61 60 Respiratory 16 19 28 Rate Blood Pressure 122/93 134/93 142/115 (mmHg) O2 Sat by Pulse 95 98 97 Oximetry 02/06/19 02/06/19 02/06/19 19:00 19:49 20:00 Temperature Pulse Rate 60 61 Respiratory 24 18 23 Rate Blood Pressure 146/96 (mmHg) O2 Sat by Pulse 93 96 Oximetry 02/06/19 02/06/19 02/06/19 20:01 20:22 20:52 Temperature 98.8 F Pulse Rate 60 60 Respiratory 21 20 Rate Blood Pressure 137/92 (mmHg) O2 Sat by Pulse 96 97 Oximetry 02/06/19 21:00 Temperature Pulse Rate Respiratory 16 Rate Blood Pressure (mmHg) O2 Sat by Pulse Oximetry Oxygen Devices in Use Now: Nasal Cannula Appearance: well appearing, sitting in chair in NAD Ears/Nose/Mouth/Throat: Mucous Membranes Moist Neck: - - cannot assess JVP due to habitus Respiratory: - - air movement improved, mild expiratory wheeze Cardiovascular: No Edema Abdominal: - - distention improved, nontender, no guarding/rebound Extremities: - - 1+ over ankles Result Diagrams: 02/06/19 06:32 02/06/19 06:32 Additional Lab and Data: Laboratory Tests 02/03/19 02/03/19 02/03/19 00:37 00:37 00:37 INR (Anticoag Therapy) APTT Glucose 171 H Lactic Acid 2.0 AST 52 H ALT 58 H Troponin I 0.10 H* B-Natriuretic Peptide 702 H Total Protein 7.0 Influenza A (Rapid) Influenza B (Rapid) 02/03/19 02/03/19 00:37 02:32 INR (Anticoag Therapy) 2.22 H APTT 30.2 Glucose Lactic Acid AST ALT Troponin I B-Natriuretic Peptide Total Protein Influenza A (Rapid) Negative Influenza B (Rapid) Negative Microbiology and Other Data: Microbiology 02/03/19 00:37 Aerobic Blood Culture - Preliminary Blood Venous No Growth Day 1 Anaerobic Blood Culture - Preliminary No Growth Day 1 02/03/19 00:37 Aerobic Blood Culture - Preliminary Blood Venous No Growth Day 1 Anaerobic Blood Culture - Preliminary No Growth Day 1 Diagnostic Imaging: CXR: L-sided chronic density, R-sided infiltrate new compared w/ previous CXR EKG Data: A-fib, V-paced rhythm Assess/Plan/Problems-Billing Assessment: 68M with HFrEF 20-25% s/p AICD, COPD, CAD s/p CABG, h/o DVT/PE on warfarin, admitted with CHF exacerbation, COPD exacerbation, and possible pneumonia. Course c/b hepatitis - ddx is azithromycin vs ischemia. - Patient Problems (1) Acute hepatitis Comment: Only symptom is chronic: abdominal distention. No n/v or pain. US with doppler without clot or ascites. Liver concerning for NAFLD. Viral hep panel negative. APAP negative, doesn't drink alcohol, no supplements. Elevated INR likely from warfarin but pt also with slow decrease in platelets. Could be ischemia but no low BP recorded here. Possibly from azithro for PNA coverage. - started on NAC 02/06 - GI following, appreciate recs - hepatic dosing of meds, avoid hepatotoxic meds - trend labs (2) Acute on chronic systolic (congestive) heart failure Comment: EF 20-25%. Furosemide 80 mg IV PM 02/03 then back on home torsemide. May have significant intestinal edema. - replete K to 4.5 - lisinopril 2.5mg daily, carvedilol 6.25 q12h - cont torsemide 80mg PO bid, although weight may not be at goal (last known dry weight was in 2017 - 170 lbs, cannot find weight mentioned from last HF admission April 2018) - if not concerned that hepatitis was from shock, can consider IV diuretics (3) CAP (community acquired pneumonia) Comment: Presentation with URI, followed by productive cough consistent with viral or bacterial pneumonia, and COPD exacerbation. Procal 1.4 on day 3 of abx. - cont ceftriaxone (02/03 - ); stopped azithro after 3 days given hepatitis (4) COPD exacerbation Comment: Not clear how much of his trouble is COPD vs CHF. - cont prednisone (02/03 - 02/07) - wean supplemental O2, goal SaO2 88-92% - albuterol nebulizer PRN, will use flutter valve (5) History of deep venous thrombosis or pulmonary embolus Comment: - Continue warfarin per home dosing. Status and Disposition: inpatient
[2019-02-06] MEDS ORDERED: Acetylcysteine CAP (RENAL)* 600 MG PO SCH (22:00)
[2019-02-07] MEDS: Acetylcysteine ORAL SOL* 200 MG/ML VIAL PO SCH ×7 (00:09→23:22)
[2019-02-07] MEDS: cefTRIAXone(*) 1 GM in NS 0.9% 50 ML* 50 ML IVPB SCH (03:27)
[2019-02-07] MEDS: Torsemide TAB 10 MG PO SCH ×2 (05:16→15:12)
[2019-02-07 06:08] LABS: ABS Basophils 0.1 10^3/ul (0-0.2); ABS Eosinophils 0 10^3/ul (0-0.6); ABS Lymphocytes 1.4 10^3/ul (1.0-4.8); ABS Nucleated RBC 0 10^3/ul; Eosinophil % 0.2 %; Hematocrit 41 % (36-46); Hemoglobin 13.6 g/dL (14.0-18.0); Lymphocyte % 12.4 %; Mean Corpuscular HGB Conc 33 g/dL (31-36); Mean Corpuscular Hemoglobin 31 pg (27-31); Mean Corpuscular Volume 93 fL (80-94); Mean Platelet Volume 8.5 fL (7.4-10.4); Nucleated Red Blood Cells % 0.2; Platelet Count 147 10^3/uL (150-450); Red Blood Count 4.42 10^6 /uL (4.18-5.48); Red Cell Distribution Width 15 % (10.5-15); White Blood Count 11.6 10^3/uL (3.5-10.8)
[2019-02-07 06:12] LABS: INR 2.39 (0.82-1.09)
[2019-02-07 06:28] LABS: Albumin 3.4 g/dL (3.2-5.2); BUN/Creatinine Ratio 38.5 (8-20); Calcium 8.2 mg/dL (8.6-10.3); EGFR African American 80.9 (>60); EGFR Non-African American 66.9 (>60); Globulin 3.3 g/dL (2-4); Potassium 2.8 mmol/L (3.5-5.0); Total Bilirubin 0.9 mg/dL (0.2-1.0); Total Protein 6.7 g/dL (6.4-8.9)
[2019-02-07] MEDS: Mometasone/Formoter 200/5 MDI INH SCH ×2 (08:25→19:50)
[2019-02-07] MEDS: Magnesium Oxide TAB* 400 MG PO SCH (08:32)
[2019-02-07] MEDS: Tamsulosin CAP* 0.4 MG PO SCH (08:32)
[2019-02-07] MEDS: Carvedilol TAB* 6.25 MG PO SCH ×2 (08:32→20:14)
[2019-02-07] MEDS: Potassium Chlor TAB* 20 MEQ TAB.ER PO SCH (08:32)
[2019-02-07] MEDS: Lisinopril TAB* 5 MG PO SCH (08:32)
[2019-02-07] MEDS: predniSONE TAB* 20 MG PO SCH (08:32)
[2019-02-07] MEDS: guaiFENesin LIQ* 100 MG/5 ML UDC PO SCH ×4 (08:32→20:14)
[2019-02-07] MEDS ORDERED: KCL 20 MEQ/100 ML IVPREMIX* 20 MEQ/100 ML BAG IV ONE (11:23)
[2019-02-07] MEDS ORDERED: Potassium Chlor TAB* 20 MEQ TAB.ER PO ONE (11:27)
--- NOTE | 2019-02-07 11:57 | PN ---
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, still works with [employer], single, no children, friend Eboni is surrogate [phone], quit tobacco 20 yrs ago , no alcohol/drugs Past Medical History: Findings - CAD s/p CABG, ischemic cardiomyopathy, AICD placement 02/2017, HTN, hyperlipidemia, mod-severe mitral regurg, h/o DVT/PE, COPD on home O2;PSH CABGX4, AICD placement, 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, appendectomy Objective Active Medications: Acetylcysteine (Mucomyst Oral Yuli*) 6,000 mg PO Q4H [facility] Last Admin: 02/07/19 08:33 Dose: 6,000 mg Albuterol/Ipratropium (Duoneb (Albuterol 2.5 Mg/Ipratropium 0.5 Mg)) 1 neb INH Q2H PRN PRN Reason: SOB/WHEEZING Last Admin: 02/06/19 15:06 Dose: 1 neb Carvedilol (Coreg Tab*) 6.25 mg PO BID [facility] Last Admin: 02/07/19 08:32 Dose: 6.25 mg Guaifenesin (Robitussin*) 10 ml PO QID [facility] Last Admin: 02/07/19 08:32 Dose: 10 ml Ceftriaxone Sodium 1 gm/ (Sodium Chloride) 50 mls @ 200 mls/hr IVPB Q24H [facility] Last Admin: 02/07/19 03:27 Dose: 200 mls/hr Potassium Chloride (Potassium Chloride 20 Meq/100 Ml Ivpremix*) 20 meq in 100 mls @ 50 mls/hr IV ONCE ONE Stop: 02/07/19 13:22 Lisinopril (Prinivil Tab*) 2.5 mg PO DAILY [facility] Last Admin: 02/07/19 08:32 Dose: 2.5 mg Magnesium Oxide (Magox 400 Tab*) 800 mg PO DAILY [facility] Last Admin: 02/07/19 08:32 Dose: 800 mg Mometasone Furoate/Formoterol Fumar (Dulera 200/5 Mdi*) 2 puff INH BID [facility]; Protocol Last Admin: 02/07/19 08:25 Dose: Not Given Nitroglycerin (Nitroglycerin Tab 0.3 Mg*) 0.3 mg SL Q5M PRN PRN Reason: PAIN - CHEST Pharmacy Profile Note (Coumadin Per Pharmacy*) 0 note FOLLOW UP 1700 [facility] Last Admin: 02/06/19 17:56 Dose: Not Given Polyethylene Glycol/Electrolytes (Miralax*) 17 gm PO BEDTIME [facility] Last Admin: 02/06/19 20:12 Dose: Not Given Potassium Chloride (Klor Con Er Tab*) 20 meq PO DAILY [facility] Last Admin: 02/07/19 08:32 Dose: 20 meq Prednisone (Deltasone Tab*) 40 mg PO DAILY [facility] Last Admin: 02/07/19 08:32 Dose: 40 mg Tamsulosin HCl (Flomax Cap*) 0.4 mg PO DAILY [facility] Last Admin: 02/07/19 08:32 Dose: 0.4 mg Torsemide (Torsemide) 80 mg PO 0600,1400 [facility] Last Admin: 02/07/19 05:16 Dose: 80 mg Warfarin Sodium (Coumadin Tab(*)) 2 mg PO ONCE ONE Stop: 02/07/19 17:01 Vital Signs - 8 hr 02/07/19 02/07/19 07:58 08:00 Temperature 97.4 F Pulse Rate 54 63 Respiratory 20 20 Rate Blood Pressure 152/20 (mmHg) O2 Sat by Pulse 98 98 Oximetry Oxygen Devices in Use Now: Nasal Cannula Appearance: sitting up, NAD Eyes: No Scleral Icterus, PERRLA Ears/Nose/Mouth/Throat: NL Teeth, Lips, Gums, Clear Oropharnyx Neck: NL Appearance and Movements; NL JVP, Trachea Midline Respiratory: Symmetrical Chest Expansion and Respiratory Effort, - - rhonchi throughout Cardiovascular: NL Sounds; No Murmurs; No JVD, RRR Abdominal: - - soft, NTTP, mild distention Lymphatic: No Cervical Adenopathy Extremities: - - trace LE edema Neurological: Alert and Oriented x 3 Result Diagrams: 02/07/19 05:59 02/07/19 05:59 Additional Lab and Data: Laboratory Tests 02/03/19 02/03/19 02/03/19 00:37 00:37 00:37 INR (Anticoag Therapy) APTT Glucose 171 H Lactic Acid 2.0 AST 52 H ALT 58 H Troponin I 0.10 H* B-Natriuretic Peptide 702 H Total Protein 7.0 Influenza A (Rapid) Influenza B (Rapid) 02/03/19 02/03/19 00:37 02:32 INR (Anticoag Therapy) 2.22 H APTT 30.2 Glucose Lactic Acid AST ALT Troponin I B-Natriuretic Peptide Total Protein Influenza A (Rapid) Negative Influenza B (Rapid) Negative Microbiology and Other Data: Microbiology 02/03/19 00:37 Aerobic Blood Culture - Preliminary Blood Venous No Growth Day 1 Anaerobic Blood Culture - Preliminary No Growth Day 1 02/03/19 00:37 Aerobic Blood Culture - Preliminary Blood Venous No Growth Day 1 Anaerobic Blood Culture - Preliminary No Growth Day 1 Diagnostic Imaging: CXR: L-sided chronic density, R-sided infiltrate new compared w/ previous CXR EKG Data: A-fib, V-paced rhythm Assess/Plan/Problems-Billing Assessment: 68M with HFrEF 20-25% s/p AICD, COPD, CAD s/p CABG, h/o DVT/PE on warfarin, admitted with CHF exacerbation, COPD exacerbation, and possible pneumonia. Course c/b hepatitis - ddx is azithromycin vs ischemia. - Patient Problems (1) Supratherapeutic INR Comment: resolved restart coumadin dosed per pharmacy (2) Acute hepatitis Comment: Only symptom is chronic: abdominal distention x months-year. US with doppler without portal vein clot or abdominal ascites. Liver concerning for NAFLD but cannot account for acute elevation Viral hep panel negative. APAP negative, doesn't drink alcohol, no supplements. Elevated INR likely from warfarin now resolved Could be ischemia but no low BP recorded here. Possibly from azithro for PNA coverage or hypotension prior to ED arrival - started on NAC 02/06 - GI following, appreciate recs - hepatic dosing of meds, avoid hepatotoxic meds - trend labs (3) Acute on chronic systolic (congestive) heart failure Comment: EF 20-25%. Furosemide 80 mg IV PM 02/03 then back on home torsemide. May have significant intestinal edema. -Better diuresis with torsemide - replete K to 4.5 - lisinopril 2.5mg daily, carvedilol 6.25 q12h - cont torsemide 80mg PO bid, although weight may not be at goal (last known dry weight was in 2017 - 170 lbs, cannot find weight mentioned from last HF admission April 2018) - if not concerned that hepatitis was from shock, can consider IV diuretics (4) CAP (community acquired pneumonia) Comment: Presentation with URI, followed by productive cough consistent with viral or bacterial pneumonia, and COPD exacerbation. Procal 1.4 on day 3 of abx. - cont ceftriaxone (02/03 - )day 5/ abx; stopped azithro after 3 days given hepatitis (5) COPD exacerbation Comment: Not clear how much of his trouble is COPD vs CHF. - cont prednisone (02/03 - 02/07) - wean supplemental O2, goal SaO2 88-92% - albuterol nebulizer PRN, will use flutter valve has chronic resp failure requiring 2L o2 at night (6) History of deep venous thrombosis or pulmonary embolus Comment: - Continue warfarin per home dosing. Status and Disposition: inpatient
[2019-02-07] MEDS ORDERED: Warfarin TAB(*) 2 MG PO ONE (17:00)
[2019-02-07] MEDS: Polyethylene Glycol 3350* 17 GM PACKET PO SCH (20:15)
[2019-02-08] MEDS: cefTRIAXone(*) 1 GM in NS 0.9% 50 ML* 50 ML IVPB SCH (02:58)
[2019-02-08] MEDS: Acetylcysteine ORAL SOL* 200 MG/ML VIAL PO SCH ×4 (02:58→16:20)
[2019-02-08] MEDS: Torsemide TAB 10 MG PO SCH ×2 (05:12→13:19)
[2019-02-08 07:32] LABS: INR 1.96 (0.82-1.09)
[2019-02-08] MEDS: guaiFENesin LIQ* 100 MG/5 ML UDC PO SCH ×4 (07:54→21:01)
[2019-02-08] MEDS: Potassium Chlor TAB* 20 MEQ TAB.ER PO SCH (07:55)
[2019-02-08] MEDS: Lisinopril TAB* 5 MG PO SCH (07:55)
[2019-02-08] MEDS: Tamsulosin CAP* 0.4 MG PO SCH (07:55)
[2019-02-08] MEDS: Magnesium Oxide TAB* 400 MG PO SCH (07:55)
[2019-02-08] MEDS: Carvedilol TAB* 6.25 MG PO SCH ×2 (07:55→21:01)
[2019-02-08] MEDS: Mometasone/Formoter 200/5 MDI INH SCH ×2 (08:20→19:59)
[2019-02-08 08:46] LABS: Calcium 8.7 mg/dL (8.6-10.3); Potassium 3.2 mmol/L (3.5-5.0)
[2019-02-08 08:51] LABS: BUN/Creatinine Ratio 30.9 (8-20); EGFR African American 80.1 (>60); EGFR Non-African American 66.2 (>60)
[2019-02-08] MEDS ORDERED: Warfarin TAB(*) 2 MG PO ONE (17:00)
[2019-02-08] MEDS ORDERED: Potassium Chlor TAB* 20 MEQ TAB.ER PO ONE (18:56)
--- NOTE | 2019-02-08 19:08 | PN ---
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 works with [employer], single, no children, friend Eboni is surrogate [phone], quit tobacco 20 yrs ago , no alcohol/drugs Past Medical History: Findings - CAD s/p CABG, ischemic cardiomyopathy, AICD placement 02/2017, HTN, hyperlipidemia, mod-severe mitral regurg, h/o DVT/PE, COPD on home O2;PSH CABGX4, AICD placement, 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, appendectomy Objective Active Medications: Albuterol/Ipratropium (Duoneb (Albuterol 2.5 Mg/Ipratropium 0.5 Mg)) 1 neb INH Q2H PRN PRN Reason: SOB/WHEEZING Last Admin: 02/06/19 15:06 Dose: 1 neb Carvedilol (Coreg Tab*) 6.25 mg PO BID [facility] Last Admin: 02/08/19 07:55 Dose: 6.25 mg Guaifenesin (Robitussin*) 10 ml PO QID [facility] Last Admin: 02/08/19 16:20 Dose: Not Given Ceftriaxone Sodium 1 gm/ (Sodium Chloride) 50 mls @ 200 mls/hr IVPB Q24H [facility] Last Admin: 02/08/19 02:58 Dose: 200 mls/hr Lisinopril (Prinivil Tab*) 2.5 mg PO DAILY [facility] Last Admin: 02/08/19 07:55 Dose: 2.5 mg Magnesium Oxide (Magox 400 Tab*) 800 mg PO DAILY [facility] Last Admin: 02/08/19 07:55 Dose: 800 mg Mometasone Furoate/Formoterol Fumar (Dulera 200/5 Mdi*) 2 puff INH BID [facility]; Protocol Last Admin: 02/08/19 08:20 Dose: 2 puff Nitroglycerin (Nitroglycerin Tab 0.3 Mg*) 0.3 mg SL Q5M PRN PRN Reason: PAIN - CHEST Pharmacy Profile Note (Coumadin Per Pharmacy*) 0 note FOLLOW UP 1700 [facility] Last Admin: 02/08/19 17:47 Dose: 1 note Polyethylene Glycol/Electrolytes (Miralax*) 17 gm PO BEDTIME [facility] Last Admin: 02/07/19 20:15 Dose: Not Given Potassium Chloride (Klor Con Er Tab*) 20 meq PO DAILY [facility] Last Admin: 02/08/19 07:55 Dose: 20 meq Potassium Chloride (Klor Con Er Tab*) 60 meq PO ONCE ONE Stop: 02/08/19 18:57 Tamsulosin HCl (Flomax Cap*) 0.4 mg PO DAILY [facility] Last Admin: 02/08/19 07:55 Dose: 0.4 mg Torsemide (Demadex*) 40 mg PO BID [facility] Vital Signs - 8 hr 02/08/19 02/08/19 12:01 16:17 Temperature 97.6 F 98.7 F Pulse Rate 66 63 Respiratory 20 20 Rate Blood Pressure 110/78 110/74 (mmHg) O2 Sat by Pulse 92 90 Oximetry Oxygen Devices in Use Now: Nasal Cannula Appearance: NAD Eyes: No Scleral Icterus, PERRLA Ears/Nose/Mouth/Throat: NL Teeth, Lips, Gums, Clear Oropharnyx Neck: NL Appearance and Movements; NL JVP Respiratory: Symmetrical Chest Expansion and Respiratory Effort, - - rhonchi throughout Cardiovascular: RRR Abdominal: - - distention but soft, feels better today Extremities: - - trace le edema Neurological: Alert and Oriented x 3 Result Diagrams: 02/07/19 05:59 02/08/19 06:08 Additional Lab and Data: Laboratory Tests 02/03/19 02/03/19 02/03/19 00:37 00:37 00:37 INR (Anticoag Therapy) APTT Glucose 171 H Lactic Acid 2.0 AST 52 H ALT 58 H Troponin I 0.10 H* B-Natriuretic Peptide 702 H Total Protein 7.0 Influenza A (Rapid) Influenza B (Rapid) 02/03/19 02/03/19 00:37 02:32 INR (Anticoag Therapy) 2.22 H APTT 30.2 Glucose Lactic Acid AST ALT Troponin I B-Natriuretic Peptide Total Protein Influenza A (Rapid) Negative Influenza B (Rapid) Negative Microbiology and Other Data: Microbiology 02/03/19 00:37 Aerobic Blood Culture - Preliminary Blood Venous No Growth Day 1 Anaerobic Blood Culture - Preliminary No Growth Day 1 02/03/19 00:37 Aerobic Blood Culture - Preliminary Blood Venous No Growth Day 1 Anaerobic Blood Culture - Preliminary No Growth Day 1 Diagnostic Imaging: CXR: L-sided chronic density, R-sided infiltrate new compared w/ previous CXR EKG Data: A-fib, V-paced rhythm Assess/Plan/Problems-Billing Assessment: 68M with HFrEF 20-25% s/p AICD, COPD, CAD s/p CABG, h/o DVT/PE on warfarin, admitted with CHF exacerbation, COPD exacerbation, and possible pneumonia. Course c/b hepatitis - ddx is azithromycin vs ischemia. - Patient Problems (1) Supratherapeutic INR Comment: resolved coumadin dosed per pharmacy (2) Acute hepatitis Comment: Only symptom is chronic: abdominal distention x months-year. US with doppler without portal vein clot or abdominal ascites. Liver concerning for NAFLD but cannot account for acute elevation Viral hep panel negative. APAP negative, doesn't drink alcohol, no supplements. Elevated INR likely from warfarin now resolved Could be ischemia but no low BP recorded here. Possibly from azithro for PNA coverage or hypotension prior to ED arrival - started on NAC 02/06 stopped 02/08 - hepatic dosing of meds, avoid hepatotoxic meds - trend labs (3) Acute on chronic systolic (congestive) heart failure Comment: EF 20-25%. Diuresing very well. Improving kidney function with diuresis (argues for chf as driving cause of presentation) -Better diuresis with torsemide after change from lasix - replete K to 4.5 - lisinopril 2.5mg daily, carvedilol 6.25 q12h - decrease torsemide to 40mg PO bid 02/08 (last known dry weight was in 2016 - 170 lbs, cannot find weight mentioned from last HF admission April 2018) (4) CAP (community acquired pneumonia) Comment: Presentation with URI, followed by productive cough consistent with viral or bacterial pneumonia, and COPD exacerbation. Procal 1.4 on day 3 of abx. - cont ceftriaxone (02/03 - ) Day 6/7 abx; stopped azithro after 3 days given hepatitis (5) COPD exacerbation Comment: Not clear how much of his trouble is COPD vs CHF. prednisone (02/03 - 02/07) Listed as home medication at 40mg daily but this does not seem correct - currently titrated off; will need to reconfirm with pt or pharmacy - wean supplemental O2, goal SaO2 88-92% - albuterol nebulizer PRN, will use flutter valve has chronic resp failure requiring 2L o2 at night (6) History of deep venous thrombosis or pulmonary embolus Comment: - Continue warfarin per home dosing. Status and Disposition: inpatient
[2019-02-08] MEDS: Polyethylene Glycol 3350* 17 GM PACKET PO SCH (21:01)
[2019-02-09] MEDS: cefTRIAXone(*) 1 GM in NS 0.9% 50 ML* 50 ML IVPB SCH (03:06)
[2019-02-09 06:50] LABS: Hematocrit 45 % (36-46); Hemoglobin 14.9 g/dL (14.0-18.0); Mean Corpuscular HGB Conc 33 g/dL (31-36); Mean Corpuscular Hemoglobin 31 pg (27-31); Mean Corpuscular Volume 93 fL (80-94); Mean Platelet Volume 8.7 fL (7.4-10.4); Platelet Count 157 10^3/uL (150-450); Red Blood Count 4.84 10^6 /uL (4.18-5.48); Red Cell Distribution Width 15 % (10.5-15); White Blood Count 11.7 10^3/uL (3.5-10.8)
[2019-02-09 06:57] LABS: INR 2.04 (0.82-1.09)
[2019-02-09 07:13] LABS: ABS Basophils 0 10^3/ul (0-0.2); ABS Eosinophils 0.1 10^3/ul (0-0.6); ABS Lymphocytes 1.4 10^3/ul (1.0-4.8); ABS Neutrophils 9.2 10^3/ul (1.5-7.7); ABS Nucleated RBC 0 10^3/ul; Eosinophil % 0.8 %; Nucleated Red Blood Cells % 0.2
[2019-02-09 07:55] LABS: Albumin 3.3 g/dL (3.2-5.2); Potassium 3.2 mmol/L (3.5-5.0); Total Bilirubin 1.3 mg/dL (0.2-1.0)
[2019-02-09 08:01] LABS: Albumin/Globulin Ratio 1.1 (1-3); BUN/Creatinine Ratio 32.3 (8-20); EGFR African American 90.4 (>60); EGFR Non-African American 74.7 (>60); Total Protein 6.3 g/dL (6.4-8.9)
[2019-02-09 08:48] VITALS: BP 125/82
[2019-02-09] MEDS ORDERED: Torsemide TAB 10 MG PO SCH ×2 (09:00→21:00)
[2019-02-09] MEDS: Mometasone/Formoter 200/5 MDI INH SCH (09:58)
[2019-02-09] MEDS ORDERED: Potassium Chlor TAB* 20 MEQ TAB.ER PO ONE (10:00)
[2019-02-09] MEDS: Magnesium Oxide TAB* 400 MG PO SCH (10:47)
[2019-02-09] MEDS: Potassium Chlor TAB* 20 MEQ TAB.ER PO SCH (10:47)
[2019-02-09] MEDS: Carvedilol TAB* 6.25 MG PO SCH (10:48)
[2019-02-09] MEDS: Lisinopril TAB* 5 MG PO SCH (10:48)
[2019-02-09] MEDS: guaiFENesin LIQ* 100 MG/5 ML UDC PO SCH ×2 (10:49→13:14)
[2019-02-09] MEDS: Tamsulosin CAP* 0.4 MG PO SCH (10:49)
[2019-02-09] MEDS ORDERED: Torsemide TAB 10 MG PO ONE (10:51)
[2019-02-09] MEDS ORDERED: predniSONE TAB* 10 MG PO SCH (11:00)
[2019-02-09] MEDS ORDERED: Warfarin TAB(*) 2 MG PO SCH (17:00)
--- NOTE | 2019-02-09 19:20 | DS ---
CC: Dr. Espinosa* DISCHARGE SUMMARY: DATE OF ADMISSION: 02/03/19 DATE OF DISCHARGE: 02/09/19 PRIMARY CARE PROVIDER: Dr. Espinosa. DISPOSITION ON DISCHARGE: Home. CONDITION ON DISCHARGE: Improved and stable. PRIMARY DIAGNOSES: 1. Hypoxic respiratory failure secondary to combination of acute decompensated systolic heart failure exacerbation, chronic obstructive pulmonary disease, and possible pneumonia. 2. Hepatitis. 3. Supratherapeutic INR. 4. Hypokalemia. 5. Acute kidney injury. SECONDARY DIAGNOSES: 1. Chronic compensated systolic heart failure. 2. Coronary artery disease. 3. Hypertension. 4. History of deep vein thrombosis and pulmonary embolism, on Coumadin. 5. Chronic respiratory failure, requiring 2 L at all time, had only been using oxygen at night. MEDICATIONS ON DISCHARGE: Include: 1. Prednisone 5 mg twice daily. 2. Potassium chloride 20 mEq daily. 3. Nitroglycerin sublingual as needed. 4. Magnesium oxide 800 mg daily. 5. Lisinopril 2.5 mg daily. 6. Fluticasone/salmeterol 115/21 two puffs twice daily. 7. Carvedilol 6.25 mg twice daily. 8. Coumadin 2 mg in the evening, please note decreased dose. 9. Torsemide 60 mg twice daily. 10. Flomax 0.4 mg daily. PERTINENT LABORATORY DATA: Includes transaminitis, maximum ALT 2720, maximum AST 1565 with normal limit alk phos and bilirubin, ferritin 888, procalcitonin 1.4. Hepatitis serologies are negative. Acetaminophen is negative. Potassium nadirs at 2.8. Creatinine peaked at 1.56, 0.99 on discharge, procalcitonin 1.4. PERTINENT IMAGIN. Chest x-ray: Mild pulmonary vascular congestion and interstitial edema, stigmata of chronic obstructive pulmonary disease. 2. Abdominal ultrasound: Partially contracted gallbladder with echogenic liver consistent with hepatic steatosis. No biliary duct dilatation and no ascites. 3. Portal vein ultrasound: No clot appreciated. HISTORY OF PRESENT ILLNESS AND HOSPITAL COURSE: This is a 68-year-old man with past medical history as outlined in the history of present illness on the day of admission, presented to the hospital with 2 days progressive dyspnea, cough, and sputum production. The differential on admission remain broad. He was treated for COPD with increased steroids, community-acquired pneumonia with ceftriaxone and azithromycin, and CHF exacerbation with increased diuresis. After initiation of therapy, the patient's transaminitis was noted to be elevated into thousands as indicated above. The etiology remained unclear that include medication effect, however, seemed out of proportion, potentially hypotension, although never recorded, very low during this hospital stay, could have been worse prior to presentation. The patient did receive oral NAC and discontinuation of azithromycin with improvement. He was treated with 5-day course of steroids, tapered back down to his home dose 5 mg twice daily. He did not diurese well with Lasix, was transitioned to torsemide 80 mg twice daily with excellent diuresis, negative approximately 2 L for the 2 days prior to presentation and another liter the day prior, that is on 02/06/19. Weights did not seem widely accurate, however, it does appear he has lost between 3 and 4 kg with concomitant improved breathing and decreased abdominal distention, which had been developing over month despite absence of ascites on his abdominal ultrasound. The patient was ambulated around the unit 7 times prior to his discharge. He did not require oxygen for the first 3 laps and then required 2 L to maintain oxygen sat 98%. The patient was advised he has to wear oxygen at 2 L at all times. The patient does have oxygen concentrator and tanks at home according to his own account. Hospital course is also notable for supratherapeutic INR. His Coumadin was held and then titrated to 2 mg in the evening. INR has been stable for 3 consecutive days. He received potassium repletion in the setting of diuresis. His kidney function improved with improvement in his respiratory function, treatment of his pneumonia, steroids as well as diuresis which lends more evidence to CHF exacerbation as the etiology of his presenting symptoms potentially with underlying cardiorenal syndrome that improved with diuresis. It is titrated from 80 mg twice daily to 60 mg twice daily. He did not have the significant negative output that was notable at 80 mg twice daily prior to his discharge. At the time of his discharge, his AST was 73, his ALT was 988, his total bilirubin was 1.3, his alk phos was normal. FOLLOWUP: 1. Follow INR, which has been ordered. 2. Check BMP for potassium stability, which is ordered. 3 Can consider repeat LFTs in the future to ensure they have fully normalized. 4. Assess respiratory status, titrate torsemide as necessary. 5. Assess respiratory status and oxygen titrate as necessary as well. Reasons to return to the hospital including but not limited to recurrent or worsening symptoms, chest pain, shortness of breath, nausea, vomiting, lightheadedness, loss of consciousness or near loss of consciousness, bleeding from any source, or inability to obtain or tolerating medications or oxygen are discussed with the patient at length. He acknowledged understanding. TIME SPENT: Greater than 60 minutes was spent on the discharge of the patient, greater than half was spent [id number] with the patient. [id number]/[facility] #: [id number] IRMA
== END 2019-02-09 14:30 | disposition home or self-care (01) | DRG 291 ==
LOC: ED 00:09 → MEDTELE 02:14 → ICU 02-06 17:07 → MEDTELE 02-06 23:19
PROVIDERS: ADMIT Internal Medicine; ATTEND Internal Medicine
DX: I11.0 Hypertensive heart disease with heart failure (principal); J18.9 Pneumonia, unspecified organism; K72.00 Acute and subacute hepatic failure without coma; J96.91 Respiratory failure, unspecified with hypoxia; J44.0 Chronic obstructive pulmonary disease with (acute) lower respiratory infection; J44.1 Chronic obstructive pulmonary disease with (acute) exacerbation; I24.8 Other forms of acute ischemic heart disease; B17.9 Acute viral hepatitis, unspecified; N17.9 Acute kidney failure, unspecified; J96.10 Chronic respiratory failure, unspecified whether with hypoxia or hypercapnia; I25.5 Ischemic cardiomyopathy; E78.5 Hyperlipidemia, unspecified; I50.23 Acute on chronic systolic (congestive) heart failure; I25.10 Atherosclerotic heart disease of native coronary artery without angina pectoris; I48.91 Unspecified atrial fibrillation; K75.81 Nonalcoholic steatohepatitis (NASH); R33.9 Retention of urine, unspecified; E87.6 Hypokalemia; R79.1 Abnormal coagulation profile; R60.9 Edema, unspecified; Z86.718 Personal history of other venous thrombosis and embolism; Z79.01 Long term (current) use of anticoagulants; Z86.711 Personal history of pulmonary embolism; Z99.81 Dependence on supplemental oxygen; Z82.49 Family history of ischemic heart disease and other diseases of the circulatory system; Z95.810 Presence of automatic (implantable) cardiac defibrillator; I34.0 Nonrheumatic mitral (valve) insufficiency; Z95.1 Presence of aortocoronary bypass graft
CPT/HCPCS: 36415; 71046; 76700; 80048; 80053; 80074; 80076; 80329; 82728; 83540; 83550; 83605; 83735; 83880; 84145; 84484; 85025; 85027; 85610; 85730; 87040; 87641; 87899; 93005; 93975; 94640; 99284; A9270-GY; G0480; J0132; J0456; J0696; J1940; J2930; J3480; J7060; J7512

== ENCOUNTER 2019-02-11 20:59 | Emergency (ER) | payer MEDICARE, MEDICAID ==
[2019-02-12 00:45] LABS: Urine Appearance Clear; Urine Bacteria Absent (Absent); Urine Bilirubin Negative (Negative); Urine Blood 2+ (Negative); Urine Color Yellow; Urine Glucose Negative (Negative); Urine Ketones Negative (Negative); Urine Nitrite Negative (Negative); Urine Protein 1+(30 mg/dL) (Negative); Urine Red Blood Cell 1+(3-5/hpf) (Absent); Urine Specific Gravity 1.009 (1.010-1.030); Urine Squamous Epithelial Cell Present (Absent); Urine Urobilinogen Negative (Negative); Urine White Blood Cell Trace(0-5/hpf) (Absent)
--- NOTE | 2019-02-12 01:36 | ED ---
Complaint/Male - History of Current Complaint Chief Complaint: EDUrogenitalProblems Time Seen by Provider: 02/11/19 23:43 - Allergies/Home Medications Allergies/Adverse Reactions: Allergies Allergy/AdvReac Type Severity Reaction Status Date / Time azithromycin AdvReac Severe See Comment Verified 02/12/19 00:01 PMH/Surg Hx/FS Hx/Imm Hx Endocrine/Hematology History: Denies: Hx Diabetes Cardiovascular History: Reports: Hx Auto Implanted Cardiovert Defib, Hx Congestive Heart Failure, Hx Coronary Artery Disease, Hx Deep Vein Thrombosis, Hx Hypercholesterolemia, Hx Hypertension, Hx Myocardial Infarction, Hx Pacemaker /ICD - 02/19/17, Other Cardiovascular Problems/Disorders Respiratory History: Reports: Hx Chronic Obstructive Pulmonary Disease (COPD), Hx Pneumonia, Hx Pulmonary Embolism, Other Respiratory Problems/Disorders - respiratory failure, uses 3L O2 at night Denies: Hx Asthma History: Denies: Hx Renal Disease Musculoskeletal History: Reports: Hx Arthritis - fingers, Hx Back Problems Denies: Hx Bursitis, Hx Congenital Bone Abnormalities, Hx Fibromyalgia, Hx Gout, Hx Orthopedic Injury, Hx Osteoporosis, Hx Scoliosis, Hx Tendonitis, Other Musculoskeletal History Sensory History: Reports: Hx Deafness - left ear, Hx Hearing Problem Denies: Hx Cataracts, Hx Contacts or Glasses, Hx Eye Injury, Hx Eye Prosthesis, Hx Glaucoma, Hx Legally Blind, Hx Macular Degeneration, Hx Vision Problem, Hx Hearing Aid, Other Sensory Impairments Opthamlomology History: Denies: Hx Cataracts, Hx Contacts or Glasses, Hx Eye Injury, Hx Eye Prosthesis, Hx Glaucoma, Hx Legally Blind, Hx Macular Degeneration, Hx Vision Problem, Other Sensory Impairments Psychiatric History: Reports: Hx Anxiety - Surgical History Surgery Procedure, Year, and Place: CABG, pacemaker/ICD, appendectomy Hx Anesthesia Reactions: No - Immunization History Date of Tetanus Vaccine: unk Date of Influenza Vaccine: unk Infectious Disease History: No Infectious Disease History: Denies: Traveled Outside the [place] in Last 30 Days - Family History Known Family History: Positive: Cardiac Disease - extensive [place] FHx - Social History Alcohol Use: None Hx Substance Use: No Substance Use Type: Reports: None Hx Tobacco Use: Yes Smoking Status (MU): Former Smoker Type: Cigarettes Have You Smoked in the Last Year: No Physical Exam Vital Signs On Initial Exam: Initial Vitals Temp Pulse Resp BP Pulse Ox 98.7 F 73 24 124/90 95 02/11/19 21:06 02/11/19 21:06 02/11/19 21:06 02/11/19 21:06 02/11/19 21:06 Diagnostics - Vital Signs Vital Signs Temp Pulse Resp BP Pulse Ox 02/11/19 21:06 98.7 F 73 24 124/90 95 - Laboratory Lab Results: Lab Results 02/12/19 Range/Units 00:25 Urine Color Yellow Urine Appearance Clear Urine pH 6.0 (5-9) Ur Specific [place] 1.009 L (1.010-1.030) Urine Protein 1+(30 mg/dl) A (Negative) Urine Ketones Negative (Negative) Urine Blood 2+ A (Negative) Urine Nitrate Negative (Negative) Urine Bilirubin Negative (Negative) Urine Urobilinogen Negative (Negative) Ur Leukocyte Esterase Negative (Negative) Urine WBC (Auto) Trace(0-5/hpf) (Absent) Urine RBC (Auto) 1+(3-5/hpf) A (Absent) Ur Squamous Epith Cells Present A (Absent) Urine Bacteria Absent (Absent) Urine Glucose Negative (Negative) Lab Statement: Any lab studies that have been ordered have been reviewed, and results considered in the medical decision making process. Complaint Male Course/Dx - Differential Dx/Diagnosis Provider Diagnosis: Encounter for ureteral catheter placement
--- NOTE | 2019-02-12 02:21 | ED ---
GI/ HPI - HPI Summary HPI Summary: Patient complains of difficulty urinating today. Was sent by PCP to ED for urinary catheter. Patient is not good historian. History of BPH. Denies any other pains, injury or symptoms. - History of Current Complaint Chief Complaint: EDUrogenitalProblems Time Seen by Provider: 02/11/19 23:43 Stated Complaint: DR SENT FOR A CATHETER PER PT Hx Obtained From: Patient Onset/Duration: Started Hours Ago Timing: Constant Severity: Moderate Current Severity: Moderate Pain Intensity: 3 Pain Characteristics: Cramping Associated Signs and Symptoms: Positive: Dysuria Aggravating Factor(s): Nothing Alleviating Factor(s): Nothing - Additional Pertinent History Primary Care Physician: CHAITANYA - Allergy/Home Medications Allergies/Adverse Reactions: Allergies Allergy/AdvReac Type Severity Reaction Status Date / Time azithromycin AdvReac Severe See Comment Verified 02/12/19 00:01 PMH/Surg Hx/FS Hx/Imm Hx Endocrine/Hematology History: Denies: Hx Diabetes Cardiovascular History: Reports: Hx Auto Implanted Cardiovert Defib, Hx Congestive Heart Failure, Hx Coronary Artery Disease, Hx Deep Vein Thrombosis, Hx Hypercholesterolemia, Hx Hypertension, Hx Myocardial Infarction, Hx Pacemaker /ICD - 02/19/17, Other Cardiovascular Problems/Disorders Respiratory History: Reports: Hx Chronic Obstructive Pulmonary Disease (COPD), Hx Pneumonia, Hx Pulmonary Embolism, Other Respiratory Problems/Disorders - respiratory failure, uses 3L O2 at night Denies: Hx Asthma History: Denies: Hx Renal Disease Musculoskeletal History: Reports: Hx Arthritis - fingers, Hx Back Problems Denies: Hx Bursitis, Hx Congenital Bone Abnormalities, Hx Fibromyalgia, Hx Gout, Hx Orthopedic Injury, Hx Osteoporosis, Hx Scoliosis, Hx Tendonitis, Other Musculoskeletal History Sensory History: Reports: Hx Deafness - left ear, Hx Hearing Problem Denies: Hx Cataracts, Hx Contacts or Glasses, Hx Eye Injury, Hx Eye Prosthesis, Hx Glaucoma, Hx Legally Blind, Hx Macular Degeneration, Hx Vision Problem, Hx Hearing Aid, Other Sensory Impairments Opthamlomology History: Denies: Hx Cataracts, Hx Contacts or Glasses, Hx Eye Injury, Hx Eye Prosthesis, Hx Glaucoma, Hx Legally Blind, Hx Macular Degeneration, Hx Vision Problem, Other Sensory Impairments Psychiatric History: Reports: Hx Anxiety - Surgical History Surgery Procedure, Year, and Place: CABG, pacemaker/ICD, appendectomy Hx Anesthesia Reactions: No - Immunization History Date of Tetanus Vaccine: unk Date of Influenza Vaccine: unk Infectious Disease History: No Infectious Disease History: Denies: Traveled Outside the [place] in Last 30 Days - Family History Known Family History: Positive: Cardiac Disease - extensive [place] FHx - Social History Alcohol Use: None Hx Substance Use: No Substance Use Type: Reports: None Hx Tobacco Use: Yes Smoking Status (MU): Former Smoker Type: Cigarettes Have You Smoked in the Last Year: No Review of Systems Constitutional: Negative Eyes: Negative ENT: Negative Cardiovascular: Negative Respiratory: Negative Gastrointestinal: Negative Genitourinary: Negative Musculoskeletal: Negative Skin: Negative Neurological: Negative Psychological: Normal All Other Systems Reviewed And Are Negative: Yes Physical Exam - Summary Physical Exam Summary: Abdomen soft nontender. Triage Information Reviewed: Yes Vital Signs On Initial Exam: Initial Vitals Temp Pulse Resp BP Pulse Ox 98.7 F 73 24 124/90 95 02/11/19 21:06 02/11/19 21:06 02/11/19 21:06 02/11/19 21:06 02/11/19 21:06 Vital Signs Reviewed: Yes Appearance: Positive: Well-Appearing Skin: Positive: Warm Head/Face: Positive: Normal Head/Face Inspection Eyes: Positive: Normal Neck: Positive: Supple Respiratory/Lung Sounds: Positive: Clear to Auscultation Cardiovascular: Positive: Normal Abdomen Description: Positive: Nontender Musculoskeletal: Positive: Normal Neurological: Positive: Normal Psychiatric: Positive: Normal AVPU Assessment: Alert - [place] Coma Scale Best Eye Response: 4 - Spontaneous Best Motor Response: 6 - Obeys Commands Best Verbal Response: 5 - Oriented Coma Scale Total: 15 Diagnostics - Vital Signs Vital Signs Temp Pulse Resp BP Pulse Ox 02/11/19 21:06 98.7 F 73 24 124/90 95 - Laboratory Lab Results: Lab Results 02/12/19 Range/Units 00:25 Urine Color Yellow Urine Appearance Clear Urine pH 6.0 (5-9) Ur Specific [place] 1.009 L (1.010-1.030) Urine Protein 1+(30 mg/dl) A (Negative) Urine Ketones Negative (Negative) Urine Blood 2+ A (Negative) Urine Nitrate Negative (Negative) Urine Bilirubin Negative (Negative) Urine Urobilinogen Negative (Negative) Ur Leukocyte Esterase Negative (Negative) Urine WBC (Auto) Trace(0-5/hpf) (Absent) Urine RBC (Auto) 1+(3-5/hpf) A (Absent) Ur Squamous Epith Cells Present A (Absent) Urine Bacteria Absent (Absent) Urine Glucose Negative (Negative) Lab Statement: Any lab studies that have been ordered have been reviewed, and results considered in the medical decision making process. GIGU Course/Dx - Course Course Of Treatment: Patient complains of difficulty urinating today. Was sent by PCP to ED for urinary catheter. Patient is not good historian. History of BPH. Denies any other pains, injury or symptoms. Physical exam: Abdomen soft nontender. Vital signs within normal limits. UA negative. Swanson Catheter placed. Urinary flow confirmed. advised to follow-up with primary care tomorrow. Patient understands and approves of plan. - Diagnoses Provider Diagnoses: Encounter for ureteral catheter placement Discharge - Sign-Out/Discharge Documenting (check all that apply): Patient Departure Patient Received Moderate/Deep Sedation with Procedure: No - Discharge Plan Condition: Stable Disposition: HOME Patient Education Materials: Swanson Catheter Placement and Care (ED), How to Care for Your Suprapubic Catheter (DC) Referrals: Antione Espinosa MD [Primary Care Provider] - Joshua Ponce MD [Medical Doctor] - Additional Instructions: Follow-up with your primary care doctor and urology Dr. Ponce tomorrow for further evaluation of urinary retention. Return to the ED for any new or worsening symptoms. - Billing Disposition and Condition Condition: STABLE Disposition: Home
[2019-02-12 03:32] VITALS: BP 123/76
== END 2019-02-12 03:10 | disposition home or self-care (01) ==
LOC: ED 20:59
DX: N40.1 Benign prostatic hyperplasia with lower urinary tract symptoms (principal); R33.8 Other retention of urine; R30.0 Dysuria; I25.10 Atherosclerotic heart disease of native coronary artery without angina pectoris; I11.0 Hypertensive heart disease with heart failure; I25.2 Old myocardial infarction; Z95.1 Presence of aortocoronary bypass graft; Z95.810 Presence of automatic (implantable) cardiac defibrillator; E78.00 Pure hypercholesterolemia, unspecified; J44.9 Chronic obstructive pulmonary disease, unspecified; Z99.81 Dependence on supplemental oxygen; Z86.718 Personal history of other venous thrombosis and embolism; H91.92 Unspecified hearing loss, left ear; F41.9 Anxiety disorder, unspecified; Z88.1 Allergy status to other antibiotic agents; Z87.891 Personal history of nicotine dependence
CPT/HCPCS: 51702; 81003; 81015; 87086; 99282

== ENCOUNTER 2019-06-30 09:44 | Observation (INO) | payer MEDICARE, MEDICAID ==
[2019-06-30 10:14] LABS: ABS Lymphocytes 0.6 10^3/ul (1.0-4.8); ABS Neutrophils 10.4 10^3/ul (1.5-7.7); Eosinophil % 0.4 %; Hematocrit 40 % (42-52); Hemoglobin 13.4 g/dL (14.0-18.0); Lymphocyte % 4.9 %; Mean Corpuscular HGB Conc 34 g/dL (31-36); Mean Corpuscular Hemoglobin 31 pg (27-31); Mean Corpuscular Volume 92 fL (80-94); Mean Platelet Volume 8.4 fL (7.4-10.4); Platelet Count 175 10^3/uL (150-450); Red Blood Count 4.32 10^6 /uL (4.18-5.48); Red Cell Distribution Width 15 % (10-15); White Blood Count 12.1 10^3/uL (3.5-10.8)
[2019-06-30] MEDS ORDERED: Nitro 2% OINT* (Nitroglycerin) 1 INCH/PAK PAK TOPICAL ONE (10:28)
--- OUTSIDE RECORDS SUMMARY | 2019-06-30 10:28 | XMS REPORT | Continuity of Care Document ---
:1950 External Reference #:[id number] Author Name Lio Anaya M.D. 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 Onset: 09/01/2011 Coronary arteriosclerosis Lio Anaya M.D. Onset: 09/01/2011 Chronic ischemic heart disease Lio Anaya M.D. Onset: 09/01/2011 Aortocoronary Bypass Postsurgical Lio Anaya M.D. Onset: 2010 Status Benign essential hypertension Lio Anaya M.D. Onset: 09/01/2011 Hyperlipidemia Lio Anaya M.D. Onset: 09/01/2011 Dyspnea Lio Anaya M.D. Onset: 07/23/2013 Cardiomyopathy Lio Anaya M.D. Onset: 02/26/2014 Chest pain Lio Anaya M.D. Onset: 02/26/2014 Tachycardia Lio Anaya M.D. Onset: 02/26/2014 Palpitations Lio Anaya M.D. Onset: 02/26/2014 Mitral valve disorder Lio Anaya M.D. Onset: 07/03/2014 Essential hypertension Lio Anaya M.D. Onset: 07/13/2015 Social History Type Date Description Comments Sex Unknown Tobacco Use Start: Unknown End: Former Cigarette Smoker Unknown ETOH Use Denies alcohol use Tobacco Use Start: Unknown End: Patient is a former Unknown smoker Recreational Drug Use Never Used Drugs Tobacco Use Start: Unknown End: Patient is a former quit 15 years ago Unknown smoker Smoking Status Reviewed: 10/22/18 Patient is a former quit 15 years ago smoker Exercise Type/Frequency Exercises regularly Allergies, Adverse Reactions, Alerts Description No Known Drug Allergies Medications Active Medications SIG Qnty Indications Ordering Date Provider Diane M20 1 by mouth twice a 60tabs Chris Macdonald 10/10/2017 20Meq day Antoine Edmond Tablets ER Nitrostat one sl q5min up to 25tabs Lio SWill 07/23/2013 0.3mg Tablets 3 doses as needed Antoine Anaya Sub replace every 12 months Aspirin 1 PO qd Lio SWill 08/19/2008 325mg Tablets Antoine Anaya Prednisone 2 tab by mouth Unknown 5mg Tablets daily Carvedilol 1 by mouth twice a Unknown 6.25mg day Tablets Magnesium Oxide 2 tabs by mouth Unknown 400mg every day (pt not Tablets currently taking 06/23) Lisinopril 1/2 tab by mouth Unknown 5mg Tablets every day Advair HFA 2 puff twice a day Unknown 115-21mcg/Act Aerosol Ipratropium prn Unknown Drury/Albuterol Sulfate 0.5-2.5(3)mg/3ML Solution Warfarin Sodium as directed. Unknown 2.5mg Coumadin dosing Tablets done by Dr. Espinosa Acetaminophen 1 tablet every 4 Unknown 500mg hours for knee/leg Tablets discomfort Bumetanide 1 by mouth qd Unknown 2mg Tablets Metolazone 1 tab by mouth Unknown 2.5mg every other day Tablets Tamsulosin HCL 1 by mouth every Unknown 0.4mg day Capsules Immunizations Description No Information Available Vital Signs Date Vital Result Comment 06/23/2019 2:36pm Height 62 inches 5'2" Weight 181.00 lb with shoes Heart Rate 55 /min radial, regular BP Systolic Sitting 94 mmHg LA, reg cuff BP Diastolic Sitting 68 mmHg LA, reg cuff BP Systolic Standing 90 mmHg LA, reg cuff BP Diastolic Standing 60 mmHg LA, reg cuff BMI (Body Mass Index) 33.1 kg/m2 Ejection Fraction 20%-25% echo 04/21/19 10/22/2018 2:27pm Height 62 inches 5'2" Weight 191.00 lb with shoes Heart Rate 82 /min BP Systolic Sitting 126 mmHg rue reg cuff BP Diastolic Sitting 78 mmHg rue reg cuff BMI (Body Mass Index) 34.9 kg/m2 Results Description No Information Available Procedures Date Code Description Status 06/23/2019 83842 EKG Tracing & Interpretation Completed 04/21/2019 11679 ECHO Transthoracic, Real-Time 2D With Doppler And Color Completed Flow 04/21/2019 35982 ECHO Transthoracic, Real-Time 2D With Doppler And Color Completed Flow 03/28/2019 66643 Interrogation Device Eval Remote Up To 30 Days Completed Analysis,Rev,RP 03/28/2019 60163 Interrogation Device Eval Remote Up To 30 Days Completed Analysis,Rev,RP 03/28/2019 99053 Icd Eval Sing,Dual,Multi Lead Remote Recpt Transm Tech Rev Completed Tech S 03/28/2019 95386 Icd Eval Sing,Dual,Multi Lead Remote Recpt Transm Tech Rev Completed Tech S 03/28/2019 89507 Icd Check Remote Up To 90 Days Single,Dual,Multiple Lead Completed 03/28/2019 85814 Icd Check Remote Up To 90 Days Single,Dual,Multiple Lead Completed 12/27/2018 31204 Interrogation Implant Cardiovasc Monitor System Incl Completed Analysis Int 12/27/2018 95063 Interrogation Implant Cardiovasc Monitor System Incl Completed Analysis Int 12/27/2018 50911 Icd Eval With Inerative Adjustmt Dual Lead System Completed 12/27/2018 78933 Icd Eval With Inerative Adjustmt Dual Lead System Completed Medical Devices Description No Information Available Encounters Type Date Location Provider Dx Diagnosis Office Visit 02/09/2019 [facility] [place], I50.21 Acute systolic 8:30a clarissa Mcintyre M.D. (congestive) Hospitalists heart failure J44.1 Chronic obstructive pulmonary disease w (acute) exacerbation J96.01 Acute respiratory failure with hypoxia B19.9 Unspecified viral hepatitis without hepatic coma R79.1 Abnormal coagulation profile E87.6 Hypokalemia N17.9 Acute kidney failure, unspecified I50.22 Chronic systolic (congestive) heart failure I25.10 Athscl heart disease of [place] coronary artery w/o ang pctrs I10 Essential (primary) hypertension Office Visit 02/08/2019 8:30a [place] Lilli Appiah B17.9 Acute viral Assoc,clarissa Reaves M.D. hepatitis, Hospitalists unspecified I50.23 Acute on chronic systolic (congestive) heart failure J18.9 Pneumonia, unspecified organism J44.1 Chronic obstructive pulmonary disease w (acute) exacerbation Z86.718 Personal history of other venous thrombosis and embolism Office Visit 02/07/2019 8:29a [place] Lilli Gaston7.9 Acute viral Assoc,clarissa Reaves M.D. hepatitis, Hospitalists unspecified I50.23 Acute on chronic systolic (congestive) heart failure J18.9 Pneumonia, unspecified organism J44.1 Chronic obstructive pulmonary disease w (acute) exacerbation Z86.718 Personal history of other venous thrombosis and embolism Office Visit 02/06/2019 8:29a [place] Lilli Angel B17.9 Acute viral Assoc,clarissa Lezama MD hepatitis, Hospitalists unspecified I50.23 Acute on chronic systolic (congestive) heart failure J18.9 Pneumonia, unspecified organism J44.1 Chronic obstructive pulmonary disease w (acute) exacerbation Z86.718 Personal history of other venous thrombosis and embolism Office Visit 02/05/2019 8:29a [place] Lilli Angel B17.9 Acute viral Assoc,clarissa Lezama MD hepatitis, Hospitalists unspecified I50.23 Acute on chronic systolic (congestive) heart failure J18.9 Pneumonia, unspecified organism J44.1 Chronic obstructive pulmonary disease w (acute) exacerbation Z86.718 Personal history of other venous thrombosis and embolism Office Visit 02/04/2019 [place] Lilli Castanedaa I50.23 Acute on chronic 8:28a Assoc,clarissa Lezama MD systolic Hospitalists (congestive) heart failure J18.9 Pneumonia, unspecified organism J44.1 Chronic obstructive pulmonary disease w (acute) exacerbation Z86.718 Personal history of other venous thrombosis and embolism [facility]neum[facility], 8:28a Assoc,clarissa Hope M.D.,FACP unspecified Hospitalists organism I50.23 Acute on chronic systolic (congestive) heart failure I25.10 Athscl heart disease of [place] coronary artery w/o ang pctrs Z86.718 Personal history of other venous thrombosis and embolism Assessments Date Code Description Provider 06/23/2019 I77.819 Aortic ectasia, unspecified site Lio Anaya M.D. 06/23/2019 I25.5 Ischemic cardiomyopathy Lio Anaya M.D. 06/23/2019 Z95.810 Presence of automatic (implantable) Lio Anaya M.D. cardiac defibrillator 06/23/2019 I50.22 Chronic systolic (congestive) heart Lio Anaya M.D. failure 06/23/2019 E66.9 Obesity, unspecified Lio Anaya M.D. 06/23/2019 I95.9 Hypotension, unspecified Lio Anaya M.D. 04/21/2019 I71.9 Aortic aneurysm of unspecified site, Lio Anaya M.D. without rupture 04/21/2019 I71.9 Aortic aneurysm of unspecified site, [place] ECHO Schedule without rupture 04/21/2019 Z95.810 Presence of automatic (implantable) [place] ECHO Schedule cardiac defibrillator 04/21/2019 I25.5 Ischemic cardiomyopathy [place] E[facility] Schedule 03/28/2019 Z95.810 Presence of automatic (implantable) Lio Anaya M.D. cardiac defibrillator 03/28/2019 Z95.810 Presence of automatic (implantable) Remote Device Checks cardiac defibrillator 03/28/2019 I25.5 Ischemic cardiomyopathy Lio Anaya M.D. 03/28/2019 I25.5 Ischemic cardiomyopathy Remote Device Checks 02/09/2019 I50.21 Acute systolic (congestive) heart Td Reaves M.D. failure 02/09/2019 J44.1 Chronic obstructive pulmonary disease Td Reaves M.D. w (acute) exacerbation 02/09/2019 J96.01 Acute respiratory failure with Td Reaves M.D. hypoxia 02/09/2019 B19.9 Unspecified viral hepatitis without Td Reaves M.D. hepatic coma 02/09/2019 R79.1 Abnormal coagulation profile Td Reaves M.D. 02/09/2019 E87.6 Hypokalemia Td Reaves M.D. 02/09/2019 N17.9 Acute kidney failure, unspecified Td Reaves M.D. 02/09/2019 I50.22 Chronic systolic (congestive) heart Td Reaves M.D. failure 02/09/2019 I25.10 Athscl heart disease of [place] Td Reaves M.D. coronary artery w/o ang pctrs 02/09/2019 I10 Essential (primary) hypertension Td Reaves M.D. 02/08/2019 B17.9 Acute viral hepatitis, unspecified Td Reaves M.D. 02/08/2019 I50.23 Acute on chronic systolic Td Reaves M.D. (congestive) heart failure 02/08/2019 J18.9 Pneumonia, unspecified organism Td Reaves M.D. 02/08/2019 J44.1 Chronic obstructive pulmonary disease Td Reaves M.D. w (acute) exacerbation 02/08/2019 Z86.718 Personal history of other venous Td Reaves M.D. thrombosis and embolism 02/07/2019 B17.9 Acute viral hepatitis, unspecified Td Reaevs M.D. 02/07/2019 I50.23 Acute on chronic systolic Td Reaves M.D. (congestive) heart failure 02/07/2019 J18.9 Pneumonia, unspecified organism Td Reaves M.D. 02/07/2019 J44.1 Chronic obstructive pulmonary disease Td Reaves M.D. w (acute) exacerbation 02/07/2019 Z86.718 Personal history of other venous Td Reaves M.D. thrombosis and embolism 02/06/2019 B17.9 Acute viral hepatitis, unspecified Jeanne Lezama MD 02/06/2019 I50.23 Acute on chronic systolic Jeanne Lezama MD (congestive) heart failure 02/06/2019 J18.9 Pneumonia, unspecified organism Jeanne Lezama MD 02/06/2019 J44.1 Chronic obstructive pulmonary disease Jeanne Lezama MD w (acute) exacerbation 02/06/2019 Z86.718 Personal history of other venous Jeanne Lezama MD thrombosis and embolism 02/05/2019 B17.9 Acute viral hepatitis, unspecified Jeanne Lezama MD 02/05/2019 I50.23 Acute on chronic systolic Jeanne Lezama MD (congestive) heart failure 02/05/2019 J18.9 Pneumonia, unspecified organism Jeanne Leazma MD 02/05/2019 J44.1 Chronic obstructive pulmonary disease Jeanne Lezama MD w (acute) exacerbation 02/05/2019 Z86.718 Personal history of other venous Jeanne Lezama MD thrombosis and embolism 02/04/2019 I50.23 Acute on chronic systolic Jeanne Lezama MD (congestive) heart failure 02/04/2019 J18.9 Pneumonia, unspecified organism Jeanne Lezama MD 02/04/2019 J44.1 Chronic obstructive pulmonary disease Jeanne Lezama MD w (acute) exacerbation 02/04/2019 Z86.718 Personal history of other venous Jeanne Lezama MD thrombosis and embolism 02/03/2019 J18.9 Pneumonia, unspecified organism Leonid Hope M.D., FACP 02/03/2019 I50.23 Acute on chronic systolic Leonid Hope M.D.,FACP (congestive) heart failure 02/03/2019 I25.10 Athscl heart disease of [place] Leonid Hope M.D., FACP coronary artery w/o ang pctrs 02/03/2019 Z86.718 Personal history of other venous Leonid Hope M.D., FACP thrombosis and embolism 12/27/2018 I25.5 Ischemic cardiomyopathy Ica Pacer Schedule 12/27/2018 I50.9 Heart failure, unspecified Lio Anaya M.D. 12/27/2018 I50.9 Heart failure, unspecified Ica Pacer Schedule 12/27/2018 Z95.810 Presence of automatic (implantable) Lio Anaya M.D. cardiac defibrillator 12/27/2018 Z95.810 Presence of automatic (implantable) Ica Pacer Schedule cardiac defibrillator Plan of Treatment Future Appointment(s):06/30/2019 2:30 pm - [facility]/25/2019 1:30 pm - Ica Pacer Schedule at [facility] - Lio Anaya M.D.I77.819 Aortic ectasia, unspecified siteI25.5 Ischemic cardiomyopathyNew Orders:Echocardiogram, Ordered: Follow up:9 months ovZ95.810 Presence of automatic (implantable) cardiac [id number] Chronic systolic (congestive) heart cwadetbO37.9 Obesity, jnbxdrulcuaW64.9 Hypotension, unspecifiedFollow up:one week BP check nurse Functional Status Description No Information Available Mental Status Description No Information Available Referrals Description No Information Available
--- OUTSIDE RECORDS SUMMARY | 2019-06-30 10:28 | XMS REPORT | Continuity of Care Document ---
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 Per Diem Problems Description No Information Available Social History Type Date Description Comments Sex Unknown Tobacco Use Start: Unknown End: Unknown Patient is a former smoker Smoking Status Reviewed: 04/14/19 Patient is a former smoker Allergies, Adverse Reactions, Alerts Active Allergies Reaction Severity Comments Date Azithromycin Drug induced liver injury Severe 05/13/2019 Inactive Allergies NKDA 04/14/2019 Medications Active Medications SIG Qnty Indications Ordering Provider Date Peg use as directed 4000ml Ever Kiran 04/14/2019 3350/Electrolytes 240gm Solution Rec Carvedilol Take One Tablet By Unknown 6.25mg Mouth Twice A Day Tablets Potassium Chloride Take One Tablet By Unknown Fatou ER Mouth Twice A Day 20Meq Tablets ER Prednisone Take Two Tablets Unknown 5mg By Mouth Every Day Tablets as Directed For Breathing Torsemide Take Two Tablets Unknown 20mg By Mouth Every Tablets Morning And 2 Tablets Every Night Warfarin Sodium Antione Espinosa, 2.5mg MD Tablets Advair DAVEA Liset Adair NP 115-21mcg/Act Aerosol Tamsulosin HCL Take One Capsule Unknown 0.4mg By Mouth Every Capsules Evening 1 2 Hour After A Meal Lisinopril Take 1 2 Tablet By Unknown 5mg Mouth Daily Tablets Aspirin Adult Unknown 325mg Tablets Immunizations Description No Information Available Vital Signs Date Vital Result Comment 04/14/2019 1:55pm Height 62 inches 5'2" Weight 188.00 lb BP Systolic 143 mmHg BP Diastolic 87 mmHg Heart Rate 66 /min BMI (Body Mass Index) 34.4 kg/m2 Results Test Date Facility Test Result H/L Range Note [place] test [place]/06/2019 [facility] [facility] [place]ULT 1 finding Pathology BELOW BMP W/O Egfr(!) 02/09/2019 [facility] Sodium(!) <pending> Potassium(!) <pending> Chloride Serum/Plasma(!) <pending> Carbon Dioxide Ser/Plasm(!) <pending> BUN - Urea Nitrogen(!) <pending> Calcium Ser/Plasma Mass/Vol(!) <pending> Creatinine Serum Mass/Vol(!) <pending> Glucose Serum(!) <pending> Liver Panel 02/09/2019 [facility] Alkaline Phosphatase(!) <pending> GGT-Gammaglytamyl Trans (!) <pending> Ast - Sgot <pending> Alt - SGPT <pending> LDH Ser/Plasma <pending> Bilirubin Total Mass/Vol(!) <pending> Bilirubin Direct Mass/Vol(!) <pending> Protein Total <pending> Albumin Serum/Plasma(!) <pending> Cholesterol Total Mass/Vol(!) <pending> CBC W/Auto 02/09/2019 [facility] White Blood <pending> Differential(!) Count Ser Auto CNT RBC Red Blood Count <pending> Hemoglobin Blood <pending> Hematocrit <pending> MCV (Corpuscular Volume) <pending> MCH (Corpuscular Hemoglobin) <pending> MCHC (Corpuscular Hemog Conc) <pending> RDW <pending> Platelet Count Blood Auto CNT <pending> MPV <pending> Lymph% <pending> [place]% <pending> Neutrophil % <pending> Absolute Lymphocytes <pending> Absolute Monocytes <pending> Absolute Neutrophils <pending> BMP W/O Egfr(!) 02/08/2019 [facility] Sodium(!) <pending> Potassium(!) <pending> Chloride Serum/Plasma(!) <pending> Carbon Dioxide Ser/Plasm(!) <pending> BUN - Urea Nitrogen(!) <pending> Calcium Ser/Plasma Mass/Vol(!) <pending> Creatinine Serum Mass/Vol(!) <pending> Glucose Serum(!) <pending> CMP(!) 02/07/2019 [facility] Sodium(!) <pending> Potassium(!) <pending> Chloride Serum/Plasma(!) <pending> Carbon Dioxide Ser/Plasm(!) <pending> BUN - Urea Nitrogen(!) <pending> Calcium Ser/Plasma Mass/Vol(!) <pending> Creatinine Serum Mass/Vol(!) <pending> Glucose Serum(!) <pending> BUN/Creatinine Ratio(!) <pending> Albumin Serum/Plasma(!) <pending> Alkaline Phosphatase(!) <pending> Bilirubin Total Mass/Vol(!) <pending> Ast - Sgot <pending> Alt - SGPT <pending> Protein Total <pending> CBC W/Auto 02/07/2019 [facility] White Blood <pending> Differential(!) Count Ser Auto CNT RBC Red Blood Count <pending> Hemoglobin Blood <pending> Hematocrit <pending> MCV (Corpuscular Volume) <pending> MCH (Corpuscular Hemoglobin) <pending> MCHC (Corpuscular Hemog Conc) <pending> RDW <pending> Platelet Count Blood Auto CNT <pending> MPV <pending> Lymph% <pending> [place]% <pending> Neutrophil % <pending> Absolute Lymphocytes <pending> Absolute Monocytes <pending> Absolute Neutrophils <pending> Xray 02/03/2019 [facility] [facility] [place] Chest PA & Lat 2VWS <pending> 1 SEE RESULT BELOW Name: KAT CABRAL : [address]: Ever Kiran DO Acct: [id number] Unit: [id number] AGE: 68 Location: [facility] Re06/06/19 SEX: M Status: DEP REF SPEC: [id number] PARISH: 06/06/19- [facility] DR: Ever Kiran DO REQ: [id number] RECD: 06/06/19 STATUS: AMY OROZCO DR: Antione Espinosa MD _ ORDERED: LEVEL 4/4 FINAL DIAGNOSIS 1. Colon, cecum, biopsy: -- Sessile serrated adenomatous polyp. 2. Colon, ascending, biopsy: -- Tubular adenoma (1). -- Inflammatory/retention polyp (1). -- No high grade dysplasia or malignancy. 3. Colon, transverse, biopsy: -- Tubular adenoma. -- No high grade dysplasia or malignancy. 4. Colon, sigmoid, biopsy: -- Hyperplastic polyp. CLINICAL HISTORY Screening POST-OPERATIVE DIAGNOSIS Colonoscopy: to terminal ileum; good prep; cecal polyp biopsy; polypectomy (2 ); cold snare polypectomy (1); biopsy ascending polyp (2); cold snare transverse polyp (1) ; biopsy sigmoid polyp (1) CONTINUED ON NEXT PAGE DEPARTMENT OF PATHOLOGY, [address] [place] [address] David Alanis M.D. Director [facility] # [id number] RUN DATE: 06/09/19 [facility] LAB LIVE PAGE 2 Patient: KAT CABRAL [id number] (Continued) GROSS DESCRIPTION (Continued) GROSS DESCRIPTION 1. The specimen is received in formalin labeled, Cecal Polyp, and consists of two hernandez-white irregular to polypoid soft tissue fragments measuring 0.5 x 0.3 x 0.2 cm and 0.8 x 0.4 x 0.4 cm, which are entirely submitted in one cassette. 2. The specimen is received in formalin labeled, Biopsy Ascending Colon Polyps, and consists of two hernandez-white irregular to polypoid soft tissue fragments averaging 0.5 x 0.4 x 0.4 cm, are entirely submitted in one cassette. 3. The specimen is received in formalin labeled, Transverse Colon Polyp, and consists of two hernandez-pink irregular to polypoid soft tissue fragments measuring 0.4 x 0.3 x 0.3 cm and 0.5 x 0.4 x 0.3 cm, which are entirely submitted in one cassette. 4. The specimen is received in formalin labeled, biopsies sigmoid colon polyp, and consists of a 0.5 x 0.3 x 0.1 cm hernandez-pink irregular to polypoid soft tissue fragment, which is entirely submitted in one cassette. Signed by and Reported on: David Alanis MD 1127 END OF REPORT DEPARTMENT OF PATHOLOGY, [address] [place] [address] David Alanis M.D. Director [facility] # [id number] SEE RESULT BELOW Name: KAT CABRAL : [address]: Ever Kiran DO Acct: [id number] Unit: [id number] AGE: 68 Location: ENDO Re06/06/19 SEX: M Status: DEP REF SPEC: [id number] PARISH: 06/06/19- [facility] DR: Ever Kiran DO REQ: [id number] RECD: 06/06/19 STATUS: AMY OROZCO DR: Antione Espinosa MD _ ORDERED: LEVEL 4/4 FINAL DIAGNOSIS 1. Colon, cecum, biopsy: -- Sessile serrated adenomatous polyp. 2. Colon, ascending, biopsy: -- Tubular adenoma (1). -- Inflammatory/retention polyp (1). -- No high grade dysplasia or malignancy. 3. Colon, transverse, biopsy: -- Tubular adenoma. -- No high grade dysplasia or malignancy. 4. Colon, sigmoid, biopsy: -- Hyperplastic polyp. CLINICAL HISTORY Screening POST-OPERATIVE DIAGNOSIS Colonoscopy: to terminal ileum; good prep; cecal polyp biopsy; polypectomy (2 ); cold snare polypectomy (1); biopsy ascending polyp (2); cold snare transverse polyp (1) ; biopsy sigmoid polyp (1) CONTINUED ON NEXT PAGE DEPARTMENT OF PATHOLOGY, [address] [place] [address] David Alanis M.D. Director [facility] # [id number] RUN DATE: 06/09/19 [facility] LAB LIVE PAGE 2 Patient: KAT CABRAL [id number] (Continued) GROSS DESCRIPTION (Continued) GROSS DESCRIPTION 1. The specimen is received in formalin labeled, Cecal Polyp, and consists of two hernandez-white irregular to polypoid soft tissue fragments measuring 0.5 x 0.3 x 0.2 cm and 0.8 x 0.4 x 0.4 cm, which are entirely submitted in one cassette. 2. The specimen is received in formalin labeled, Biopsy Ascending Colon Polyps, and consists of two hernandez-white irregular to polypoid soft tissue fragments averaging 0.5 x 0.4 x 0.4 cm, are entirely submitted in one cassette. 3. The specimen is received in formalin labeled, Transverse Colon Polyp, and consists of two hernandez-pink irregular to polypoid soft tissue fragments measuring 0.4 x 0.3 x 0.3 cm and 0.5 x 0.4 x 0.3 cm, which are entirely submitted in one cassette. 4. The specimen is received in formalin labeled, biopsies sigmoid colon polyp, and consists of a 0.5 x 0.3 x 0.1 cm hernandez-pink irregular to polypoid soft tissue fragment, which is entirely submitted in one cassette. Signed by and Reported on: David Alanis MD 1127 END OF REPORT DEPARTMENT OF PATHOLOGY, [address] [place] [address] David Alanis M.D. 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 K59.00 Constipation, unspecified Assessments Date Code Description Provider 04/14/2019 Kenzie71.2 Toxic liver disease with acute hepatitis Ever Kiran DO 04/14/2019 R94.5 Abnormal results of liver function studies Ever Kiran DO 04/14/2019 I25.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
--- OUTSIDE RECORDS SUMMARY | 2019-06-30 10:28 | XMS REPORT | Continuity of Care Document ---
:1950 External Reference #:[id number] Author Name William Zee Care Team Providers Name Role Phone Antione Espinosa MD - Family Medicine Care Team Information Credit Consultant Problems Active Problems Provider Date Electrocardiogram abnormal Lio nAaya M.D. Onset: 09/01/2011 Coronary arteriosclerosis Lio Anaya [...] SIG Qnty Indications Ordering Date Provider Diane Hallman 1 by mouth twice a 60tabs Chris Macdonald 10/10/2017 20Meq day Antoine Edmond Tablets ER Nitrostat one sl q5min up to 25tabs Smitataybrossy S. 07/23/2013 0.3mg Tablets 3 doses as needed Antoine Anaya Sub replace every 12 months Aspirin 1 PO qd Smitatavita S. 08/19/2008 325mg Tablets Antoine Anaya Prednisone 2 tab by mouth Unknown 5mg Tablets twice daily. Carvedilol 1 by mouth twice a Unknown 6.25mg day Tablets Torsemide Take 2 tabs in Am Unknown 20mg Tablets and 2 tab in PM Magnesium Oxide 2 tabs by mouth Unknown 400mg every day Tablets Lisinopril 1/2 tab by mouth Unknown 5mg Tablets every day Advair HFA 2 puff twice a day Unknown 115-21mcg/Act Aerosol Ipratropium prn Unknown [place]/Albuterol Sulfate 0.5-2.5(3)mg/3ML Solution Warfarin Sodium as directed. Unknown 2.5mg Coumadin dosing Tablets done by Dr. Espinosa Acetaminophen 1 tablet every 4 Unknown 500mg hours for knee/leg Tablets discomfort Immunizations Description No Information Available Vital Signs [...] 33.5 kg/m2 Ejection Fraction 20--25% Echo. 10/28/2017 Results Description No Information Available Procedures Date Code Description Status 04/21/2019 77647 ECHO Transthoracic, Real-Time 2D With Doppler And Color Completed Flow 04/21/2019 60935 ECHO Transthoracic, Real-Time 2D With Doppler And Color Completed Flow 03/28/2019 37004 Interrogation Device Eval Remote Up To 30 Days Completed Analysis,Rev,RP 03/28/2019 17013 Interrogation Device Eval Remote Up To 30 Days Completed Analysis,Rev,RP 03/28/2019 16026 Icd Eval Sing,Dual,Multi Lead Remote Recpt Transm Tech Rev Completed Tech S 03/28/2019 44680 Icd Eval Sing,Dual,Multi Lead Remote Recpt Transm Tech Rev Completed Tech S 03/28/2019 74289 Icd Check Remote Up To 90 Days Single,Dual,Multiple Lead Completed 03/28/2019 90023 Icd Check Remote Up To 90 Days Single,Dual,Multiple Lead Completed 12/27/2018 04301 Interrogation Implant Cardiovasc Monitor System Incl Completed Analysis Int 12/27/2018 65401 Interrogation Implant Cardiovasc Monitor System Incl Completed Analysis Int 12/27/2018 14497 Icd Eval With Inerative Adjustmt Dual Lead System Completed 12/27/2018 56528 Icd Eval With Inerative Adjustmt Dual Lead System Completed Medical Devices Description No Information Available Encounters Type Date Location Provider Dx Diagnosis Office Visit 02/09/2019 Marleni Reaves, I50.21 Acute systolic 8:30a clarissa Mcintyre M.D. (congestive) Hospitalists heart failure J44.1 Chronic obstructive pulmonary disease w (acute) exacerbation J96.01 Acute respiratory failure with hypoxia B19.9 Unspecified viral hepatitis without hepatic coma R79.1 Abnormal coagulation profile E87.6 Hypokalemia N17.9 Acute kidney failure, unspecified I50.22 Chronic systolic (congestive) heart failure I25.10 Athscl heart disease of [place] coronary artery w/o ang pctrs I10 Essential (primary) hypertension Office Visit 02/08/2019 8:30a Marleni Appiah B17.9 Acute viral clarissa Mcintyre M.D. hepatitis, Hospitalists unspecified I50.23 Acute on chronic systolic (congestive) heart failure J18.9 Pneumonia, unspecified organism J44.1 Chronic obstructive pulmonary disease w (acute) exacerbation Z86.718 Personal history of other venous thrombosis and embolism Office Visit 02/07/2019 8:29a [facility] Td B17.9 Acute viral Assoc,clarissa Reaves M.D. hepatitis, Hospitalists unspecified I50.23 Acute on chronic systolic (congestive) heart failure J18.9 Pneumonia, unspecified organism J44.1 Chronic obstructive pulmonary disease w (acute) exacerbation Z86.718 Personal history of other venous thrombosis and embolism Office Visit 02/06/2019 8:29a [facility] Jeanne B17.9 Acute viral Assoc,clarissa Lezama MD hepatitis, Hospitalists unspecified I50.23 Acute on chronic systolic (congestive) heart failure J18.9 Pneumonia, unspecified organism J44.1 Chronic obstructive pulmonary disease w (acute) exacerbation Z86.718 Personal history of other venous thrombosis and embolism Office Visit 02/05/2019 8:29a [facility] Jeanne B17.9 Acute viral Assoc,clarissa Lezama MD hepatitis, Hospitalists unspecified I50.23 Acute on chronic systolic (congestive) heart failure J18.9 Pneumonia, unspecified organism J44.1 Chronic obstructive pulmonary disease w (acute) exacerbation Z86.718 Personal history of other venous thrombosis and embolism Office Visit 02/04/2019 [facility] Jeanne I50.23 Acute on chronic 8:28a clarissa Mcintyre MD systolic Hospitalists (congestive) heart failure J18.9 Pneumonia, unspecified organism J44.1 Chronic obstructive pulmonary disease w (acute) exacerbation Z86.718 Personal history of other venous thrombosis and embolism Office Visit 02/03/2019 [facility] Leonid Scott J18.9 Pneumonia, 8:28a Assocclarissa M.D.,FACP unspecified Hospitalists organism I50.23 Acute on chronic systolic (congestive) heart failure I25.10 Athscl heart disease of [place] coronary artery w/o ang pctrs Z86.718 Personal history of other venous thrombosis and embolism Assessments Date Code Description Provider 04/21/2019 I71.9 Aortic aneurysm of unspecified site, Lio Anaya M.D. 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 coronary artery w/o ang [...] 02/07/2019 B17.9 Acute viral hepatitis, unspecified Td Reaves M.D. 02/07/2019 I50.23 Acute on chronic systolic [...] failure 02/05/2019 J18.9 Pneumonia, unspecified organism Jeanne Lezama MD 02/05/2019 J44.1 Chronic obstructive pulmonary disease [...] failure 02/03/2019 I25.10 Athscl heart disease of [place] Leonid Hope M.D., FACP coronary artery w/o [...] Schedule cardiac defibrillator Plan of Treatment Future Appointment(s):06/25/2019 1:30 pm - [facility]er [facility] at [facility]10/22/2018 - Lio Anaya M.D.I25.5 Ischemic cardiomyopathyFollow up:8 months ovI34.0 Nonrheumatic mitral (valve) apzouezonngywO39.20 Pulmonary hypertension, aceadacqnhyM89.9 Aortic aneurysm of unspecified site, without iqvqeuvP62.810 Presence of automatic (implantable) cardiac gvzpjcsyasperO35.3 Ventricular premature pnkhvdtggswhekF64.5 Hyperlipidemia, unspecified Functional Status Description No Information Available Mental Status Description No Information Available Referrals Description No Information Available
[2019-06-30 10:32] LABS: Albumin 3.8 g/dL (3.2-5.2); Albumin/Globulin Ratio 1.4 (1-3); BUN/Creatinine Ratio 24.8 (8-20); Calcium 8.8 mg/dL (8.6-10.3); EGFR African American 66.6 (>60); EGFR Non-African American 55.1 (>60); Globulin 2.7 g/dL (2-4); Potassium 4.5 mmol/L (3.5-5.0); Total Protein 6.5 g/dL (6.4-8.9)
[2019-06-30 10:36] LABS: Troponin I 0.05 ng/mL (<0.04)
--- NOTE | 2019-06-30 10:41 | ED ---
Shortness of Breath - HPI Summary HPI Summary: Pt is a 68 y/o M presenting to the ED with a chief complaint of shortness of breath gradually onset over the past couple of days. He states he ran out of Torsemide and was started on a new diuretic, but had to stop as his kidney function drastically decreased. Since he stopped, he has had increased fluid retention causing edema, SOB, and a mild cough. Pt denies any fever, chills, erythema of eyes, sore throat, CP, abdominal pain, N/V, dysuria, hematuria, myalgia, rash, or dizziness. - History of Current Complaint Chief Complaint: EDShortnessOfBreath Time Seen by Provider: 06/30/19 09:51 Hx Obtained From: Patient Onset/Duration: Gradual Onset, Lasting Days, Still Present Timing: Constant Current Severity: Moderate Dyspnea At: Rest Aggravating Factors: Nothing Alleviating Factors: Nothing Associated Signs & Symptoms: Cough (Productive), Edema - Allergy/Home Medications Allergies/Adverse Reactions: Allergies Allergy/AdvReac Type Severity Reaction Status Date / Time azithromycin AdvReac Severe See Comment Verified 02/12/19 00:01 Home Medications: Home Medications Bumetanide TAB* [Bumex 2 MG TAB*] 2 mg PO DAILY 06/30/19 [History Confirmed ] Ipratropium/Albuterol Sulfate [Iprat-Albut 0.5-3(2.5) mg/3 ml] 3 ml INH BID [History Confirmed 06/30/19] Lisinopril TAB* [Prinivil TAB 5 MG*] 2.5 mg PO DAILY 06/30/19 [History Confirmed 06/30/19] Metolazone TAB* [Zaroxolyn TAB*] 2.5 mg PO EVERY OTHER DAY PRN 06/30/19 [ History Confirmed 06/30/19] Warfarin TAB(*) [Coumadin TAB(*)] 5 mg PO WEEKLY 06/30/19 [History Confirmed ] PMH/Surg Hx/FS Hx/Imm Hx Previously Healthy: Yes Endocrine/Hematology History: Denies: Hx Diabetes Cardiovascular History: Reports: Hx Auto Implanted Cardiovert Defib, Hx Congestive Heart Failure, Hx Coronary Artery Disease, Hx Deep Vein Thrombosis, Hx Hypercholesterolemia, Hx Hypertension, Hx Myocardial Infarction, Hx Pacemaker /ICD - 5/05/31, Other Cardiovascular Problems/Disorders Respiratory History: Reports: Hx Chronic Obstructive Pulmonary Disease (COPD), Hx Pneumonia, Hx Pulmonary Embolism, Other Respiratory Problems/Disorders - respiratory failure, uses 3L O2 at night Denies: Hx Asthma History: Denies: Hx Renal Disease Musculoskeletal History: Reports: Hx Arthritis - fingers, Hx Back Problems Denies: Hx Bursitis, Hx Congenital Bone Abnormalities, Hx Fibromyalgia, Hx Gout, Hx Orthopedic Injury, Hx Osteoporosis, Hx Scoliosis, Hx Tendonitis, Other Musculoskeletal History Sensory History: Reports: Hx Deafness - left ear, Hx Hearing Problem Denies: Hx Cataracts, Hx Contacts or Glasses, Hx Eye Injury, Hx Eye Prosthesis, Hx Glaucoma, Hx Legally Blind, Hx Macular Degeneration, Hx Vision Problem, Hx Hearing Aid, Other Sensory Impairments Opthamlomology History: Denies: Hx Cataracts, Hx Contacts or Glasses, Hx Eye Injury, Hx Eye Prosthesis, Hx Glaucoma, Hx Legally Blind, Hx Macular Degeneration, Hx Vision Problem, Other Sensory Impairments Psychiatric History: Reports: Hx Anxiety - Surgical History Surgery Procedure, Year, and Place: CABG, pacemaker/ICD, appendectomy Hx Anesthesia Reactions: No - Immunization History Date of Tetanus Vaccine: unk Date of Influenza Vaccine: unk Immunizations Up to Date: Yes Infectious Disease History: No Infectious Disease History: Denies: Traveled Outside the [place] in Last 30 Days - Family History Known Family History: Positive: Cardiac Disease - extensive [place] FHx - Social History Alcohol Use: None Hx Substance Use: No Substance Use Type: Reports: None Hx Tobacco Use: Yes Smoking Status (MU): Former Smoker Type: Cigarettes Have You Smoked in the Last Year: No Review of Systems Negative: Fever, Chills Negative: Erythema Negative: Sore Throat Negative: Chest Pain Positive: Shortness Of Breath, Cough Negative: Abdominal Pain, Vomiting, Nausea Negative: dysuria, hematuria Positive: Edema - from fluid retention. Negative: Myalgia Negative: Rash Neurological: Negative - dizziness All Other Systems Reviewed And Are Negative: Yes Physical Exam - Summary Physical Exam Summary: Constitutional: Well-developed, Well-nourished, Alert. (-) Distressed Skin: Warm, Dry HENT: Normocephalic; Atraumatic Eyes: Conjunctiva normal Neck: Musculoskeletal ROM normal neck. (-) JVD, (-) Stridor, (-) Tracheal deviation Cardio: Rhythm regular, rate normal, Heart sounds normal; Intact distal pulses; The pedal pulses are 2+ and symmetric. Radial pulses are 2+ and symmetric. (-) Murmur Pulmonary/Chest wall: Effort normal. (-) Respiratory distress, (-) Wheezes, (-) Rales Abd: Soft, (-) tenderness, (-) Distension, (-) Guarding, (-) Rebound Musculoskeletal: (-) Edema Lymph: (-) Cervical adenopathy Neuro: Alert, Oriented x3 Psych: Mood and affect Normal Triage Information Reviewed: Yes Vital Signs On Initial Exam: Initial Vitals Temp Pulse Resp BP Pulse Ox 98 F 80 17 109/75 98 06/30/19 09:54 06/30/19 09:54 06/30/19 09:54 06/30/19 09:54 06/30/19 09:54 Vital Signs Reviewed: Yes Diagnostics - Vital Signs Vital Signs Temp Pulse Resp BP Pulse Ox 06/30/19 09:54 98 F 80 17 109/75 98 - Laboratory Lab Results: Lab Results 06/30/19 06/30/19 06/30/19 Range/Units 10:04 10:04 10:04 WBC 12.1 H (3.5-10.8) 10^3/uL RBC 4.32 (4.18-5.48) 10^6 /uL Hgb 13.4 L (14.0-18.0) g/dL Hct 40 L (42-52) % MCV 92 (80-94) fL MCH 31 (27-31) pg MCHC 34 (31-36) g/dL RDW 15 (10-15) % Plt Count 175 (150-450) 10^3/uL MPV 8.4 (7.4-10.4) fL Neut % (Auto) 86.3 % Lymph % (Auto) 4.9 % Corson % (Auto) 8.0 % Eos % (Auto) 0.4 % Baso % (Auto) 0.4 % Absolute Neuts (auto) 10.4 H (1.5-7.7) 10^3/ul Absolute Lymphs (auto) 0.6 L (1.0-4.8) 10^3/ul Absolute Monos (auto) 1.0 H (0-0.8) 10^3/ul Absolute Eos (auto) 0.0 (0-0.6) 10^3/ul Absolute Basos (auto) 0.0 (0-0.2) 10^3/ul Absolute Nucleated RBC 0.0 10^3/ul Nucleated RBC % 0.0 Sodium 135 (135-145) mmol/L Potassium 4.5 (3.5-5.0) mmol/L Chloride 101 (101-111) mmol/L Carbon Dioxide 26 (22-32) mmol/L Anion Gap 8 (2-11) mmol/L BUN 32 H (6-24) mg/dL Creatinine 1.29 H (0.67-1.17) mg/dL Est GFR ( Amer) 66.6 (>60) Est GFR (Non-Af Amer) 55.1 (>60) BUN/Creatinine Ratio 24.8 H (8-20) Glucose 145 H (70-100) mg/dL Lactic Acid 3.1 H* (0.5-2.0) mmol/L Calcium 8.8 (8.6-10.3) mg/dL Total Bilirubin 1.00 (0.2-1.0) mg/dL AST 21 (13-39) U/L ALT 25 (7-52) U/L Alkaline Phosphatase 47 (34-104) U/L Troponin I 0.05 H* (<0.04) ng/mL B-Natriuretic Peptide (<=100) pg/mL Total Protein 6.5 (6.4-8.9) g/dL Albumin 3.8 (3.2-5.2) g/dL Globulin 2.7 (2-4) g/dL Albumin/Globulin Ratio 1.4 (1-3) 06/30/19 Range/Units 10:04 WBC (3.5-10.8) 10^3/uL RBC (4.18-5.48) 10^6 /uL Hgb (14.0-18.0) g/dL Hct (42-52) % MCV (80-94) fL MCH (27-31) pg MCHC (31-36) g/dL RDW (10-15) % Plt Count (150-450) 10^3/uL MPV (7.4-10.4) fL Neut % (Auto) % Lymph % (Auto) % Corson % (Auto) % Eos % (Auto) % Baso % (Auto) % Absolute Neuts (auto) (1.5-7.7) 10^3/ul Absolute Lymphs (auto) (1.0-4.8) 10^3/ul Absolute Monos (auto) (0-0.8) 10^3/ul Absolute Eos (auto) (0-0.6) 10^3/ul Absolute Basos (auto) (0-0.2) 10^3/ul Absolute Nucleated RBC 10^3/ul Nucleated RBC % Sodium (135-145) mmol/L Potassium (3.5-5.0) mmol/L Chloride (101-111) mmol/L Carbon Dioxide (22-32) mmol/L Anion Gap (2-11) mmol/L BUN (6-24) mg/dL Creatinine (0.67-1.17) mg/dL Est GFR ( Amer) (>60) Est GFR (Non-Af Amer) (>60) BUN/Creatinine Ratio (8-20) Glucose (70-100) mg/dL Lactic Acid (0.5-2.0) mmol/L Calcium (8.6-10.3) mg/dL Total Bilirubin (0.2-1.0) mg/dL AST (13-39) U/L ALT (7-52) U/L Alkaline Phosphatase (34-104) U/L Troponin I (<0.04) ng/mL B-Natriuretic Peptide > 1300 H (<=100) pg/mL Total Protein (6.4-8.9) g/dL Albumin (3.2-5.2) g/dL Globulin (2-4) g/dL Albumin/Globulin Ratio (1-3) Result Diagrams: 06/30/19 10:04 06/30/19 10:04 Lab Statement: Any lab studies that have been ordered have been reviewed, and results considered in the medical decision making process. - Radiology CXR Radiology Interpretation Completed By: Radiologist Summary of Radiographic Findings: CARDIOMEGALY WITH PULMONARY INTERSTITIAL EDEMA. ED physician has reviewed this report. - EKG 1000 Cardiac Rate: NL - 81bpm, V-paced EKG Rhythm: Sinus Rhythm Summary of EKG Findings: EKG at 1000 shows NSR at 81bpm. Pt's rhythm is V- paced. No STEMI. Course/Dx - Course Course Of Treatment: Pt is a 68 y/o M presenting to the ED with a chief complaint of shortness of breath gradually onset over the past couple of days. He states he ran out of Torsemide and was started on a new diuretic, but had to stop as his kidney function drastically decreased. Since he stopped, he has had increased fluid retention causing edema, SOB, and a mild cough. Pt denies any fever, chills, erythema of eyes, sore throat, CP, abdominal pain, N/V, dysuria, hematuria, myalgia, rash, or dizziness. Pt's physical exam is nml. EKG at 1000 shows NSR at 81bpm. Pt's rhythm is V-paced. No STEMI. CARDIOMEGALY WITH PULMONARY INTERSTITIAL EDEMA. Pts hematology shows WBC of 12.1, Hgb of 13.4, and Hct of 40. His chemistry shows BUN of 32, Lactic Acid os 3.1, Troponin I of 0.05, and BNP of >1300. 1100 - I spoke with Dr. Paula who will be evaluating the pt for admission. - Diagnoses Provider Diagnoses: CHF exacerbation - Physician Notifications Discussed Care of Patient With: Armando Paula Time Discussed With Above Provider: 11:00 Instructed by Provider To: Admit As Inpatient - Critical Care Time Critical Care Time: 30-74 min - 45min Discharge ED - Sign-Out/Discharge Documenting (check all that apply): Patient Departure - Discharge Plan Condition: Stable Disposition: ADMITTED TO [facility] - Attestation Statements Document Initiated by Scribe: Yes Documenting Scribe: Romana Rosen Provider For Whom Scribe is Documenting (Include Credential): Matt Yeung MD. Scribe Attestation: IRomana, scribed for Matt Yeung MD. on 06/30/19 at 1302. Status of Scribe Document: Ready
[2019-06-30] MEDS ORDERED: Furosemide IV* 10 MG/ML VIAL (40 MG) IV SLOW PU ONE (11:01)
[2019-06-30] MEDS ORDERED: Ondansetron INJ* 2 MG/ML VIAL IV PRN (12:15)
[2019-06-30] MEDS ORDERED: Al Hydrox/Mg Hydrox/Simet LIQ* 30 ML UDC PO PRN (12:15)
[2019-06-30] MEDS ORDERED: Magnesium Hydroxide LIQ* 30 ML UDC PO PRN (12:15)
[2019-06-30] MEDS ORDERED: Perflutren Lipid Microsphere* 3 ML VIAL ONE (13:30)
[2019-06-30 13:40] LABS: INR 2.15 (0.82-1.09)
[2019-06-30 13:42] LABS: Troponin I 0.05 ng/mL (<0.04)
--- NOTE | 2019-06-30 14:40 | ECHO ---
*[facility]* [place] [address] Fax #: [phone] Transthoracic Echocardiogram Patient: Graham David : 1950 Study Date: 06/30/2019 Age: 68 Gender: M HR: 68 bpm Height: 62 in /157.5 cm BSA: 1.86 m^2 Weight: 187.6 lb /85.3 kg BMI: 34.4 kg/m^2 *[employer] Manager: Demetrice Hardwick [facility] *Referring Physician: * O'Silvina Craft *Reading Physician: * Pepe Milian MD Indications: SOB. Edema. History: Coronary artery disease. Mitral regurgitation. Chronic obstructive pulmonary disease. PMH: Cardiomyopathy. Myocardial infarction. Risk factors: Hypertension. Dyslipidemia. Labs, prior tests, procedures, and surgery: ICD system implantation. Coronary artery bypass grafting. Conclusions Summary: - Left ventricle: Systolic function is severely reduced. The estimated ejection fraction is 20-25%. Severe diffuse hypokinesis. - Right ventricle: Systolic function is severely reduced. - Left atrium: The atrium is moderately dilated. - Mitral valve: There is mild to moderate regurgitation. - Aortic valve: There is no evidence of stenosis. There is no significant regurgitation. - Tricuspid valve: There is trace regurgitation. - Pericardium, extracardiac: There is no significant pericardial effusion. - Pulmonary arteries: Systolic pressure can not be accurately estimated. - Compared to study of 10/28/17, the left ventricle function is the same. The degee of mitral regurgitation is less Study data: Transthoracic echocardiogram. Procedure: Transthoracic echocardiography was performed. Image quality was suboptimal. Intravenous Definity , 2 mlswas administered. Complete 2D, spectral Doppler, and color flow Doppler. Location: Emergency department. Patient status: Inpatient. Patient room number: 8. Study status: Stat. Rhythm: Paced rhythm. Findings Left ventricle: The cavity size is mildly dilated. Wall thickness is mildly increased. Systolic function is severely reduced. The estimated ejection fraction is 20-25%. Severe diffuse hypokinesis. Doppler parameters are consistent with restrictive physiology, indicative of decreased left ventricular diastolic compliance and/or increased left atrial pressure. Right ventricle: The cavity size is normal. Systolic function is severely reduced. Left atrium: The atrium is moderately dilated. Right atrium: The atrium is normal in size. Pacer wire noted in right atrium. Mitral valve: The leaflets are normal thickness. There is no evidence of stenosis. There is mild to moderate regurgitation. Aortic valve: The annulus is mildly calcified. The valve is trileaflet. The leaflets are mildly thickened. There is no evidence of stenosis. There is no significant regurgitation. Tricuspid valve: The leaflets are normal thickness. There is no evidence of stenosis. There is trace regurgitation. Pulmonic valve: The leaflets are normal thickness. There is no evidence of stenosis. Aorta: The aortic root appears normal. The aortic arch appears normal. Pericardium: There is no significant pericardial effusion. Pulmonary arteries: Not well visualized. Systolic pressure can not be accurately estimated. Systemic veins: Inferior vena cava: The vessel is normal in size. There is (>= 50%) respiratory change in the IVC dimension. Measurements Left ventricle Value Ref Aortic valve Value Ref FLORA, LAX 5.7 cm 4.2 - 5.8 Jose diam, ED 1.9 cm ---- ESD, LAX (H) 5.0 cm 2.5 - 4.0 Peak v, S 1.33 m/sec ---- FS, LAX (L) 13 % 25 - 43 VTI, S 24.8 cm ---- PW, ED, LAX 1.0 cm 0.6 - 1.0 Mean grad, S 4.0 mm Hg ---- EF (L) 28 % 52 - 72 Peak grad, S 7.0 mm Hg ---- E', lat jose, TDI (L) 8.2 cm/sec >=10.0 GRACE, VTI 2.04 cm^2 - --- E/e', lat jose, 12 GRACE, Vmax 1.88 cm^2 ---- TDI E', med jose, TDI (L) 3.6 cm/sec >=7.0 Mitral valve Value R ef E/e', med jose, 28 Peak E 1.02 m/sec ---- TDI Peak A 0.37 m/sec ---- E', avg, TDI 5.9 cm/sec Decel time 119 ms ---- E/e', avg, TDI (H) 17 <=14 Peak grad, D 4.2 mm Hg - --- Peak E/A ratio 2.8 ---- LVOT Value Ref ERO, PISA 0.09 cm^2 ---- Diam, S 1.90 cm MR vol, PISA 14 ml ---- Area 2.8 cm^2 MR fraction, PISA 22 % ---- Peak avani, S 0.88 m/sec Mean grad, S 2 mm Hg Pulmonic valve Value Ref SV 51 ml Peak v, S 0.87 m/sec ---- Peak grad, S 3.0 mm Hg ---- Ventricular septum Value Ref IVS, ED (H) 1.2 cm 0.6 - 1.0 Aortic root Value Ref Root diam 2.7 cm <4.0 Right ventricle Value Ref FLORA, LAX 3.6 cm Ascending aorta Value Ref AAo AP diam, S 2.9 cm ---- Left atrium Value Ref AP dim, ES (H) 4.40 cm 3.00 - Aortic arch Value Ref 4.00 Arch diam 3.4 cm ---- ML dim, A4C 4.9 cm SI dim, A4C 5.7 cm Decending aorta Value Ref Vol/bsa, ES, A/L (H) 49 ml/m^2 16 - 34 Iker peak avani 0.4 m/sec ---- Right atrium Value Ref Inferior vena cava Value Ref SI dim, ES 4.8 cm 3.4 - 5.3 Diam 2.1 cm ---- ML dim, ES, A4C 4.0 cm 2.6 - 4.4 Estimated RAP 8 mm Hg Legend: (L) and (H) park values outside specified reference range. Prepared and electronically signed by Pepe Milian MD 06/30/2019 14:40
--- NOTE | 2019-06-30 17:08 | HP ---
CC: Dr. Espinosa * ADMISSION HISTORY AND PHYSICAL: DATE OF ADMISSION: 06/30/19 PROVIDER: WILLI Evans PRIMARY CARE PHYSICIAN: Dr. Espinosa. ATTENDING PHYSICIAN WHILE IN THE HOSPITAL: Dr. Armando Paula * (dictated by WILLI Evans). OUTPATIENT SCAFFOLD BUILDER: Dr. Anaya. CHIEF COMPLAINT: Shortness of breath x2 days. HISTORY OF PRESENT ILLNESS: Graham David is a 68-year-old white male with past medical history significant for COPD, on 2 L of oxygen at home; heart failure with reduced ejection fraction, most recent ejection fraction 20% to 25% ; ischemic cardiomyopathy, status post pacemaker and ICD; coronary artery disease, status post CABG; and history of DVT/PE, on Coumadin; who presents to the emergency department today due to shortness of breath x2 days. The patient tells me that he was told to stop his Bumex approximately [address] sEpinosa's team because of kidney function changes. Upon review of some notes from Dr. Espinosa's office, it appears that he may have just been told to stop his lisinopril and he may have misunderstood this. I am reviewing medical records that I do have access to and Dr. Anaya saw the patient on 06/23/19 and told him to continue taking his Bumex once a day. The patient was complaining of feeling some fatigue since recently changing from torsemide to Bumex. Reportedly, the patient's nurse at [facility], where the patient lives , checked the patient's blood pressure and he was hypotensive, which prompted him to talk to Dr. Espinosa's office approximately 6 days ago. It appears he had a BUN elevated to 172 and he was hypotensive with systolic blood pressure in the low 100s. Additionally though, the patient has been telling me he has been feeling lightheaded for 1 week. He additionally tells me he has been having black diarrhea for 3 to 4 days as well as intermittent abdominal cramping for the last 2 days. The patient additionally tells me that he normally weighs himself daily and he tells me he is normally 170 pounds and is now 188 pounds. He is denying headache, nausea, vomiting, fever, chills, chest pain, dysuria, hematuria, bright blood per rectum. Additionally, the patient tells me he has been having a cough for the last 2 days. ED COURSE: The patient arrived to the emergency department with a temperature of 98.0 degrees Fahrenheit, heart rate of 80, respiratory rate of 27, oxygen saturation of 97% on 2 L, and blood pressure 109/75. Emergency department ordered nitroglycerin patch and 40 mg of IV Lasix. Lasix has not yet been administered at the time of this dictation. Given the patient's shortness of breath and minimally elevated troponin to 0.05 and an elevated BNP over 1300, the hospitalists were asked to evaluate the patient for admission. PAST MEDICAL HISTORY: 1. Heart failure with reduced ejection fraction, recent EF 20% to 25%. 2. Ischemic cardiomyopathy, status post pacemaker and ICD. 3. COPD, on 2 L of oxygen at home. 4. Coronary artery disease with history of PA, status post CABG. 5. DVT/PE, on Coumadin. 6. Hyperlipidemia. 7. Pulmonary hypertension. 8. Mitral regurgitation. 9. Osteoarthritis. PAST SURGICAL HISTORY: 1. ICD and pacemaker placement. 2. CABG approximately 20 years ago. 3. Appendectomy. HOME MEDICATIONS: 1. Metolazone 2.5 mg p.o. every other day p.r.n. fluid retention. 2. Prednisone 5 mg p.o. b.i.d. 3. Warfarin 5 mg p.o. every Sunday. 4. Warfarin 2.5 mg p.o. Sunday through Sunday. 5. Lisinopril 2.5 p.o. daily. 6. Bumex 2 mg p.o. daily. 7. Carvedilol 6.25 mg p.o. b.i.d. 8. Potassium chloride 20 mEq p.o. b.i.d. 9. Ipratropium/albuterol sulfate nebulizer 3 mL inhaled b.i.d.. 10. Tamsulosin 0.4 mg p.o. daily. 11. Aspirin 325 mg p.o. daily. ALLERGIES: Possible hepatotoxicity from AZITHROMYCIN. FAMILY HISTORY: The patient has an extensive history of coronary artery disease in his family. His brother at age 40 of an PA, his sister at age 53 of an PA, his mother at age 57 of an PA, and his father at age 62 of an PA. He denies family history of diabetes. SOCIAL HISTORY: The patient lives in [facility]. 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 He denies illicit drug use and alcohol use. He is a former smoker who smoked 1 pack per day for approximately 30 years. He quit approximately 20 years ago. The patient's healthy care proxy is Mara Marquez, who is a friend of his, who also lives at [facility]. Her phone number is [phone]. REVIEW OF SYSTEMS: An 11-point review of systems was completed and all pertinent positives and negatives are above in the HPI. All other systems are negative. PHYSICAL EXAMINATION GENERAL: Obese elderly white male, lying upright in hospital bed, appearing comfortable, in no acute distress. HEENT: Head: Normocephalic, atraumatic. Eyes: PERRLA. Sclerae anicteric. ENT: Mucous membranes moist. LUNGS: Clear to auscultation throughout. CARDIO: Regular rate and rhythm without murmurs, rubs, or gallops appreciated. ABDOMEN: Normoactive bowel sounds x4 quadrant. No appreciable hepatosplenomegaly. Abdomen is soft, nontender, nondistended. EXTREMITIES: No clubbing, cyanosis, or edema. NEUROLOGIC: The patient is alert and oriented x3. No focal deficits. No tremors. SKIN: There is a small, less than 1 cm, wound to the lateral aspect of the right lower leg. There is surrounding nonblanchable erythema in patches. DIAGNOSTIC STUDIES/LAB DATA: Chest x-ray: Cardiomegaly with interstitial pulmonary edema. This chest x-ray appears to have interval improvement compared to chest x-ray in November 2018 per my read. EKG: Ventricular paced rhythm, no ST or T-wave changes based on previous EKG, heart rate 81 beats per minute. White blood count 12.1, hemoglobin 13.4, hematocrit 40, platelet count 175. Sodium 135, potassium 4.5. chloride 101, carbon dioxide 26, anion gap 8, BUN 32 , creatinine 1.29, glucose 145, lactic acid 3.1, calcium 8.8. LFTs unremarkable. Troponin 0.05, BNP over 1300. ASSESSMENT AND PLAN: Graham David is a 68-year-old white male with past medical history significant for heart failure with reduced ejection; chronic obstructive pulmonary disease, on 2 L oxygen at home; coronary artery disease, status post coronary artery bypass grafting; pulmonary hypertension; and history of deep venous thrombosis/pulmonary embolism, on warfarin; who presents to the emergency department due to shortness of breath. The patient will be admitted OBV for: 1. Shortness of breath. Given that the patient's chest x-ray actually looks improved and his lungs are clear, my suspicion for congestive heart failure exacerbation is low at this point. Although the patient has stopped his Bumex recently, it does not appear his CHF is acutely exacerbated. He has been hypotensive at home. He does not appear to be tachycardic here, though he is known to have poorly controlled INRs at times he has been in the hospital. I have ordered INR. If his INR is not therapeutic, I do have a suspicion for possible pulmonary embolism. Given the setting of an acute kidney injury, it would be best to not have a CTA with contrast, so I will order a V/Q scan. I have already ordered a CT chest without contrast, and unless this shows any abnormality, I will proceed with the V/Q scan to rule out possible pulmonary embolus. A CTA would not be appropriate at this time due to the patient's acute kidney injury. Additionally, although the patient has overall stable vital signs, an echocardiogram would be likely of benefit and I will order this. I do not have need to continue diuretics at this time especially considering the acute kidney injury. I will order daily standing weights and strict I's and O' s give that the patient is telling me that he has been gaining weight without his Bumex. 2. Acute kidney injury. It appears that approximately a month the patient had a worsened acute kidney injury with a creatinine of 1.73. It does appear that the patient's primary care office has been aware of this and has been telling him hold his lisinopril, though there may have been loss of communication to the patient. It does appear that there has been improvement since his creatinine is 1.29 at this point. I will continue to hold his lisinopril, his p.r.n. metolazone, and Bumex. It may be of benefit to order Lasix down the line. 3. Lactic acidosis. The patient is afebrile, but there is a minimal leukocytosis. I have ordered a UA with reflex urine culture to rule out any possible urinary tract infection. The patient does not complain of urinary symptoms. I will order a repeat lactic acid in 3 hours from the original draw time. This does give me further concern for any possible pulmonary issue or pulmonary embolism, which again I have ordered a CT chest and will likely order a V/Q scan if necessary. 4. Elevated troponin. The patient has a minimally elevated troponin to 0.05. His EKG does not show any changes, though because he has ventricular paced rhythm, this is not revealing. It is possible this is due to ischemic demand considering the patient has been tachypneic and he is known to already have right heart strain because he has known pulmonary hypertension. I will continue to follow this with repeat EKGs as well. 5. Diarrhea. The patient tells me he's having black stools. His H&H is stable so my concern for GI bleed is low. I will order stool guaiac nonetheless. I'll order stool culture and WBCs as well. 6. Chronic lower extremity wound. The wound appears stable at this time. It may be of benefit for the patient to have ABIs in the future. 7. DVT prophylaxis. The patient has a high risk of DVT with a DVT risk score of 5. The patient is already on Coumadin. I am awaiting the INR, and if he is subtherapeutic, I will start Lovenox as a bridge to a therapeutic INR. Otherwise, continue his normal Coumadin. Again, if the patient's INR is poorly controlled during this hospitalization, it would be of benefit to consider changing this patient to a NOAC. 8. Code status. The patient is full code. 9. Early discharge planning. Given that the patient does appear to have some mild cognitive delay, it would likely be of benefit for him to have more support in the community. He already lives in [facility] which has a nurse on staff, but he tells me he manages his own medications. Given that it is unclear whether Dr. Espinosa's office did in fact tell him to stop his Bumex and not his lisinopril and he does have history of poorly controlled INRs, a [facility] nurse coming to his home would likely be of benefit for this patient. I have already been in touch with the [facility] community nurses, who will start this process for this patient. TIME SPENT: Approximately 50 minutes was spent on admission, approximately half this time was spent at the bedside evaluating the patient. This case has been reviewed by my attending, Dr. Armando Paula; he agrees with this plan of care. WILLI EVANS [id number]/[facility] #: [id number] IRMA
[2019-06-30] MEDS: Warfarin TAB(*) 2.5 MG PO SCH (18:12)
[2019-06-30] MEDS: Furosemide IV* 10 MG/ML VIAL (40 MG) IV SLOW PU SCH (18:12)
[2019-06-30 19:06] LABS: Troponin I 0.04 ng/mL (<0.04)
[2019-06-30 19:54] LABS: BUN/Creatinine Ratio 24.2 (8-20); Calcium 8.4 mg/dL (8.6-10.3); EGFR African American 67.2 (>60); EGFR Non-African American 55.6 (>60)
[2019-06-30] MEDS: Carvedilol TAB* 6.25 MG PO SCH (20:26)
[2019-06-30] MEDS: Albuterol/Ipratropium NEB.SOL* Albuterol 2.5 MG/Ipratropium 0.5 MG 3 ML INH SCH (20:40)
[2019-06-30] MEDS ORDERED: predniSONE TAB* 5 MG PO SCH (21:00)
[2019-07-01 00:28] LABS: Urine Appearance Clear; Urine Bacteria Absent (Absent); Urine Bilirubin Negative (Negative); Urine Blood 1+ (Negative); Urine Color Yellow; Urine Glucose Negative (Negative); Urine Ketones Negative (Negative); Urine Nitrite Negative (Negative); Urine Protein Negative (Negative); Urine Red Blood Cell 2+(6-10/hpf) (Absent); Urine Specific Gravity 1.008 (1.010-1.030); Urine Urobilinogen Negative (Negative); Urine White Blood Cell Absent (Absent)
[2019-07-01] MEDS: Acetaminophen TAB* 325 MG PO PRN ×3 (03:16→23:59)
[2019-07-01 06:54] LABS: ABS Eosinophils 0.1 10^3/ul (0-0.6); ABS Monocytes 1.5 10^3/ul (0-0.8); ABS Neutrophils 7.7 10^3/ul (1.5-7.7); Eosinophil % 1.2 %; Hematocrit 37 % (42-52); Hemoglobin 12.5 g/dL (14.0-18.0); Lymphocyte % 9.7 %; Mean Corpuscular HGB Conc 34 g/dL (31-36); Mean Corpuscular Hemoglobin 31 pg (27-31); Mean Corpuscular Volume 91 fL (80-94); Mean Platelet Volume 8.7 fL (7.4-10.4); Platelet Count 175 10^3/uL (150-450); Red Cell Distribution Width 15 % (10-15); White Blood Count 10.4 10^3/uL (3.5-10.8)
[2019-07-01 06:57] LABS: INR 2.11 (0.82-1.09)
[2019-07-01 07:12] LABS: BUN/Creatinine Ratio 24.4 (8-20); Calcium 8.5 mg/dL (8.6-10.3); EGFR African American 70.4 (>60); EGFR Non-African American 58.2 (>60); Potassium 3.9 mmol/L (3.5-5.0)
[2019-07-01] MEDS: Albuterol/Ipratropium NEB.SOL* Albuterol 2.5 MG/Ipratropium 0.5 MG 3 ML INH SCH ×2 (07:51→21:20)
[2019-07-01] MEDS: Tamsulosin CAP* 0.4 MG PO SCH (08:02)
[2019-07-01] MEDS: predniSONE TAB* 10 MG PO SCH (08:02)
[2019-07-01] MEDS: Aspirin TAB* 325 MG PO SCH (08:02)
[2019-07-01] MEDS: Furosemide IV* 10 MG/ML VIAL (40 MG) IV SLOW PU SCH (08:02)
[2019-07-01] MEDS: Carvedilol TAB* 6.25 MG PO SCH ×2 (08:02→20:05)
[2019-07-01] MEDS ORDERED: Influenza VAC *QUAD* 2019-20* 0.5 ML SYRINGE IM ONE (09:00)
[2019-07-01] MEDS ORDERED: Lisinopril TAB* 5 MG PO SCH (09:00)
--- NOTE | 2019-07-01 13:15 | PN ---
Subjective Date of Service: 07/01/19 Interval History: HOSPITALIST PROGRESS NOTE Patient seen and examined at bedside. Care reviewed and d/w Michelle Lamas RN. He feels a little better today, but breathing is not yet back to normal. Family History: Unchanged from Admission Social History: Unchanged from Admission Past Medical History: Unchanged from Admission Objective Active Medications: Acetaminophen (Tylenol Tab*) 650 mg PO Q4H PRN PRN Reason: MILD PAIN or TEMP > 100.4 Last Admin: 07/01/19 10:10 Dose: 650 mg Al Hydrox/Mg Hydrox/Simethicone (Maalox Plus*) 30 ml PO Q6H PRN PRN Reason: INDIGESTION Albuterol/Ipratropium (Duoneb (Albuterol 2.5 Mg/Ipratropium 0.5 Mg)) 1 neb INH RT.BID [facility] Last Admin: 07/01/19 07:51 Dose: 1 neb Aspirin (Aspirin Tab*) 325 mg PO DAILY [facility] Last Admin: 07/01/19 08:02 Dose: 325 mg Carvedilol (Coreg Tab*) 6.25 mg PO BID [facility] Last Admin: 07/01/19 08:02 Dose: 6.25 mg Magnesium Hydroxide (Milk Of Magngiuseppe Liq*) 30 ml PO Q4H PRN PRN Reason: CONSTIPATION Ondansetron HCl (Zofran Inj*) 4 mg IV Q4H PRN PRN Reason: NAUSEA/VOMITING Prednisone (Deltasone Tab*) 10 mg PO DAILY [facility] Last Admin: 07/01/19 08:02 Dose: 10 mg Tamsulosin HCl (Flomax Cap*) 0.4 mg PO DAILY [facility] Last Admin: 07/01/19 08:02 Dose: 0.4 mg Warfarin Sodium (Coumadin Tab(*)) 2.5 mg PO 1700 [facility]; Protocol Last Admin: 06/30/19 18:12 Dose: 2.5 mg Vital Signs - 8 hr 07/01/19 07/01/19 07/01/19 07:15 07:52 09:09 Temperature 98.4 F Pulse Rate 61 62 Respiratory 20 18 18 Rate Blood Pressure 104/57 (mmHg) O2 Sat by Pulse 99 98 Oximetry 07/01/19 11:15 Temperature 98.8 F Pulse Rate 67 Respiratory 20 Rate Blood Pressure 100/69 (mmHg) O2 Sat by Pulse 96 Oximetry Oxygen Devices in Use Now: Nasal Cannula Appearance: Pleasant elderly gentleman sitting up in bed in NAD. Eyes: No Scleral Icterus Ears/Nose/Mouth/Throat: Mucous Membranes Moist Neck: Trachea Midline Respiratory: Symmetrical Chest Expansion and Respiratory Effort, - - BS+ bilaterally with bibasilar crackles Cardiovascular: RRR - Normal S1 and S2 Abdominal: NL Sounds; No Tenderness; No Distention Extremities: - - Trace bilateral LE edema Neurological: Alert and Oriented x 3, NL Muscle Strength and Tone Result Diagrams: 07/01/19 06:19 07/01/19 06:19 Assess/Plan/Problems-Billing Assessment: Mr David is a 68yo M with PMH of systolic CHF with EF 20-25%, ischemic CMP s /p ICD/pacer, COPD on home O2, CAD s/p CABG, DVT/PE, HLD, pulmonary HTN, mitral regurgitation, osteoarthritis, who presented to ED with c/o dyspnea, found to have CHF exacerbation. - Patient Problems (1) Acute on chronic systolic (congestive) heart failure Comment: - Echo shows EF 20-25%. - Case d/w Dr Paula - there is a shortage of Torsemide, so patient was transitioned to Bumetanide, but his creatinine increased, so he was told to hold the diuretic and progressed with fluid overload. - Responding well to IV Furosemide. - CM to assist with outpatient medications. He'll also benefit of an outpatient CM through [facility]. (2) Acute kidney injury Comment: - Creatinine down to 1.7 to 1.2. (3) Elevated troponin Comment: - Suspect secondary to demand ischemia in setting of CHF exacerbation. - Echocardiogram shows EF 20-25% with severe hypokinesis, unchanged from 2018. (4) History of DVT (deep vein thrombosis) Comment: - H/o DVT/PE. - INR is therapeutic. - Continue Warfarin. (5) DVT prophylaxis Comment: - Warfarin. (6) Full code status Status and Disposition: Inpatient.
[2019-07-01] MEDS: Warfarin TAB(*) 2.5 MG PO SCH (16:20)
[2019-07-01] MEDS ORDERED: Warfarin TAB(*) 2.5 MG PO SCH (17:00)
[2019-07-02 05:35] LABS: INR 2.56 (0.82-1.09)
[2019-07-02 05:42] LABS: BUN/Creatinine Ratio 23.8 (8-20); Calcium 8.2 mg/dL (8.6-10.3); EGFR African American 71.1 (>60); EGFR Non-African American 58.7 (>60); Potassium 3.4 mmol/L (3.5-5.0)
[2019-07-02] MEDS: Aspirin TAB* 325 MG PO SCH (08:42)
[2019-07-02] MEDS: Carvedilol TAB* 6.25 MG PO SCH ×2 (08:42→20:59)
[2019-07-02] MEDS: predniSONE TAB* 10 MG PO SCH (08:42)
[2019-07-02] MEDS: Tamsulosin CAP* 0.4 MG PO SCH (08:42)
[2019-07-02] MEDS: Albuterol/Ipratropium NEB.SOL* Albuterol 2.5 MG/Ipratropium 0.5 MG 3 ML INH SCH ×2 (09:41→19:51)
[2019-07-02] MEDS: Warfarin TAB(*) 2.5 MG PO SCH (16:18)
--- NOTE | 2019-07-02 17:09 | PN ---
Subjective Date of Service: 07/02/19 Interval History: Reports improvement in breathing.no cp Family History: Unchanged from Admission Social History: Unchanged from Admission Past Medical History: Unchanged from Admission Objective Active Medications: Acetaminophen (Tylenol Tab*) 650 mg PO Q4H PRN PRN Reason: MILD PAIN or TEMP > 100.4 Last Admin: 07/01/19 23:59 Dose: 650 mg Al Hydrox/Mg Hydrox/Simethicone (Maalox Plus*) 30 ml PO Q6H PRN PRN Reason: INDIGESTION Albuterol/Ipratropium (Duoneb (Albuterol 2.5 Mg/Ipratropium 0.5 Mg)) 1 neb INH RT.BID [facility] Last Admin: 07/02/19 09:41 Dose: 1 neb Aspirin (Aspirin Tab*) 325 mg PO DAILY [facility] Last Admin: 07/02/19 08:42 Dose: 325 mg Carvedilol (Coreg Tab*) 6.25 mg PO BID [facility] Last Admin: 07/02/19 08:42 Dose: 6.25 mg Furosemide (Lasix Tab*) 40 mg PO DAILY [facility] Magnesium Hydroxide (Milk Of Magnesia Liq*) 30 ml PO Q4H PRN PRN Reason: CONSTIPATION Ondansetron HCl (Zofran Inj*) 4 mg IV Q4H PRN PRN Reason: NAUSEA/VOMITING Prednisone (Deltasone Tab*) 10 mg PO DAILY [facility] Last Admin: 07/02/19 08:42 Dose: 10 mg Tamsulosin HCl (Flomax Cap*) 0.4 mg PO DAILY [facility] Last Admin: 07/02/19 08:42 Dose: 0.4 mg Warfarin Sodium (Coumadin Tab(*)) 2.5 mg PO 1700 [facility]; Protocol Last Admin: 07/02/19 16:18 Dose: 2.5 mg Vital Signs - 8 hr 07/02/19 07/02/19 07/02/19 09:44 11:34 15:14 Temperature 98.5 F 98.3 F Pulse Rate 67 67 69 Respiratory 16 16 18 Rate Blood Pressure 109/78 108/71 (mmHg) O2 Sat by Pulse 96 96 98 Oximetry Oxygen Devices in Use Now: Nasal Cannula Eyes: No Scleral Icterus Neck: NL Appearance and Movements; NL JVP Respiratory: Symmetrical Chest Expansion and Respiratory Effort, Clear to Auscultation Cardiovascular: NL Sounds; No Murmurs; No JVD Extremities: No Edema Skin: No Rash or Ulcers Neurological: Alert and Oriented x 3 Result Diagrams: 07/01/19 06:19 07/02/19 04:56 Additional Lab and Data: Lab Results 06/30/19 06/30/19 06/30/19 Range/Units 10:04 10:04 10:04 WBC 12.1 H (3.5-10.8) 10^3/uL RBC 4.32 (4.18-5.48) 10^6 /uL Hgb 13.4 L (14.0-18.0) g/dL Hct 40 L (42-52) % MCV 92 (80-94) fL MCH 31 (27-31) pg MCHC 34 (31-36) g/dL RDW 15 (10-15) % Plt Count 175 (150-450) 10^3/uL MPV 8.4 (7.4-10.4) fL Neut % (Auto) 86.3 % Lymph % (Auto) 4.9 % [place] % (Auto) 8.0 % Eos % (Auto) 0.4 % Baso % (Auto) 0.4 % Absolute Neuts (auto) 10.4 H (1.5-7.7) 10^3/ul Absolute Lymphs (auto) 0.6 L (1.0-4.8) 10^3/ul Absolute Monos (auto) 1.0 H (0-0.8) 10^3/ul Absolute Eos (auto) 0.0 (0-0.6) 10^3/ul Absolute Basos (auto) 0.0 (0-0.2) 10^3/ul Absolute Nucleated RBC 0.0 10^3/ul Nucleated RBC % 0.0 Sodium 135 (135-145) mmol/L Potassium 4.5 (3.5-5.0) mmol/L Chloride 101 (101-111) mmol/L Carbon Dioxide 26 (22-32) mmol/L Anion Gap 8 (2-11) mmol/L BUN 32 H (6-24) mg/dL Creatinine 1.29 H (0.67-1.17) mg/dL Est GFR ( Amer) 66.6 (>60) Est GFR (Non-Af Amer) 55.1 (>60) BUN/Creatinine Ratio 24.8 H (8-20) Glucose 145 H (70-100) mg/dL Lactic Acid 3.1 H* (0.5-2.0) mmol/L Calcium 8.8 (8.6-10.3) mg/dL Total Bilirubin 1.00 (0.2-1.0) mg/dL AST 21 (13-39) U/L ALT 25 (7-52) U/L Alkaline Phosphatase 47 (34-104) U/L Troponin I 0.05 H* (<0.04) ng/mL B-Natriuretic Peptide (<=100) pg/mL Total Protein 6.5 (6.4-8.9) g/dL Albumin 3.8 (3.2-5.2) g/dL Globulin 2.7 (2-4) g/dL Albumin/Globulin Ratio 1.4 (1-3) 06/30/19 Range/Units 10:04 WBC (3.5-10.8) 10^3/uL RBC (4.18-5.48) 10^6 /uL Hgb (14.0-18.0) g/dL Hct (42-52) % MCV (80-94) fL MCH (27-31) pg MCHC (31-36) g/dL RDW (10-15) % Plt Count (150-450) 10^3/uL MPV (7.4-10.4) fL Neut % (Auto) % Lymph % (Auto) % [place] % (Auto) % Eos % (Auto) % Baso % (Auto) % Absolute Neuts (auto) (1.5-7.7) 10^3/ul Absolute Lymphs (auto) (1.0-4.8) 10^3/ul Absolute Monos (auto) (0-0.8) 10^3/ul Absolute Eos (auto) (0-0.6) 10^3/ul Absolute Basos (auto) (0-0.2) 10^3/ul Absolute Nucleated RBC 10^3/ul Nucleated RBC % Sodium (135-145) mmol/L Potassium (3.5-5.0) mmol/L Chloride (101-111) mmol/L Carbon Dioxide (22-32) mmol/L Anion Gap (2-11) mmol/L BUN (6-24) mg/dL Creatinine (0.67-1.17) mg/dL Est GFR ( Amer) (>60) Est GFR (Non-Af Amer) (>60) BUN/Creatinine Ratio (8-20) Glucose (70-100) mg/dL Lactic Acid (0.5-2.0) mmol/L Calcium (8.6-10.3) mg/dL Total Bilirubin (0.2-1.0) mg/dL AST (13-39) U/L ALT (7-52) U/L Alkaline Phosphatase (34-104) U/L Troponin I (<0.04) ng/mL B-Natriuretic Peptide > 1300 H (<=100) pg/mL Total Protein (6.4-8.9) g/dL Albumin (3.2-5.2) g/dL Globulin (2-4) g/dL Albumin/Globulin Ratio (1-3) Assess/Plan/Problems-Billing Assessment: Mr David is a 68yo M with PMH of systolic CHF with EF 20-25%, ischemic CMP s /p ICD/pacer, COPD on home O2, CAD s/p CABG, DVT/PE, HLD, pulmonary HTN, mitral regurgitation, osteoarthritis, who presented to ED with c/o dyspnea, found to have CHF exacerbation. - Patient Problems (1) Acute on chronic systolic (congestive) heart failure Current Visit: Yes Status: Acute Priority: High Code(s): I50.23 - ACUTE ON CHRONIC SYSTOLIC (CONGESTIVE) HEART FAILURE SNOMED Code(s): 241384335 Comment: - Echo shows EF 20-25%. - Case d/w Dr Paula - there is a shortage of Torsemide, so patient was transitioned to Bumetanide, but his creatinine increased, so he was told to hold the diuretic and progressed with fluid overload. - Responding well to IV Furosemide. - CM to assist with outpatient medications. He'll also benefit of an outpatient CM through [facility]. -Will start po lasix 40 mg po daily and monitor (2) Acute kidney injury Current Visit: Yes Status: Acute Code(s): N17.9 - ACUTE KIDNEY FAILURE, UNSPECIFIED SNOMED Code(s): 40663425 Comment: - Creatinine down to 1.7 to 1.2. (3) Elevated troponin Current Visit: Yes Status: Acute Code(s): R74.8 - ABNORMAL LEVELS OF OTHER SERUM ENZYMES SNOMED Code(s): 953859950 Comment: - Suspect secondary to demand ischemia in setting of CHF exacerbation. - Echocardiogram shows EF 20-25% with severe hypokinesis, unchanged from 2018. (4) History of DVT (deep vein thrombosis) Current Visit: Yes Status: Acute Code(s): Z86.718 - PERSONAL HISTORY OF OTHER VENOUS THROMBOSIS AND EMBOLISM SNOMED Code(s): 338789343 Comment: - H/o DVT/PE. - INR is therapeutic. - Continue Warfarin. (5) DVT prophylaxis Current Visit: Yes Status: Acute Code(s): OZH4760 - SNOMED Code(s): 544741821 Comment: - Warfarin. (6) Full code status Current Visit: Yes Status: Acute Code(s): Z78.9 - OTHER SPECIFIED HEALTH STATUS SNOMED Code(s): 697159815 Status and Disposition: Inpatient. PT/OT to start discharge planning and assess safety
[2019-07-02] MEDS: Furosemide TAB* 40 MG PO SCH (17:28)
[2019-07-03 05:58] LABS: Hematocrit 38 % (42-52); Hemoglobin 12.8 g/dL (14.0-18.0); Mean Corpuscular HGB Conc 33 g/dL (31-36); Mean Corpuscular Hemoglobin 31 pg (27-31); Mean Corpuscular Volume 92 fL (80-94); Mean Platelet Volume 8.5 fL (7.4-10.4); Platelet Count 195 10^3/uL (150-450); Red Blood Count 4.17 10^6 /uL (4.18-5.48); Red Cell Distribution Width 15 % (10-15); White Blood Count 10.3 10^3/uL (3.5-10.8)
[2019-07-03 05:59] LABS: ABS Basophils 0.1 10^3/ul (0-0.2); ABS Eosinophils 0.1 10^3/ul (0-0.6); ABS Lymphocytes 1.5 10^3/ul (1.0-4.8); ABS Monocytes 1.6 10^3/ul (0-0.8); Eosinophil % 1.4 %; Lymphocyte % 14.7 %
[2019-07-03 06:19] LABS: BUN/Creatinine Ratio 20.2 (8-20); Calcium 8.6 mg/dL (8.6-10.3); EGFR African American 80.9 (>60); EGFR Non-African American 66.9 (>60); Potassium 3.6 mmol/L (3.5-5.0)
[2019-07-03] MEDS: Albuterol/Ipratropium NEB.SOL* Albuterol 2.5 MG/Ipratropium 0.5 MG 3 ML INH SCH (08:00)
[2019-07-03] MEDS: Carvedilol TAB* 6.25 MG PO SCH (09:46)
[2019-07-03] MEDS: Furosemide TAB* 40 MG PO SCH (09:46)
[2019-07-03] MEDS: Tamsulosin CAP* 0.4 MG PO SCH (09:46)
[2019-07-03] MEDS: Acetaminophen TAB* 325 MG PO PRN (09:47)
[2019-07-03] MEDS: Aspirin TAB* 325 MG PO SCH (09:47)
[2019-07-03] MEDS: predniSONE TAB* 10 MG PO SCH (09:47)
[2019-07-03 15:53] VITALS: BP 131/95
--- NOTE | 2019-07-03 22:40 | DS ---
DISCHARGE SUMMARY: DATE OF ADMISSION: 06/30/19 DATE OF DISCHARGE: 07/03/19 PRIMARY DIAGNOSES: 1. Acute on chronic congestive heart failure exacerbation. 2. Acute kidney injury. 3. Elevated troponin. SECONDARY DIAGNOSES: 1. Ischemic cardiomyopathy, status post pacemaker and ICD. 2. Chronic obstructive pulmonary disease, on 2 L of oxygen occasionally at home. 3. Coronary artery disease with history of myocardial infarction, status post CABG. 4. Deep vein thrombosis/pulmonary embolism, on Coumadin. 5. Hyperlipidemia. 6. Pulmonary hypertension. 7. Mitral regurgitation. 8. Osteoarthritis. 9. Heart failure with reduced ejection fraction, recent EF 20% to 25%. HOSPITAL COURSE: A 68-year-old male with past medical history of COPD, heart failure with reduced ejection fraction with known EF of 20% to 25%, ischemic cardiomyopathy status post pacemaker, ICD, coronary artery disease status post CABG, and history of DVT/PE, on Coumadin presented to the emergency room with significant shortness of breath for 2 days. The patient stopped his Bumex approximately 6 days prior to admission because his kidney function had gotten worse. The patient was previously taking torsemide and it appears that there was a shortage and torsemide was not available and recently was switched to Bumex. The patient also normally weighs about 170 pounds and was at 188 pounds , and the patient had a chest x-ray done which was suggestive of pulmonary edema. The patient was also noted to be in VIJAY, recently with a creatinine of 1.7 in May and at the time of admission, this was noted to be worse compared to his usual baseline in the normal range at 1.29. The patient's BNP was noted to be more than 1300. The patient's troponin was also noted to be elevated minimally at 0.05. In light of his known significant cardiac disease, CHF with very poor systolic reserve, the patient was admitted to the hospital for treatment of his CHF exacerbation. The patient was given IV Lasix and has responded well to Lasix therapy. The patient still noted to be volume overloaded with some JVD and lower extremity edema. To come up with a good plan that the patient can take as an outpatient, the Lasix was switched to p.o. and the patient is being discharged on Lasix 40 mg p.o. b.i.d., as it appears that the patient has been on torsemide 60 mg b.i.d. per discussion with the patient in the past. The patient is also on Zaroxolyn that he takes every other day, which is being continued. The patient's condition is improved through hospital stay and the patient is stable on p.o. diuretics and the patient will be discharged today. Vitals and labs are noted to be stable at time of discharge. Labs, sodium 139, potassium 3.6, chloride 104, CO2 of 28, BUN 22, creatinine 1.09. Troponin at the time of admission as discussed at 0.05. INR on 07/02/19 noted to be 2.56. WBC 10.3, hemoglobin 12.8, hematocrit 38, platelets noted to be 195. PHYSICAL EXAM AT TIME OF DISCHARGE: Vitals: Temp 97.9, pulse 68, respiratory rate 17, oxygen saturation 97%, blood pressure 131/95. HEENT: NCAT. Heart: S1, S2 present. Regular at the time of exam. Lungs: Decreased breath sounds. Noted to have minimal crackles at the bases. Abdomen: Soft, nontender. No rebound. No guarding. Extremities: Noted to have significant pedal edema. Neuro: Alert, oriented x3. ASSESSMENT: 1. Please note the patient is being discharged on Lasix 40 mg p.o. b.i.d. for CHF exacerbation. The patient also to continue Zaroxolyn every other day as he normally takes. The patient's CY inhibitor, lisinopril is currently on hold, as he recently had some worsening in his kidney function, which has resolved; however, the patient would benefit from being on an CY inhibitor in the retirement. Recommend checking labs next week to evaluate his potassium and kidney function on the b.i.d. dose of Lasix and if he tolerates it well, low dose CY inhibitor can be reinitiated and BMP can be rechecked 2 weeks after that. 2. Otherwise, the patient's home medications have not been changed. The patient reports that he is on prednisone 5 mg b.i.d. for a year now to help with his COPD per discussion with his PCP. This has been continued. MEDICATION LIST AT TIME OF DISCHARGE: 1. Prednisone 5 mg p.o. b.i.d. 2. Warfarin 5 mg p.o. weekly. 3. Warfarin 2.5 mg p.o. 4. Tamsulosin 0.4 mg p.o. daily. 5. Potassium 20 mEq p.o. b.i.d. 6. Metolazone 2.5 mg p.o. every other day. 7. Albuterol inhaler as needed. 8. Furosemide 40 mg p.o. b.i.d. 9. Carvedilol 6.25 p.o. b.i.d. 10. Aspirin 325 mg p.o. daily. LABORATORY DATA: Labs as discussed above. IMAGING STUDIES: 1. The patient had a V/Q scan during hospital stay to rule out PE and this showed that it was a low probability V/Q scan. The patient had an echocardiogram repeated on 06/30/19, which showed that his ejection fraction was 20 to 25%, severe diffuse hypokinesis, systolic function severely reduced, atrium was noted to be dilated, mild to moderate mitral valve regurgitation, no evidence of aortic stenosis, no pericardial effusion. 2. The patient had a chest CT initially when he came to the ER, which showed cardiomegaly and coronary artery disease. The patient a had x-ray as discussed above in the ER, which shows cardiomegaly with pulmonary interstitial edema. The patient is stable at time of discharge. DISPOSITION: Home. CONDITION: Stable. DISCHARGE INSTRUCTIONS: 1. The patient to follow up with his PCP within a week. 2. The patient to follow up with his food service cashier, Dr. Anaya in 1 to 2 weeks as an outpatient. 3. The patient to check labs next week to check his potassium and BMP on the Lasix 40 mg p.o. b.i.d. dose. 4. The patient to discuss YC inhibitor reinitiation with his PCP/food service cashier based on his test results. TIME SPENT: Total time spent on discharge is equal to 50 minutes. [id number]/CPS #: [id number]
== END 2019-07-03 15:49 | disposition home health service (06) | DRG 292 ==
LOC: ED 09:44 → MEDTELE 12:15 → INTOOBSV 12:15 → MEDTELE 07-02 12:42
PROVIDERS: ADMIT Internal Medicine; ATTEND Internal Medicine
DX: I11.0 Hypertensive heart disease with heart failure (principal); N17.9 Acute kidney failure, unspecified; E87.2 Acidosis; I25.10 Atherosclerotic heart disease of native coronary artery without angina pectoris; E78.00 Pure hypercholesterolemia, unspecified; I50.23 Acute on chronic systolic (congestive) heart failure; J44.9 Chronic obstructive pulmonary disease, unspecified; M19.042 Primary osteoarthritis, left hand; M19.041 Primary osteoarthritis, right hand; I25.5 Ischemic cardiomyopathy; E78.5 Hyperlipidemia, unspecified; I27.20 Pulmonary hypertension, unspecified; I34.0 Nonrheumatic mitral (valve) insufficiency; R79.89 Other specified abnormal findings of blood chemistry; S80.929A Unspecified superficial injury of unspecified lower leg, initial encounter; E66.9 Obesity, unspecified; H91.92 Unspecified hearing loss, left ear; F41.9 Anxiety disorder, unspecified; Z95.1 Presence of aortocoronary bypass graft; Z88.1 Allergy status to other antibiotic agents; Z86.711 Personal history of pulmonary embolism; Z86.718 Personal history of other venous thrombosis and embolism; I25.2 Old myocardial infarction; Z95.0 Presence of cardiac pacemaker; Z87.891 Personal history of nicotine dependence; Z82.49 Family history of ischemic heart disease and other diseases of the circulatory system; Z68.34 Body mass index [BMI] 34.0-34.9, adult; Z99.81 Dependence on supplemental oxygen; Z79.52 Long term (current) use of systemic steroids; Z79.82 Long term (current) use of aspirin; Z79.01 Long term (current) use of anticoagulants
CPT/HCPCS: 36415; 71045; 71250; 78582; 80048; 80053; 81003; 81015; 82272; 83605; 83630; 83880; 84484; 85025; 85610; 87045; 87046; 87077; 87899; 90686; 93005; 93306; 94640; 99284; A9270-GY; A9540; A9558; C8929; G0378; G8978-GP-CH; G8979-GP-CH; G8980-GP-CH; J1940; J7512

== ENCOUNTER 2019-11-16 23:15 | Observation (INO) | payer MEDICARE, MEDICAID ==
--- OUTSIDE RECORDS SUMMARY | 2019-11-16 23:27 | XMS REPORT ---
:1950 Author Organization [facility] Care Team Providers Name Role Phone Unavailable Unavailable Unavailable Problems This patient has no known problems. Allergies, Adverse Reactions, Alerts Allergy Allergy Status Severity Reaction(s) Onset Inactive Treating Comments Name Type Date Date Clinician Unknown None Active Unknown None Unknown No Known Allergies For This Patient Medications Ordered Filled Start Stop Current Ordering Indication Dosage Frequency Signature Comments Components Medication Medication Date Date Medication? Clinician (SIG) Name Name No Known No Known No None None None Medications Medications For This For This Patient Patient Procedures This patient has no known procedures. Results This patient has no known results.
--- OUTSIDE RECORDS SUMMARY | 2019-11-16 23:27 | XMS REPORT ---
:1950 Author Organization [facility] Care Team Providers Name Role Phone Unavailable [...]
--- OUTSIDE RECORDS SUMMARY | 2019-11-16 23:27 | XMS REPORT ---
:1950 Author Organization [facility] Care Team Providers Name Role Phone Unavailable [...]
--- OUTSIDE RECORDS SUMMARY | 2019-11-16 23:27 | XMS REPORT ---
:1950 Author Organization [facility] Care Team Providers Name Role Phone Unavailable [...]
--- OUTSIDE RECORDS SUMMARY | 2019-11-16 23:27 | XMS REPORT ---
:1950 Author Organization [facility] Care Team Providers Name Role Phone Unavailable [...]
--- OUTSIDE RECORDS SUMMARY | 2019-11-16 23:27 | XMS REPORT ---
:1950 Author Organization [facility] Care Team Providers Name Role Phone Unavailable [...]
--- OUTSIDE RECORDS SUMMARY | 2019-11-16 23:27 | XMS REPORT ---
:1950 Author Organization [facility] Care Team Providers Name Role Phone Unavailable [...]
--- OUTSIDE RECORDS SUMMARY | 2019-11-16 23:27 | XMS REPORT ---
:1950 Author Organization [facility] Care Team Providers Name Role Phone Unavailable [...]
--- OUTSIDE RECORDS SUMMARY | 2019-11-16 23:27 | XMS REPORT ---
:1950 Author Organization [facility] Care Team Providers Name Role Phone Unavailable [...]
--- OUTSIDE RECORDS SUMMARY | 2019-11-16 23:27 | XMS REPORT ---
:1950 Author Organization [facility] Care Team Providers Name Role Phone Unavailable [...]
--- OUTSIDE RECORDS SUMMARY | 2019-11-16 23:27 | XMS REPORT ---
:1950 Author Organization [facility] Care Team Providers Name Role Phone Unavailable [...]
--- OUTSIDE RECORDS SUMMARY | 2019-11-16 23:27 | XMS REPORT ---
:1950 Author Organization [facility] Care Team Providers Name Role Phone Unavailable [...]
--- OUTSIDE RECORDS SUMMARY | 2019-11-16 23:27 | XMS REPORT ---
:1950 Author Organization [facility] Care Team Providers Name Role Phone Unavailable [...]
--- OUTSIDE RECORDS SUMMARY | 2019-11-16 23:27 | XMS REPORT ---
:1950 Author Organization [facility] Care Team Providers Name Role Phone Unavailable [...]
--- OUTSIDE RECORDS SUMMARY | 2019-11-16 23:27 | XMS REPORT ---
:1950 Author Organization [facility] Care Team Providers Name Role Phone Unavailable [...]
--- OUTSIDE RECORDS SUMMARY | 2019-11-16 23:27 | XMS REPORT ---
:1950 Author Organization [facility] Care Team Providers Name Role Phone Unavailable [...]
--- OUTSIDE RECORDS SUMMARY | 2019-11-16 23:27 | XMS REPORT ---
:1950 Author Organization [facility] Care Team Providers Name Role Phone Unavailable [...]
--- OUTSIDE RECORDS SUMMARY | 2019-11-16 23:27 | XMS REPORT ---
:1950 Author Organization [facility] Care Team Providers Name Role Phone Unavailable [...]
--- OUTSIDE RECORDS SUMMARY | 2019-11-16 23:27 | XMS REPORT ---
:1950 Author Organization [facility] Care Team Providers Name Role Phone [...]
--- OUTSIDE RECORDS SUMMARY | 2019-11-16 23:27 | XMS REPORT ---
:1950 Author Organization [facility] Care Team Providers Name Role Phone Unavailable [...]
[2019-11-17 02:04] LABS: Influenza A Molecular POSITIVE (Negative)
[2019-11-17 02:15] LABS: ABS Lymphocytes 0.5 10^3/ul (1.0-4.8); ABS Monocytes 1.5 10^3/ul (0-0.8); Eosinophil % 0.4 %; Hematocrit 39 % (42-52); Hemoglobin 12.8 g/dL (14.0-18.0); Lymphocyte % 5.2 %; Mean Corpuscular HGB Conc 33 g/dL (31-36); Mean Corpuscular Hemoglobin 29 pg (27-31); Mean Corpuscular Volume 87 fL (80-94); Mean Platelet Volume 7.7 fL (7.4-10.4); Nucleated Red Blood Cells % 0.1; Platelet Count 197 10^3/uL (150-450); Red Blood Count 4.49 10^6 /uL (4.18-5.48); Red Cell Distribution Width 15 % (10-15)
[2019-11-17 02:27] LABS: INR 2.02 (0.82-1.09)
[2019-11-17 02:33] LABS: ALT 22 U/L (7-52); AST 21 U/L (13-39); Albumin/Globulin Ratio 1.2 (1-3); Alkaline Phosphatase 64 U/L (34-104); Anion Gap 8 mmol/L (2-11); BUN/Creatinine Ratio 24.3 (8-20); Blood Urea Nitrogen 34 mg/dL (6-24); CO2 Carbon Dioxide 32 mmol/L (22-32); Calcium 8.9 mg/dL (8.6-10.3); Chloride 99 mmol/L (101-111); EGFR African American 60.6 (>60); EGFR Non-African American 50.1 (>60); Globulin 3.4 g/dL (2-4); Glucose 100 mg/dL (70-100); Potassium 3.8 mmol/L (3.5-5.0); Sodium 139 mmol/L (135-145); Total Protein 7.4 g/dL (6.4-8.9)
[2019-11-17 02:43] LABS: Troponin I 0.27 ng/mL (<0.03)
--- NOTE | 2019-11-17 02:43 | ED ---
Shortness of Breath - HPI Summary HPI Summary: The patient is a 68 y/o male presenting to [facility] with a chief complaint of cough and shortness of breath onset the afternoon of 11/15/2019. He reports that he began with a cough, and then he developed a fever and chills. He notes a history of COPD which he usually medicates with steroids and 1L O2, as well as a BiPAP. In the ED, he is on 2L O2. Symptoms are currently rated 4/10 in severity. He additionally notes edema in the BLE. He has not taken any medications for treatment. PMHx: pacemaker, CABG, CHF, CAD, DVT, HLD, HTN, IN, COPD, PE. Former smoker, no EtOH, no substance use. Medications reviewed. Allergies noted. - History of Current Complaint Chief Complaint: EDShortnessOfBreath Time Seen by Provider: 11/17/19 00:39 Hx Obtained From: Patient Onset/Duration: Gradual Onset, Lasting Days, Still Present Current Severity: Moderate Dyspnea At: Rest Alleviating Factors: Oxygen Associated Signs & Symptoms: Cough (Productive), Fever, Chills, Edema - Allergy/Home Medications Allergies/Adverse Reactions: Allergies Allergy/AdvReac Type Severity Reaction Status Date / Time azithromycin AdvReac Severe See Comment Verified 02/12/19 00:01 Home Medications: Home Medications Fluticas/Salmet 115/21 HFA(NF) [Advair HFA 115/21 (NF)] 2 inh INH BID 11/17/19 [ History Confirmed 11/17/19] Lisinopril [Zestril 5 MG-] 5 mg PO DAILY 11/17/19 [History Confirmed 11/17/19] Nitroglycerin TAB 0.3 MG* 0.3 mg SL Q5M PRN 11/17/19 [History Confirmed 11/17/19 ] Torsemide TAB* [Demadex 20 MG*] 60 mg PO DAILY 11/17/19 [History Confirmed 11/17] PMH/Surg Hx/FS Hx/Imm Hx Endocrine/Hematology History: Denies: Hx Diabetes Cardiovascular History: Reports: Hx Auto Implanted Cardiovert Defib, Hx Congestive Heart Failure, Hx Coronary Artery Disease, Hx Deep Vein Thrombosis, Hx Hypercholesterolemia, Hx Hypertension, Hx Myocardial Infarction, Hx Pacemaker /ICD - 5/05/31, Other Cardiovascular Problems/Disorders Respiratory History: Reports: Hx Chronic Obstructive Pulmonary Disease (COPD), Hx Pneumonia, Hx Pulmonary Embolism, Other Respiratory Problems/Disorders - respiratory failure, uses 3L O2 at night Denies: Hx Asthma History: Denies: Hx Renal Disease Musculoskeletal History: Reports: Hx Arthritis - fingers, Hx Back Problems Denies: Hx Bursitis, Hx Congenital Bone Abnormalities, Hx Fibromyalgia, Hx Gout, Hx Orthopedic Injury, Hx Osteoporosis, Hx Scoliosis, Hx Tendonitis, Other Musculoskeletal History Sensory History: Reports: Hx Deafness - left ear, Hx Hearing Problem Denies: Hx Cataracts, Hx Contacts or Glasses, Hx Eye Injury, Hx Eye Prosthesis, Hx Glaucoma, Hx Legally Blind, Hx Macular Degeneration, Hx Vision Problem, Hx Hearing Aid, Other Sensory Impairments Opthamlomology History: Denies: Hx Cataracts, Hx Contacts or Glasses, Hx Eye Injury, Hx Eye Prosthesis, Hx Glaucoma, Hx Legally Blind, Hx Macular Degeneration, Hx Vision Problem, Other Sensory Impairments Psychiatric History: Reports: Hx Anxiety - Surgical History Surgical History: Yes Surgery Procedure, Year, and Place: CABG, pacemaker/ICD, appendectomy Hx Anesthesia Reactions: No - Immunization History Date of Tetanus Vaccine: unk Date of Influenza Vaccine: unk Infectious Disease History: No Infectious Disease History: Denies: Traveled Outside the [place] in Last 30 Days - Family History Known Family History: Positive: Cardiac Disease - extensive IN FHx - Social History Alcohol Use: None Hx Substance Use: No Substance Use Type: Reports: None Hx Tobacco Use: Yes Smoking Status (MU): Former Smoker Type: Cigarettes Have You Smoked in the Last Year: No - Additional Comments History Additional Comments: pacemaker, CABG, congestive heart failure, coronary artery disease, DVT, hyperlipidemia, hypertension, IN, COPD, pulmonary embolism Review of Systems - ROS Summary Review of Systems Summary: Home Medications Medication Instructions Recorded Confirmed Type Carvedilol TAB* [Coreg TAB*] 6.25 mg PO BID 04/25/18 06/30/19 History Potassium Chlor TAB* [Potassium 20 meq PO BID 04/25/18 06/30/19 History Chlor TAB 20 MEQ*] predniSONE 5 mg TAB [Deltasone 5 5 mg PO BID 04/25/18 06/30/19 History mg TAB] Tamsulosin CAP* [Flomax CAP*] 0.4 mg PO DAILY #30 cap 02/09/19 06/30/19 Rx Warfarin TAB(*) [Coumadin TAB(*)] 2.5 mg PO SEE INSTRUCTIONS 05/30/19 06/30/19 History Aspirin TAB* [Aspirin 325 MG TAB*] 325 mg PO DAILY 06/06/19 06/30/19 History Ipratropium/Albuterol Sulfate 3 ml INH BID 06/30/19 06/30/19 History [Iprat-Albut 0.5-3(2.5) mg/3 ml] Metolazone TAB* [Zaroxolyn TAB*] 2.5 mg PO EVERY OTHER DAY PRN 06/30/19 History Warfarin TAB(*) [Coumadin TAB(*)] 5 mg PO WEEKLY 06/30/19 06/30/19 History Fluticas/Salmet 115 HFA(NF) 2 inh INH BID 11/17/19 11/17/19 History [Advair HFA (NF)] Lisinopril [Zestril 5 MG-] 5 mg PO DAILY 11/17/19 11/17/19 History Nitroglycerin TAB 0.3 MG* 0.3 mg SL Q5M PRN 11/17/19 11/17/19 History Torsemide TAB* [Demadex 20 MG*] 60 mg PO DAILY 11/17/19 11/17/19 History Positive: Fever, Chills Positive: Cough Positive: Edema All Other Systems Reviewed And Are Negative: Yes Physical Exam - Summary Physical Exam Summary: General: Well-developed, Obese elderly male. Mildly ill-appearing. Appears to be in mild respiratory distress. HEENT: Normocephalic, Atraumatic. Eyes: Conjuctiva normal, PERRL. Oropharynx: Clear, mucous membranes moist, (-) exudates. Neck: Soft, FROM, (-) lymphadenopathy, (-) thyromegaly, (-) JVD. Cardiovascular: Normal sinus rhythm, (-) murmur. Lungs: Decreased breath sounds bilaterally, Bibasilar crackles, (+) wheezes throughout, (-) rales, (-) rhonchi. Abdomen: Soft, non-tender, non-distended, (-) organomegaly, normal bowel sounds. Back: (-) CVA tenderness Extremities: 1+ Pitting edema. Skin: Warm, dry, (-) rash. Neuro: Alert and oriented x3, moves all extremities equally. No ataxia. No gait disturbance. No sensory deficit. No amnesia. Psychiatric: Mood normal, affect normal. Triage Information Reviewed: Yes Vital Signs On Initial Exam: Initial Vitals Pulse BP Pulse Ox 78 118/84 97 11/16/19 23:27 11/16/19 23:27 11/16/19 23:27 Vital Signs Reviewed: Yes Procedures - Sedation Patient Received Moderate/Deep Sedation with Procedure: No Diagnostics - Vital Signs Vital Signs Temp Pulse Resp BP Pulse Ox 11/17/19 02:27 81 31 103/68 97 11/17/19 02:00 28 11/17/19 01:57 29 115/73 11/17/19 01:28 73 103/62 96 11/17/19 01:00 76 94 11/17/19 00:57 81 105/63 94 11/17/19 00:28 89 100/46 90 11/17/19 00:00 89 93 11/16/19 23:59 84 93 11/16/19 23:57 83 111/68 94 11/16/19 23:28 98.6 F 90 24 118/84 97 11/16/19 23:27 78 118/84 97 - Laboratory Lab Results: Lab Results 11/17/19 11/17/19 11/17/19 Range/Units 01:27 02:01 02:01 WBC 10.0 (3.5-10.8) 10^3/uL RBC 4.49 (4.18-5.48) 10^6 /uL Hgb 12.8 L (14.0-18.0) g/dL Hct 39 L (42-52) % MCV 87 (80-94) fL MCH 29 (27-31) pg MCHC 33 (31-36) g/dL RDW 15 (10-15) % Plt Count 197 (150-450) 10^3/uL MPV 7.7 (7.4-10.4) fL Neut % (Auto) 79.5 % Lymph % (Auto) 5.2 % Chambers % (Auto) 14.5 % Eos % (Auto) 0.4 % Baso % (Auto) 0.4 % Absolute Neuts (auto) 8.0 H (1.5-7.7) 10^3/ul Absolute Lymphs (auto) 0.5 L (1.0-4.8) 10^3/ul Absolute Monos (auto) 1.5 H (0-0.8) 10^3/ul Absolute Eos (auto) 0.0 (0-0.6) 10^3/ul Absolute Basos (auto) 0.0 (0-0.2) 10^3/ul Absolute Nucleated RBC 0.0 10^3/ul Nucleated RBC % 0.1 INR (Anticoag Therapy) 2.02 H (0.82-1.09) Sodium (135-145) mmol/L Potassium (3.5-5.0) mmol/L Chloride (101-111) mmol/L Carbon Dioxide (22-32) mmol/L Anion Gap (2-11) mmol/L BUN (6-24) mg/dL Creatinine (0.67-1.17) mg/dL Est GFR ( Amer) (>60) Est GFR (Non-Af Amer) (>60) BUN/Creatinine Ratio (8-20) Glucose (70-100) mg/dL Lactic Acid (0.5-2.0) mmol/L Calcium (8.6-10.3) mg/dL Total Bilirubin (0.2-1.0) mg/dL AST (13-39) U/L ALT (7-52) U/L Alkaline Phosphatase (34-104) U/L Troponin I Total Protein (6.4-8.9) g/dL Albumin (3.2-5.2) g/dL Globulin (2-4) g/dL Albumin/Globulin Ratio (1-3) Influenza A (Rapid) Positive A (Negative) Influenza B (Rapid) Not Reportable 11/17/19 11/17/19 Range/Units 02:01 02:01 WBC (3.5-10.8) 10^3/uL RBC (4.18-5.48) 10^6 /uL Hgb (14.0-18.0) g/dL Hct (42-52) % MCV (80-94) fL MCH (27-31) pg MCHC (31-36) g/dL RDW (10-15) % Plt Count (150-450) 10^3/uL MPV (7.4-10.4) fL Neut % (Auto) % Lymph % (Auto) % Chambers % (Auto) % Eos % (Auto) % Baso % (Auto) % Absolute Neuts (auto) (1.5-7.7) 10^3/ul Absolute Lymphs (auto) (1.0-4.8) 10^3/ul Absolute Monos (auto) (0-0.8) 10^3/ul Absolute Eos (auto) (0-0.6) 10^3/ul Absolute Basos (auto) (0-0.2) 10^3/ul Absolute Nucleated RBC 10^3/ul Nucleated RBC % INR (Anticoag Therapy) (0.82-1.09) Sodium 139 (135-145) mmol/L Potassium 3.8 (3.5-5.0) mmol/L Chloride 99 L (101-111) mmol/L Carbon Dioxide 32 (22-32) mmol/L Anion Gap 8 (2-11) mmol/L BUN 34 H (6-24) mg/dL Creatinine 1.40 H (0.67-1.17) mg/dL Est GFR ( Amer) 60.6 (>60) Est GFR (Non-Af Amer) 50.1 (>60) BUN/Creatinine Ratio 24.3 H (8-20) Glucose 100 (70-100) mg/dL Lactic Acid 1.2 (0.5-2.0) mmol/L Calcium 8.9 (8.6-10.3) mg/dL Total Bilirubin 0.70 (0.2-1.0) mg/dL AST 21 (13-39) U/L ALT 22 (7-52) U/L Alkaline Phosphatase 64 (34-104) U/L Troponin I Pending Total Protein 7.4 (6.4-8.9) g/dL Albumin 4.0 (3.2-5.2) g/dL Globulin 3.4 (2-4) g/dL Albumin/Globulin Ratio 1.2 (1-3) Influenza A (Rapid) (Negative) Influenza B (Rapid) Result Diagrams: 11/17/19 05:46 11/18/19 13:14 Lab Statement: Any lab studies that have been ordered have been reviewed, and results considered in the medical decision making process. - Radiology CXR Radiology Interpretation Completed By: ED Physician Summary of Radiographic Findings: Increased interstitial markings consistent with CHF. ED physician has reviewed and interpreted this report. Pending official read. - EKG 0135 Cardiac Rate: Other Rate - 86 BPM Summary of EKG Findings: EKG at 0135 reveals paced rhythm with rate of 86 BPM, no acute changes, no ischemic changes, no STEMI. This EKG was reviewed and interpreted by Dr. Majano. Re-Evaluation - Re-Evaluation First Eval Re-Evaluation Time: 03:15 Comment: Discussed results and plan for admission. Course/Dx - Course Course Of Treatment: 68-year-old male presents with cough and shortness of breath. Fever and chills now. He does have known COPD. He normally wears 1 L of oxygen at home. Currently on 2 L. Also has known CHF and coronary artery disease. Has increased lower extremity edema at this time. Patient with decreased air exchange bilaterally. Wheezes. Given breathing treatments. Steroids. Continued on oxygen. Labs and chest x-ray consistent with CHF. Patient positive for influenza A. Given Tamiflu. Referred to hospitalist for admission. - Diagnoses Provider Diagnoses: CHF (congestive heart failure), Influenza A - Physician Notifications Discussed Care of Patient With: Marcela Crook - hospitalist Time Discussed With Above Provider: 03:20 Instructed by Provider To: Other - I discussed the patients case with Dr. Crook, who accepts the patient for admission. Discharge ED - Sign-Out/Discharge Documenting (check all that apply): Patient Departure - Patient accepted for admission by Dr. Crook. - Discharge Plan Condition: Improved Disposition: ADMITTED TO [facility] - Billing Disposition and Condition Condition: IMPROVED Disposition: Admitted to [facility] - Attestation Statements Document Initiated by Carlos: Yes Documenting Scribe: Sunita Ahmadi Provider For Whom Carlos is Documenting (Include Credential): Dr. Demetria Majano MD Scribe Attestation: Sunita Smith, scribed for Dr. Demetria Majano MD on 11/20/19 at 2041. Scribe Documentation Reviewed: Yes Provider Attestation: The documentation as recorded by the Sunita liriano accurately reflects the service I personally performed and the decisions made by me, Dr. Demetria Majano MD Status of Scribe Document: Viewed
[2019-11-17] MEDS ORDERED: NS 0.9% 1000 ML** 1,000 ML IV SCH (03:15)
[2019-11-17] MEDS ORDERED: Oseltamivir CAP* 75 MG CAP PO ONE (03:15)
[2019-11-17 04:20] LABS: Troponin I 0.24 ng/mL (<0.03)
[2019-11-17] MEDS ORDERED: Acetaminophen TAB* 325 MG PO PRN ×2 (05:02→08:54)
--- NOTE | 2019-11-17 05:06 | ADMNOTE ---
Subjective Interval History: this is my HP 68 yo male with hx of ischemic cardiomyopathy ( EF 20-25%) presented with 2 days hx of malaise, SOB, fevers and chills. He was febrile on arrival wiht soft blood pressure. He was tested pos for flu type A. Pt said he ws vaccinated this year. He is aching every where and is very uncomfortable. pt lives alone and is usually self sufficient. No smoking, no alcohol. Family History: Unchanged from Admission Social History: Unchanged from Admission Past Medical History: Unchanged from Admission Review of Systems - Measurements Intake and Output: Intake and Output Last 24 Hours 11/14/19 11/15/19 11/16/19 11/17/19 06:59 06:59 06:59 06:59 Weight 178 lb - Review of Systems Constitutional Symptoms: Positive: Weakness, Fatigue, Fever Negative: Weight Gain, Weight Loss, Night Sweats, Unexplained Falls, Other Dermatology: Negative: Normal, Rash, Skin Lesions, Cancer, Skin Lumps, Other HEENT: Negative: Normal, Change in Hearing, Vertigo, Dental Problems, Tinnitus, Sinus Problem, Other Eyes: Negative: Normal, Change in Vision, Double Vision, Eye Pain, Glaucoma, Cataract, Contacts or Glasses, Other Thyroid: Negative: Normal, Goiter, Thyroid Nodule, Cold Intolerance, Heat Intolerance , Sweatiness, Tremor, Frequent Defecation, Constipation, Palpitations, Primary Hypothyroidism, Primary Hyperthyroidism, Weight Loss, Weight Gain, Change in Skin/Hair, Change in Menstruation, Radiation Exposure, Other Pulmonary: Positive: Cough, Wheezing, Respiratory Distress, Shortness of Breath , COPD Cardiology: Negative: Normal, Chest Pain, Shortness of Breath, Palpitations, Swelling of Ankles, Peripheral Vascular Dis, Edema, Faintness, Syncope, Claudication, Proximal NocturnalDyspnea, Orthopnoea, Other Gastroenterology: Negative: Normal, Abdominal Pain, Nausea, Vomiting, Anorexia, Indigestion, Difficulty Swallowing, Heartburn, Constipation, Diarrhea, Blood in Stools, Change in Bowel Habits, Haematemesis, Melena, Other Genitourinary - Male: Negative: Prostatism, Erectile Dysfunction, Family Hx of Prostate Cancer, Other Endocrinology: Negative: Normal, Thyroid Problems, Adrenal Problems, Gonadal Problems, Family Hx Endocrine Disorders, Obesity, Diabetes Mellitus, Hyperglycemia, Hx Hypoglycemia, Diabetic Foot Ulcers, Calluses, Hirsutism, Menstrual Abnormalities , Polydipsia, Polyuria, Gonadal Problems, Gynecomastia, Pituitary disease, Other Hematologic/Lymphatic: Negative: Anemia, Easy Bruising, Hx Leukemia, Hx Lymphoma, Use of Anticoagulant, Use of Antiplatelet Drugs, Other Neurology: Positive: Headache Negative: Normal, Migraines, Change in Vision, Diplopia, Dizziness, Change in Balancing, Change in Coordination, Change in Memory, Change in Speech, Change in Sphincter Function, Change in Walking, Numbness\Paresthesiae, Unexplained Weakness, Hx of Stroke\TIA, Hx of Seizures, Other Objective Active Medications: Acetaminophen (Tylenol Tab*) 650 mg PO Q6H PRN PRN Reason: PAIN - MILD Sodium Chloride (Ns 0.9% 1000 Ml) 1,000 mls @ 100 mls/hr IV PER RATE KIRSTIE Oseltamivir Phosphate (Tamiflu Cap*) 75 mg PO BID [facility] Stop: 11/21/19 21:01 Ambulatory Orders Carvedilol TAB* [Coreg TAB*] 6.25 mg PO BID 04/25/18 Potassium Chlor TAB* [Potassium Chlor TAB 20 MEQ*] 20 meq PO BID 04/25/18 predniSONE 5 mg TAB [Deltasone 5 mg TAB] 10 mg PO DAILY 04/25/18 Tamsulosin CAP* [Flomax CAP*] 0.4 mg PO DAILY #30 cap 02/09/19 Warfarin TAB(*) [Coumadin TAB(*)] 2.5 mg PO SEE INSTRUCTIONS 05/30/19 Aspirin TAB* [Aspirin 325 MG TAB*] 325 mg PO DAILY 06/06/19 Ipratropium/Albuterol Sulfate [Iprat-Albut 0.5-3(2.5) mg/3 ml] 3 ml INH BID Metolazone TAB* [Zaroxolyn TAB*] 2.5 mg PO EVERY OTHER DAY PRN 06/30/19 Warfarin TAB(*) [Coumadin TAB(*)] 5 mg PO WEEKLY 06/30/19 Fluticas/Salmet 115/21 HFA(NF) [Advair HFA 115/21 (NF)] 2 inh INH BID Lisinopril [Zestril 5 MG-] 5 mg PO DAILY 11/17/19 Nitroglycerin TAB 0.3 MG* 0.3 mg SL Q5M PRN 11/17/19 Torsemide TAB* [Demadex 20 MG*] 60 mg PO DAILY 11/17/19 Vital Signs - 8 hr 11/16/19 11/16/19 11/16/19 23:27 23:28 23:57 Temperature 98.6 F Pulse Rate 78 90 83 Respiratory 24 Rate Blood Pressure 118/84 118/84 111/68 (mmHg) O2 Sat by Pulse 97 97 94 Oximetry 11/16/19 11/17/19 11/17/19 23:59 00:00 00:28 Temperature Pulse Rate 84 89 89 Respiratory Rate Blood Pressure 100/46 (mmHg) O2 Sat by Pulse 93 93 90 Oximetry 11/17/19 11/17/19 11/17/19 00:57 01:00 01:28 Temperature Pulse Rate 81 76 73 Respiratory Rate Blood Pressure 105/63 103/62 (mmHg) O2 Sat by Pulse 94 94 96 Oximetry 11/17/19 11/17/19 11/17/19 01:57 02:00 02:27 Temperature Pulse Rate 81 Respiratory 29 28 31 Rate Blood Pressure 115/73 103/68 (mmHg) O2 Sat by Pulse 97 Oximetry 11/17/19 11/17/19 11/17/19 02:58 03:00 03:28 Temperature Pulse Rate 83 75 80 Respiratory 31 29 27 Rate Blood Pressure 111/76 116/67 (mmHg) O2 Sat by Pulse 97 96 97 Oximetry 11/17/19 11/17/19 11/17/19 03:59 04:01 04:27 Temperature Pulse Rate 82 85 80 Respiratory 28 33 21 Rate Blood Pressure 108/76 114/81 (mmHg) O2 Sat by Pulse 95 96 95 Oximetry Oxygen Devices in Use Now: Nasal Cannula Appearance: sickly Eyes: No Scleral Icterus, PERRLA Ears/Nose/Mouth/Throat: Mucous Membranes Moist Neck: NL Appearance and Movements; NL JVP, Trachea Midline Respiratory: - - diffused crackles Abdominal: NL Sounds; No Tenderness; No Distention Lymphatic: No Cervical Adenopathy Extremities: No Edema, No Clubbing, Cyanosis Skin: No Rash or Ulcers, No Nodules or Sclerosis Neurological: Alert and Oriented x 3 Result Diagrams: 11/17/19 02:01 11/17/19 02:01 Additional Lab and Data: Lab Results 11/17/19 11/17/19 11/17/19 Range/Units 01:27 02:01 02:01 WBC 10.0 (3.5-10.8) 10^3/uL RBC 4.49 (4.18-5.48) 10^6 /uL Hgb 12.8 L (14.0-18.0) g/dL Hct 39 L (42-52) % MCV 87 (80-94) fL MCH 29 (27-31) pg MCHC 33 (31-36) g/dL RDW 15 (10-15) % Plt Count 197 (150-450) 10^3/uL MPV 7.7 (7.4-10.4) fL Neut % (Auto) 79.5 % Lymph % (Auto) 5.2 % [place] % (Auto) 14.5 % Eos % (Auto) 0.4 % Baso % (Auto) 0.4 % Absolute Neuts (auto) 8.0 H (1.5-7.7) 10^3/ul Absolute Lymphs (auto) 0.5 L (1.0-4.8) 10^3/ul Absolute Monos (auto) 1.5 H (0-0.8) 10^3/ul Absolute Eos (auto) 0.0 (0-0.6) 10^3/ul Absolute Basos (auto) 0.0 (0-0.2) 10^3/ul Absolute Nucleated RBC 0.0 10^3/ul Nucleated RBC % 0.1 INR (Anticoag Therapy) 2.02 H (0.82-1.09) Sodium (135-145) mmol/L Potassium (3.5-5.0) mmol/L Chloride (101-111) mmol/L Carbon Dioxide (22-32) mmol/L Anion Gap (2-11) mmol/L BUN (6-24) mg/dL Creatinine (0.67-1.17) mg/dL Est GFR ( Amer) (>60) Est GFR (Non-Af Amer) (>60) BUN/Creatinine Ratio (8-20) Glucose (70-100) mg/dL Lactic Acid (0.5-2.0) mmol/L Calcium (8.6-10.3) mg/dL Total Bilirubin (0.2-1.0) mg/dL AST (13-39) U/L ALT (7-52) U/L Alkaline Phosphatase (34-104) U/L Troponin I Total Protein (6.4-8.9) g/dL Albumin (3.2-5.2) g/dL Globulin (2-4) g/dL Albumin/Globulin Ratio (1-3) Influenza A (Rapid) Positive A (Negative) Influenza B (Rapid) Not Reportable 11/17/19 11/17/19 Range/Units 02:01 02:01 WBC (3.5-10.8) 10^3/uL RBC (4.18-5.48) 10^6 /uL Hgb (14.0-18.0) g/dL Hct (42-52) % MCV (80-94) fL MCH (27-31) pg MCHC (31-36) g/dL RDW (10-15) % Plt Count (150-450) 10^3/uL MPV (7.4-10.4) fL Neut % (Auto) % Lymph % (Auto) % [place] % (Auto) % Eos % (Auto) % Baso % (Auto) % Absolute Neuts (auto) (1.5-7.7) 10^3/ul Absolute Lymphs (auto) (1.0-4.8) 10^3/ul Absolute Monos (auto) (0-0.8) 10^3/ul Absolute Eos (auto) (0-0.6) 10^3/ul Absolute Basos (auto) (0-0.2) 10^3/ul Absolute Nucleated RBC 10^3/ul Nucleated RBC % INR (Anticoag Therapy) (0.82-1.09) Sodium 139 (135-145) mmol/L Potassium 3.8 (3.5-5.0) mmol/L Chloride 99 L (101-111) mmol/L Carbon Dioxide 32 (22-32) mmol/L Anion Gap 8 (2-11) mmol/L BUN 34 H (6-24) mg/dL Creatinine 1.40 H (0.67-1.17) mg/dL Est GFR ( Amer) 60.6 (>60) Est GFR (Non-Af Amer) 50.1 (>60) BUN/Creatinine Ratio 24.3 H (8-20) Glucose 100 (70-100) mg/dL Lactic Acid 1.2 (0.5-2.0) mmol/L Calcium 8.9 (8.6-10.3) mg/dL Total Bilirubin 0.70 (0.2-1.0) mg/dL AST 21 (13-39) U/L ALT 22 (7-52) U/L Alkaline Phosphatase 64 (34-104) U/L Troponin I Pending Total Protein 7.4 (6.4-8.9) g/dL Albumin 4.0 (3.2-5.2) g/dL Globulin 3.4 (2-4) g/dL Albumin/Globulin Ratio 1.2 (1-3) Influenza A (Rapid) (Negative) Influenza B (Rapid) Assess/Plan/Problems-Billing Assessment: - Patient Problems (1) Influenza A Current Visit: Yes Status: Acute Code(s): J10.1 - FLU DUE TO OTH IDENT INFLUENZA VIRUS W OTH RESP MANIFEST SNOMED Code(s): 756685624 Comment: flu pos CXR shows cardiomegaly and congestion tamiflu BID did start him on IVF since his pressure is low and he has an VIJAY. He does have severe cardiomyopathy though (2) History of DVT (deep vein thrombosis) Current Visit: No Status: Acute Code(s): Z86.718 - PERSONAL HISTORY OF OTHER VENOUS THROMBOSIS AND EMBOLISM SNOMED Code(s): 992558218 Comment: - H/o DVT/PE. - INR is therapeutic. - Continue Warfarin. (3) HTN (hypertension) Current Visit: No Status: Chronic Code(s): I10 - ESSENTIAL (PRIMARY) HYPERTENSION SNOMED Code(s): 45476949 Comment: will hold lisinopril and diuretics tonight. BP borderline low (4) CAD (coronary artery disease) Current Visit: No Status: Chronic Priority: Medium Code(s): I25.10 - ATHSCL HEART DISEASE OF [place] CORONARY ARTERY W/O ANG PCTRS SNOMED Code(s): 76899246 Comment: - Asymptomatic - Troponin elevated, likely demand ischemia. Will repeat X2 - Continue statin and coreg (5) Chronic systolic CHF (congestive heart failure) Current Visit: No Status: Chronic Code(s): I50.22 - CHRONIC SYSTOLIC ( CONGESTIVE) HEART FAILURE SNOMED Code(s): 411938467 Comment: EF 20-25 % his CXR is already congested. He is with the flu, intravascularly dehydrated and has an VIJAY, so he needs some fluids for now. At some point, hope we can DC the fluids and restart his diuretics (6) COPD (chronic obstructive pulmonary disease) Current Visit: No Status: Chronic Code(s): J44.9 - CHRONIC OBSTRUCTIVE PULMONARY DISEASE, UNSPECIFIED SNOMED Code(s): 00860393 Comment: Dr. Espinosa started prednisone 5 mg bid aout 2 years ago. Since he is on chronic steroids, will stress dose him (7) Acute kidney injury Current Visit: No Status: Acute Code(s): N17.9 - ACUTE KIDNEY FAILURE, UNSPECIFIED SNOMED Code(s): 12997631 Comment: pre-renal VIJAY IVF (8) DVT prophylaxis Current Visit: No Status: Acute Code(s): CAT1319 - SNOMED Code(s): 985235785 Comment: - Warfarin. (9) Full code status Current Visit: No Status: Acute Code(s): Z78.9 - OTHER SPECIFIED HEALTH STATUS SNOMED Code(s): 530984788
[2019-11-17] MEDS ORDERED: Nitroglycerin TAB 0.3 MG* 0.3 MG TAB SL PRN (05:07)
[2019-11-17 05:53] LABS: ABS Basophils 0.1 10^3/ul (0-0.2); ABS Lymphocytes 0.7 10^3/ul (1.0-4.8); ABS Monocytes 1.4 10^3/ul (0-0.8); Eosinophil % 0.3 %; Hematocrit 39 % (42-52); Hemoglobin 12.6 g/dL (14.0-18.0); Lymphocyte % 6.7 %; Mean Corpuscular HGB Conc 33 g/dL (31-36); Mean Corpuscular Hemoglobin 29 pg (27-31); Mean Corpuscular Volume 87 fL (80-94); Mean Platelet Volume 7.8 fL (7.4-10.4); Platelet Count 196 10^3/uL (150-450); Red Blood Count 4.44 10^6 /uL (4.18-5.48); Red Cell Distribution Width 15 % (10-15); White Blood Count 10.1 10^3/uL (3.5-10.8)
[2019-11-17] MEDS ORDERED: methylPREDNISolone 125 MG* 2 ML VIAL IV SCH (06:00)
[2019-11-17 06:10] LABS: BUN/Creatinine Ratio 22.1 (8-20); Calcium 8.6 mg/dL (8.6-10.3); EGFR African American 58.2 (>60); EGFR Non-African American 48.1 (>60); Magnesium 1.8 mg/dL (1.9-2.7); Potassium 3.5 mmol/L (3.5-5.0)
[2019-11-17] MEDS: Mometasone/Formoter 200/5 MDI INH SCH ×2 (07:24→19:45)
[2019-11-17] MEDS ORDERED: Magnesium Sulfate 2 GM IV* 2 GM/50 ML BAG IVPB ONE (08:55)
[2019-11-17] MEDS ORDERED: Potassium Chlor TAB* 20 MEQ TAB.ER PO ONE (08:55)
[2019-11-17] MEDS ORDERED: Albuterol/Ipratropium NEB.SOL* Albuterol 2.5 MG/Ipratropium 0.5 MG 3 ML INH PRN (08:58)
[2019-11-17] MEDS ORDERED: Albuterol/Ipratropium NEB.SOL* Albuterol 2.5 MG/Ipratropium 0.5 MG 3 ML INH SCH (09:00)
[2019-11-17] MEDS ORDERED: GuaiFENesin DM sugar free 100mg/10mg 5 ML UDC PO PRN (09:02)
--- NOTE | 2019-11-17 09:04 | PN ---
Subjective Date of Service: 11/17/19 Interval History: Admitted a few hours ago for flu. Requiring 2L O2 now. Reports using nightly O2 at home. CXR concerning for edema. BUN/Cr are elevated, but slightly so. Will DC IVF but also hold home diuretic, encourage PO. Patient is in good spirits. Reports persistent cough and congestion. States his dyspnea, chills, and malaise have improved slightly. Objective Active Medications: Acetaminophen (Tylenol Tab*) 975 mg PO Q8H PRN PRN Reason: PAIN - MILD Albuterol/Ipratropium (Duoneb (Albuterol 2.5 Mg/Ipratropium 0.5 Mg)) 1 neb INH Q6H PRN PRN Reason: SOB/WHEEZING Aspirin (Aspirin Tab*) 325 mg PO DAILY [facility] Carvedilol (Coreg Tab*) 6.25 mg PO BID [facility] Last Admin: 11/17/19 09:21 Dose: 6.25 mg Guaifenesin/Dextromethorphan (Robitussin Dm 100mg/10mg Sugar Free*) 10 ml PO Q6H PRN PRN Reason: COUGH Lisinopril (Prinivil Tab*) 5 mg PO DAILY [facility] Mometasone Furoate/Formoterol Fumar (Dulera 200/5 Mdi*) 2 puff INH BID [facility]; Protocol Last Admin: 11/17/19 07:24 Dose: Not Given Nitroglycerin (Nitroglycerin Tab 0.4 Mg*) 0.4 mg SL Q5M PRN PRN Reason: ANGINA Oseltamivir Phosphate (Tamiflu Cap*) 30 mg PO BID [facility] Stop: 11/21/19 21:01 Potassium Chloride (Klor Con Er Tab*) 20 meq PO BID [facility] Prednisone (Deltasone 20 Mg Tab) 40 mg PO DAILY [facility] Stop: 11/19/19 09:01 Last Admin: 11/17/19 09:35 Dose: 40 mg Tamsulosin HCl (Flomax Cap*) 0.4 mg PO BEDTIME [facility] Warfarin Sodium (Coumadin Tab(*)) 2.5 mg PO EVERY OTHER DAY@1700 [facility]; Protocol Warfarin Sodium (Coumadin Tab(*)) 5 mg PO EVERY OTHER DAY@1700 [facility]; Protocol Vital Signs - 8 hr 11/17/19 11/17/19 11/17/19 01:28 01:57 02:00 Temperature Pulse Rate 73 Respiratory 29 28 Rate Blood Pressure 103/62 115/73 (mmHg) O2 Sat by Pulse 96 Oximetry 11/17/19 11/17/19 11/17/19 02:27 02:58 03:00 Temperature Pulse Rate 81 83 75 Respiratory 31 31 29 Rate Blood Pressure 103/68 111/76 (mmHg) O2 Sat by Pulse 97 97 96 Oximetry 11/17/19 11/17/19 11/17/19 03:28 03:59 04:01 Temperature Pulse Rate 80 82 85 Respiratory 27 28 33 Rate Blood Pressure 116/67 108/76 (mmHg) O2 Sat by Pulse 97 95 96 Oximetry 11/17/19 11/17/19 11/17/19 04:27 05:26 05:44 Temperature 0 F 98.6 F Pulse Rate 80 0 86 Respiratory 21 0 22 Rate Blood Pressure 114/81 0/0 122/87 (mmHg) O2 Sat by Pulse 95 0 96 Oximetry 11/17/19 11/17/19 11/17/19 07:28 07:30 07:56 Temperature 99.7 F Pulse Rate 88 84 Respiratory 22 22 20 Rate Blood Pressure 120/76 (mmHg) O2 Sat by Pulse 99 94 Oximetry Oxygen Devices in Use Now: Nasal Cannula Appearance: chronically ill appearing man in NAD Eyes: No Scleral Icterus Ears/Nose/Mouth/Throat: Clear Oropharnyx, Mucous Membranes Moist Neck: NL Appearance and Movements; NL JVP, Trachea Midline Respiratory: - - expiratory wheeze with diffuse rhonchi Cardiovascular: RRR Abdominal: NL Sounds; No Tenderness; No Distention, No Hepatosplenomegaly Extremities: - - trace edema over ankles Neurological: Alert and Oriented x 3 Result Diagrams: 11/17/19 05:46 11/17/19 05:46 Additional Lab and Data: Lab Results 11/17/19 11/17/19 11/17/19 Range/Units 01:27 02:01 02:01 WBC 10.0 (3.5-10.8) 10^3/uL RBC 4.49 (4.18-5.48) 10^6 /uL Hgb 12.8 L (14.0-18.0) g/dL Hct 39 L (42-52) % MCV 87 (80-94) fL MCH 29 (27-31) pg MCHC 33 (31-36) g/dL RDW 15 (10-15) % Plt Count 197 (150-450) 10^3/uL MPV 7.7 (7.4-10.4) fL Neut % (Auto) 79.5 % Lymph % (Auto) 5.2 % [place] % (Auto) 14.5 % Eos % (Auto) 0.4 % Baso % (Auto) 0.4 % Absolute Neuts (auto) 8.0 H (1.5-7.7) 10^3/ul Absolute Lymphs (auto) 0.5 L (1.0-4.8) 10^3/ul Absolute Monos (auto) 1.5 H (0-0.8) 10^3/ul Absolute Eos (auto) 0.0 (0-0.6) 10^3/ul Absolute Basos (auto) 0.0 (0-0.2) 10^3/ul Absolute Nucleated RBC 0.0 10^3/ul Nucleated RBC % 0.1 INR (Anticoag Therapy) 2.02 H (0.82-1.09) Sodium (135-145) mmol/L Potassium (3.5-5.0) mmol/L Chloride (101-111) mmol/L Carbon Dioxide (22-32) mmol/L Anion Gap (2-11) mmol/L BUN (6-24) mg/dL Creatinine (0.67-1.17) mg/dL Est GFR ( Amer) (>60) Est GFR (Non-Af Amer) (>60) BUN/Creatinine Ratio (8-20) Glucose (70-100) mg/dL Lactic Acid (0.5-2.0) mmol/L Calcium (8.6-10.3) mg/dL Total Bilirubin (0.2-1.0) mg/dL AST (13-39) U/L ALT (7-52) U/L Alkaline Phosphatase (34-104) U/L Troponin I Total Protein (6.4-8.9) g/dL Albumin (3.2-5.2) g/dL Globulin (2-4) g/dL Albumin/Globulin Ratio (1-3) Influenza A (Rapid) Positive A (Negative) Influenza B (Rapid) Not Reportable 11/17/19 11/17/19 Range/Units 02:01 02:01 WBC (3.5-10.8) 10^3/uL RBC (4.18-5.48) 10^6 /uL Hgb (14.0-18.0) g/dL Hct (42-52) % MCV (80-94) fL MCH (27-31) pg MCHC (31-36) g/dL RDW (10-15) % Plt Count (150-450) 10^3/uL MPV (7.4-10.4) fL Neut % (Auto) % Lymph % (Auto) % [place] % (Auto) % Eos % (Auto) % Baso % (Auto) % Absolute Neuts (auto) (1.5-7.7) 10^3/ul Absolute Lymphs (auto) (1.0-4.8) 10^3/ul Absolute Monos (auto) (0-0.8) 10^3/ul Absolute Eos (auto) (0-0.6) 10^3/ul Absolute Basos (auto) (0-0.2) 10^3/ul Absolute Nucleated RBC 10^3/ul Nucleated RBC % INR (Anticoag Therapy) (0.82-1.09) Sodium 139 (135-145) mmol/L Potassium 3.8 (3.5-5.0) mmol/L Chloride 99 L (101-111) mmol/L Carbon Dioxide 32 (22-32) mmol/L Anion Gap 8 (2-11) mmol/L BUN 34 H (6-24) mg/dL Creatinine 1.40 H (0.67-1.17) mg/dL Est GFR ( Amer) 60.6 (>60) Est GFR (Non-Af Amer) 50.1 (>60) BUN/Creatinine Ratio 24.3 H (8-20) Glucose 100 (70-100) mg/dL Lactic Acid 1.2 (0.5-2.0) mmol/L Calcium 8.9 (8.6-10.3) mg/dL Total Bilirubin 0.70 (0.2-1.0) mg/dL AST 21 (13-39) U/L ALT 22 (7-52) U/L Alkaline Phosphatase 64 (34-104) U/L Troponin I Pending Total Protein 7.4 (6.4-8.9) g/dL Albumin 4.0 (3.2-5.2) g/dL Globulin 3.4 (2-4) g/dL Albumin/Globulin Ratio 1.2 (1-3) Influenza A (Rapid) (Negative) Influenza B (Rapid) Assess/Plan/Problems-Billing Assessment: 68M with HFrEF 20-25% s/p AICD, COPD on nocturnal O2, CAD s/p CABG, h/o DVT/PE on warfarin, who presents with dyspnea, cough, malaise, chills, found Influenza A positive. - Patient Problems (1) Influenza A Comment: Swab positive. CXR shows cardiomegaly and congestion - tamiflu bid x 5 days, renally dosed - wean O2 as tolerated, goal Rosa is 90-92% given COPD (2) COPD exacerbation Comment: In exacerbation from influenza. Has chronic resp failure requiring 2L supplemental O2 at night. - started on prednisone burst, usually takes pred 5mg bid at home - wean supplemental O2, goal SaO2 88-92% - Duonebs prn, flutter valve (3) Chronic systolic CHF (congestive heart failure) Comment: EF 20-25 % with edema on CXR. Likely volume down from influenza, vomiting. - hold home torsemide 60 daily, metolazone 2.5mg qod - consider restarting tomorrow - cont carvedilol 6.25 q12h, lisinopril 5mg daily (4) History of DVT (deep vein thrombosis) Comment: H/o DVT/PE. - continue home warfarin with INR checks (5) CAD (coronary artery disease) Comment: Asymptomatic without new EKG changes. Trops elevated on admission likely in setting of demand from influenza and poor clearance from CKD. - cont home aspirin
[2019-11-17] MEDS: Carvedilol TAB* 6.25 MG PO SCH ×2 (09:21→21:29)
[2019-11-17] MEDS ORDERED: Nitroglycerin TAB 0.4 MG* 0.4 MG TAB SL PRN (15:35)
[2019-11-17] MEDS ORDERED: Warfarin TAB(*) 2.5 MG PO SCH (17:00)
[2019-11-17] MEDS ORDERED: Tamsulosin CAP* 0.4 MG PO SCH (21:00)
[2019-11-17] MEDS: Potassium Chlor TAB* 20 MEQ TAB.ER PO SCH (21:28)
[2019-11-17] MEDS: Oseltamivir CAP* 30 MG CAP PO SCH (21:29)
[2019-11-18 06:05] LABS: INR 1.63 (0.82-1.09)
[2019-11-18 06:25] LABS: BUN/Creatinine Ratio 27.4 (8-20); Calcium 8.8 mg/dL (8.6-10.3); EGFR African American 63.2 (>60); EGFR Non-African American 52.2 (>60); Magnesium 2.4 mg/dL (1.9-2.7); Potassium 4.2 mmol/L (3.5-5.0)
[2019-11-18] MEDS: Potassium Chlor TAB* 20 MEQ TAB.ER PO SCH (07:20)
[2019-11-18] MEDS: Carvedilol TAB* 6.25 MG PO SCH (07:20)
[2019-11-18] MEDS: Oseltamivir CAP* 30 MG CAP PO SCH (07:20)
[2019-11-18] MEDS: Mometasone/Formoter 200/5 MDI INH SCH (08:10)
--- NOTE | 2019-11-18 08:26 | PN ---
Subjective Date of Service: 11/18/19 Interval History: No acute events overnight. Appears pt still on supplemental O2 despite high SaO2. Creatinine improved. Will restart home diuretics and monitor response. Objective Active Medications: Acetaminophen (Tylenol Tab*) 975 mg PO Q8H PRN PRN Reason: PAIN - MILD Albuterol/Ipratropium (Duoneb (Albuterol 2.5 Mg/Ipratropium 0.5 Mg)) 1 neb INH Q6H PRN PRN Reason: SOB/WHEEZING Last Admin: 11/17/19 18:03 Dose: 1 neb Aspirin (Aspirin Tab*) 325 mg PO DAILY [facility] Last Admin: 11/18/19 07:20 Dose: 325 mg Carvedilol (Coreg Tab*) 6.25 mg PO BID [facility] Last Admin: 11/18/19 07:20 Dose: 6.25 mg Guaifenesin/Dextromethorphan (Robitussin Dm 100mg/10mg Sugar Free*) 10 ml PO Q6H PRN PRN Reason: COUGH Last Admin: 11/17/19 21:29 Dose: 10 ml Lisinopril (Prinivil Tab*) 5 mg PO DAILY [facility] Last Admin: 11/18/19 07:21 Dose: 5 mg Mometasone Furoate/Formoterol Fumar (Dulera 200/5 Mdi*) 2 puff INH BID [facility]; Protocol Last Admin: 11/18/19 08:10 Dose: 2 puff Nitroglycerin (Nitroglycerin Tab 0.4 Mg*) 0.4 mg SL Q5M PRN PRN Reason: ANGINA Oseltamivir Phosphate (Tamiflu Cap*) 30 mg PO BID [facility] Stop: 11/21/19 21:01 Last Admin: 11/18/19 07:20 Dose: 30 mg Potassium Chloride (Klor Con Er Tab*) 20 meq PO BID [facility] Last Admin: 11/18/19 07:20 Dose: 20 meq Prednisone (Deltasone 20 Mg Tab) 40 mg PO DAILY [facility] Stop: 11/19/19 09:01 Last Admin: 11/18/19 07:21 Dose: 40 mg Tamsulosin HCl (Flomax Cap*) 0.4 mg PO BEDTIME [facility] Last Admin: 11/17/19 21:29 Dose: 0.4 mg Warfarin Sodium (Coumadin Tab(*)) 2.5 mg PO EVERY OTHER DAY@1700 [facility]; Protocol Last Admin: 11/17/19 17:19 Dose: 2.5 mg Warfarin Sodium (Coumadin Tab(*)) 5 mg PO EVERY OTHER DAY@1700 [facility]; Protocol Vital Signs - 8 hr 11/18/19 03:15 Temperature 97.6 F Pulse Rate 65 Respiratory 18 Rate Blood Pressure 114/75 (mmHg) O2 Sat by Pulse 97 Oximetry Oxygen Devices in Use Now: Nasal Cannula Result Diagrams: 11/17/19 05:46 11/18/19 13:14 Additional Lab and Data: Lab Results 11/17/19 11/17/19 11/17/19 Range/Units 01:27 02:01 02:01 WBC 10.0 (3.5-10.8) 10^3/uL RBC 4.49 (4.18-5.48) 10^6 /uL Hgb 12.8 L (14.0-18.0) g/dL Hct 39 L (42-52) % MCV 87 (80-94) fL MCH 29 (27-31) pg MCHC 33 (31-36) g/dL RDW 15 (10-15) % Plt Count 197 (150-450) 10^3/uL MPV 7.7 (7.4-10.4) fL Neut % (Auto) 79.5 % Lymph % (Auto) 5.2 % [place] % (Auto) 14.5 % Eos % (Auto) 0.4 % Baso % (Auto) 0.4 % Absolute Neuts (auto) 8.0 H (1.5-7.7) 10^3/ul Absolute Lymphs (auto) 0.5 L (1.0-4.8) 10^3/ul Absolute Monos (auto) 1.5 H (0-0.8) 10^3/ul Absolute Eos (auto) 0.0 (0-0.6) 10^3/ul Absolute Basos (auto) 0.0 (0-0.2) 10^3/ul Absolute Nucleated RBC 0.0 10^3/ul Nucleated RBC % 0.1 INR (Anticoag Therapy) 2.02 H (0.82-1.09) Sodium (135-145) mmol/L Potassium (3.5-5.0) mmol/L Chloride (101-111) mmol/L Carbon Dioxide (22-32) mmol/L Anion Gap (2-11) mmol/L BUN (6-24) mg/dL Creatinine (0.67-1.17) mg/dL Est GFR ( Amer) (>60) Est GFR (Non-Af Amer) (>60) BUN/Creatinine Ratio (8-20) Glucose (70-100) mg/dL Lactic Acid (0.5-2.0) mmol/L Calcium (8.6-10.3) mg/dL Total Bilirubin (0.2-1.0) mg/dL AST (13-39) U/L ALT (7-52) U/L Alkaline Phosphatase (34-104) U/L Troponin I Total Protein (6.4-8.9) g/dL Albumin (3.2-5.2) g/dL Globulin (2-4) g/dL Albumin/Globulin Ratio (1-3) Influenza A (Rapid) Positive A (Negative) Influenza B (Rapid) Not Reportable 11/17/19 11/17/19 Range/Units 02:01 02:01 WBC (3.5-10.8) 10^3/uL RBC (4.18-5.48) 10^6 /uL Hgb (14.0-18.0) g/dL Hct (42-52) % MCV (80-94) fL MCH (27-31) pg MCHC (31-36) g/dL RDW (10-15) % Plt Count (150-450) 10^3/uL MPV (7.4-10.4) fL Neut % (Auto) % Lymph % (Auto) % [place] % (Auto) % Eos % (Auto) % Baso % (Auto) % Absolute Neuts (auto) (1.5-7.7) 10^3/ul Absolute Lymphs (auto) (1.0-4.8) 10^3/ul Absolute Monos (auto) (0-0.8) 10^3/ul Absolute Eos (auto) (0-0.6) 10^3/ul Absolute Basos (auto) (0-0.2) 10^3/ul Absolute Nucleated RBC 10^3/ul Nucleated RBC % INR (Anticoag Therapy) (0.82-1.09) Sodium 139 (135-145) mmol/L Potassium 3.8 (3.5-5.0) mmol/L Chloride 99 L (101-111) mmol/L Carbon Dioxide 32 (22-32) mmol/L Anion Gap 8 (2-11) mmol/L BUN 34 H (6-24) mg/dL Creatinine 1.40 H (0.67-1.17) mg/dL Est GFR ( Amer) 60.6 (>60) Est GFR (Non-Af Amer) 50.1 (>60) BUN/Creatinine Ratio 24.3 H (8-20) Glucose 100 (70-100) mg/dL Lactic Acid 1.2 (0.5-2.0) mmol/L Calcium 8.9 (8.6-10.3) mg/dL Total Bilirubin 0.70 (0.2-1.0) mg/dL AST 21 (13-39) U/L ALT 22 (7-52) U/L Alkaline Phosphatase 64 (34-104) U/L Troponin I Pending Total Protein 7.4 (6.4-8.9) g/dL Albumin 4.0 (3.2-5.2) g/dL Globulin 3.4 (2-4) g/dL Albumin/Globulin Ratio 1.2 (1-3) Influenza A (Rapid) (Negative) Influenza B (Rapid) Microbiology and Other Data: Microbiology 11/17/19 02:00 Aerobic Blood Culture - Preliminary Blood Venous No Growth Day 1 Anaerobic Blood Culture - Preliminary No Growth Day 1 11/17/19 02:00 Aerobic Blood Culture - Preliminary Blood Venous No Growth Day 1 Anaerobic Blood Culture - Preliminary No Growth Day 1 Assess/Plan/Problems-Billing Assessment: 68M with HFrEF 20-25% s/p AICD, COPD on nocturnal O2, CAD s/p CABG, h/o DVT/PE on warfarin, who presents with dyspnea, cough, malaise, chills, found Influenza A positive. - Patient Problems (1) Influenza A Comment: Swab positive. CXR shows cardiomegaly and congestion - tamiflu bid x 5 days, renally dosed - wean O2 as tolerated, goal Rosa is 90-92% given COPD (2) COPD exacerbation Comment: In exacerbation from influenza. Has chronic resp failure requiring 2L supplemental O2 at night. - started on prednisone burst, usually takes pred 5mg bid at home - wean supplemental O2, goal SaO2 88-92% - Duonebs prn, flutter valve (3) Chronic systolic CHF (congestive heart failure) Comment: EF 20-25 % with edema on CXR. Likely volume down from influenza, vomiting. - restart home torsemide 60 daily, metolazone 2.5mg qod - cont carvedilol 6.25 q12h, lisinopril 5mg daily (4) History of DVT (deep vein thrombosis) Comment: H/o DVT/PE. - continue home warfarin with INR checks (5) CAD (coronary artery disease) Comment: Asymptomatic without new EKG changes. Trops elevated on admission likely in setting of demand from influenza and poor clearance from CKD. - cont home aspirin
[2019-11-18] MEDS ORDERED: Metolazone TAB* 5 MG PO PRN (08:30)
[2019-11-18 08:58] VITALS: BP 106/75
[2019-11-18] MEDS ORDERED: Torsemide TAB* 20 MG PO SCH (09:00)
[2019-11-18] MEDS ORDERED: Aspirin TAB* 325 MG PO SCH (09:00)
[2019-11-18] MEDS ORDERED: Lisinopril TAB* 5 MG PO SCH (09:00)
[2019-11-18 13:45] LABS: BUN/Creatinine Ratio 29.2 (8-20); Calcium 8.8 mg/dL (8.6-10.3); EGFR African American 54.3 (>60); EGFR Non-African American 44.9 (>60); Potassium 4.5 mmol/L (3.5-5.0)
[2019-11-18] MEDS ORDERED: Warfarin TAB(*) 5 MG PO SCH (17:00)
--- NOTE | 2019-11-19 01:23 | DS ---
CC: Antione Espinosa MD * DISCHARGE SUMMARY: DATE OF ADMISSION: 11/17/19 DATE OF DISCHARGE: 11/18/19 PRIMARY CARE PHYSICIAN: Antione Espinosa MD. PRIMARY DIAGNOSES: 1. Influenza. 2. Chronic obstructive pulmonary disease exacerbation. SECONDARY DIAGNOSES: 1. Heart failure with reduced ejection fraction. 2. History of deep venous thrombosis, pulmonary embolism, and possible left ventricular thrombus, on anticoagulation. 3. Coronary artery disease, status post coronary artery bypass graft. DISCHARGE MEDICATIONS: 1. Oseltamivir 30 mg twice a day for 3 more days. 2. Prednisone 40 mg daily for 2 more days. 3. Guaifenesin dextromethorphan 10 mL every 6 hours as needed for cough. 4. Aspirin 325 mg daily. 5. Carvedilol 6.25 mg twice a day. 6. Lisinopril 5 mg daily. 7. Torsemide 60 mg daily. 8. Metolazone 2.5 mg every other day. 9. Potassium chloride 20 mEq twice a day. 10. Tamsulosin 2.4 mg daily. 11. Warfarin alternating doses of 5 mg and 2.5 mg. 12. Prednisone 5 mg twice a day to resume after prednisone burst. 13. Nitroglycerin 0.3 mg sublingual every 5 minutes as needed for chest pain. 14. Advair 2 puffs twice a day. 15. DuoNeb inhaler twice a day as needed for shortness of breath. HISTORY OF PRESENT ILLNESS: Mr. David is a 68-year-old man with HFrEF 20% to 25%, status post AICD; COPD , on nocturnal O2; CAD, status post CABG; history of DVT, PE, and LV thrombus, on warfarin, who presents with subacute dyspnea, cough, malaise, chills. He reports being in his usual state of health until 2 days prior when he began to experience significant malaise, dyspnea, subjective fevers, chills, and diaphoresis. The patient reports that multiple people in his residence have tested positive for flu. The patient also reports significant myalgias and cough and chest congestion. HOSPITAL COURSE: In the emergency room, he was found positive for Influenza A. He was also hypoxic and required supplemental oxygen. He was started on Tamiflu and admitted to the hospitalist service. His chest x-ray did note pulmonary edema. However, he was also noted to have a BUN and creatinine mildly above baseline, so it was thought that he may be possibly dry, as he did report vomiting prior to presentation, so he was given gentle IV fluids and his home diuretics were held. By the next morning, the patient reported feeling significantly better with near resolution in his myalgias and weakness; however, he still experienced significant chest congestion and cough. Throughout the day, he was able to be weaned off supplemental oxygen and returned to nocturnal O2. He was started on prednisone burst for COPD exacerbation and had nebs and flutter valve as needed, which significantly improved his symptoms. His diuretics were held for another day and on the day of discharge, the patient's p.o. intake had improved significantly. He was restarted on his home torsemide but not metolazone. After beginning this medication, it did appear that his creatinine increased slightly from his baseline, and on the day of discharge, his level was 1.54. The patient preferred to be discharged and to follow up in primary care clinic for his ongoing renal monitoring. It was discussed with the patient significance of his lab values. The patient reports feeling well from a respiratory standpoint. His appetite was back. He was urinating. He reports that he monitors his weight daily at home and knows how to titrate his diuretics and when he should skip doses or double his doses. He was strongly encouraged to get labs on the day after discharge and he states that he has followup scheduled with his PCP in 3 days. PERTINENT DIAGNOSTIC STUDIES: CBC notable for hemoglobin 12.6, which appears to be patient's baseline with normal MCV. BMP notable for BUN/creatinine of 45/1.54. Troponin peaked at 0.27. BNP is 751. Influenza A swab positive. INR 2 on admission, decreased to 1.6. Chest x-ray with cardiomegaly with probable pulmonary edema. EKG with dual AV complexes paced, not significantly changed from prior. DISCHARGE PLAN: The patient will be discharged back to [facility] and will continue to follow up with his primary care physician. He states he has an appointment in 3 days. For influenza, the patient has 7 more doses of Oseltamivir, which is renally dosed to 30 mg to take twice a day. As this infection caused the COPD exacerbation, he is also being continued on a short prednisone burst and has 2 more days of 40 mg and then he may return to 5 mg twice a day. For heart failure, the patient reports that he monitors his weight daily and knows how to titrate his water pills. He was made aware that his renal function decreased on the day of discharge after restarting diuretics, and that if his weight at home is lower than his baseline, he can hold his home diuretics until his weight returns to normal. He will get labs tomorrow and he will be sent to his primary care physician to follow up. For his history of thrombus, his INR was therapeutic on admission but decreased to 1.6 by the day of discharge. The patient reports close followup in [facility] but an INR was also ordered for his routine lab work for tomorrow. The patient was given return precautions, which include but are not limited to: decreased urine output, signs of volume overload, worsening shortness of breath , or sudden worsening of cough or return of fevers. DIET: Healthy diet, low in processed foods. ACTIVITY: As tolerated. DISPOSITION: Brain Jarrett. CONDITION: Improved. TIME SPENT: Approximately 60 minutes was spent on discharge of this patient, more than half of which was spent with care coordination at bedside for interview and exam. [id number]/[facility] #: [id number] IRMA
== END 2019-11-18 15:45 | disposition home or self-care (01) ==
LOC: ED 23:15 → MEDTELE 11-17 03:08 → INTOOBSV 11-17 03:08
PROVIDERS: ADMIT Student in an Organized Health Care Education/Training Program; ATTEND Internal Medicine
DX: J10.1 Influenza due to other identified influenza virus with other respiratory manifestations (principal); J44.1 Chronic obstructive pulmonary disease with (acute) exacerbation; I11.0 Hypertensive heart disease with heart failure; I50.22 Chronic systolic (congestive) heart failure; I25.10 Atherosclerotic heart disease of native coronary artery without angina pectoris; R05 Cough; I25.2 Old myocardial infarction; E78.00 Pure hypercholesterolemia, unspecified; Z95.5 Presence of coronary angioplasty implant and graft; Z86.718 Personal history of other venous thrombosis and embolism; Z86.711 Personal history of pulmonary embolism; Z79.01 Long term (current) use of anticoagulants; Z79.82 Long term (current) use of aspirin; Z95.0 Presence of cardiac pacemaker; Z79.51 Long term (current) use of inhaled steroids; Z87.891 Personal history of nicotine dependence; Z88.1 Allergy status to other antibiotic agents; R94.31 Abnormal electrocardiogram [ECG] [EKG]; Z79.899 Other long term (current) drug therapy
CPT/HCPCS: 36415; 71046; 80048; 80053; 83605; 83735; 83880; 84484; 85025; 85610; 87040; 93005; 94640; 94660; 96374; 99285; A9270-GY; G0378; J2930; J3475; J7512

== ENCOUNTER 2020-01-01 11:46 | Emergency (ER) | payer MEDICARE, MEDICAID ==
--- OUTSIDE RECORDS SUMMARY | 2020-01-01 11:59 | XMS REPORT ---
:1950 Author Organization [facility] Care Team Providers Name Role Phone Unavailable [...]
--- OUTSIDE RECORDS SUMMARY | 2020-01-01 11:59 | XMS REPORT ---
:1950 Author Organization [facility] Care Team Providers Name Role Phone Unavailable [...]
--- OUTSIDE RECORDS SUMMARY | 2020-01-01 11:59 | XMS REPORT ---
:1950 Author Organization [facility] Care Team Providers Name Role Phone [...]
--- OUTSIDE RECORDS SUMMARY | 2020-01-01 11:59 | XMS REPORT | Continuity of Care Document ---
:1950 External Reference #:[id number] Author Name [facility] Schedule (transmitted by agent of provider Lucinda Franco) Address [address] [place] [address] Care Team Providers Name Role Phone Antione Espinosa MD - Family Medicine Care Team Information Home Care Rn [phone] Problems Active Problems Provider Date Electrocardiogram abnormal [...] Lio Anaya M.D. Onset: 02/26/2014 Chest pain Loi Anaya M.D. Onset: 02/26/2014 Tachycardia Lio Anaya [...] Nitrostat one sl q5min up to 25tabs Smitatavita S. 07/23/2013 0.3mg Tablets 3 doses as [...] day Unknown 115-21mcg/Act Aerosol Ipratropium prn Unknown Ellerbe/Albuterol Sulfate 0.5-2.5(3)mg/3ML Solution Warfarin Sodium as directed. [...] Information Available Procedures Date Code Description Status 12/22/2019 30566 Interrogation Implant Cardiovasc Monitor System Incl Completed Analysis Int 12/22/2019 25393 Icd Eval With Inerative Adjustmt Dual Lead System Completed 10/14/2019 83912 Interrogation Device Eval Remote Up To 30 Days Completed Analysis,Rev,RP 10/14/2019 99191 Interrogation Device Eval Remote Up To 30 Days Completed Analysis,Rev,RP 10/14/2019 50476 Icd Eval Sing,Dual,Multi Lead Remote Recpt Transm Tech Rev Completed Tech S 10/14/2019 19969 Icd Eval Sing,Dual,Multi Lead Remote Recpt Transm Tech Rev Completed Tech S 10/14/2019 00438 Icd Check Remote Up To 90 Days Single,Dual,Multiple Lead Completed 10/14/2019 46557 Icd Check Remote Up To 90 Days Single,Dual,Multiple Lead Completed 07/15/2019 22757 Icd Check Remote Up To 90 Days Single,Dual,Multiple Lead Completed 07/15/2019 01456 Icd Check Remote Up To 90 Days Single,Dual,Multiple Lead Completed 07/15/2019 08069 Icd Eval Sing,Dual,Multi Lead Remote Recpt Transm Tech Rev Completed Tech S 07/15/2019 63920 Icd Eval Sing,Dual,Multi Lead Remote Recpt Transm Tech Rev Completed Tech S 07/15/2019 30941 Interrogation Device Eval Remote Up To 30 Days Completed Analysis,Rev,RP 07/15/2019 41422 Interrogation Device Eval Remote Up To 30 Days Completed Analysis,Rev,RP 06/30/2019 03922 ECHO Transthorasic Realtime 2D W Doppler & Color Flow Hosp Completed 06/30/2019 56658 EKG, Interpretation Only Completed 06/25/2019 65110 Interrogation Implant Cardiovasc Monitor System Incl Completed Analysis Int 06/25/2019 49863 Interrogation Implant Cardiovasc Monitor System Incl Completed Analysis Int 06/25/2019 19349 Icd Eval With Inerative Adjustmt Dual Lead System Completed 06/25/2019 30293 Icd Eval With Inerative Adjustmt Dual Lead System Completed Medical Devices Description No Information Available Encounters Type Date Location Provider Dx Diagnosis Office Visit 11/[facility] Jeanne Lezama, J10.1 Flu due to oth 1:26p clarissa Mcintyre MD ident influenza Hospitalists virus w oth resp manifest J44.1 Chronic obstructive pulmonary disease w (acute) exacerbation I50.20 Unspecified systolic (congestive) heart failure I25.10 Athscl heart disease of [place] coronary artery w/o ang pctrs Z86.718 Personal history of other venous thrombosis and embolism Office Visit 11/17/2019 1:26p [facility] Sarikaesther Garcia, J10.1 Flu due to oth clarissa Mcintyre M.D. idenvicente influenza Hospitalists virus w oth resp manifest I10 Essential (primary) hypertension I25.10 Athscl heart disease of [place] coronary artery w/o ang pctrs I50.22 Chronic systolic (congestive) heart failure J44.9 Chronic obstructive pulmonary disease, unspecified N17.9 Acute kidney failure, unspecified Z86.718 Personal history of other venous thrombosis and embolism Office Visit 07/03/2019 [facility] I50.33 Acute on chronic 10:55a clarissa Mcintyre MD diastolic Hospitalists (congestive) heart failure N17.9 Acute kidney failure, unspecified R79.89 Other specified abnormal findings of blood chemistry I25.5 Ischemic cardiomyopathy J44.9 Chronic obstructive pulmonary disease, unspecified I25.10 Athscl heart disease of [place] coronary artery w/o ang pctrs E78.5 Hyperlipidemia, unspecified I27.0 Primary pulmonary hypertension I34.0 Nonrheumatic mitral (valve) insufficiency M19.90 Unspecified osteoarthritis, unspecified site Office Visit 07/02/2019 [facility] I50.23 Acute on chronic 10:55a clarissa Mcintyre MD systolic Hospitalists (congestive) heart failure N17.9 Acute kidney failure, unspecified R74.8 Abnormal levels of other serum enzymes Z86.718 Personal history of other venous thrombosis and embolism Office Visit 07/01/2019 [facility]adne I50.23 Acute on chronic 7:55p Assoc,clarissa García M.D. systolic Hospitalists (congestive) heart failure N17.9 Acute kidney failure, unspecified R79.89 Other specified abnormal findings of blood chemistry Z86.718 Personal history of other venous thrombosis and embolism Office Visit 06/30/2019 10:54a [facility] Silvina R06.02 Shortness of Assoc,clarissa Brown PA-C breath Hospitalists N17.9 Acute kidney failure, unspecified E87.2 Acidosis R79.89 Other specified abnormal findings of blood chemistry R19.7 Diarrhea, unspecified S81.802A Unspecified open wound, left lower leg, initial encounter Assessments Date Code Description Provider 12/22/2019 I25.5 Ischemic cardiomyopathy [facility] Pac[facility] Schedule 12/22/2019 Z95.810 Presence of automatic (implantable) [facility] Pacer Schedule cardiac defibrillator 11/18/2019 J10.1 Influenza due to other identified Jeanne Lezama MD influenza virus with other respiratory manifestations 11/18/2019 J44.1 Chronic obstructive pulmonary disease Jeanne Lezama MD with (acute) exacerbation 11/18/2019 I50.20 Unspecified systolic (congestive) Jeanne Lezama MD heart failure 11/18/2019 I25.10 Atherosclerotic heart disease of Jeanne Lezama MD [place] coronary artery without angina pectoris 11/18/2019 Z86.718 Personal history of other venous Jeanne Lezama MD thrombosis and embolism 11/17/2019 J10.1 Influenza due to other identified Sarika Garcia M.D. influenza virus with other respiratory manifestations 11/17/2019 I10 Essential (primary) hypertension Sarika Garcia M.D. 11/17/2019 I25.10 Atherosclerotic heart disease of Sarika Garcia M.D. [place] coronary artery without angina pectoris 11/17/2019 I50.22 Chronic systolic (congestive) heart Sarika Garcia M.D. failure 11/17/2019 J44.9 Chronic obstructive pulmonary Sarika Garcia M.D. disease, unspecified 11/17/2019 N17.9 Acute kidney failure, unspecified Sarika Garcia M.D. 11/17/2019 Z86.718 Personal history of other venous Sarika Garcia M.D. thrombosis and embolism 10/14/2019 I25.5 Ischemic cardiomyopathy Lio Anaya M.D. 10/14/2019 I25.5 Ischemic cardiomyopathy Remote Device Checks 10/14/2019 Z95.810 Presence of automatic (implantable) Lio Anaya M.D. cardiac defibrillator 10/14/2019 Z95.810 Presence of automatic (implantable) Remote Device Checks cardiac defibrillator 10/14/2019 I50.22 Chronic systolic (congestive) heart Lio Anaya M.D. failure 10/14/2019 I50.22 Chronic systolic (congestive) heart Remote Device Checks failure 07/15/2019 I25.5 Ischemic cardiomyopathy Lio Anaya M.D. 07/15/2019 I25.5 Ischemic cardiomyopathy Remote Device Checks 07/15/2019 Z95.810 Presence of automatic (implantable) Lio Anaya M.D. cardiac defibrillator 07/15/2019 Z95.810 Presence of automatic (implantable) Remote Device Checks cardiac defibrillator 07/15/2019 I50.22 Chronic systolic (congestive) heart Lio Anaya M.D. failure 07/15/2019 I50.22 Chronic systolic (congestive) heart Remote Device Checks failure 07/03/2019 I50.33 Acute on chronic diastolic Inna Salas MD (congestive) heart failure 07/03/2019 N17.9 Acute kidney failure, unspecified Inna Salas MD 07/03/2019 R79.89 Other specified abnormal findings of Inna Salas MD blood chemistry 07/03/2019 I25.5 Ischemic cardiomyopathy Inna Salas MD 07/03/2019 J44.9 Chronic obstructive pulmonary Inna Salas MD disease, unspecified 07/03/2019 I25.10 Atherosclerotic heart disease of Inna Salas MD [place] coronary artery without angina pectoris 07/03/2019 E78.5 Hyperlipidemia, unspecified Inna Salas MD 07/03/2019 I27.0 Primary pulmonary hypertension Inna Salas MD 07/03/2019 I34.0 Nonrheumatic mitral (valve) Inna Salas MD insufficiency 07/03/2019 M19.90 Unspecified osteoarthritis, Inna Salas MD unspecified site 07/02/2019 I50.23 Acute on chronic systolic Inna Salas MD (congestive) heart failure 07/02/2019 N17.9 Acute kidney failure, unspecified Inna Salas MD 07/02/2019 R74.8 Abnormal levels of other serum Inna Salas MD enzymes 07/02/2019 Z86.718 Personal history of other venous Inna Salas MD thrombosis and embolism 07/01/2019 I50.23 Acute on chronic systolic Ariadne García M.D. (congestive) heart failure 07/01/2019 N17.9 Acute kidney failure, unspecified Ariadne García M.D. 07/01/2019 R79.89 Other specified abnormal findings of Ariadne García M.D. blood chemistry 07/01/2019 Z86.718 Personal history of other venous Ariadne García M.D. thrombosis and embolism 06/30/2019 R94.31 Abnormal electrocardiogram [ECG] Lio Anaya M.D. [EKG] 06/30/2019 R06.02 Shortness of breath Silvina Brown PA-C 06/30/2019 R06.02 Shortness of breath Pepe Milian M.D. 06/30/2019 N17.9 Acute kidney failure, unspecified Silvina Brown PA-C 06/30/2019 E87.2 Acidosis Silvina Brown PA-C 06/30/2019 R79.89 Other specified abnormal findings of Silvina Brown PA-C blood chemistry 06/30/2019 R19.7 Diarrhea, unspecified Silvina Brown PA-C 06/30/2019 S81.802A Unspecified open wound, left lower Silvina Brown PA-C leg, initial encounter 06/25/2019 I25.5 Ischemic cardiomyopathy Lio Anaya M.D. 06/25/2019 I25.5 Ischemic cardiomyopathy [facility] Schedule 06/25/2019 Z95.810 Presence of automatic (implantable) Lio Anaya M.D. cardiac defibrillator 06/25/2019 Z95.810 Presence of automatic (implantable) Ica Pacer Schedule cardiac defibrillator Plan of Treatment 06/23/2019 - Lio Anaya M.D.I77.810 Thoracic aortic cegrhowM31.5 Ischemic cardiomyopathyNew Orders:Echocardiogram, Ordered: 06/23/19Follow up:9 months ovZ95.810 Presence of automatic (implantable) cardiac aubdtpnkrvlbzJ46.22 Chronic systolic (congestive) heart jevhxjzP70.9 Obesity, zlmytkkygneY11.9 Hypotension, unspecifiedFollow up:one week BP check nurse Functional Status Description No Information Available Mental Status Description No Information Available Referrals Description No Information Available
--- OUTSIDE RECORDS SUMMARY | 2020-01-01 11:59 | XMS REPORT ---
:1950 Author Organization [facility] Care Team Providers Name Role Phone Unavailable [...]
--- OUTSIDE RECORDS SUMMARY | 2020-01-01 11:59 | XMS REPORT ---
:1950 Author Organization [facility] Care Team Providers Name Role Phone Unavailable [...]
--- OUTSIDE RECORDS SUMMARY | 2020-01-01 11:59 | XMS REPORT ---
:1950 Author Organization [facility] Care Team Providers Name Role Phone Unavailable [...]
--- OUTSIDE RECORDS SUMMARY | 2020-01-01 11:59 | XMS REPORT ---
:1950 Author Organization [facility] Care Team Providers Name Role Phone Unavailable [...]
--- OUTSIDE RECORDS SUMMARY | 2020-01-01 11:59 | XMS REPORT ---
:1950 Author Organization [facility] Care Team Providers Name Role Phone Unavailable [...]
--- OUTSIDE RECORDS SUMMARY | 2020-01-01 11:59 | XMS REPORT ---
:1950 Author Organization [facility] Care Team Providers Name Role Phone Unavailable [...]
--- OUTSIDE RECORDS SUMMARY | 2020-01-01 11:59 | XMS REPORT | Continuity of Care Document ---
:1950 External Reference #:[id number] Author Name Ica Pacer Schedule (transmitted by agent of provider Mica Hidalgo) Address [address] [id number] Care Team Providers Name Role Phone Antione Espinosa MD - Family Medicine Care Team Information Irrigation Manager Problems Active Problems Provider Date Electrocardiogram abnormal [...] 12 months Aspirin 1 PO qd Smitatavita SWill 08/19/2008 325mg Tablets Antoine Anaya Prednisone [...] day Unknown 115-21mcg/Act Aerosol Ipratropium prn Unknown Eminence/Albuterol Sulfate 0.5-2.5(3)mg/3ML Solution Warfarin Sodium as directed. [...] Available Procedures Date Code Description Status 12/22/2019 70959 Interrogation Implant Cardiovasc Monitor System Incl Completed Analysis Int 12/22/2019 15744 Interrogation Implant Cardiovasc Monitor System Incl Completed Analysis Int 12/22/2019 69641 Icd Eval With Inerative Adjustmt Dual Lead System Completed 12/22/2019 31489 Icd Eval With Inerative Adjustmt Dual Lead System Completed 10/14/2019 82101 Icd Check Remote Up To 90 Days Single,Dual,Multiple Lead Completed 10/14/2019 48964 Icd Check Remote Up To 90 Days Single,Dual,Multiple Lead Completed 10/14/2019 20347 Icd Eval Sing,Dual,Multi Lead Remote Recpt Transm Tech Rev Completed Tech S 10/14/2019 86556 Icd Eval Sing,Dual,Multi Lead Remote Recpt Transm Tech Rev Completed Tech S 10/14/2019 78772 Interrogation Device Eval Remote Up To 30 Days Completed Analysis,Rev,RP 10/14/2019 59880 Interrogation Device Eval Remote Up To 30 Days Completed Analysis,Rev,RP 07/15/2019 76522 Interrogation Device Eval Remote Up To 30 Days Completed Analysis,Rev,RP 07/15/2019 24994 Interrogation Device Eval Remote Up To 30 Days Completed Analysis,Rev,RP 07/15/2019 92080 Icd Eval Sing,Dual,Multi Lead Remote Recpt Transm Tech Rev Completed Tech S 07/15/2019 55804 Icd Eval Sing,Dual,Multi Lead Remote Recpt Transm Tech Rev Completed Tech S 07/15/2019 28213 Icd Check Remote Up To 90 Days Single,Dual,Multiple Lead Completed 07/15/2019 20873 Icd Check Remote Up To 90 Days Single,Dual,Multiple Lead Completed 06/30/2019 76078 ECHO Transthorasic Realtime 2D W Doppler & Color Flow Hosp Completed 06/30/2019 21185 EKG, Interpretation Only Completed Medical Devices Description No Information Available Encounters Type Date Location Provider Dx Diagnosis Office Visit 11/18/2019 [facility] Jeanne Lezama, J10.1 Flu due to oth 1:26p clarissa Mcintyre MD ident influenza Hospitalists virus w oth resp manifest J44.1 Chronic obstructive pulmonary disease w (acute) exacerbation I50.20 Unspecified systolic (congestive) heart failure I25.10 Athscl heart disease of [place] coronary artery w/o ang pctrs Z86.718 Personal history of other venous thrombosis and embolism Office Visit 11/17/2019 1:26p [facility] Sarika Garcia, J10.1 Flu due to oth clarissa Mcintyre M.D. influenza Hospitalists virus w oth resp manifest I10 Essential (primary) hypertension I25.10 Athscl heart disease of [place] coronary artery w/o ang pctrs I50.22 Chronic systolic (congestive) heart failure J44.9 Chronic obstructive pulmonary disease, unspecified N17.9 Acute kidney failure, unspecified Z86.718 Personal history of other venous thrombosis and embolism Office Visit 07/03/2019 [facility] I50.33 Acute on chronic 10:55a clarissa Mcintyre MD diastolic Hospitalists (congestive) heart failure N17.9 Acute kidney failure, unspecified R79.89 Other specified abnormal findings of blood chemistry I25.5 Ischemic cardiomyopathy J44.9 Chronic obstructive pulmonary disease, unspecified I25.10 Athscl heart disease of [place] coronary artery w/o ang pctrs E78.5 Hyperlipidemia, unspecified I27.0 Primary pulmonary hypertension I34.0 Nonrheumatic mitral (valve) insufficiency M19.90 Unspecified osteoarthritis, unspecified site Office Visit 07/02/2019 [facility] I50.23 Acute on chronic 10:55a clarissa Mcintyre MD systolic Hospitalists (congestive) heart failure N17.9 Acute kidney failure, unspecified R74.8 Abnormal levels of other serum enzymes Z86.718 Personal history of other venous thrombosis and embolism Office Visit 07/01/2019 [facility] Ariadne I50.23 Acute on chronic 7:55p Assoc,clarissa García M.D. systolic Hospitalists (congestive) heart failure N17.9 Acute kidney failure, unspecified R79.89 Other specified abnormal findings of blood chemistry Z86.718 Personal history of other venous thrombosis and embolism Office Visit 06/30/2019 10:54a [facility] Silvina R06.02 Shortness of Assoc,clarissa Brown PA-C breath Hospitalists N17.9 Acute kidney failure, unspecified E87.2 Acidosis R79.89 Other specified abnormal findings of blood chemistry R19.7 Diarrhea, unspecified S81.802A Unspecified open wound, left lower leg, initial encounter Assessments Date Code Description Provider 12/22/2019 I25.5 Ischemic cardiomyopathy Lio Anaya M.D. 12/22/2019 I25.5 Ischemic cardiomyopathy Ica Pacer Schedule 12/22/2019 Z95.810 Presence of automatic (implantable) Lio Anaya M.D. cardiac defibrillator 12/22/2019 Z95.810 Presence of automatic (implantable) Ica Pacer Schedule cardiac defibrillator 11/18/2019 J10.1 Influenza due to other identified Jeanne Lezama MD influenza virus with other respiratory manifestations 11/18/2019 J44.1 Chronic obstructive pulmonary disease Jeanne Lezama MD with (acute) exacerbation 11/18/2019 I50.20 Unspecified systolic (congestive) Jeanne Lezama MD heart failure 11/18/2019 I25.10 Atherosclerotic heart disease of Jeanne Lezama MD [place] coronary artery without angina pectoris 11/18/2019 Z86.718 Personal history of other venous Jeanne Lezama MD thrombosis and embolism 11/17/2019 J10.1 Influenza due to other identified Sarika Garcia M.D. influenza virus with other respiratory manifestations 11/17/2019 I10 Essential (primary) hypertension Sarika Garcia M.D. 11/17/2019 I25.10 Atherosclerotic heart disease of Sarika Garcia M.D. [place] coronary artery without angina pectoris 11/17/2019 I50.22 [...] Atherosclerotic heart disease of Inna Salas MD [place] coronary artery without angina pectoris 07/03/2019 E78.5 [...] lower Silvina Brown PA-C leg, initial encounter Plan of Treatment 06/23/2019 - Lio Anaya M.D.I77.810 Thoracic aortic exygotiO86.5 Ischemic cardiomyopathyNew Orders:Echocardiogram, Ordered: 06/23/19Follow up:9 months ovZ95.810 Presence of automatic (implantable) cardiac umiyyniumfgqmA30.22 Chronic systolic (congestive) heart qgskbbrR54.9 Obesity, fgtpvhkrakdN30.9 Hypotension, unspecifiedFollow up:one week BP check nurse Functional Status Description No Information Available Mental Status Description No Information Available Referrals Description No Information Available
--- OUTSIDE RECORDS SUMMARY | 2020-01-01 11:59 | XMS REPORT ---
:1950 Author Organization [facility] Care Team Providers Name Role Phone Unavailable [...]
--- OUTSIDE RECORDS SUMMARY | 2020-01-01 11:59 | XMS REPORT ---
:1950 Author Organization [facility] Care Team Providers Name Role Phone Unavailable [...]
--- OUTSIDE RECORDS SUMMARY | 2020-01-01 11:59 | XMS REPORT | Continuity of Care Document ---
:1950 External Reference #:[id number] Author Name Camilo Diaz M.D. (transmitted by agent of provider Miri Avery) Address [address] [place] [address] Care Team Providers Name Role Phone Antione Espinosa M.D. - Family Medicine Care Team Information Sales Support Coordinator Lio Anaya M.D. - Care Team Information Sales Support Coordinator [phone] Cardiovascular Disease Problems Active Problems Provider Date History of myocardial infarction Onset: Note: 2005 Hypercholesterolemia Onset: Nuclear senile cataract Camilo Diaz M.D. Onset: 04/05/2017 Hypermetropia Camilo Diaz M.D. Onset: 04/05/2017 Presbyopia Camilo Diaz M.D. Onset: 04/05/2017 Open-angle glaucoma - borderline Camilo Diaz M.D. Onset: 04/05/2017 Social History Type Date Description Comments Sex Unknown ETOH Use Has consumed alcohol in the past Tobacco Use Start: Unknown End: Patient is a former smoker Smoking Status Reviewed: 12/25/19 Patient is a former smoker Allergies, Adverse Reactions, Alerts Description No Known Drug Allergies Medications Active Medications SIG Qnty Indications Ordering Provider Date Visine as needed Camilo Diaz, 12/24/2019 0.025-0.3% Solution Antoine Spironolactone Unknown 25mg Tablets Furosemide Take Two Tablets Unknown 40mg Tablets By Mouth Twice A Day as Needed Hydralazine HCL Take One Tablet Unknown 25mg By Mouth Three Tablets Times A Day Potassium Chloride Fatou Take One Tablet Unknown ER By Mouth Every 20Meq Tablets ER Day Warfarin Sodium Take One Half To Unknown 5mg Tablets One Tablet By Mouth Daily as Directed Vitamin C Unknown 1000mg Tablets Prednisone 2 Tablets Daily Antione Espinosa M.D. 5mg Tablets Immunizations Description No Information Available Vital Signs Description No Information Available Results Description No Information Available Procedures Date Code Description Status 12/25/2019 42140 Scanning Computerized Ophthalmic Diagnostic Imag Posterior Completed Seg On 12/25/2019 12674 Est Patient Comprehensive Exam Completed 12/25/2019 01437 Pachymetry Completed Medical Devices Description No Information Available Encounters Description No Information Available Assessments Date Code Description Provider 12/25/2019 H25.13 Age-related nuclear cataract, bilateral Camilo Diaz M.D. 12/25/2019 H40.013 Open angle with borderline findings, low Camilo Diaz M.D. 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 Plan of Treatment Future Appointment(s):02/12/2020 2:15 pm - Camilo Diaz M.D. at [facility], 01/27/2020 2:15 pm - Camilo Diaz M.D. at [facility] , 01/26/2020 8:00 am - Camilo Diaz M.D. at [facility], 2019 1:45 pm - Camilo Diaz M.D. at [facility], 01/19/2020 9: 30 am - Camilo Diaz M.D. at [facility], 01/07/2020 9:15 am - Camilo Diaz M.D. at [facility], 12/25/2019 - Camilo Diaz M.D.H25.13 Age-related nuclear cataract, bilateralComments:Smoking can increase the risk of developing or worsening any eye related disease, as well as affect your overall health. If you are a smoker, we strongly recommend that you quit.If you are not a smoker, we strongly recommend that you do not start. You have been diagnosed with cataracts. They are limiting your vision, and I am unable to improve you with new glasses. Our next step is to schedule Cataract surgery and all necessary appointments, which Elina will do for you. We recommend that you write down any questions you may have and bring them to your preoperative appointment so that Dr. Diaz can answer them for you. If you have any questions or concerns, you can reach Elina at .Follow up:For preop exam before surgery.H40.013 Open angle with borderline findings, low risk, bilateralComments:Dr. Diaz is considering you a Glaucoma suspect. This means the eye pressure in your eyes are higher than average, your optic nerve appearance is suspicious, or you have strong risk factors; but you have not been diagnosed with Glaucoma. Follow up appointments are very important to keep.H53.032 Strabismic amblyopia, left eyeComments:You have Amblyopia in your left eye. You have never been able to see perfectly out of this eye. Functional Status Description No Information Available Mental Status Description No Information Available Referrals Description No Information Available
--- OUTSIDE RECORDS SUMMARY | 2020-01-01 11:59 | XMS REPORT ---
:1950 Author Organization [facility] Care Team Providers Name Role Phone [...]
--- OUTSIDE RECORDS SUMMARY | 2020-01-01 11:59 | XMS REPORT ---
:1950 Author Organization [facility] Care Team Providers Name Role Phone Unavailable [...]
--- OUTSIDE RECORDS SUMMARY | 2020-01-01 11:59 | XMS REPORT ---
:1950 Author Organization [facility] Care Team Providers Name Role Phone Unavailable [...]
--- OUTSIDE RECORDS SUMMARY | 2020-01-01 11:59 | XMS REPORT ---
:1950 Author Organization [facility] Care Team Providers Name Role Phone Unavailable [...]
--- OUTSIDE RECORDS SUMMARY | 2020-01-01 11:59 | XMS REPORT ---
:1950 Author Organization [facility] Care Team Providers Name Role Phone Unavailable [...]
--- OUTSIDE RECORDS SUMMARY | 2020-01-01 11:59 | XMS REPORT ---
:1950 Author Organization [facility] Care Team Providers Name Role Phone Unavailable [...]
--- OUTSIDE RECORDS SUMMARY | 2020-01-01 11:59 | XMS REPORT ---
:1950 Author Organization [facility] Care Team Providers Name Role Phone Unavailable [...]
[2020-01-01] MEDS ORDERED: methylPREDNISolone 125 MG* 2 ML VIAL IV ONE (12:03)
[2020-01-01] MEDS ORDERED: Albuterol HFA INHALER* 8 gm MDI INH ONE (12:05)
--- NOTE | 2020-01-01 12:21 | ED ---
Shortness of Breath - HPI Summary HPI Summary: 69 year old male presents with shortness of breath for the past 2 days. He states he isn't sure if he has a fever. He admits to sinus congestion. No sore throat. No headache. No chest pain. No swelling to his legs. No increase in weight. He states that he was diagnosed with the flu 2 weeks ago and was placed on a course of antibiotics and steroids. He states he was getting better but then yesterday started getting worse. He denies any known exposure to any illnesses. No recent travel. He does have oxygen at home and a nebulizer machine at home that has been using which has been helping. He has had a productive cough. - Allergy/Home Medications Allergies/Adverse Reactions: Allergies Allergy/AdvReac Type Severity Reaction Status Date / Time azithromycin AdvReac Severe See Comment Verified 02/12/19 00:01 Home Medications: Home Medications Carvedilol TAB* [Coreg TAB*] 6.25 mg PO BID 04/25/18 [History Confirmed 01/01/20 ] Potassium Chlor TAB* [Potassium Chlor TAB 20 MEQ*] 20 meq PO BID 04/25/18 [ History Confirmed 01/01/20] predniSONE 5 mg TAB [Deltasone 5 mg TAB] 10 mg PO DAILY 04/25/18 [History Confirmed 01/01/20] Tamsulosin CAP* [Flomax CAP*] 0.4 mg PO DAILY #30 cap 02/09/19 [Rx Confirmed ] Warfarin TAB(*) [Coumadin TAB(*)] 2.5 mg PO DAILY 05/30/19 [History Confirmed ] Aspirin TAB* [Aspirin 325 MG TAB*] 325 mg PO DAILY 06/06/19 [History Confirmed 01/01/20] Ipratropium/Albuterol Sulfate [Iprat-Albut 0.5-3(2.5) mg/3 ml] 3 ml INH TID PRN 06/30/19 [History Confirmed 01/01/20] Fluticas/Salmet 115/21 HFA(NF) [Advair HFA 115/21 (NF)] 2 inh INH BID 11/17/19 [ History Confirmed 01/01/20] Lisinopril [Zestril 5 MG-] 2.5 mg PO DAILY 11/17/19 [History Confirmed 01/01/20] Nitroglycerin TAB 0.3 MG* 0.3 mg SL Q5M PRN 11/17/19 [History Confirmed 01/01/20 ] Torsemide TAB* [Demadex 20 MG*] 60 mg PO BID 11/17/19 [History Confirmed ] Amoxicillin/Clavulanate TAB* [Augmentin TAB*] 875 mg PO BID #9 tab 01/01/20 [Rx] DOXYcycline CAP(*) [DOXYcycline 100MG CAP(*)] 100 mg PO BID 01/01/20 [History Confirmed 01/01/20] methylPREDNISolone TAB* [Medrol TAB*] 4 mg PO . DIRECTED 01/01/20 [History Confirmed 01/01/20] predniSONE 50 mg TAB [Deltasone 50 mg TAB] 50 mg PO DAILY #4 tab 01/01/20 [Rx] PMH/Surg Hx/FS Hx/Imm Hx Endocrine/Hematology History: Denies: Hx Diabetes, Hx Thyroid Disease Cardiovascular History: Reports: Hx Auto Implanted Cardiovert Defib, Hx Congestive Heart Failure, Hx Coronary Artery Disease, Hx Deep Vein Thrombosis, Hx Hypercholesterolemia, Hx Hypertension, Hx Myocardial Infarction, Hx Pacemaker /ICD - 5/05/31, Other Cardiovascular Problems/Disorders Denies: Hx Peripheral Vascular Disease Respiratory History: Reports: Hx Chronic Obstructive Pulmonary Disease (COPD), Hx Pneumonia, Hx Pulmonary Embolism, Other Respiratory Problems/Disorders - respiratory failure, uses 3L O2 at night Denies: Hx Asthma History: Denies: Hx Renal Disease Musculoskeletal History: Reports: Hx Arthritis - fingers, Hx Back Problems Denies: Hx Bursitis, Hx Congenital Bone Abnormalities, Hx Fibromyalgia, Hx Gout, Hx Orthopedic Injury, Hx Osteoporosis, Hx Scoliosis, Hx Tendonitis, Other Musculoskeletal History Sensory History: Reports: Hx Deafness - left ear, Hx Hearing Problem Denies: Hx Cataracts, Hx Contacts or Glasses, Hx Eye Injury, Hx Eye Prosthesis, Hx Glaucoma, Hx Legally Blind, Hx Macular Degeneration, Hx Vision Problem, Hx Hearing Aid, Other Sensory Impairments Opthamlomology History: Denies: Hx Cataracts, Hx Contacts or Glasses, Hx Eye Injury, Hx Eye Prosthesis, Hx Glaucoma, Hx Legally Blind, Hx Macular Degeneration, Hx Vision Problem, Other Sensory Impairments Neurological History: Reports: Hx Headaches Denies: Hx Seizures, Hx Transient Ischemic Attacks (TIA) Psychiatric History: Reports: Hx Anxiety - Surgical History Surgery Procedure, Year, and Place: CABG, pacemaker/ICD, appendectomy Hx Anesthesia Reactions: No - Immunization History Date of Tetanus Vaccine: unk Date of Influenza Vaccine: unk Infectious Disease History: Denies: Traveled Outside the [place] in Last 30 Days - Family History Known Family History: Positive: Cardiac Disease - extensive [place] FHx - Social History Alcohol Use: None Hx Substance Use: No Substance Use Type: Reports: None Hx Tobacco Use: Yes Smoking Status (MU): Former Smoker Type: Cigarettes Have You Smoked in the Last Year: No Review of Systems Negative: Fever Positive: Nasal Discharge. Negative: Sore Throat Negative: Chest Pain Positive: Shortness Of Breath, Cough All Other Systems Reviewed And Are Negative: Yes Physical Exam Triage Information Reviewed: Yes Vital Signs Reviewed: Yes Appearance: Positive: Well-Appearing Skin: Positive: Warm, Dry Head/Face: Positive: Normal Head/Face Inspection Eyes: Positive: Normal, EOMI, KUNAL, Conjunctiva Clear ENT: Positive: Normal ENT inspection, Pharynx normal, TMs normal Respiratory/Lung Sounds: Positive: Clear to Auscultation, Decreased Breath Sounds Cardiovascular: Positive: Normal, RRR Abdomen Description: Positive: Nontender, Soft Bowel Sounds: Positive: Present Musculoskeletal: Positive: Normal Neurological: Positive: Normal Psychiatric: Positive: Normal Procedures - Sedation Patient Received Moderate/Deep Sedation with Procedure: No Diagnostics - Laboratory Result Diagrams: 01/01/20 12:25 01/01/20 12:25 Lab Statement: Any lab studies that have been ordered have been reviewed, and results considered in the medical decision making process. - EKG No standard instances Cardiac Rate: NL EKG Comparison: No Significant Change Summary of EKG Findings: ventricular paced rhythm Re-Evaluation - Re-Evaluation First Eval Re-Evaluation Time: 13:19 Change: Improved Comment: feeling better Course/Dx - Course Course Of Treatment: 69 year old male presents with shortness of breath for the past 2 days. He states he isn't sure if he has a fever. He admits to sinus congestion. No sore throat. No headache. No chest pain. No swelling to his legs. No increase in weight. He states that he was diagnosed with the flu 2 weeks ago and was placed on a course of antibiotics and steroids. He states he was getting better but then yesterday started getting worse. He denies any known exposure to any illnesses. No recent travel. He does have oxygen at home and a nebulizer machine at home that has been using which has been helping. He has had a productive cough. On exam decreased breath sounds heard. no edema noted to legs. wbc normal. troponin .05 which is similiar to previous. bnp is 890 which is simliar to previous. with symptoms will test for covid. patient feeling better with breathing treatment and steriod. will discharge with steriod. patient understand and agree with plan. - Diagnoses Differential Diagnosis/HQI/PQRI: Positive: CHF, COPD Exacerbation, Pneumonia Provider Diagnoses: COPD exacerbation, Chronic systolic CHF (congestive heart failure) Discharge ED - Sign-Out/Discharge Documenting (check all that apply): Patient Departure - Discharge Plan Condition: Stable Disposition: HOME Prescriptions: Amoxicillin/Clavulanate TAB* [Augmentin TAB*] 875 mg PO BID #9 tab predniSONE 50 mg TAB [Deltasone 50 mg TAB] 50 mg PO DAILY #4 tab Patient Education Materials: COPD (Chronic Obstructive Pulmonary Disease) (ED) Referrals: Antione Espinosa MD [Primary Care Provider] - Additional Instructions: You have been tested for coronavirus. The department of health will contact you with results when available. You should stay in your house and self quarantine. You should wear a mask if you're outside of your personal room. We encourage handwashing as well as limited contact with other people. Use inhaler up to two puffs or nebulizer every 4 hours for cough and wheezing Take steroid once a day for 4 more days starting tomorrow Take antibiotic twice daily for 5 days Follow up with primary within 5 days Return to ED if develop any new or worsening symptoms - Billing Disposition and Condition Condition: STABLE Disposition: Home - Attestation Statements Provider Attestation: I was available for consultation for this patient. I did not evaluate the patient or participate in any medical decision making or disposition decisions unless I am specifically named in the chart as having consulted on the patient. If I have consulted on the patient, please see my own ED note on the patient encounter. Soraida Junior MD
[2020-01-01 12:47] LABS: ABS Basophils 0.1 10^3/ul (0-0.2); ABS Lymphocytes 0.8 10^3/ul (1.0-4.8); ABS Monocytes 0.6 10^3/ul (0-0.8); ABS Neutrophils 7.4 10^3/ul (1.5-7.7); Eosinophil % 0.3 %; Hematocrit 38 % (42-52); Hemoglobin 12.6 g/dL (14.0-18.0); Lymphocyte % 9.1 %; Mean Corpuscular HGB Conc 33 g/dL (31-36); Mean Corpuscular Hemoglobin 28 pg (27-31); Mean Corpuscular Volume 84 fL (80-94); Mean Platelet Volume 8.2 fL (7.4-10.4); Nucleated Red Blood Cells % 0.2; Platelet Count 137 10^3/uL (150-450); Red Blood Count 4.57 10^6 /uL (4.18-5.48); Red Cell Distribution Width 18 % (10-15)
[2020-01-01 13:03] LABS: Albumin 3.8 g/dL (3.2-5.2); Albumin/Globulin Ratio 1.4 (1-3); BUN/Creatinine Ratio 33.8 (8-20); C Reactive Protein 11.38 mg/L (<8.01); EGFR African American 54.2 (>60); EGFR Non-African American 44.8 (>60); Globulin 2.7 g/dL (2-4); Potassium 4.1 mmol/L (3.5-5.0); Total Bilirubin 0.9 mg/dL (0.2-1.0); Total Protein 6.5 g/dL (6.4-8.9)
[2020-01-01 13:07] LABS: Troponin I 0.05 ng/mL (<0.03)
[2020-01-01] MEDS ORDERED: Furosemide IV* 10 MG/ML VIAL (40 MG) IV SLOW PU ONE (13:16)
[2020-01-01] MEDS ORDERED: DOXYcycline CAP(*) 100 MG PO ONE (13:17)
[2020-01-01] MEDS ORDERED: Amoxicillin/Clavulanate TAB* 500 MG PO ONE (13:23)
[2020-01-01 14:45] VITALS: BP 124/88
[2020-01-01] MEDS ORDERED: Torsemide TAB* 20 MG PO ONE (14:46)
== END 2020-01-01 14:44 | disposition home or self-care (01) ==
LOC: ED 11:46
DX: J44.1 Chronic obstructive pulmonary disease with (acute) exacerbation (principal); I50.22 Chronic systolic (congestive) heart failure; I25.10 Atherosclerotic heart disease of native coronary artery without angina pectoris; E78.00 Pure hypercholesterolemia, unspecified; I11.0 Hypertensive heart disease with heart failure; I25.2 Old myocardial infarction; F41.9 Anxiety disorder, unspecified; Z86.718 Personal history of other venous thrombosis and embolism; Z95.1 Presence of aortocoronary bypass graft; Z95.810 Presence of automatic (implantable) cardiac defibrillator; Z99.81 Dependence on supplemental oxygen; Z87.891 Personal history of nicotine dependence; Z79.01 Long term (current) use of anticoagulants; Z79.82 Long term (current) use of aspirin; Z79.899 Other long term (current) drug therapy; Z88.1 Allergy status to other antibiotic agents
CPT/HCPCS: 36415; 71045; 80053; 83605; 83880; 84484; 85025; 86140; 87040; 93005; 96374; 99284; A9270-GY; J2930; U0002

== ENCOUNTER 2020-08-18 14:18 | Observation (INO) ==
[2020-08-18 15:03] LABS: ABS Lymphocytes 0.6 10^3/ul (1.0-4.8); ABS Monocytes 1.1 10^3/ul (0-0.8); ABS Neutrophils 7.5 10^3/ul (1.5-7.7); ABS Nucleated RBC 0.1 10^3/ul; Eosinophil % 0.1 %; Hematocrit 46 % (42-52); Lymphocyte % 6.2 %; Mean Corpuscular HGB Conc 33 g/dL (31-36); Mean Corpuscular Hemoglobin 26 pg (27-31); Mean Corpuscular Volume 81 fL (80-94); Mean Platelet Volume 7.7 fL (7.4-10.4); Nucleated Red Blood Cells % 0.5; Platelet Count 178 10^3/uL (150-450); Red Blood Count 5.69 10^6 /uL (4.18-5.48); Red Cell Distribution Width 20 % (10-15); White Blood Count 9.2 10^3/uL (3.5-10.8)
[2020-08-18 15:22] LABS: INR 1.57 (0.82-1.09)
[2020-08-18 15:33] LABS: AST 203 U/L (13-39); Albumin 4.1 g/dL (3.2-5.2); Albumin/Globulin Ratio 1.1 (1-3); Alkaline Phosphatase 101 U/L (34-104); BUN/Creatinine Ratio 41.2 (8-20); Blood Urea Nitrogen 73 mg/dL (6-24); C Reactive Protein 52.73 mg/L (<8.01); CO2 Carbon Dioxide 35 mmol/L (22-32); Calcium 10.1 mg/dL (8.6-10.3); Chloride 84 mmol/L (101-111); EGFR African American 46.1 (>60); EGFR Non-African American 38.1 (>60); Globulin 3.7 g/dL (2-4); Glucose 133 mg/dL (70-100); Sodium 133 mmol/L (135-145); Total Protein 7.8 g/dL (6.4-8.9)
[2020-08-18 15:36] LABS: Alcohol, S < 10 mg/dL (<10)
[2020-08-18 15:45] LABS: Anion Gap 14 mmol/L (2-11); Potassium 2.7 mmol/L (3.5-5.0); Troponin I 0.12 ng/mL (<0.03)
[2020-08-18] MEDS ORDERED: KCL 20 MEQ/100 ML IVPREMIX 20 MEQ/100 ML BAG IV ONE (15:53)
[2020-08-18 17:28] LABS: ALT 629 U/L (7-52)
[2020-08-18] MEDS ORDERED: HYDROcodone/ACETAMIN 5/325 mg TAB PO PRN (17:56)
[2020-08-18] MEDS ORDERED: Albuterol/Ipratropium NEB.SOL (2.5/0.5 MG) 3 ML NEB.SOLN INH PRN (17:56)
[2020-08-18] MEDS ORDERED: Ondansetron 4 mg VIAL 2 MG/ML 2 ml VIAL IV PRN (18:00)
[2020-08-18] MEDS ORDERED: Potassium Chlor 20 meq TAB.ER PO ONE (18:00)
[2020-08-18] MEDS ORDERED: NS 0.9% 500 ml BAG 500 ML IV ONE (18:03)
[2020-08-18] MEDS ORDERED: Enoxaparin 30 MG/0.3 ML SYR SUBCUT SCH (20:00)
[2020-08-18] MEDS: Potassium Chlor 20 meq TAB.ER PO SCH (21:53)
[2020-08-18] MEDS: Fluticasone NASAL SPRAY 50MCG 16 gm SPRAY BTL INTRANASAL SCH (21:58)
[2020-08-19 00:46] LABS: Troponin I 0.11 ng/mL (<0.03)
[2020-08-19] MEDS ORDERED: Polyethylene Glycol 3350 17 GM PACKET PO PRN (00:53)
[2020-08-19 06:17] LABS: ALT 420 U/L (7-52); AST 128 U/L (13-39); Albumin 3.6 g/dL (3.2-5.2); Albumin/Globulin Ratio 1.2 (1-3); Alkaline Phosphatase 86 U/L (34-104); Anion Gap 12 mmol/L (2-11); BUN/Creatinine Ratio 45.1 (8-20); Blood Urea Nitrogen 78 mg/dL (6-24); CO2 Carbon Dioxide 30 mmol/L (22-32); Chloride 88 mmol/L (101-111); EGFR African American 47.3 (>60); EGFR Non-African American 39.1 (>60); Glucose 128 mg/dL (70-100); Potassium 3.2 mmol/L (3.5-5.0); Sodium 130 mmol/L (135-145); Total Protein 6.6 g/dL (6.4-8.9)
[2020-08-19 06:38] LABS: Troponin I 0.11 ng/mL (<0.03)
[2020-08-19] MEDS: Aspirin EC 81 mg TAB.EC (enteric coated) PO SCH (10:12)
[2020-08-19] MEDS: Potassium Chlor 20 meq TAB.ER PO SCH ×2 (10:12→19:49)
[2020-08-19] MEDS ORDERED: NS 0.9% 500 ml BAG 500 ML IV ONE (10:15)
[2020-08-19] MEDS: Fluticasone NASAL SPRAY 50MCG 16 gm SPRAY BTL INTRANASAL SCH (19:49)
[2020-08-19 20:10] LABS: BUN/Creatinine Ratio 37.7 (8-20); Calcium 8.5 mg/dL (8.6-10.3); EGFR African American 42.2 (>60); EGFR Non-African American 34.9 (>60); Potassium 2.9 mmol/L (3.5-5.0)
[2020-08-20 06:36] LABS: INR 1.56 (0.82-1.09)
[2020-08-20 07:10] LABS: Albumin 3.5 g/dL (3.2-5.2); Albumin/Globulin Ratio 1.2 (1-3); BUN/Creatinine Ratio 40.1 (8-20); EGFR African American 49.3 (>60); EGFR Non-African American 40.8 (>60); Potassium 3.1 mmol/L (3.5-5.0); Total Bilirubin 1.6 mg/dL (0.2-1.0); Total Protein 6.5 g/dL (6.4-8.9)
[2020-08-20] MEDS ORDERED: Potassium Chloride LIQUID 20 MEQ/15 ML LIQUID PO ONE (08:16)
[2020-08-20] MEDS: Aspirin EC 81 mg TAB.EC (enteric coated) PO SCH (08:23)
[2020-08-20] MEDS: Potassium Chlor 20 meq TAB.ER PO SCH ×2 (08:24→20:30)
[2020-08-20 10:07] LABS: Magnesium 2.1 mg/dL (1.9-2.7)
[2020-08-20] MEDS ORDERED: NS 0.9% 500 ml BAG 500 ML IV ONE ×2 (14:22→19:00)
[2020-08-20] MEDS: Fluticasone NASAL SPRAY 50MCG 16 gm SPRAY BTL INTRANASAL SCH (21:00)
[2020-08-21 07:10] LABS: Hematocrit 41 % (42-52); Hemoglobin 12.9 g/dL (14.0-18.0); Mean Corpuscular HGB Conc 32 g/dL (31-36); Mean Corpuscular Hemoglobin 26 pg (27-31); Mean Corpuscular Volume 82 fL (80-94); Mean Platelet Volume 8.3 fL (7.4-10.4); Platelet Count 154 10^3/uL (150-450); Red Blood Count 4.95 10^6 /uL (4.18-5.48); Red Cell Distribution Width 20 % (10-15); White Blood Count 8.6 10^3/uL (3.5-10.8)
[2020-08-21 07:27] LABS: BUN/Creatinine Ratio 38.3 (8-20); Calcium 8.6 mg/dL (8.6-10.3); EGFR Non-African American 55.4 (>60); Potassium 3.4 mmol/L (3.5-5.0)
[2020-08-21 07:52] LABS: INR 1.88 (0.82-1.09)
[2020-08-21] MEDS: Aspirin EC 81 mg TAB.EC (enteric coated) PO SCH (09:05)
[2020-08-21] MEDS: Potassium Chlor 20 meq TAB.ER PO SCH (09:06)
[2020-08-21 11:24] VITALS: BP 100/50
[2020-08-21] MEDS ORDERED: Potassium Chloride LIQUID 20 MEQ/15 ML LIQUID PO ONE (12:59)
== END 2020-08-21 15:01 | disposition home or self-care (01) ==
LOC: ED 14:18 → MEDTELE 14:18
PROVIDERS: ADMIT Internal Medicine; ATTEND Internal Medicine

== ENCOUNTER 2020-09-06 05:56 | Inpatient (IN) ==
[2020-09-06] MEDS ORDERED: Furosemide 40 mg/4 ml IV VIAL IV ONE (06:14)
[2020-09-06 07:15] LABS: Hematocrit 40 % (42-52); Hemoglobin 12.5 g/dL (14.0-18.0); Mean Corpuscular HGB Conc 31 g/dL (31-36); Mean Corpuscular Hemoglobin 26 pg (27-31); Mean Corpuscular Volume 83 fL (80-94); Mean Platelet Volume 8.1 fL (7.4-10.4); Platelet Count 178 10^3/uL (150-450); Red Blood Count 4.81 10^6 /uL (4.18-5.48); Red Cell Distribution Width 21 % (10-15); White Blood Count 9.9 10^3/uL (3.5-10.8)
[2020-09-06 07:33] LABS: ALT 33 U/L (7-52); Albumin 3.8 g/dL (3.2-5.2); Albumin/Globulin Ratio 1.2 (1-3); Alkaline Phosphatase 108 U/L (34-104); BUN/Creatinine Ratio 34.3 (8-20); Blood Urea Nitrogen 46 mg/dL (6-24); CO2 Carbon Dioxide 23 mmol/L (22-32); Calcium 8.8 mg/dL (8.6-10.3); Chloride 99 mmol/L (101-111); EGFR African American 63.6 (>60); EGFR Non-African American 52.5 (>60); Globulin 3.3 g/dL (2-4); Glucose 112 mg/dL (70-100); Sodium 134 mmol/L (135-145); Total Protein 7.1 g/dL (6.4-8.9)
[2020-09-06 07:40] LABS: Activated Partial Thrombo Time 22.2 seconds (26.0-38.0); INR 3.16 (0.82-1.09)
[2020-09-06 07:47] LABS: C Reactive Protein 48.23 mg/L (<8.01); Creatine Kinase 47 U/L (10-223)
[2020-09-06 07:51] LABS: Troponin I 0.06 ng/mL (<0.03)
[2020-09-06 08:10] LABS: AST 32 U/L (13-39); Anion Gap 12 mmol/L (2-11); Potassium 4.6 mmol/L (3.5-5.0)
[2020-09-06 08:37] LABS: ABS Basophils 0.1 10^3/ul (0-0.2); ABS Lymphocytes 1.4 10^3/ul (1.0-4.8); ABS Monocytes 1.3 10^3/ul (0-0.8); ABS Neutrophils 7.1 10^3/ul (1.5-7.7); ABS Nucleated RBC 0.1 10^3/ul; Eosinophil % 0.3 %; Nucleated Red Blood Cells % 1.3; Polychromasia 2+
[2020-09-06] MEDS ORDERED: Warfarin per PHARMACY **NOTE FOLLOW UP SCH (11:00)
[2020-09-06] MEDS: Bumetanide IV 0.25 MG/ML 4 ml VIAL (1 mg) SLOW PUSH SCH (17:32)
[2020-09-06] MEDS: Mometasone/Formoter 200/5 MDI INH SCH (20:12)
[2020-09-06] MEDS: HYDROcodone/ACETAMIN 5/325 mg TAB PO PRN (20:30)
[2020-09-06] MEDS: Potassium Chlor 20 meq TAB.ER PO SCH (20:30)
[2020-09-07] MEDS: HYDROcodone/ACETAMIN 5/325 mg TAB PO PRN ×2 (05:40→20:35)
[2020-09-07] MEDS ORDERED: Remdesivir 5 MG/ML LIQ IV Vial 200 MG in NS 0.9% 250 ml 210 ML IV ONE (06:00)
[2020-09-07] MEDS: Mometasone/Formoter 200/5 MDI INH SCH ×2 (07:51→20:01)
[2020-09-07 08:37] LABS: Hematocrit 38 % (42-52); Hemoglobin 11.8 g/dL (14.0-18.0); Mean Corpuscular HGB Conc 31 g/dL (31-36); Mean Corpuscular Hemoglobin 26 pg (27-31); Mean Corpuscular Volume 84 fL (80-94); Mean Platelet Volume 8.2 fL (7.4-10.4); Platelet Count 159 10^3/uL (150-450); Red Cell Distribution Width 21 % (10-15); White Blood Count 8.7 10^3/uL (3.5-10.8)
[2020-09-07 08:45] LABS: BUN/Creatinine Ratio 34.9 (8-20); Calcium 8.7 mg/dL (8.6-10.3); EGFR African American 57.6 (>60); EGFR Non-African American 47.6 (>60); Potassium 4.7 mmol/L (3.5-5.0)
[2020-09-07 08:50] LABS: Troponin I 0.07 ng/mL (<0.03)
[2020-09-07 09:17] LABS: Ferritin 107.7 ng/mL (24-336)
[2020-09-07 09:39] LABS: INR 2.61 (0.82-1.09)
[2020-09-07 10:06] LABS: Polychromasia 2+
[2020-09-07 10:07] LABS: ABS Lymphocytes 1.2 10^3/ul (1.0-4.8); ABS Monocytes 1.2 10^3/ul (0-0.8); ABS Neutrophils 6.1 10^3/ul (1.5-7.7); ABS Nucleated RBC 0.2 10^3/ul; Eosinophil % 0.5 %; Nucleated Red Blood Cells % 1.8
[2020-09-07] MEDS: Bumetanide IV 0.25 MG/ML 4 ml VIAL (1 mg) SLOW PUSH SCH ×2 (10:08→17:37)
[2020-09-07] MEDS: Aspirin EC 81 mg TAB.EC (enteric coated) PO SCH (10:11)
[2020-09-07] MEDS: Potassium Chlor 20 meq TAB.ER PO SCH ×2 (10:11→20:34)
[2020-09-07] MEDS: Fluticasone NASAL SPRAY 50MCG 16 gm SPRAY BTL INTRANASAL SCH (10:12)
[2020-09-07] MEDS ORDERED: Albuterol HFA INHALER 8 gm MDI INH PRN (15:18)
[2020-09-08 06:52] LABS: Hematocrit 36 % (42-52); Hemoglobin 11.3 g/dL (14.0-18.0); Mean Corpuscular HGB Conc 31 g/dL (31-36); Mean Corpuscular Hemoglobin 26 pg (27-31); Mean Corpuscular Volume 84 fL (80-94); Mean Platelet Volume 8.2 fL (7.4-10.4); Platelet Count 143 10^3/uL (150-450); Red Blood Count 4.31 10^6 /uL (4.18-5.48); Red Cell Distribution Width 21 % (10-15); White Blood Count 5.6 10^3/uL (3.5-10.8)
[2020-09-08 06:56] LABS: INR 2.3 (0.82-1.09)
[2020-09-08 07:06] LABS: Calcium 8.3 mg/dL (8.6-10.3); EGFR African American 65.3 (>60); EGFR Non-African American 53.9 (>60); Potassium 4.3 mmol/L (3.5-5.0)
[2020-09-08 07:28] LABS: ABS Lymphocytes 0.6 10^3/ul (1.0-4.8); ABS Monocytes 0.4 10^3/ul (0-0.8); ABS Neutrophils 4.6 10^3/ul (1.5-7.7); ABS Nucleated RBC 0.1 10^3/ul; Lymphocyte % 10.6 %
[2020-09-08] MEDS ORDERED: Remdesivir 5 MG/ML LIQ IV Vial 100 MG in NS 0.9% 250 ml 230 ML IV SCH (08:00)
[2020-09-08] MEDS: Mometasone/Formoter 200/5 MDI INH SCH ×2 (08:33→20:11)
[2020-09-08] MEDS: Potassium Chlor 20 meq TAB.ER PO SCH ×2 (08:58→22:07)
[2020-09-08] MEDS: Aspirin EC 81 mg TAB.EC (enteric coated) PO SCH (08:58)
[2020-09-08] MEDS: Fluticasone NASAL SPRAY 50MCG 16 gm SPRAY BTL INTRANASAL SCH (09:01)
[2020-09-08] MEDS: Bumetanide IV 0.25 MG/ML 4 ml VIAL (1 mg) SLOW PUSH SCH ×2 (09:15→17:53)
[2020-09-08] MEDS: Remdesivir 5 MG/ML LIQ IV Vial 100 MG in NS 0.9% 250 ml 230 ML IV SCH (13:43)
[2020-09-09 06:38] LABS: INR 2.8 (0.82-1.09)
[2020-09-09 06:52] LABS: BUN/Creatinine Ratio 43.1 (8-20); Calcium 8.3 mg/dL (8.6-10.3); EGFR Non-African American 51.2 (>60)
[2020-09-09] MEDS: Mometasone/Formoter 200/5 MDI INH SCH ×2 (07:09→19:35)
[2020-09-09 07:30] LABS: ABS Lymphocytes 0.5 10^3/ul (1.0-4.8); ABS Monocytes 0.5 10^3/ul (0-0.8); ABS Neutrophils 6.1 10^3/ul (1.5-7.7); ABS Nucleated RBC 0.1 10^3/ul; Hematocrit 36 % (42-52); Hemoglobin 11.4 g/dL (14.0-18.0); Lymphocyte % 6.7 %; Mean Corpuscular HGB Conc 32 g/dL (31-36); Mean Corpuscular Hemoglobin 26 pg (27-31); Mean Corpuscular Volume 84 fL (80-94); Mean Platelet Volume 8.7 fL (7.4-10.4); Nucleated Red Blood Cells % 0.9; Platelet Count 174 10^3/uL (150-450); Red Blood Count 4.34 10^6 /uL (4.18-5.48); Red Cell Distribution Width 22 % (10-15); White Blood Count 7.1 10^3/uL (3.5-10.8)
[2020-09-09] MEDS: Aspirin EC 81 mg TAB.EC (enteric coated) PO SCH (08:29)
[2020-09-09] MEDS: Fluticasone NASAL SPRAY 50MCG 16 gm SPRAY BTL INTRANASAL SCH (08:30)
[2020-09-09] MEDS: Potassium Chlor 20 meq TAB.ER PO SCH ×2 (08:30→20:47)
[2020-09-09] MEDS: Remdesivir 5 MG/ML LIQ IV Vial 100 MG in NS 0.9% 250 ml 230 ML IV SCH (13:09)
[2020-09-10 05:54] LABS: ABS Lymphocytes 0.4 10^3/ul (1.0-4.8); ABS Monocytes 0.6 10^3/ul (0-0.8); ABS Neutrophils 6.6 10^3/ul (1.5-7.7); Eosinophil % 0.1 %; Hematocrit 38 % (42-52); Hemoglobin 11.7 g/dL (14.0-18.0); Lymphocyte % 5.7 %; Mean Corpuscular HGB Conc 31 g/dL (31-36); Mean Corpuscular Hemoglobin 26 pg (27-31); Mean Corpuscular Volume 83 fL (80-94); Mean Platelet Volume 8.3 fL (7.4-10.4); Nucleated Red Blood Cells % 0.6; Platelet Count 168 10^3/uL (150-450); Red Cell Distribution Width 22 % (10-15); White Blood Count 7.7 10^3/uL (3.5-10.8)
[2020-09-10 06:00] LABS: INR 3.41 (0.82-1.09)
[2020-09-10] MEDS: Aspirin EC 81 mg TAB.EC (enteric coated) PO SCH (07:29)
[2020-09-10] MEDS: Potassium Chlor 20 meq TAB.ER PO SCH (07:30)
[2020-09-10] MEDS: Fluticasone NASAL SPRAY 50MCG 16 gm SPRAY BTL INTRANASAL SCH (07:32)
[2020-09-10 07:36] VITALS: BP 124/85
[2020-09-10] MEDS: Mometasone/Formoter 200/5 MDI INH SCH (08:37)
[2020-09-10] MEDS ORDERED: Warfarin - No Order Today **NOTE FOLLOW UP ONE (17:00)
== END 2020-09-10 11:35 | disposition home health service (06) | DRG 177 ==
LOC: MED 05:56 → ED 05:56 → MED 12:12
PROVIDERS: ADMIT Internal Medicine; ATTEND Internal Medicine

== ENCOUNTER 2020-09-23 08:27 | Inpatient (IN) ==
[2020-09-23] MEDS ORDERED: Albuterol HFA INHALER 8 gm MDI INH ONE (08:42)
[2020-09-23 09:38] LABS: Hematocrit 43 % (42-52); Hemoglobin 13.6 g/dL (14.0-18.0); Mean Corpuscular HGB Conc 32 g/dL (31-36); Mean Corpuscular Hemoglobin 26 pg (27-31); Mean Corpuscular Volume 84 fL (80-94); Mean Platelet Volume 8.5 fL (7.4-10.4); Platelet Count 108 10^3/uL (150-450); Red Blood Count 5.15 10^6 /uL (4.18-5.48); Red Cell Distribution Width 22 % (10-15); White Blood Count 9.7 10^3/uL (3.5-10.8)
[2020-09-23 09:55] LABS: ALT 39 U/L (7-52); AST 32 U/L (13-39); Albumin 3.4 g/dL (3.2-5.2); Alkaline Phosphatase 119 U/L (34-104); Anion Gap 9 mmol/L (2-11); BUN/Creatinine Ratio 28.9 (8-20); Blood Urea Nitrogen 35 mg/dL (6-24); C Reactive Protein 177.02 mg/L (<8.01); CO2 Carbon Dioxide 29 mmol/L (22-32); Chloride 95 mmol/L (101-111); EGFR African American 71.5 (>60); EGFR Non-African American 59.1 (>60); Globulin 3.5 g/dL (2-4); Glucose 105 mg/dL (70-100); Potassium 4.2 mmol/L (3.5-5.0); Sodium 133 mmol/L (135-145); Total Protein 6.9 g/dL (6.4-8.9)
[2020-09-23 09:58] LABS: Troponin I 0.08 ng/mL (<0.03)
[2020-09-23 10:30] LABS: ABS Monocytes 0.6 10^3/ul (0-0.8); ABS Nucleated RBC 0.1 10^3/ul; Eosinophil % 0.4 %; Lymphocyte % 10.7 %; Nucleated Red Blood Cells % 0.7
[2020-09-23 11:29] LABS: Erythrocyte Sed Rate 41 mm/Hr (0-19)
[2020-09-23] MEDS ORDERED: Albuterol/Ipratropium NEB.SOL (2.5/0.5 MG) 3 ML NEB.SOLN INH PRN (11:54)
[2020-09-23 12:22] LABS: Urine Appearance Clear; Urine Bilirubin Negative (Negative); Urine Blood 1+ (Negative); Urine Color Yellow; Urine Glucose Negative (Negative); Urine Ketones Negative (Negative); Urine Nitrite Negative (Negative); Urine Protein 1+(30 mg/dL) (Negative); Urine Specific Gravity 1.011 (1.010-1.030); Urine Urobilinogen Negative (Negative)
[2020-09-23 12:23] LABS: INR 1.91 (0.82-1.09)
[2020-09-23] MEDS ORDERED: Vancomycin 1,500 MG in NS 0.9% 250 ml 250 ML IVPB ONE (12:30)
[2020-09-23 12:34] LABS: Urine Bacteria Absent (Absent); Urine Red Blood Cell Trace(0-2/hpf) (Absent); Urine White Blood Cell Absent (Absent)
[2020-09-23] MEDS: HYDROcodone/ACETAMIN 5/325 mg TAB PO PRN ×2 (13:57→19:53)
[2020-09-23 15:00] LABS: Troponin I 0.08 ng/mL (<0.03)
[2020-09-23] MEDS: Warfarin DAILY REMINDER **NOTE FOLLOW UP SCH (17:07)
[2020-09-23 18:12] LABS: Troponin I 0.09 ng/mL (<0.03)
[2020-09-23] MEDS: Potassium Chlor 20 meq TAB.ER PO SCH (19:52)
[2020-09-24] MEDS: HYDROcodone/ACETAMIN 5/325 mg TAB PO PRN (00:21)
[2020-09-24 07:04] LABS: INR 1.99 (0.82-1.09)
[2020-09-24 07:06] LABS: Hematocrit 37 % (42-52); Hemoglobin 11.7 g/dL (14.0-18.0); Mean Corpuscular HGB Conc 32 g/dL (31-36); Mean Corpuscular Hemoglobin 26 pg (27-31); Mean Corpuscular Volume 83 fL (80-94); Platelet Count 87 10^3/uL (150-450); Red Blood Count 4.46 10^6 /uL (4.18-5.48); Red Cell Distribution Width 21 % (10-15); White Blood Count 7.6 10^3/uL (3.5-10.8)
[2020-09-24 07:21] LABS: BUN/Creatinine Ratio 29.2 (8-20); Calcium 8.4 mg/dL (8.6-10.3); EGFR African American 77.4 (>60)
[2020-09-24 08:19] LABS: ABS Eosinophils 0.1 10^3/ul (0-0.6); ABS Lymphocytes 0.8 10^3/ul (1.0-4.8); ABS Monocytes 0.5 10^3/ul (0-0.8); ABS Neutrophils 6.2 10^3/ul (1.5-7.7); Eosinophil % 0.7 %; Nucleated Red Blood Cells % 0.6
[2020-09-24] MEDS: Potassium Chlor 20 meq TAB.ER PO SCH ×2 (09:50→21:16)
[2020-09-24] MEDS: Aspirin EC 81 mg TAB.EC (enteric coated) PO SCH (09:51)
[2020-09-24] MEDS ORDERED: KCL 20 MEQ/100 ML IVPREMIX 20 MEQ/100 ML BAG IV ONE (10:50)
[2020-09-24 11:50] LABS: Magnesium 1.3 mg/dL (1.9-2.7)
[2020-09-24] MEDS ORDERED: Magnesium Sulfate IV 3 GM in NS 0.9% 100 ml BAG 100 ML IVPB ONE (14:00)
[2020-09-24] MEDS: guaiFENesin 100 mg/5 ml LIQ unit dose cup PO PRN (14:38)
[2020-09-24] MEDS ORDERED: VANCOMYCIN 1250 MG IVPB SCH (15:00)
[2020-09-24 16:48] LABS: Uric Acid 9.1 mg/dL (4.4-7.6)
[2020-09-24] MEDS: Warfarin DAILY REMINDER **NOTE FOLLOW UP SCH (17:09)
[2020-09-25 06:37] LABS: BUN/Creatinine Ratio 28.8 (8-20); Calcium 8.2 mg/dL (8.6-10.3); EGFR African American 85.2 (>60); EGFR Non-African American 70.4 (>60); Magnesium 1.9 mg/dL (1.9-2.7); Potassium 3.5 mmol/L (3.5-5.0)
[2020-09-25] MEDS: Potassium Chlor 20 meq TAB.ER PO SCH ×2 (09:58→21:22)
[2020-09-25] MEDS: Aspirin EC 81 mg TAB.EC (enteric coated) PO SCH (10:01)
[2020-09-25] MEDS ORDERED: Vancomycin 750 MG in NS 0.9% 250 ML IVPB ONE (13:00)
[2020-09-25] MEDS: Benzocaine (DENTAL) 10% TOP.GEL TOPICAL PRN (14:51)
[2020-09-25] MEDS: BENZOCAINE 20% MT PRN ×2 (17:45→23:29)
[2020-09-25] MEDS: Warfarin DAILY REMINDER **NOTE FOLLOW UP SCH (19:31)
[2020-09-26] MEDS: HYDROcodone/ACETAMIN 5/325 mg TAB PO PRN ×4 (04:36→21:47)
[2020-09-26] MEDS: BENZOCAINE 20% MT PRN ×2 (04:38→09:07)
[2020-09-26 05:25] LABS: INR 2.92 (0.82-1.09)
[2020-09-26 05:28] LABS: EGFR African American 73.6 (>60); EGFR Non-African American 60.9 (>60)
[2020-09-26] MEDS ORDERED: Vancomycin Trough Check NOTE FOLLOW UP ONE ×2 (05:30→14:30)
[2020-09-26 05:32] LABS: Vancomycin Trough 12.8 mcg/mL
[2020-09-26] MEDS: Vancomycin 750 MG in NS 0.9% 250 ML IVPB SCH ×2 (05:50→17:40)
[2020-09-26] MEDS: Aspirin EC 81 mg TAB.EC (enteric coated) PO SCH (09:00)
[2020-09-26] MEDS: Potassium Chlor 20 meq TAB.ER PO SCH ×2 (09:00→21:46)
[2020-09-26 09:46] LABS: C Reactive Protein 219.93 mg/L (<8.01)
[2020-09-26] MEDS: cefTRIAXone 2 GM ADDV.VIAL 2 GM in NS 0.9% 100 ml BAG 100 ML IV SCH (12:26)
[2020-09-26] MEDS: Warfarin DAILY REMINDER **NOTE FOLLOW UP SCH (18:01)
[2020-09-27] MEDS: BENZOCAINE 20% MT PRN (01:04)
[2020-09-27] MEDS: Vancomycin 750 MG in NS 0.9% 250 ML IVPB SCH ×2 (05:43→18:35)
[2020-09-27] MEDS: Potassium Chlor 20 meq TAB.ER PO SCH ×2 (09:28→21:19)
[2020-09-27] MEDS: Aspirin EC 81 mg TAB.EC (enteric coated) PO SCH (09:29)
[2020-09-27] MEDS: cefTRIAXone 2 GM ADDV.VIAL 2 GM in NS 0.9% 100 ml BAG 100 ML IV SCH (12:49)
[2020-09-27] MEDS: Benzocaine (DENTAL) 10% TOP.GEL TOPICAL PRN (13:26)
[2020-09-27] MEDS ORDERED: Iodixanol (CONTRAST) 320 MG/ML 100 ML SDV IV ONE (15:53)
[2020-09-27] MEDS: Warfarin DAILY REMINDER **NOTE FOLLOW UP SCH (18:35)
[2020-09-27] MEDS: HYDROcodone/ACETAMIN 5/325 mg TAB PO PRN (21:19)
[2020-09-27] MEDS: guaiFENesin 100 mg/5 ml LIQ unit dose cup PO PRN (21:20)
[2020-09-28] MEDS ORDERED: Vancomycin Trough Check NOTE FOLLOW UP ONE (05:30)
[2020-09-28 05:56] LABS: ABS Lymphocytes 0.7 10^3/ul (1.0-4.8); ABS Monocytes 0.5 10^3/ul (0-0.8); ABS Neutrophils 5.4 10^3/ul (1.5-7.7); ABS Nucleated RBC 0.1 10^3/ul; Eosinophil % 0.1 %; Hematocrit 37 % (42-52); Lymphocyte % 10.3 %; Mean Corpuscular HGB Conc 32 g/dL (31-36); Mean Corpuscular Hemoglobin 27 pg (27-31); Mean Corpuscular Volume 83 fL (80-94); Mean Platelet Volume 8.1 fL (7.4-10.4); Nucleated Red Blood Cells % 0.9; Platelet Count 136 10^3/uL (150-450); Red Blood Count 4.47 10^6 /uL (4.18-5.48); Red Cell Distribution Width 22 % (10-15); White Blood Count 6.5 10^3/uL (3.5-10.8)
[2020-09-28 06:17] LABS: BUN/Creatinine Ratio 24.3 (8-20); C Reactive Protein 165.68 mg/L (<8.01); Calcium 8.6 mg/dL (8.6-10.3); EGFR African American 60.4 (>60)
[2020-09-28 06:20] LABS: Vancomycin Trough 23.3 mcg/mL
[2020-09-28 06:20] LABS: Potassium 5.2 mmol/L (3.5-5.0)
[2020-09-28] MEDS: Vancomycin 750 MG in NS 0.9% 250 ML IVPB SCH (06:24)
[2020-09-28] MEDS: Aspirin EC 81 mg TAB.EC (enteric coated) PO SCH (10:10)
[2020-09-28] MEDS: Benzocaine (DENTAL) 10% TOP.GEL TOPICAL PRN ×2 (10:12→18:13)
[2020-09-28 10:22] LABS: EGFR African American 60.4 (>60)
[2020-09-28] MEDS ORDERED: Vancomycin per Pharmacy 1 EA NOTE FOLLOW UP PRN (10:31)
[2020-09-28 11:06] LABS: INR 5.83 (0.82-1.09)
[2020-09-28] MEDS: cefTRIAXone 2 GM ADDV.VIAL 2 GM in NS 0.9% 100 ml BAG 100 ML IV SCH (12:37)
[2020-09-28] MEDS: Warfarin DAILY REMINDER **NOTE FOLLOW UP SCH (18:04)
[2020-09-28] MEDS: guaiFENesin 100 mg/5 ml LIQ unit dose cup PO PRN (18:14)
[2020-09-28] MEDS: HYDROcodone/ACETAMIN 5/325 mg TAB PO PRN (18:23)
[2020-09-29] MEDS ORDERED: Vancomycin Random Level NOTE FOLLOW UP ONE (06:00)
[2020-09-29 09:37] LABS: ABS Basophils 0.1 10^3/ul (0-0.2); ABS Eosinophils 0.1 10^3/ul (0-0.6); ABS Lymphocytes 0.6 10^3/ul (1.0-4.8); ABS Monocytes 0.6 10^3/ul (0-0.8); ABS Neutrophils 4.7 10^3/ul (1.5-7.7); ABS Nucleated RBC 0.2 10^3/ul; Eosinophil % 1.9 %; Hematocrit 39 % (42-52); Hemoglobin 12.6 g/dL (14.0-18.0); Lymphocyte % 9.5 %; Mean Corpuscular HGB Conc 33 g/dL (31-36); Mean Corpuscular Hemoglobin 27 pg (27-31); Mean Corpuscular Volume 84 fL (80-94); Mean Platelet Volume 8.6 fL (7.4-10.4); Nucleated Red Blood Cells % 2.4; Platelet Count 173 10^3/uL (150-450); Red Blood Count 4.61 10^6 /uL (4.18-5.48); Red Cell Distribution Width 22 % (10-15); White Blood Count 6.2 10^3/uL (3.5-10.8)
[2020-09-29] MEDS: Aspirin EC 81 mg TAB.EC (enteric coated) PO SCH (09:38)
[2020-09-29] MEDS: HYDROcodone/ACETAMIN 5/325 mg TAB PO PRN ×2 (09:39→17:47)
[2020-09-29 10:15] LABS: INR 6.95 (0.82-1.09)
[2020-09-29 10:26] LABS: Calcium 8.1 mg/dL (8.6-10.3); Potassium 4.2 mmol/L (3.5-5.0)
[2020-09-29] MEDS: Benzocaine (DENTAL) 10% TOP.GEL TOPICAL PRN (10:26)
[2020-09-29 10:32] LABS: BUN/Creatinine Ratio 33.6 (8-20); EGFR Non-African American 51.2 (>60)
[2020-09-29] MEDS ORDERED: Gadoteridol (CONTRAST) 279.3 MG/ML 10 ML IV ONE (10:52)
[2020-09-29] MEDS: cefTRIAXone 2 GM ADDV.VIAL 2 GM in NS 0.9% 100 ml BAG 100 ML IV SCH (12:54)
[2020-09-29] MEDS ORDERED: Phytonadione Oral Solution 5 MG/25 ML UDC PO ONE (13:34)
[2020-09-29] MEDS ORDERED: Vancomycin 1,250 MG in NS 0.9% 250 ml 250 ML IVPB ONE (16:00)
[2020-09-29] MEDS: Warfarin DAILY REMINDER **NOTE FOLLOW UP SCH (16:38)
[2020-09-29] MEDS ORDERED: Phytonadione IV (Adult) 10 MG in NS 0.9% 50 ML 50 ML IV ONE (17:32)
[2020-09-29] MEDS: guaiFENesin 100 mg/5 ml LIQ unit dose cup PO PRN (17:49)
[2020-09-30 00:51] LABS: INR 4.1 (0.82-1.09)
[2020-09-30] MEDS ORDERED: Phytonadione Oral Solution 5 MG/25 ML UDC PO ONE (01:26)
[2020-09-30] MEDS: guaiFENesin 100 mg/5 ml LIQ unit dose cup PO PRN ×2 (01:55→20:34)
[2020-09-30 05:49] LABS: Hematocrit 39 % (42-52); Hemoglobin 12.4 g/dL (14.0-18.0); Mean Corpuscular HGB Conc 32 g/dL (31-36); Mean Corpuscular Hemoglobin 27 pg (27-31); Mean Corpuscular Volume 85 fL (80-94); Mean Platelet Volume 8.5 fL (7.4-10.4); Platelet Count 176 10^3/uL (150-450); Red Blood Count 4.61 10^6 /uL (4.18-5.48); Red Cell Distribution Width 22 % (10-15); White Blood Count 5.8 10^3/uL (3.5-10.8)
[2020-09-30 06:01] LABS: INR 2.69 (0.82-1.09)
[2020-09-30 06:05] LABS: BUN/Creatinine Ratio 31.6 (8-20); Calcium 8.2 mg/dL (8.6-10.3); EGFR Non-African American 45.4 (>60); Potassium 3.9 mmol/L (3.5-5.0)
[2020-09-30 07:09] LABS: ABS Lymphocytes 0.6 10^3/ul (1.0-4.8); ABS Monocytes 0.8 10^3/ul (0-0.8); ABS Neutrophils 4.2 10^3/ul (1.5-7.7); ABS Nucleated RBC 0.3 10^3/ul; Eosinophil % 0.2 %; Lymphocyte % 10.8 %; Nucleated Red Blood Cells % 5.1
[2020-09-30] MEDS ORDERED: Iohexol 350 (CONTRAST) 200 ML MDV IV ONE (08:13)
[2020-09-30] MEDS ORDERED: Iodixanol 320 (CONTRAST) 100 ML SDV ONE (08:13)
[2020-09-30] MEDS ORDERED: Lidocaine 1% VIAL 10 MG/ML VIAL ONE (08:13)
[2020-09-30] MEDS ORDERED: Heparin 2 UNITS/ML 1000 mls 2,000 ML IV ONE (08:14)
[2020-09-30] MEDS ORDERED: Midazolam 5 mg/5 ml VIAL 1 mg/ml 5 ml VIAL (5 mg) ONE (08:25)
[2020-09-30] MEDS ORDERED: fentaNYL 100 mcg/2 ml 50 MCG/ML VIAL ONE (08:25)
[2020-09-30] MEDS: Aspirin EC 81 mg TAB.EC (enteric coated) PO SCH (09:09)
[2020-09-30] MEDS: cefTRIAXone 2 GM ADDV.VIAL 2 GM in NS 0.9% 100 ml BAG 100 ML IV SCH (12:18)
[2020-09-30] MEDS ORDERED: NS 0.9% 500 ml BAG 500 ML IV SCH (14:00)
[2020-09-30] MEDS: HYDROcodone/ACETAMIN 5/325 mg TAB PO PRN (14:19)
[2020-09-30] MEDS: BENZOCAINE 20% MT PRN (14:22)
[2020-09-30 14:33] LABS: INR 1.83 (0.82-1.09)
[2020-09-30] MEDS ORDERED: Vancomycin 1,250 MG in NS 0.9% 250 ml 250 ML IVPB SCH (16:00)
[2020-09-30] MEDS: Warfarin DAILY REMINDER **NOTE FOLLOW UP SCH (17:18)
[2020-09-30] MEDS ORDERED: Warfarin per PHARMACY **NOTE FOLLOW UP SCH (18:00)
[2020-09-30] MEDS: Heparin 5000 UNITS/ML 1 mL VIAL SUBCUT SCH (22:29)
[2020-09-30] MEDS: Benzocaine (DENTAL) 10% TOP.GEL TOPICAL PRN (22:29)
[2020-10-01] MEDS: HYDROcodone/ACETAMIN 5/325 mg TAB PO PRN (04:39)
[2020-10-01] MEDS: Heparin 5000 UNITS/ML 1 mL VIAL SUBCUT SCH (06:16)
[2020-10-01 06:32] LABS: Hematocrit 37 % (42-52); Hemoglobin 11.9 g/dL (14.0-18.0); Mean Corpuscular HGB Conc 32 g/dL (31-36); Mean Corpuscular Hemoglobin 27 pg (27-31); Mean Corpuscular Volume 84 fL (80-94); Mean Platelet Volume 8.8 fL (7.4-10.4); Platelet Count 171 10^3/uL (150-450); Red Blood Count 4.38 10^6 /uL (4.18-5.48); Red Cell Distribution Width 22 % (10-15); White Blood Count 5.1 10^3/uL (3.5-10.8)
[2020-10-01 06:42] LABS: BUN/Creatinine Ratio 32.1 (8-20); Calcium 8.1 mg/dL (8.6-10.3); EGFR Non-African American 51.2 (>60); Potassium 3.5 mmol/L (3.5-5.0)
[2020-10-01 08:10] VITALS: BP 121/70
[2020-10-01 08:14] LABS: INR 1.55 (0.82-1.09)
[2020-10-01] MEDS: Aspirin EC 81 mg TAB.EC (enteric coated) PO SCH (08:29)
[2020-10-01] MEDS: BENZOCAINE 20% MT PRN (08:30)
[2020-10-01] MEDS ORDERED: Magnesium Hydroxide LIQ 30 ML UDC PO PRN (08:37)
[2020-10-01] MEDS ORDERED: Senna TAB 8.6 mg TAB PO PRN (08:37)
[2020-10-01] MEDS ORDERED: Polyethylene Glycol 3350 17 GM PACKET PO SCH (09:00)
[2020-10-01 09:17] LABS: ABS Lymphocytes 0.4 10^3/ul (1.0-4.8); ABS Monocytes 0.6 10^3/ul (0-0.8); Eosinophil % 0.3 %; Lymphocyte % 7.5 %
[2020-10-01] MEDS ORDERED: Vancomycin Trough Check NOTE FOLLOW UP ONE (15:30)
== END 2020-10-01 12:00 | disposition home health service (06) | DRG 553 ==
LOC: ED 08:27 → MED 11:49 → SSU 09-25 22:37
PROVIDERS: ADMIT Hospitalist; ATTEND Internal Medicine

== ENCOUNTER 2020-10-04 15:58 | Inpatient (IN) ==
[2020-10-04 17:27] LABS: Hematocrit 41 % (42-52); Hemoglobin 12.8 g/dL (14.0-18.0); Mean Corpuscular HGB Conc 31 g/dL (31-36); Mean Corpuscular Hemoglobin 27 pg (27-31); Mean Corpuscular Volume 86 fL (80-94); Mean Platelet Volume 8.6 fL (7.4-10.4); Platelet Count 127 10^3/uL (150-450); Red Cell Distribution Width 24 % (10-15); White Blood Count 7.3 10^3/uL (3.5-10.8)
[2020-10-04 17:39] LABS: ALT 47 U/L (7-52); AST 32 U/L (13-39); Albumin/Globulin Ratio 1.1 (1-3); Alkaline Phosphatase 191 U/L (34-104); Anion Gap 8 mmol/L (2-11); BUN/Creatinine Ratio 29.2 (8-20); Blood Urea Nitrogen 38 mg/dL (6-24); C Reactive Protein 137.44 mg/L (<8.01); CO2 Carbon Dioxide 27 mmol/L (22-32); Calcium 8.3 mg/dL (8.6-10.3); Chloride 98 mmol/L (101-111); EGFR African American 65.8 (>60); EGFR Non-African American 54.4 (>60); Globulin 2.7 g/dL (2-4); Glucose 120 mg/dL (70-100); Potassium 3.9 mmol/L (3.5-5.0); Sodium 133 mmol/L (135-145); Total Protein 5.7 g/dL (6.4-8.9)
[2020-10-04 17:43] LABS: Troponin I 0.06 ng/mL (<0.03)
[2020-10-04 17:49] LABS: Microcytosis 1+; Polychromasia 2+
[2020-10-04 17:52] LABS: ABS Basophils 0.1 10^3/ul (0-0.2); ABS Eosinophils 0.1 10^3/ul (0-0.6); ABS Lymphocytes 0.4 10^3/ul (1.0-4.8); ABS Monocytes 0.5 10^3/ul (0-0.8); ABS Neutrophils 6.1 10^3/ul (1.5-7.7); ABS Nucleated RBC 0.2 10^3/ul; Eosinophil % 1.5 %; Lymphocyte % 5.1 %; Nucleated Red Blood Cells % 2.6
[2020-10-04] MEDS ORDERED: Piperacillin/Tazobac ADVAN 3.375 GM in NS 0.9% 100 ml BAG 100 ML IV ONE (18:17)
[2020-10-04 18:18] LABS: Urine Appearance Clear; Urine Bilirubin Negative (Negative); Urine Blood Negative (Negative); Urine Color Yellow; Urine Glucose Negative (Negative); Urine Ketones Negative (Negative); Urine Nitrite Negative (Negative); Urine Protein Negative (Negative); Urine Specific Gravity 1.015 (1.010-1.030); Urine Urobilinogen Negative (Negative)
[2020-10-04 21:03] LABS: Activated Partial Thrombo Time 25.9 seconds (26.0-38.0); INR 2.3 (0.82-1.09)
[2020-10-04] MEDS ORDERED: Albuterol/Ipratropium NEB.SOL (2.5/0.5 MG) 3 ML NEB.SOLN INH PRN (21:05)
[2020-10-04] MEDS ORDERED: Vancomycin 1,000 MG in NS 0.9% 250 ml 250 ML IVPB ONE (21:09)
[2020-10-04] MEDS ORDERED: Vancomycin per Pharmacy 1 EA NOTE FOLLOW UP SCH (22:00)
[2020-10-04 23:02] LABS: Troponin I 0.05 ng/mL (<0.03)
[2020-10-04] MEDS: cefTRIAXone 1 gm/50 mL NS BAG 1 GM/50 ML BAG IVPB SCH (23:22)
[2020-10-05 05:49] LABS: Hematocrit 36 % (42-52); Hemoglobin 11.4 g/dL (14.0-18.0); Mean Corpuscular HGB Conc 32 g/dL (31-36); Mean Corpuscular Hemoglobin 27 pg (27-31); Mean Corpuscular Volume 85 fL (80-94); Platelet Count 107 10^3/uL (150-450); Red Blood Count 4.28 10^6 /uL (4.18-5.48); Red Cell Distribution Width 23 % (10-15); White Blood Count 6.5 10^3/uL (3.5-10.8)
[2020-10-05 05:56] LABS: INR 2.44 (0.82-1.09)
[2020-10-05 06:03] LABS: BUN/Creatinine Ratio 34.3 (8-20); Calcium 7.7 mg/dL (8.6-10.3); EGFR African American 87.1 (>60); Potassium 3.3 mmol/L (3.5-5.0)
[2020-10-05 06:18] LABS: Magnesium 1.7 mg/dL (1.9-2.7)
[2020-10-05 06:29] LABS: ABS Lymphocytes 0.4 10^3/ul (1.0-4.8); ABS Monocytes 0.5 10^3/ul (0-0.8); ABS Neutrophils 5.6 10^3/ul (1.5-7.7); ABS Nucleated RBC 0.1 10^3/ul; Eosinophil % 0.2 %; Lymphocyte % 5.5 %; Nucleated Red Blood Cells % 1.2
[2020-10-05] MEDS: Mometasone/Formoter 200/5 MDI INH SCH ×2 (07:41→19:12)
[2020-10-05] MEDS: Potassium Chlor 20 meq TAB.ER PO SCH ×2 (08:13→19:53)
[2020-10-05] MEDS: Aspirin EC 81 mg TAB.EC (enteric coated) PO SCH (08:14)
[2020-10-05] MEDS ORDERED: Senna TAB 8.6 mg TAB PO PRN (08:40)
[2020-10-05] MEDS ORDERED: Magnesium Hydroxide LIQ 30 ML UDC PO PRN (08:40)
[2020-10-05] MEDS ORDERED: Magnesium Sulfate 2 gm BAG 2 GM/50 ML BAG IVPB ONE ×2 (09:18→17:50)
[2020-10-05] MEDS ORDERED: Potassium Chlor 20 meq TAB.ER PO ONE (09:18)
[2020-10-05] MEDS: Vancomycin 1000 MG in NS 0.9% 250 ML IVPB SCH (17:17)
[2020-10-05] MEDS: Cholecalciferol (VIT D3) 1,000 unit TAB PO SCH (19:10)
[2020-10-05] MEDS: Multivitamins ADULT w/MIN LIQ 15 ML UDC PO SCH (19:15)
[2020-10-06] MEDS: cefTRIAXone 1 gm/50 mL NS BAG 1 GM/50 ML BAG IVPB SCH ×2 (00:02→23:48)
[2020-10-06 05:54] LABS: Calcium 8.7 mg/dL (8.6-10.3); Magnesium 2.3 mg/dL (1.9-2.7); Potassium 3.3 mmol/L (3.5-5.0)
[2020-10-06 06:00] LABS: BUN/Creatinine Ratio 33.7 (8-20); EGFR African American 88.1 (>60); EGFR Non-African American 72.8 (>60)
[2020-10-06] MEDS: Mometasone/Formoter 200/5 MDI INH SCH ×2 (08:12→19:59)
[2020-10-06] MEDS: Cholecalciferol (VIT D3) 1,000 unit TAB PO SCH (09:49)
[2020-10-06] MEDS: Aspirin EC 81 mg TAB.EC (enteric coated) PO SCH (09:49)
[2020-10-06] MEDS: Potassium Chlor 20 meq TAB.ER PO SCH ×2 (09:50→19:42)
[2020-10-06] MEDS: Multivitamins ADULT w/MIN LIQ 15 ML UDC PO SCH (09:50)
[2020-10-06] MEDS ORDERED: Potassium Chlor 20 meq TAB.ER PO ONE (11:33)
[2020-10-06] MEDS: Vancomycin 1000 MG in NS 0.9% 250 ML IVPB SCH (15:46)
[2020-10-07 05:45] LABS: INR 3.91 (0.82-1.09)
[2020-10-07 05:46] LABS: BUN/Creatinine Ratio 34.7 (8-20); Calcium 8.5 mg/dL (8.6-10.3); EGFR African American 88.1 (>60); EGFR Non-African American 72.8 (>60); Magnesium 1.7 mg/dL (1.9-2.7)
[2020-10-07] MEDS: Mometasone/Formoter 200/5 MDI INH SCH ×2 (07:38→20:26)
[2020-10-07] MEDS ORDERED: Magnesium Sulfate 2 gm BAG 2 GM/50 ML BAG IVPB ONE (09:04)
[2020-10-07] MEDS ORDERED: Potassium Chlor 20 meq TAB.ER PO ONE (09:04)
[2020-10-07] MEDS ORDERED: Warfarin per PHARMACY **NOTE FOLLOW UP SCH (10:00)
[2020-10-07] MEDS: Multivitamins ADULT w/MIN LIQ 15 ML UDC PO SCH (10:07)
[2020-10-07] MEDS: Cholecalciferol (VIT D3) 1,000 unit TAB PO SCH (10:08)
[2020-10-07] MEDS: Aspirin EC 81 mg TAB.EC (enteric coated) PO SCH (10:08)
[2020-10-07] MEDS: Potassium Chlor 20 meq TAB.ER PO SCH ×2 (10:08→20:08)
[2020-10-07] MEDS ORDERED: KCL 20 MEQ/100 ML IVPREMIX 20 MEQ/100 ML BAG IV ONE (15:04)
[2020-10-07] MEDS ORDERED: Benzocaine/Menthol LOZ MT PRN (15:05)
[2020-10-07] MEDS ORDERED: Vancomycin Trough Check NOTE FOLLOW UP ONE (15:30)
[2020-10-07] MEDS: Vancomycin 1000 MG in NS 0.9% 250 ML IVPB SCH (18:14)
[2020-10-08] MEDS: cefTRIAXone 1 gm/50 mL NS BAG 1 GM/50 ML BAG IVPB SCH (01:32)
[2020-10-08 06:32] LABS: INR 3.22 (0.82-1.09)
[2020-10-08 06:38] LABS: BUN/Creatinine Ratio 33.7 (8-20); Calcium 8.1 mg/dL (8.6-10.3); EGFR African American 85.2 (>60); EGFR Non-African American 70.4 (>60); Magnesium 1.8 mg/dL (1.9-2.7)
[2020-10-08] MEDS: Mometasone/Formoter 200/5 MDI INH SCH ×2 (07:19→19:18)
[2020-10-08] MEDS: Multivitamins ADULT w/MIN LIQ 15 ML UDC PO SCH (07:47)
[2020-10-08] MEDS: Cholecalciferol (VIT D3) 1,000 unit TAB PO SCH (07:48)
[2020-10-08] MEDS ORDERED: Potassium Chlor 20 meq TAB.ER PO ONE (07:48)
[2020-10-08] MEDS: Aspirin EC 81 mg TAB.EC (enteric coated) PO SCH (07:48)
[2020-10-08] MEDS ORDERED: Magnesium Sulfate 2 gm BAG 2 GM/50 ML BAG IVPB ONE (07:48)
[2020-10-08] MEDS: Potassium Chlor 20 meq TAB.ER PO SCH ×2 (07:48→23:26)
[2020-10-08 09:09] LABS: Uric Acid 10.4 mg/dL (4.4-7.6)
[2020-10-08] MEDS: Warfarin DAILY REMINDER **NOTE FOLLOW UP SCH (16:57)
[2020-10-08] MEDS: Amoxicillin/Clavul 500/125 TAB (Augmentin 500 mg tab) PO SCH (23:24)
[2020-10-09 04:27] LABS: INR 3.08 (0.82-1.09)
[2020-10-09 04:35] LABS: BUN/Creatinine Ratio 30.4 (8-20); Calcium 8.6 mg/dL (8.6-10.3); EGFR African American 68.9 (>60); EGFR Non-African American 56.9 (>60); Magnesium 1.9 mg/dL (1.9-2.7); Potassium 3.9 mmol/L (3.5-5.0)
[2020-10-09 04:43] LABS: Hematocrit 41 % (42-52); Hemoglobin 13.2 g/dL (14.0-18.0); Mean Corpuscular HGB Conc 32 g/dL (31-36); Mean Corpuscular Hemoglobin 27 pg (27-31); Mean Corpuscular Volume 84 fL (80-94); Mean Platelet Volume 8.5 fL (7.4-10.4); Platelet Count 158 10^3/uL (150-450); Red Blood Count 4.92 10^6 /uL (4.18-5.48); Red Cell Distribution Width 23 % (10-15); White Blood Count 14.3 10^3/uL (3.5-10.8)
[2020-10-09] MEDS: Mometasone/Formoter 200/5 MDI INH SCH ×2 (08:28→20:08)
[2020-10-09] MEDS ORDERED: Piperacillin/Tazobac ADVAN 3.375 GM in NS 0.9% 100 ml BAG 100 ML IV ONE (10:00)
[2020-10-09] MEDS ORDERED: Warfarin - No Order Today **NOTE FOLLOW UP ONE (10:00)
[2020-10-09] MEDS ORDERED: Zosyn per Pharmacy NOTE FOLLOW UP SCH (10:00)
[2020-10-09] MEDS ORDERED: Cefepime 2 GM in Dextrose 2 GM/50 ML BAG IV SCH (10:30)
[2020-10-09] MEDS: Potassium Chlor 20 meq TAB.ER PO SCH (11:16)
[2020-10-09] MEDS: Cholecalciferol (VIT D3) 1,000 unit TAB PO SCH (11:16)
[2020-10-09] MEDS: Amoxicillin/Clavul 500/125 TAB (Augmentin 500 mg tab) PO SCH (11:33)
[2020-10-09] MEDS ORDERED: Multivitamins/Minerals TAB PO SCH (12:00)
[2020-10-09 12:09] LABS: Hematocrit 42 % (42-52); Hemoglobin 13.2 g/dL (14.0-18.0)
[2020-10-09] MEDS: metroNIDAZOLE IV 500 MG/100ML 500 MG/100 ML BAG IVPB SCH ×2 (12:47→21:48)
[2020-10-09] MEDS: Warfarin DAILY REMINDER **NOTE FOLLOW UP SCH (17:40)
[2020-10-09] MEDS: Cefepime 2 GM in NS 0.9% 50 ML 50 ML IVPB SCH (23:22)
[2020-10-10] MEDS: metroNIDAZOLE IV 500 MG/100ML 500 MG/100 ML BAG IVPB SCH ×3 (03:54→17:28)
[2020-10-10 05:31] LABS: Hematocrit 40 % (42-52); Hemoglobin 12.8 g/dL (14.0-18.0); Mean Corpuscular HGB Conc 32 g/dL (31-36); Mean Corpuscular Hemoglobin 27 pg (27-31); Mean Corpuscular Volume 85 fL (80-94); Mean Platelet Volume 8.8 fL (7.4-10.4); Platelet Count 164 10^3/uL (150-450); Red Cell Distribution Width 23 % (10-15); White Blood Count 16.2 10^3/uL (3.5-10.8)
[2020-10-10 05:50] LABS: ABS Basophils 0.1 10^3/ul (0-0.2); ABS Eosinophils 0.1 10^3/ul (0-0.6); ABS Lymphocytes 0.8 10^3/ul (1.0-4.8); ABS Monocytes 1.1 10^3/ul (0-0.8); ABS Neutrophils 14.1 10^3/ul (1.5-7.7); ABS Nucleated RBC 0.1 10^3/ul; Eosinophil % 0.4 %; Nucleated Red Blood Cells % 0.3
[2020-10-10 05:57] LABS: ALT 61 U/L (7-52); Albumin 2.7 g/dL (3.2-5.2); Alkaline Phosphatase 154 U/L (34-104); BUN/Creatinine Ratio 31.6 (8-20); Blood Urea Nitrogen 42 mg/dL (6-24); CO2 Carbon Dioxide 20 mmol/L (22-32); Chloride 91 mmol/L (101-111); EGFR African American 64.1 (>60); Globulin 2.8 g/dL (2-4); Glucose 75 mg/dL (70-100); Sodium 140 mmol/L (135-145); Total Protein 5.5 g/dL (6.4-8.9)
[2020-10-10 06:14] LABS: Anion Gap 29 mmol/L (2-11)
[2020-10-10 08:04] LABS: INR 2.66 (0.82-1.09)
[2020-10-10 08:05] LABS: Calcium 8.1 mg/dL (8.6-10.3); Potassium Redraw 3.1 mmol/L (3.5-5.0)
[2020-10-10] MEDS: KCL 20 MEQ/100 ML IVPREMIX 20 MEQ/100 ML BAG IV SCH ×2 (09:33→14:11)
[2020-10-10] MEDS: Mometasone/Formoter 200/5 MDI INH SCH ×2 (09:33→20:52)
[2020-10-10 10:01] LABS: Magnesium 1.8 mg/dL (1.9-2.7)
[2020-10-10] MEDS: METHYLPREDNISOLONE SOD IV SCH (11:00)
[2020-10-10] MEDS: NS 0.9% IV SCH (11:00)
[2020-10-10] MEDS: Cefepime 2 GM in NS 0.9% 50 ML 50 ML IVPB SCH ×2 (13:01→23:15)
[2020-10-11] MEDS: metroNIDAZOLE IV 500 MG/100ML 500 MG/100 ML BAG IVPB SCH ×3 (03:09→19:23)
[2020-10-11 06:17] LABS: INR 2.31 (0.82-1.09)
[2020-10-11 06:20] LABS: Albumin 2.7 g/dL (3.2-5.2); Albumin/Globulin Ratio 0.9 (1-3); BUN/Creatinine Ratio 34.5 (8-20); Calcium 8.1 mg/dL (8.6-10.3); EGFR African American 72.9 (>60); EGFR Non-African American 60.3 (>60); Globulin 2.9 g/dL (2-4); Hematocrit 40 % (42-52); Hemoglobin 12.6 g/dL (14.0-18.0); Mean Corpuscular HGB Conc 31 g/dL (31-36); Mean Corpuscular Hemoglobin 27 pg (27-31); Mean Corpuscular Volume 86 fL (80-94); Mean Platelet Volume 8.7 fL (7.4-10.4); Platelet Count 169 10^3/uL (150-450); Potassium 3.6 mmol/L (3.5-5.0); Red Blood Count 4.69 10^6 /uL (4.18-5.48); Red Cell Distribution Width 23 % (10-15); Total Bilirubin 1.4 mg/dL (0.2-1.0); Total Protein 5.6 g/dL (6.4-8.9)
[2020-10-11 06:53] LABS: ABS Basophils 0.1 10^3/ul (0-0.2); ABS Lymphocytes 0.7 10^3/ul (1.0-4.8); ABS Neutrophils 15.2 10^3/ul (1.5-7.7); Lymphocyte % 4.1 %; Nucleated Red Blood Cells % 0.2
[2020-10-11 08:01] LABS: C Reactive Protein 264.08 mg/L (<8.01)
[2020-10-11] MEDS: METHYLPREDNISOLONE SOD IV SCH (08:50)
[2020-10-11] MEDS: NS 0.9% IV SCH (08:50)
[2020-10-11] MEDS: Mometasone/Formoter 200/5 MDI INH SCH ×2 (09:05→23:38)
[2020-10-11] MEDS: Cefepime 2 GM in NS 0.9% 50 ML 50 ML IVPB SCH (10:49)
[2020-10-11] MEDS ORDERED: Perflutren Lipid Microsphere 3 ML VIAL ONE (12:48)
[2020-10-11] MEDS: CEFEPIME 2 GM in Dextrose 50 mL IV SCH (23:40)
[2020-10-12] MEDS: metroNIDAZOLE IV 500 MG/100ML 500 MG/100 ML BAG IVPB SCH ×3 (03:14→18:52)
[2020-10-12 05:14] LABS: Hematocrit 40 % (42-52); Hemoglobin 12.8 g/dL (14.0-18.0); Mean Corpuscular HGB Conc 32 g/dL (31-36); Mean Corpuscular Hemoglobin 27 pg (27-31); Mean Corpuscular Volume 85 fL (80-94); Mean Platelet Volume 8.4 fL (7.4-10.4); Platelet Count 196 10^3/uL (150-450); Red Cell Distribution Width 23 % (10-15); White Blood Count 19.2 10^3/uL (3.5-10.8)
[2020-10-12 05:28] LABS: INR 2.32 (0.82-1.09)
[2020-10-12 05:40] LABS: Albumin 2.8 g/dL (3.2-5.2); Albumin/Globulin Ratio 0.9 (1-3); BUN/Creatinine Ratio 34.2 (8-20); C Reactive Protein 177.3 mg/L (<8.01); Calcium 8.5 mg/dL (8.6-10.3); EGFR African American 76.6 (>60); EGFR Non-African American 63.3 (>60); Globulin 3.2 g/dL (2-4); Total Bilirubin 1.5 mg/dL (0.2-1.0)
[2020-10-12] MEDS: Mometasone/Formoter 200/5 MDI INH SCH ×2 (08:01→20:03)
[2020-10-12 09:02] LABS: ABS Lymphocytes 0.9 10^3/ul (1.0-4.8); ABS Monocytes 1.4 10^3/ul (0-0.8); ABS Neutrophils 16.9 10^3/ul (1.5-7.7); Lymphocyte % 4.5 %; Nucleated Red Blood Cells % 0.1
[2020-10-12 09:04] LABS: Polychromasia 1+
[2020-10-12] MEDS: METHYLPREDNISOLONE SOD IV SCH (10:37)
[2020-10-12] MEDS: NS 0.9% IV SCH (10:37)
[2020-10-12] MEDS: CEFEPIME 2 GM in Dextrose 50 mL IV SCH ×2 (11:15→23:12)
[2020-10-12] MEDS: KCL 20 MEQ/100 ML IVPREMIX 20 MEQ/100 ML BAG IV SCH ×3 (16:40→21:58)
[2020-10-13] MEDS: metroNIDAZOLE IV 500 MG/100ML 500 MG/100 ML BAG IVPB SCH (02:31)
[2020-10-13 06:24] LABS: ABS Lymphocytes 1.1 10^3/ul (1.0-4.8); ABS Monocytes 1.5 10^3/ul (0-0.8); ABS Neutrophils 16.8 10^3/ul (1.5-7.7); Eosinophil % 0.1 %; Hematocrit 41 % (42-52); Hemoglobin 12.7 g/dL (14.0-18.0); Lymphocyte % 5.8 %; Mean Corpuscular HGB Conc 31 g/dL (31-36); Mean Corpuscular Hemoglobin 27 pg (27-31); Mean Corpuscular Volume 86 fL (80-94); Mean Platelet Volume 8.1 fL (7.4-10.4); Nucleated Red Blood Cells % 0.1; Platelet Count 186 10^3/uL (150-450); Red Blood Count 4.74 10^6 /uL (4.18-5.48); Red Cell Distribution Width 24 % (10-15); White Blood Count 19.5 10^3/uL (3.5-10.8)
[2020-10-13 06:36] LABS: INR 2.36 (0.82-1.09)
[2020-10-13 06:51] LABS: BUN/Creatinine Ratio 30.6 (8-20); Calcium 8.5 mg/dL (8.6-10.3); EGFR African American 71.5 (>60); EGFR Non-African American 59.1 (>60); Magnesium 1.5 mg/dL (1.9-2.7); Potassium 3.2 mmol/L (3.5-5.0)
[2020-10-13] MEDS ORDERED: Magnesium Sulfate IV 1GM/100ML 1 GM/100 ML BAG IV ONE (07:25)
[2020-10-13] MEDS ORDERED: Potassium Chlor 20 meq TAB.ER PO ONE ×2 (07:26→12:00)
[2020-10-13 07:44] VITALS: BP 108/76
[2020-10-13 07:53] LABS: C Reactive Protein 106.69 mg/L (<8.01)
[2020-10-13] MEDS ORDERED: Amoxicillin/Clavul 875/125 TAB (Augmentin 875 tab) PO SCH (08:00)
[2020-10-13] MEDS ORDERED: Potassium Chlor 20 meq TAB.ER PO SCH (09:00)
[2020-10-13] MEDS: Mometasone/Formoter 200/5 MDI INH SCH (09:35)
== END 2020-10-13 15:10 | DRG 377 ==
LOC: MED 15:58 → ED 15:58 → SSU 10-09 11:42
PROVIDERS: ADMIT Internal Medicine; ATTEND Internal Medicine

== ENCOUNTER 2020-10-14 09:14 | Inpatient (IN) ==
[2020-10-14] MEDS ORDERED: Iodixanol (CONTRAST) 320 MG/ML 100 ML SDV IV ONE (10:03)
[2020-10-14 10:07] LABS: ABS Basophils 0.2 10^3/ul (0-0.2); ABS Lymphocytes 0.4 10^3/ul (1.0-4.8); ABS Monocytes 0.5 10^3/ul (0-0.8); ABS Neutrophils 23.2 10^3/ul (1.5-7.7); ABS Nucleated RBC 0.1 10^3/ul; Eosinophil % 0.1 %; Hematocrit 47 % (42-52); Hemoglobin 14.3 g/dL (14.0-18.0); Lymphocyte % 1.6 %; Mean Corpuscular HGB Conc 30 g/dL (31-36); Mean Corpuscular Hemoglobin 27 pg (27-31); Mean Corpuscular Volume 88 fL (80-94); Mean Platelet Volume 8.7 fL (7.4-10.4); Nucleated Red Blood Cells % 0.3; Platelet Count 218 10^3/uL (150-450); Red Blood Count 5.35 10^6 /uL (4.18-5.48); Red Cell Distribution Width 24 % (10-15); White Blood Count 24.3 10^3/uL (3.5-10.8)
[2020-10-14 10:20] LABS: ALT 68 U/L (7-52); Albumin 3.3 g/dL (3.2-5.2); Alkaline Phosphatase 200 U/L (34-104); BUN/Creatinine Ratio 28.8 (8-20); Blood Urea Nitrogen 42 mg/dL (6-24); CO2 Carbon Dioxide 22 mmol/L (22-32); Calcium 8.9 mg/dL (8.6-10.3); Chloride 96 mmol/L (101-111); EGFR African American 57.6 (>60); EGFR Non-African American 47.6 (>60); Globulin 3.2 g/dL (2-4); Glucose 93 mg/dL (70-100); Lipase 70 U/L (11.0-82.0); Sodium 133 mmol/L (135-145); Total Protein 6.5 g/dL (6.4-8.9)
[2020-10-14] MEDS ORDERED: NS 0.9% 1000 ml BAG 1,000 ML IV ONE (10:23)
[2020-10-14 10:24] LABS: Troponin I 0.08 ng/mL (<0.03)
[2020-10-14] MEDS ORDERED: Cefepime 1 GM in Dextrose 1 GM/50 ML BAG IV ONE (10:25)
[2020-10-14] MEDS ORDERED: metroNIDAZOLE IV 500 MG/100ML 500 MG/100 ML BAG IVPB ONE (10:25)
[2020-10-14 10:40] LABS: Anion Gap 15 mmol/L (2-11)
[2020-10-14 10:44] LABS: INR 2.16 (0.82-1.09)
[2020-10-14] MEDS ORDERED: NS 0.9% 1000 ml BAG 1,000 ML IV SCH (11:45)
[2020-10-14 12:02] LABS: Magnesium 1.7 mg/dL (1.9-2.7); Potassium Redraw 3.2 mmol/L (3.5-5.0)
[2020-10-14] MEDS ORDERED: Magnesium Sulfate 2 gm BAG 2 GM/50 ML BAG IVPB ONE (12:43)
[2020-10-14] MEDS ORDERED: Calcium CHLORIDE 10% SYRINGE 1 GM/10 ML ONE (13:05)
[2020-10-14] MEDS ORDERED: Sodium Bicarbonate 8.4% VIAL 1 MEQ/ML 50 ml VIAL (50 meq) ONE (13:05)
[2020-10-14] MEDS ORDERED: Albuterol/Ipratropium NEB.SOL (2.5/0.5 MG) 3 ML NEB.SOLN INH PRN (13:11)
[2020-10-14] MEDS ORDERED: Atropine 1% (ORAL/SL) 15 ML BTL SL PRN (13:59)
[2020-10-14] MEDS ORDERED: Hydrocortisone INJ 100 MG/2ML 2 ML VIAL IV SCH ×2 (14:00→15:00)
[2020-10-14] MEDS ORDERED: metroNIDAZOLE IV 500 MG/100ML 500 MG/100 ML BAG IVPB SCH ×2 (14:00→22:00)
[2020-10-14] MEDS ORDERED: Morphine 4 MG/ML VIAL (1 ml) ONE (14:12)
[2020-10-14] MEDS: KCL 20 MEQ/100 ML IVPREMIX 20 MEQ/100 ML BAG IV SCH (17:26)
[2020-10-14] MEDS ORDERED: cefTRIAXone 1 gm/50 mL NS BAG 1 GM/50 ML BAG IVPB SCH ×2 (20:00)
[2020-10-15] MEDS ORDERED: NS 0.9% 1000 ml BAG 1,000 ML IV SCH (08:45)
[2020-10-15] MEDS ORDERED: Ondansetron 4 mg VIAL 2 MG/ML 2 ml VIAL IV PRN (08:51)
[2020-10-15] MEDS ORDERED: Mometasone/Formoter 200/5 MDI INH SCH (09:00)
[2020-10-15] MEDS ORDERED: metroNIDAZOLE IV 500 MG/100ML 500 MG/100 ML BAG IVPB SCH (09:00)
[2020-10-15] MEDS ORDERED: Pantoprazole VIAL 40 MG VIAL IV SCH ×2 (09:00)
[2020-10-15] MEDS ORDERED: Vancomycin per Pharmacy 1 EA NOTE FOLLOW UP SCH (09:00)
[2020-10-15 09:25] LABS: INR 2.47 (0.82-1.09)
[2020-10-15 09:30] LABS: Hematocrit 44 % (42-52); Hemoglobin 13.5 g/dL (14.0-18.0); Mean Corpuscular HGB Conc 31 g/dL (31-36); Mean Corpuscular Hemoglobin 27 pg (27-31); Mean Corpuscular Volume 88 fL (80-94); Mean Platelet Volume 8.5 fL (7.4-10.4); Platelet Count 186 10^3/uL (150-450); Red Blood Count 4.96 10^6 /uL (4.18-5.48); Red Cell Distribution Width 24 % (10-15); White Blood Count 16.1 10^3/uL (3.5-10.8)
[2020-10-15 09:33] LABS: Albumin 2.8 g/dL (3.2-5.2); BUN/Creatinine Ratio 29.9 (8-20); Calcium 8.6 mg/dL (8.6-10.3); EGFR African American 54.2 (>60); EGFR Non-African American 44.8 (>60); Globulin 2.9 g/dL (2-4); Magnesium 1.9 mg/dL (1.9-2.7); Potassium 4.2 mmol/L (3.5-5.0); Total Bilirubin 1.8 mg/dL (0.2-1.0); Total Protein 5.7 g/dL (6.4-8.9)
[2020-10-15] MEDS ORDERED: Vancomycin 1,250 MG in NS 0.9% 250 ml 250 ML IVPB ONE (10:30)
[2020-10-15 10:53] LABS: ABS Basophils 0.1 10^3/ul (0-0.2); ABS Lymphocytes 0.7 10^3/ul (1.0-4.8); ABS Monocytes 0.8 10^3/ul (0-0.8); ABS Neutrophils 14.5 10^3/ul (1.5-7.7); ABS Nucleated RBC 0.1 10^3/ul; Lymphocyte % 4.1 %; Nucleated Red Blood Cells % 0.4
[2020-10-15] MEDS: Cefepime ADVAN 1 GM in NS 0.9% 50 ML 50 ML IVPB SCH ×2 (10:58→22:44)
[2020-10-15] MEDS ORDERED: Sodium Citrate/Citric Acid LIQ 15 ML UDC PO ONE (11:21)
[2020-10-15] MEDS ORDERED: fentaNYL 250 mcg/5 ml 50 MCG/ML 5 ml VIAL (250 MCG) ONE (11:32)
[2020-10-15] MEDS ORDERED: Midazolam 5 mg/5 ml VIAL 1 mg/ml 5 ml VIAL (5 mg) ONE (11:32)
[2020-10-15] MEDS ORDERED: Rocuronium 50 mg VIAL 10 mg/ml 5 ml VIAL (50 mg) ONE (11:32)
[2020-10-15] MEDS ORDERED: Lidocaine 2% PF 5 ML VIAL ONE (11:34)
[2020-10-15] MEDS ORDERED: Phenylephrine 40 mcg/mL 10mL (400mcg) SYRINGE ONE ×2 (11:34→13:13)
[2020-10-15] MEDS ORDERED: EPINEPHrine SYR 0.1MG/ML 10 ml SYRINGE ONE (11:34)
[2020-10-15] MEDS ORDERED: Phenylephrine IV 10 MG/ML 1 ml VIAL ONE ×2 (11:34→13:57)
[2020-10-15] MEDS ORDERED: EPHEDrine (Pressors) 50 MG/ML VIAL ONE (11:39)
[2020-10-15] MEDS ORDERED: Metoprolol Tartrate 5 mg VIAL 5 ml VIAL (1 mg/ml) ONE (11:39)
[2020-10-15] MEDS ORDERED: Propofol 10 MG/ML 20 ML BTL ONE (11:39)
[2020-10-15] MEDS ORDERED: Sterile Water for Inj 10 ML ONE (11:39)
[2020-10-15] MEDS ORDERED: NS 0.9% IVPB SCH (12:00)
[2020-10-15] MEDS ORDERED: DAPTOMYCIN IVPB SCH (12:00)
[2020-10-15] MEDS ORDERED: DAPTOmycin 500 MG/10 ML SYRINGE IVPB SCH (12:00)
[2020-10-15] MEDS ORDERED: Bacitracin OINTMENT TUBE ONE (13:15)
[2020-10-15] MEDS ORDERED: Sugammadex 500 MG/5 ML 5 ml VIAL IV PUSH ONE (13:42)
[2020-10-15] MEDS ORDERED: Dexmedetomidine 1,000 MCG in NS 0.9% 250 ml 240 ML IV SCH (15:00)
[2020-10-15] MEDS ORDERED: Lactated Ringers 1000 ml BAG 1,000 ML IV ONE (15:01)
[2020-10-15] MEDS ORDERED: Phenylephrine IV 50 MG in NS 0.9% 250 ml 245 ML IV SCH (16:00)
[2020-10-15] MEDS ORDERED: Hydrocortisone INJ 100 MG/2ML 2 ML VIAL IV ONE (16:00)
[2020-10-15] MEDS: metroNIDAZOLE IV 500 MG/100ML 500 MG/100 ML BAG IVPB SCH (17:00)
[2020-10-15] MEDS: DAPTOMYCIN IVPB SCH (18:17)
[2020-10-15] MEDS: Hydrocortisone INJ 100 MG/2ML 2 ML VIAL IV SCH (22:47)
[2020-10-16] MEDS: metroNIDAZOLE IV 500 MG/100ML 500 MG/100 ML BAG IVPB SCH ×2 (04:18→15:46)
[2020-10-16 05:20] LABS: INR 3.05 (0.82-1.09)
[2020-10-16 05:26] LABS: BUN/Creatinine Ratio 33.3 (8-20); Calcium 7.7 mg/dL (8.6-10.3); EGFR African American 64.7 (>60); EGFR Non-African American 53.5 (>60); Magnesium 1.8 mg/dL (1.9-2.7); Potassium 3.8 mmol/L (3.5-5.0)
[2020-10-16 05:48] LABS: ABS Basophils 0.1 10^3/ul (0-0.2); ABS Lymphocytes 0.4 10^3/ul (1.0-4.8); ABS Monocytes 0.5 10^3/ul (0-0.8); ABS Neutrophils 12.9 10^3/ul (1.5-7.7); ABS Nucleated RBC 0.1 10^3/ul; Hematocrit 39 % (42-52); Hemoglobin 11.9 g/dL (14.0-18.0); Lymphocyte % 2.6 %; Mean Corpuscular HGB Conc 31 g/dL (31-36); Mean Corpuscular Hemoglobin 27 pg (27-31); Mean Corpuscular Volume 87 fL (80-94); Mean Platelet Volume 8.7 fL (7.4-10.4); Nucleated Red Blood Cells % 0.6; Platelet Count 168 10^3/uL (150-450); Red Blood Count 4.42 10^6 /uL (4.18-5.48); Red Cell Distribution Width 23 % (10-15); White Blood Count 13.8 10^3/uL (3.5-10.8)
[2020-10-16] MEDS ORDERED: Magnesium Sulfate 2 gm BAG 2 GM/50 ML BAG IVPB ONE (07:22)
[2020-10-16] MEDS: Hydrocortisone INJ 100 MG/2ML 2 ML VIAL IV SCH ×3 (09:15→22:34)
[2020-10-16] MEDS: Cefepime ADVAN 1 GM in NS 0.9% 50 ML 50 ML IVPB SCH (10:51)
[2020-10-16] MEDS: DAPTOMYCIN IVPB SCH (18:26)
[2020-10-16] MEDS: Cefepime 1 GM in Dextrose 1 GM/50 ML BAG IV SCH (22:34)
[2020-10-17] MEDS: metroNIDAZOLE IV 500 MG/100ML 500 MG/100 ML BAG IVPB SCH ×2 (04:35→16:47)
[2020-10-17 05:33] LABS: ABS Basophils 0.1 10^3/ul (0-0.2); ABS Lymphocytes 0.4 10^3/ul (1.0-4.8); ABS Monocytes 0.6 10^3/ul (0-0.8); ABS Neutrophils 11.5 10^3/ul (1.5-7.7); ABS Nucleated RBC 0.1 10^3/ul; Eosinophil % 0.1 %; Hematocrit 37 % (42-52); Hemoglobin 11.5 g/dL (14.0-18.0); Lymphocyte % 3.1 %; Mean Corpuscular HGB Conc 31 g/dL (31-36); Mean Corpuscular Hemoglobin 27 pg (27-31); Mean Corpuscular Volume 87 fL (80-94); Mean Platelet Volume 8.9 fL (7.4-10.4); Nucleated Red Blood Cells % 0.4; Platelet Count 167 10^3/uL (150-450); Red Blood Count 4.24 10^6 /uL (4.18-5.48); Red Cell Distribution Width 23 % (10-15); White Blood Count 12.6 10^3/uL (3.5-10.8)
[2020-10-17 05:40] LABS: BUN/Creatinine Ratio 35.5 (8-20); Calcium 7.9 mg/dL (8.6-10.3); EGFR African American 61.5 (>60); EGFR Non-African American 50.8 (>60); Potassium 3.7 mmol/L (3.5-5.0)
[2020-10-17] MEDS: Hydrocortisone INJ 100 MG/2ML 2 ML VIAL IV SCH ×2 (06:16→18:01)
[2020-10-17] MEDS ORDERED: Lactated Ringers 1000 ml BAG 1,000 ML IV ONE (08:22)
[2020-10-17] MEDS: Cefepime 1 GM in Dextrose 1 GM/50 ML BAG IV SCH ×2 (09:57→22:06)
[2020-10-17 10:48] LABS: INR 2.12 (0.82-1.09)
[2020-10-17] MEDS: Linezolid 600 MG IVPREMIX(*) 600 MG/300 ML BAG IVPB SCH (18:53)
[2020-10-18] MEDS: metroNIDAZOLE IV 500 MG/100ML 500 MG/100 ML BAG IVPB SCH ×2 (05:09→17:12)
[2020-10-18 05:59] LABS: INR 2.21 (0.82-1.09)
[2020-10-18 06:08] LABS: BUN/Creatinine Ratio 37.8 (8-20); Calcium 7.8 mg/dL (8.6-10.3); EGFR African American 67.6 (>60); EGFR Non-African American 55.9 (>60); Potassium 3.9 mmol/L (3.5-5.0)
[2020-10-18] MEDS: Linezolid 600 MG IVPREMIX(*) 600 MG/300 ML BAG IVPB SCH ×2 (06:40→18:36)
[2020-10-18 06:48] LABS: ABS Basophils 0.1 10^3/ul (0-0.2); ABS Lymphocytes 0.4 10^3/ul (1.0-4.8); ABS Monocytes 0.7 10^3/ul (0-0.8); ABS Neutrophils 11.4 10^3/ul (1.5-7.7); ABS Nucleated RBC 0.1 10^3/ul; Hematocrit 36 % (42-52); Hemoglobin 11.2 g/dL (14.0-18.0); Lymphocyte % 3.2 %; Mean Corpuscular HGB Conc 31 g/dL (31-36); Mean Corpuscular Hemoglobin 27 pg (27-31); Mean Corpuscular Volume 88 fL (80-94); Mean Platelet Volume 8.5 fL (7.4-10.4); Nucleated Red Blood Cells % 0.5; Platelet Count 155 10^3/uL (150-450); Red Blood Count 4.09 10^6 /uL (4.18-5.48); Red Cell Distribution Width 24 % (10-15); White Blood Count 12.5 10^3/uL (3.5-10.8)
[2020-10-18] MEDS: Hydrocortisone INJ 100 MG/2ML 2 ML VIAL IV SCH ×2 (06:50→18:36)
[2020-10-18 10:03] LABS: C Reactive Protein 230.32 mg/L (<8.01)
[2020-10-18] MEDS: Cefepime 1 GM in Dextrose 1 GM/50 ML BAG IV SCH (10:48)
[2020-10-18] MEDS: cefTRIAXone 1 gm/50 mL NS BAG 1 GM/50 ML BAG IVPB SCH (11:53)
[2020-10-19] MEDS: metroNIDAZOLE IV 500 MG/100ML 500 MG/100 ML BAG IVPB SCH ×2 (04:28→16:26)
[2020-10-19] MEDS: Linezolid 600 MG IVPREMIX(*) 600 MG/300 ML BAG IVPB SCH ×2 (05:57→17:52)
[2020-10-19] MEDS: Hydrocortisone INJ 100 MG/2ML 2 ML VIAL IV SCH (05:57)
[2020-10-19 06:46] LABS: Hematocrit 34 % (42-52); Hemoglobin 10.5 g/dL (14.0-18.0); Mean Corpuscular HGB Conc 31 g/dL (31-36); Mean Corpuscular Hemoglobin 27 pg (27-31); Mean Corpuscular Volume 88 fL (80-94); Mean Platelet Volume 8.4 fL (7.4-10.4); Platelet Count 140 10^3/uL (150-450); Red Blood Count 3.88 10^6 /uL (4.18-5.48); Red Cell Distribution Width 23 % (10-15); White Blood Count 11.4 10^3/uL (3.5-10.8)
[2020-10-19 07:01] LABS: BUN/Creatinine Ratio 38.3 (8-20); Calcium 7.6 mg/dL (8.6-10.3); EGFR Non-African American 55.4 (>60); Magnesium 2.3 mg/dL (1.9-2.7); Potassium 4.3 mmol/L (3.5-5.0)
[2020-10-19 07:40] LABS: INR 2.19 (0.82-1.09)
[2020-10-19 08:44] LABS: ABS Lymphocytes 0.3 10^3/ul (1.0-4.8); ABS Monocytes 0.6 10^3/ul (0-0.8); ABS Neutrophils 10.4 10^3/ul (1.5-7.7); ABS Nucleated RBC 0.1 10^3/ul
[2020-10-19] MEDS ORDERED: SPIRIVA Respimat (tiotropium) 2.5 mcg/inh Inhaler INH SCH (11:00)
[2020-10-19] MEDS: cefTRIAXone 1 gm/50 mL NS BAG 1 GM/50 ML BAG IVPB SCH (11:29)
[2020-10-19] MEDS: Albuterol/Ipratropium NEB.SOL (2.5/0.5 MG) 3 ML NEB.SOLN INH PRN (13:07)
[2020-10-20] MEDS: metroNIDAZOLE IV 500 MG/100ML 500 MG/100 ML BAG IVPB SCH (03:50)
[2020-10-20 05:33] LABS: INR 2.09 (0.82-1.09)
[2020-10-20 05:39] LABS: Hematocrit 36 % (42-52); Hemoglobin 11.3 g/dL (14.0-18.0); Mean Corpuscular HGB Conc 31 g/dL (31-36); Mean Corpuscular Hemoglobin 27 pg (27-31); Mean Corpuscular Volume 88 fL (80-94); Mean Platelet Volume 8.9 fL (7.4-10.4); Platelet Count 146 10^3/uL (150-450); Red Blood Count 4.11 10^6 /uL (4.18-5.48); Red Cell Distribution Width 23 % (10-15); White Blood Count 13.4 10^3/uL (3.5-10.8)
[2020-10-20 05:56] LABS: BUN/Creatinine Ratio 39.6 (8-20); Calcium 8.1 mg/dL (8.6-10.3); EGFR Non-African American 50.4 (>60)
[2020-10-20 05:59] LABS: Potassium 5.1 mmol/L (3.5-5.0)
[2020-10-20] MEDS: Linezolid 600 MG IVPREMIX(*) 600 MG/300 ML BAG IVPB SCH ×2 (07:03→17:27)
[2020-10-20 07:08] LABS: ABS Lymphocytes 0.6 10^3/ul (1.0-4.8); ABS Monocytes 0.9 10^3/ul (0-0.8); ABS Neutrophils 11.9 10^3/ul (1.5-7.7); ABS Nucleated RBC 0.3 10^3/ul; Eosinophil % 0.1 %; Lymphocyte % 4.5 %
[2020-10-20 09:43] LABS: BUN/Creatinine Ratio 36.4 (8-20); Calcium 7.6 mg/dL (8.6-10.3); EGFR African American 60.4 (>60); Potassium 4.5 mmol/L (3.5-5.0)
[2020-10-20 10:05] LABS: C Reactive Protein 86.56 mg/L (<8.01)
[2020-10-20] MEDS: cefTRIAXone 1 gm/50 mL NS BAG 1 GM/50 ML BAG IVPB SCH (11:07)
[2020-10-20] MEDS: Albuterol/Ipratropium NEB.SOL (2.5/0.5 MG) 3 ML NEB.SOLN INH PRN (17:46)
[2020-10-20] MEDS: Mometasone/Formoter 200/5 MDI INH SCH (21:14)
[2020-10-21 05:17] LABS: Hematocrit 35 % (42-52); Hemoglobin 11.1 g/dL (14.0-18.0); Mean Corpuscular HGB Conc 32 g/dL (31-36); Mean Corpuscular Hemoglobin 28 pg (27-31); Mean Corpuscular Volume 88 fL (80-94); Mean Platelet Volume 8.5 fL (7.4-10.4); Platelet Count 122 10^3/uL (150-450); Red Blood Count 3.99 10^6 /uL (4.18-5.48); Red Cell Distribution Width 23 % (10-15)
[2020-10-21 05:18] LABS: INR 2.14 (0.82-1.09)
[2020-10-21 05:27] LABS: BUN/Creatinine Ratio 39.7 (8-20); Calcium 7.4 mg/dL (8.6-10.3); EGFR African American 62.5 (>60); EGFR Non-African American 51.7 (>60); Potassium 3.7 mmol/L (3.5-5.0)
[2020-10-21] MEDS: Linezolid 600 MG IVPREMIX(*) 600 MG/300 ML BAG IVPB SCH ×2 (06:19→17:59)
[2020-10-21] MEDS: Mometasone/Formoter 200/5 MDI INH SCH ×2 (08:04→20:26)
[2020-10-21] MEDS: Warfarin DAILY REMINDER **NOTE FOLLOW UP SCH (18:00)
[2020-10-22 06:07] LABS: INR 2.22 (0.82-1.09)
[2020-10-22 06:16] LABS: ABS Basophils 0.1 10^3/ul (0-0.2); ABS Lymphocytes 0.4 10^3/ul (1.0-4.8); ABS Monocytes 0.4 10^3/ul (0-0.8); ABS Nucleated RBC 0.2 10^3/ul; Eosinophil % 0.1 %; Hematocrit 37 % (42-52); Hemoglobin 11.8 g/dL (14.0-18.0); Lymphocyte % 2.8 %; Mean Corpuscular HGB Conc 32 g/dL (31-36); Mean Corpuscular Hemoglobin 28 pg (27-31); Mean Corpuscular Volume 87 fL (80-94); Mean Platelet Volume 8.9 fL (7.4-10.4); Nucleated Red Blood Cells % 1.7; Platelet Count 111 10^3/uL (150-450); Red Blood Count 4.27 10^6 /uL (4.18-5.48); Red Cell Distribution Width 23 % (10-15); White Blood Count 12.8 10^3/uL (3.5-10.8)
[2020-10-22 06:19] LABS: BUN/Creatinine Ratio 36.9 (8-20); Calcium 7.6 mg/dL (8.6-10.3); EGFR African American 65.8 (>60); EGFR Non-African American 54.4 (>60); Potassium 3.7 mmol/L (3.5-5.0)
[2020-10-22] MEDS: Mometasone/Formoter 200/5 MDI INH SCH ×2 (09:03→20:53)
[2020-10-22] MEDS ORDERED: Furosemide 20 mg/2 ml IV VIAL IV ONE (12:53)
[2020-10-22] MEDS: Warfarin DAILY REMINDER **NOTE FOLLOW UP SCH (17:52)
[2020-10-22] MEDS: Albuterol/Ipratropium NEB.SOL (2.5/0.5 MG) 3 ML NEB.SOLN INH PRN (19:31)
[2020-10-22] MEDS ORDERED: Bumetanide IV 0.25 MG/ML 4 ml VIAL (1 mg) SLOW PUSH ONE ×2 (20:12→22:43)
[2020-10-22 23:20] LABS: INR 2.65 (0.82-1.09)
[2020-10-23 01:09] LABS: Urine Appearance Clear; Urine Bilirubin Negative (Negative); Urine Blood 2+ (Negative); Urine Color Yellow; Urine Glucose Negative (Negative); Urine Ketones Negative (Negative); Urine Nitrite Negative (Negative); Urine Protein Negative (Negative); Urine Specific Gravity 1.009 (1.010-1.030); Urine Urobilinogen Negative (Negative)
[2020-10-23 01:20] LABS: Urine Bacteria 1+ (Absent); Urine Red Blood Cell Trace(0-2/hpf) (Absent); Urine White Blood Cell Trace(0-5/hpf) (Absent)
[2020-10-23 05:58] LABS: Hematocrit 41 % (42-52); Mean Corpuscular HGB Conc 31 g/dL (31-36); Mean Corpuscular Hemoglobin 28 pg (27-31); Mean Corpuscular Volume 89 fL (80-94); Red Blood Count 4.67 10^6 /uL (4.18-5.48); Red Cell Distribution Width 23 % (10-15); White Blood Count 20.8 10^3/uL (3.5-10.8)
[2020-10-23 06:11] LABS: BUN/Creatinine Ratio 36.3 (8-20); Calcium 7.6 mg/dL (8.6-10.3); EGFR Non-African American 52.1 (>60)
[2020-10-23 06:18] LABS: ABS Nucleated RBC 0.3 10^3/ul; Nucleated Red Blood Cells % 1.3
[2020-10-23 06:30] LABS: Potassium 3.5 mmol/L (3.5-5.0)
[2020-10-23] MEDS: Mometasone/Formoter 200/5 MDI INH SCH (08:11)
[2020-10-23 08:50] LABS: ABS Neutrophils 20.8 10^3/ul (1.5-7.7); Mean Platelet Volume 9.1 fL (7.4-10.4); Platelet Count 98 10^3/uL (150-450); Polychromasia 1+
[2020-10-23] MEDS ORDERED: Bumetanide IV 0.25 MG/ML 4 ml VIAL (1 mg) SLOW PUSH ONE (10:56)
[2020-10-23 13:58] LABS: Magnesium 1.6 mg/dL (1.9-2.7)
[2020-10-23 14:04] LABS: Phosphorus 3.2 mg/dL (2.5-5.0)
[2020-10-23] MEDS ORDERED: Magnesium Sulfate 2 gm BAG 2 GM/50 ML BAG IVPB ONE (15:36)
[2020-10-23 17:53] VITALS: BP 112/86
== END 2020-10-23 16:05 | disposition expired | DRG 853 ==
LOC: ED 09:14 → MEDTELE 13:56 → ICU 10-15 14:20 → SSU 10-17 17:41 → ICU 10-22 23:27
PROVIDERS: ADMIT Internal Medicine; ATTEND Internal Medicine